=== PATIENT | female | born 1950 | race Caucasian/White ===

== ENCOUNTER 2020-09-20 10:20 | Outpatient (REF) | payer MEDICARE, SELFPAY ==
[2020-09-20 12:26] LABS: MANUAL DIFF FLAG NO
[2020-09-20 12:35] LABS: Basophils Percent Auto 0.2 % (0-2); Hematocrit 39.1 % (37-47); Hemoglobin 11.9 g/dl (12.0-16.0); Imm Gran Abs Auto 0.02 X10*3/uL (0.00-0.03); Imm Gran Pct Auto 0.3 % (0.0-0.4); Lymphocytes Absolute Auto 1.4 X10*3/uL (1.2-4.9); Lymphocytes Percent Auto 23.7 % (20-40); Mean Corpuscular HGB Conc 30.4 g/dl (31.0-35.0); Mean Corpuscular Hemoglobin 24.2 pg (27.0-33.0); Mean Corpuscular Volume 79.6 fL (80-98); Monocytes Absolute Auto 0.4 X10*3/uL (0.1-1.2); Monocytes Percent Auto 5.8 % (2-11); Neutrophils Absolute Auto 4.3 X10*3/uL (2.0-8.3); Platelet Count 413 X10*3/uL (160-400); Red Blood Count 4.91 X10*6/uL (4.20-5.50); Red Cell Distribution Width 14.2 % (11.0-16.0); White Blood Count 6.1 X10*3/uL (4.8-10.8)
[2020-09-20 12:39] LABS: Glucose Urine UA NEG (NEG); Leukocyte Esterase Urine TRACE (NEG); Nitrite Urine NEG (NEG); Urine Blood NEG (NEG); Urine Ketones NEG (NEG); Urine Protein NEG (NEG-TRACE)
[2020-09-20 12:43] LABS: Appearance Urine HAZY; Color Urine YELLOW
[2020-09-20 12:55] LABS: RBC Urine 0 /HPF (0); Renal Epithelial Cells Urine 1+ /LPF; Squamous Epithelial Cell Urine 1+ /LPF
[2020-09-20 13:13] LABS: Alanine Aminotransferase 22 U/L (0-31); Albumin Level 4.6 g/dL (3.5-5.0); Alkaline Phosphatase 51 U/L (39-117); Anion Gap 12 (12-20); Aspartate Amino Transferase 19 U/L (5-31); Bilirubin Total 0.5 mg/dL (0.0-1.0); Blood Urea Nitrogen 17 mg/dL (9-16); Calcium 10.2 mg/dL (8.4-10.2); Carbon Dioxide 29 mmol/L (22-29); Chloride 103 mmol/L (96-108); Cholesterol 170 mg/dL; Estimated Glomerular Filt Rate 59; Glucose Fasting 126 mg/dL (60-99); HDL Cholesterol 74 mg/dL; LDL Cholesterol Calculated 73 mg/dl; Potassium 4.9 mmol/l (3.3-5.1); Sodium 139 mmol/L (135-145); Total Protein 7.1 g/dL (6.5-8.0); Triglycerides 118 mg/dL
[2020-09-20 13:36] LABS: Free T4 (Free Thyroxine) 1.42 ng/dL (0.71-1.85); Thyroid Stimulating Hormone 0.07 uIU/mL (0.32-4.0); Vitamin D 25-OH Total 36.3 ng/mL (>30)
[2020-09-20 13:48] LABS: Folate > 20.0 ng/mL (> or = 4.0); Vitamin B12 759 pg/mL (200-900)
[2020-09-20 14:17] LABS: Creatinine Urine 85.53 mg/dL; Microalbum/Creatinine Ratio Ur 8.1 ug/mg cr
== END 2020-09-20 10:21 | disposition home or self-care (01) ==
LOC: HO.LAB 10:20
PROVIDERS: Visit Provider Internal Medicine
DX: E78.00 Pure hypercholesterolemia, unspecified (principal); E78.5 Hyperlipidemia, unspecified; E11.9 Type 2 diabetes mellitus without complications; I10 Essential (primary) hypertension; E03.9 Hypothyroidism, unspecified; E66.9 Obesity, unspecified; E53.8 Deficiency of other specified B group vitamins; R41.3 Other amnesia; K21.9 Gastro-esophageal reflux disease without esophagitis; L50.1 Idiopathic urticaria; M85.80 Other specified disorders of bone density and structure, unspecified site; E55.9 Vitamin D deficiency, unspecified
CPT/HCPCS: 36415; 80053; 80061; 81001; 82043; 82306; 82607; 82746; 84439; 84443; 85025; 87086

== ENCOUNTER 2020-09-22 13:47 | Outpatient (REF) | payer MEDICARE, SELFPAY ==
--- NOTE | 2020-09-22 13:52 | XR_ITS ---
EXAMINATION: XR HAND, LEFT CLINICAL INFORMATION: Pain COMPARISON: Previous x-ray May 2016 TECHNIQUE: PA, lateral, and oblique views of the left hand. FINDINGS: Bone alignment is normal. No fracture or dislocation is seen. There is mild arthritis at the IP joints and first SENIOR LIVING joint with small osteophytes. No erosions are seen. Bone mineralization is normal. Soft tissues are normal. XR/XR hand LT min 3V IMPRESSION: Mild arthritis at the IP joints and first SENIOR LIVING joint.
== END 2020-09-22 13:48 | disposition home or self-care (01) ==
LOC: HO.XRAY 13:47
PROVIDERS: PCP Internal Medicine; Visit Provider Internal Medicine
DX: M79.642 Pain in left hand (principal); Z91.81 History of falling
CPT/HCPCS: 73130

== ENCOUNTER → 2020-10-13 14:30 | Outpatient (BNVA) | payer MEDICARE, SELFPAY | PROVIDERS: PCP Internal Medicine; Visit Provider Orthopaedic Surgery | DX: M17.12 Unilateral primary osteoarthritis, left knee (principal); Z96.651 Presence of right artificial knee joint | CPT/HCPCS: 20610; 99212; J1040 ==

== ENCOUNTER → 2020-11-10 12:31 | Outpatient (BNVA) | payer MEDICARE, SELFPAY | PROVIDERS: PCP Internal Medicine; Visit Provider Orthopaedic Surgery | DX: M65.331 Trigger finger, right middle finger (principal); R20.0 Anesthesia of skin; R20.2 Paresthesia of skin | CPT/HCPCS: 20550; 99202; J1100 ==

== ENCOUNTER 2020-12-21 09:12 | Outpatient (REF) | payer MEDICARE, SELFPAY ==
[2020-12-21 09:58] LABS: MANUAL DIFF FLAG NO
[2020-12-21 10:01] LABS: Basophils Percent Auto 0.7 % (0-2); Hematocrit 37.4 % (37-47); Hemoglobin 11.3 g/dl (12.0-16.0); Imm Gran Abs Auto 0.02 X10*3/uL (0.00-0.03); Imm Gran Pct Auto 0.5 % (0.0-0.4); Lymphocytes Absolute Auto 1.3 X10*3/uL (1.2-4.9); Lymphocytes Percent Auto 30.5 % (20-40); Mean Corpuscular HGB Conc 30.2 g/dl (31.0-35.0); Mean Corpuscular Hemoglobin 24.5 pg (27.0-33.0); Mean Platelet Volume 10.7 fL (9.4-12.3); Monocytes Absolute Auto 0.5 X10*3/uL (0.1-1.2); Monocytes Percent Auto 11.8 % (2-11); Neutrophils Absolute Auto 2.5 X10*3/uL (2.0-8.3); Neutrophils Percent Auto 56.5 % (45-73); Platelet Count 374 X10*3/uL (160-400); Red Blood Count 4.62 X10*6/uL (4.20-5.50); Red Cell Distribution Width 15.3 % (11.0-16.0); White Blood Count 4.4 X10*3/uL (4.8-10.8)
[2020-12-21 10:01] LABS: Appearance Urine CLEAR; Color Urine YELLOW; Glucose Urine UA NEG (NEG); Leukocyte Esterase Urine TRACE (NEG); Nitrite Urine NEG (NEG); Specific Gravity - Urine 1.015 (1.005-1.025); UACC Culture Trigger YES; Urine Blood NEG (NEG); Urine Ketones NEG (NEG); Urine Protein NEG (NEG-TRACE)
[2020-12-21 10:09] LABS: Bacteria Urine TRACE /LPF; RBC Urine 0 /HPF (0); Renal Epithelial Cells Urine TRACE /LPF; Squamous Epithelial Cell Urine 2+ /LPF; WBC Urine 0-2 /HPF (0-4)
[2020-12-21 10:35] LABS: Alanine Aminotransferase 28 U/L (0-31); Albumin Level 4.4 g/dL (3.5-5.0); Alkaline Phosphatase 53 U/L (39-117); Anion Gap 10 (12-20); Aspartate Amino Transferase 28 U/L (5-31); Bilirubin Total 0.6 mg/dL (0.0-1.0); Blood Urea Nitrogen 12 mg/dL (9-16); Carbon Dioxide 28 mmol/L (22-29); Chloride 108 mmol/L (96-108); Cholesterol 154 mg/dL; Estimated Glomerular Filt Rate > 60; Glucose Fasting 100 mg/dL (60-99); HDL Cholesterol 67 mg/dL; LDL Cholesterol Calculated 61 mg/dl; Potassium 4.4 mmol/L (3.3-5.1); Sodium 142 mmol/L (135-145); Total Protein 6.9 g/dL (6.5-8.0); Triglycerides 133 mg/dL
[2020-12-21 10:43] LABS: Calcium 10.2 mg/dL (8.4-10.2)
[2020-12-21 10:47] LABS: Free T4 (Free Thyroxine) 1.34 ng/dL (0.71-1.85); Thyroid Stimulating Hormone 0.22 uIU/mL (0.32-4.0); Vitamin D 25-OH Total 37.9 ng/mL (>30)
[2020-12-21 11:10] LABS: Folate 18.4 ng/mL (> or = 4.0); Vitamin B12 790 pg/mL (200-900)
== END 2020-12-21 09:13 | disposition home or self-care (01) ==
LOC: HO.LAB 09:12
PROVIDERS: PCP Internal Medicine; Visit Provider Internal Medicine
DX: I10 Essential (primary) hypertension (principal); K21.9 Gastro-esophageal reflux disease without esophagitis; E78.2 Mixed hyperlipidemia; E11.9 Type 2 diabetes mellitus without complications; E03.9 Hypothyroidism, unspecified; E66.9 Obesity, unspecified; E53.8 Deficiency of other specified B group vitamins; E55.9 Vitamin D deficiency, unspecified
CPT/HCPCS: 36415; 80053; 80061; 81001; 81003; 82306; 82607; 82746; 84439; 84443; 85025; 87086

== ENCOUNTER → 2021-01-18 10:46 | Outpatient (BNVA) | payer MEDICARE, SELFPAY | PROVIDERS: PCP Internal Medicine; Visit Provider Orthopaedic Surgery | DX: M65.331 Trigger finger, right middle finger (principal); G56.03 Carpal tunnel syndrome, bilateral upper limbs | CPT/HCPCS: 99212; J1040 ==

== ENCOUNTER 2021-02-09 12:33 | Outpatient (REF) | payer MEDICARE, SELFPAY ==
--- NOTE | ~2021-02-09 | XR_ITS ---
EXAMINATION: LEFT HAND AND LUMBAR SPINE X-RAYS CLINICAL INFORMATION: Pain COMPARISON: Left hand x-ray May 2016 TECHNIQUE: 3 views of the left hand and 3 views of the lumbar spine FINDINGS: Left hand: Alignment is normal. No fracture or dislocation is seen. There is arthritis at the IP joints and first FPC joint with joint space narrowing and osteophyte formation Soft tissues are unremarkable. Lumbar spine: Bone alignment is normal. No fracture or dislocation is seen. There is degenerative disc disease in the lower spine and at T12-L1, L1-L2, L4-L5 and L5-S1. There is lower lumbar spine facet arthritis. XR/XR hand LT 2V IMPRESSION: Left hand: Arthritis at the IP and first FPC joints. Lumbar spine: Multilevel degenerative disc disease and facet arthritis.
--- NOTE | ~2021-02-09 | XR_ITS ---
EXAMINATION: LEFT HAND AND LUMBAR SPINE X-RAYS CLINICAL INFORMATION: Pain COMPARISON: Left hand x-ray May 2016 TECHNIQUE: 3 views of the left hand and 3 views of the lumbar spine FINDINGS: Left hand: Alignment is normal. No fracture or dislocation is seen. There is arthritis at the IP joints and first FDC joint with joint space narrowing and osteophyte formation Soft tissues are unremarkable. Lumbar spine: Bone alignment is normal. No fracture or dislocation is seen. There is degenerative disc disease in the lower spine and at T12-L1, L1-L2, L4-L5 and L5-S1. There is lower lumbar spine facet arthritis. XR/XR lumbar spine 2-3V IMPRESSION: Left hand: Arthritis at the IP and first FDC joints. Lumbar spine: Multilevel degenerative disc disease and facet arthritis.
== END 2021-02-09 12:34 | disposition home or self-care (01) ==
LOC: HO.XRAY 12:33
PROVIDERS: PCP Internal Medicine; Visit Provider Internal Medicine
DX: M54.5 Low back pain (principal)
CPT/HCPCS: 72100; 73120

== ENCOUNTER 2021-03-10 14:24 | Outpatient (REF) | payer MEDICARE, SELFPAY ==
[2021-03-11 12:28] LABS: BV Int Neg Control Negative (Negative); BV Int Pos Control Positive (Positive)
== END 2021-03-10 14:25 | disposition home or self-care (01) ==
LOC: HO.LAB 14:24
PROVIDERS: PCP Internal Medicine; Visit Provider Advanced Practice Midwife
DX: N90.89 Other specified noninflammatory disorders of vulva and perineum (principal); N89.8 Other specified noninflammatory disorders of vagina; Z87.891 Personal history of nicotine dependence
CPT/HCPCS: 87480; 87510; 87660; 99212

== ENCOUNTER 2021-03-21 09:54 | Outpatient (REF) | payer MEDICARE, SELFPAY ==
[2021-03-21 10:30] LABS: MANUAL DIFF FLAG NO
[2021-03-21 10:40] LABS: Basophils Percent Auto 0.7 % (0-2); Hemoglobin 11.2 g/dl (12.0-16.0); Imm Gran Abs Auto 0.01 X10*3/uL (0.00-0.03); Imm Gran Pct Auto 0.2 % (0.0-0.4); Lymphocytes Absolute Auto 1.3 X10*3/uL (1.2-4.9); Lymphocytes Percent Auto 31.4 % (20-40); Mean Corpuscular HGB Conc 29.5 g/dl (31.0-35.0); Mean Corpuscular Hemoglobin 23.5 pg (27.0-33.0); Mean Corpuscular Volume 79.7 fL (80-98); Mean Platelet Volume 10.6 fL (9.4-12.3); Monocytes Absolute Auto 0.5 X10*3/uL (0.1-1.2); Monocytes Percent Auto 10.5 % (2-11); Neutrophils Absolute Auto 2.4 X10*3/uL (2.0-8.3); Neutrophils Percent Auto 57.2 % (45-73); Platelet Count 415 X10*3/uL (160-400); Red Blood Count 4.77 X10*6/uL (4.20-5.50); Red Cell Distribution Width 14.8 % (11.0-16.0); White Blood Count 4.3 X10*3/uL (4.8-10.8)
[2021-03-21 10:55] LABS: Estimated Average Glucose 120 mg/dL; Hemoglobin A1c % 5.8 %
[2021-03-21 11:14] LABS: Alanine Aminotransferase 25 U/L (0-31); Albumin Level 4.4 g/dL (3.5-5.0); Alkaline Phosphatase 57 U/L (39-117); Anion Gap 12 (12-20); Aspartate Amino Transferase 27 U/L (5-31); Bilirubin Total 0.4 mg/dL (0.0-1.0); Blood Urea Nitrogen 13 mg/dL (9-16); Calcium 10.6 mg/dL (8.4-10.2); Carbon Dioxide 28 mmol/L (22-29); Chloride 106 mmol/L (96-108); Cholesterol 152 mg/dL; Estimated Glomerular Filt Rate > 60; Glucose Fasting 103 mg/dL (60-99); HDL Cholesterol 62 mg/dL; LDL Cholesterol Calculated 67 mg/dl; Potassium 4.8 mmol/L (3.3-5.1); Sodium 141 mmol/L (135-145); Total Protein 6.9 g/dL (6.5-8.0); Triglycerides 117 mg/dL
[2021-03-21 11:36] LABS: Free T4 (Free Thyroxine) 1.51 ng/dL (0.71-1.85); Thyroid Stimulating Hormone 0.09 uIU/mL (0.32-4.0); Vitamin D 25-OH Total 42.1 ng/mL (>30)
[2021-03-21 11:41] LABS: Glucose Urine UA NEG (NEG); Leukocyte Esterase Urine 1+ (NEG); Nitrite Urine NEG (NEG); PH 7.5 (5.0-8.0); Specific Gravity - Urine 1.015 (1.005-1.025); UACC Culture Trigger YES; Urine Blood NEG (NEG); Urine Ketones NEG (NEG); Urine Protein NEG (NEG-TRACE)
[2021-03-21 11:53] LABS: Appearance Urine CLEAR; Color Urine YELLOW
[2021-03-21 11:55] LABS: Folate 17.7 ng/mL (> or = 4.0); Vitamin B12 594 pg/mL (200-900)
[2021-03-21 12:29] LABS: RBC Urine 0 /HPF (0); Renal Epithelial Cells Urine 1+ /LPF; Squamous Epithelial Cell Urine 1+ /LPF
[2021-03-21 12:43] LABS: Creatinine Urine 63.85 mg/dL; Microalbumin Urine < 5.0 mg/L
== END 2021-03-21 09:55 | disposition home or self-care (01) ==
LOC: HO.LAB 09:54
PROVIDERS: PCP Internal Medicine; Visit Provider Internal Medicine
DX: E66.9 Obesity, unspecified (principal); E11.9 Type 2 diabetes mellitus without complications; I10 Essential (primary) hypertension; E55.9 Vitamin D deficiency, unspecified; E53.8 Deficiency of other specified B group vitamins; E03.9 Hypothyroidism, unspecified; E78.2 Mixed hyperlipidemia; L50.1 Idiopathic urticaria; K21.9 Gastro-esophageal reflux disease without esophagitis
CPT/HCPCS: 36415; 80053; 80061; 81001; 81003; 82043; 82306; 82607; 82746; 83036; 84439; 84443; 85025; 87086

== ENCOUNTER → 2021-04-25 12:25 | Outpatient (BNVA) | payer MEDICARE, SELFPAY | PROVIDERS: Visit Provider Orthopaedic Surgery | DX: M65.331 Trigger finger, right middle finger (principal); G56.02 Carpal tunnel syndrome, left upper limb; G56.01 Carpal tunnel syndrome, right upper limb | CPT/HCPCS: Q3014 ==

== ENCOUNTER 2021-06-02 10:17 | Day surgery (SDC) | payer MEDICARE, SELFPAY ==
[2021-06-02 10:53] VITALS: BP 138/59; PULSE 61; RESP 18; TEMP 36.4; O2SAT 99
--- NOTE | 2021-06-02 11:13 | MHC.SHP ---
Pre-Procedural Eval Section A Date of Service: 06/02/21 Section B Chief Complaint: Carpal Tunnel Syndrome Allergies: Allergies Allergy/AdvReac Type Severity Reaction Status Date / Time No Known Allergies Allergy Verified 04/25/21 13:29 [No Known Allergies*] Plan I have reviewed the history and physical and performed a pertinent physical examination on my patient. No changes have occurred unless specified.
--- NOTE | 2021-06-02 11:14 | W.PM.OPN ---
Operative Note Operative Note Date of Service: 06/02/21 Narrative: Preop diagnosis: 1. Left Carpal tunnel syndrome Postop diagnosis: same Procedure: 1. Left Carpal tunnel release Surgeon: Loren Diaz MD Anesthesia: local block using 1% lidocaine with epinephrine Findings: Thickened transverse carpal ligament. EBL: Less than 5 mL Specimens: None Complications: None Disposition: Brought to recovery room in stable condition Plan: Follow-up for 7-10 days for wound check and suture removal Indications: The patient is 71 years old, with left carpal tunnel syndrome that has been unresponsive to nonoperative management. The risks and benefits of operative treatment including but not limited to risk of damage to blood vessels, nerves, tendons, infection, persistent pain, persistent symptoms, or possible need for additional surgery were discussed with the patient and the patient wishes to proceed with surgery. Procedure: Once consent was obtained a local block was performed using a combination of 1% lidocaine with epinephrine. The patient was then brought back to the operating suite and placed on the operative table in supine position. A tourniquet was applied to the proximal aspect of the left upper extremity and the limb was prepped and draped in a standard surgical fashion. Once assured that we had a good block, a 1.5 cm longitudinal incision was made centered over the carpal tunnel. The incision was made through the skin to the subcutaneous tissues using a #15 blade. Dissection was made down to the level of the transverse carpal ligament with care being taken to protect the palmar cutaneous nerve. Once the transverse carpal ligament was clearly visualized, a longitudinal incision was made in the transverse carpal ligament 1st using a #15 blade, then using tenotomy scissors under direct visualization. Care was taken to look for and protect the motor branch of the median nerve when seen in this area. Once satisfied with our carpal tunnel release the wound was copiously irrigated with normal saline and hemostasis was obtained with a brief period of local pressure. The skin edges were reapproximated with some 5.0 nylon suture material and a sterile dressing was applied. The patient appears to have tolerated the procedure well and with no complications. All digits were well vascularized at the conclusion of the case.
[2021-06-02 12:24] VITALS: BP 113/52; PULSE 53; RESP 18; TEMP 37.2; O2SAT 98
== END 2021-06-02 13:01 | disposition home or self-care (01) ==
PROVIDERS: PCP Internal Medicine; Visit Provider Orthopaedic Surgery
PROC: (CPT 64721; principal; 2021-06-02 11:30)
DX: G56.02 Carpal tunnel syndrome, left upper limb (principal); I10 Essential (primary) hypertension; E11.9 Type 2 diabetes mellitus without complications; J45.909 Unspecified asthma, uncomplicated; Z79.51 Long term (current) use of inhaled steroids; Z79.84 Long term (current) use of oral hypoglycemic drugs; Z91.81 History of falling; Z87.891 Personal history of nicotine dependence; Z79.899 Other long term (current) drug therapy
CPT/HCPCS: 64721

== ENCOUNTER → 2021-06-13 10:44 | Outpatient (BNVA) | payer MEDICARE, SELFPAY | PROVIDERS: Visit Provider Orthopaedic Surgery | DX: Z48.89 Encounter for other specified surgical aftercare (principal); G56.01 Carpal tunnel syndrome, right upper limb; M65.331 Trigger finger, right middle finger; Z87.39 Personal history of other diseases of the musculoskeletal system and connective tissue | CPT/HCPCS: 99212 ==

== ENCOUNTER 2021-09-22 11:09 | Outpatient (REF) | payer MEDICARE, SELFPAY ==
[2021-09-22 11:40] LABS: MANUAL DIFF FLAG NO
[2021-09-22 11:55] LABS: Hematocrit 40.2 % (37.0-47.0); Hemoglobin 12.2 g/dl (12.0-16.0); Imm Gran Abs Auto 0.01 X10*3/uL (0.00-0.03); Imm Gran Pct Auto 0.2 % (0.0-0.4); Lymphocytes Absolute Auto 1.3 X10*3/uL (1.2-4.9); Lymphocytes Percent Auto 28.2 % (20-40); Mean Corpuscular HGB Conc 30.3 g/dl (31.0-35.0); Mean Corpuscular Hemoglobin 25.2 pg (27.0-33.0); Mean Corpuscular Volume 83.1 fL (80.0-98.0); Monocytes Absolute Auto 0.3 X10*3/uL (0.1-1.2); Monocytes Percent Auto 7.6 % (2-11); Neutrophils Absolute Auto 2.9 x10*3/uL (2.0-8.3); Platelet Count 307 X10*3/uL (160-400); Red Blood Count 4.84 X10*6/uL (4.20-5.50); Red Cell Distribution Width 14.6 % (11.0-16.0); White Blood Count 4.5 X10*3/uL (4.8-10.8)
[2021-09-22 12:12] LABS: Estimated Average Glucose 111 mg/dL; Hemoglobin A1c % 5.5 %
[2021-09-22 12:25] LABS: Alanine Aminotransferase 30 U/L (0-31); Albumin Level 4.5 g/dL (3.5-5.0); Alkaline Phosphatase 47 U/L (39-117); Anion Gap 12 (12-20); Aspartate Amino Transferase 30 U/L (5-31); Bilirubin Total 0.6 mg/dL (0.0-1.0); Blood Urea Nitrogen 12 mg/dL (9-16); Calcium 10.8 mg/dL (8.4-10.2); Carbon Dioxide 26 mmol/L (22-29); Chloride 108 mmol/L (96-108); Cholesterol 150 mg/dL; Estimated Glomerular Filt Rate > 60; Glucose Fasting 94 mg/dL (60-99); HDL Cholesterol 68 mg/dL; LDL Cholesterol Calculated 59 mg/dl; Potassium 4.8 mmol/L (3.3-5.1); Sodium 141 mmol/L (135-145); Total Protein 6.9 g/dL (6.5-8.0); Triglycerides 115 mg/dL
[2021-09-22 12:36] LABS: Appearance Urine CLEAR; Color Urine YELLOW; Glucose Urine UA NEG (NEG); Leukocyte Esterase Urine NEG (NEG); Nitrite Urine NEG (NEG); PH 7.5 (5.0-8.0); Specific Gravity - Urine <= 1.005 (1.005-1.025); Urine Blood NEG (NEG); Urine Ketones NEG (NEG); Urine Protein NEG (NEG-TRACE)
[2021-09-22 12:48] LABS: Free T4 (Free Thyroxine) 1.35 ng/dL (0.71-1.85); Thyroid Stimulating Hormone 0.18 uIU/mL (0.32-4.0)
[2021-09-22 13:14] LABS: Creatinine Urine 29.84 mg/dL; Microalbumin Urine < 5.0 mg/L
== END 2021-09-22 11:10 | disposition home or self-care (01) ==
LOC: HO.LAB 11:09
PROVIDERS: PCP Internal Medicine; Visit Provider Internal Medicine
DX: E11.9 Type 2 diabetes mellitus without complications (principal); I10 Essential (primary) hypertension; E78.2 Mixed hyperlipidemia; E03.9 Hypothyroidism, unspecified; E66.9 Obesity, unspecified; D64.9 Anemia, unspecified; K21.9 Gastro-esophageal reflux disease without esophagitis; L50.1 Idiopathic urticaria
CPT/HCPCS: 36415; 80053; 80061; 81003; 82043; 83036; 84439; 84443; 85025

== ENCOUNTER 2022-03-28 12:49 | Outpatient (REF) | payer OTHER, SELFPAY ==
--- NOTE | ~2022-03-28 | XR_ITS ---
EXAMINATION: XR SHOULDER, RIGHT XR SHOULDER, LEFT CLINICAL INFORMATION: Pain. COMPARISON: Right shoulder radiographs dated 01/01/2012. TECHNIQUE: AP, Grashey, scapular Y, and axillary views of the right and left shoulder. FINDINGS: Right Shoulder: No acute fracture or dislocation. Moderate acromioclavicular joint space narrowing with marginal osteophytes and subacromial spurring, increased when compared to the prior examination. Mild glenohumeral joint space narrowing with small marginal osteophytes, increased when compared to the prior examination. Corticated ossifications adjacent to the greater tuberosity as well as along the superior joint space, likely indicating infraspinatus calcific tendinitis and new when compared to the prior examination. No osseous erosion. Left Shoulder: No acute fracture or dislocation. Moderate acromioclavicular joint space narrowing with marginal osteophytes. Moderate glenohumeral joint space narrowing with marginal osteophytes. No osseous erosion. No abnormal soft tissue calcification. XR/XR shoulder RT min 2V IMPRESSION: Right Shoulder: Moderate acromioclavicular osteoarthritis with subacromial spurring, increased when compared to the prior examination. Mild glenohumeral osteoarthritis, new when compared to the prior examination. Infraspinatus calcific tendinitis, new when compared to the prior examination. Left Shoulder: Moderate acromioclavicular and glenohumeral osteoarthritis.
--- NOTE | ~2022-03-28 | XR_ITS ---
EXAMINATION: XR SHOULDER, RIGHT XR SHOULDER, LEFT CLINICAL INFORMATION: Pain. COMPARISON: Right shoulder radiographs dated 01/01/2012. TECHNIQUE: AP, Grashey, scapular Y, and axillary views of the right and left shoulder. FINDINGS: Right Shoulder: No acute fracture or dislocation. Moderate acromioclavicular joint space narrowing with marginal osteophytes and subacromial spurring, increased when compared to the prior examination. Mild glenohumeral joint space narrowing with small marginal osteophytes, increased when compared to the prior examination. Corticated ossifications adjacent to the greater tuberosity as well as along the superior joint space, likely indicating infraspinatus calcific tendinitis and new when compared to the prior examination. No osseous erosion. Left Shoulder: No acute fracture or dislocation. Moderate acromioclavicular joint space narrowing with marginal osteophytes. Moderate glenohumeral joint space narrowing with marginal osteophytes. No osseous erosion. No abnormal soft tissue calcification. XR/XR shoulder LT min 2V IMPRESSION: Right Shoulder: Moderate acromioclavicular osteoarthritis with subacromial spurring, increased when compared to the prior examination. Mild glenohumeral osteoarthritis, new when compared to the prior examination. Infraspinatus calcific tendinitis, new when compared to the prior examination. Left Shoulder: Moderate acromioclavicular and glenohumeral osteoarthritis.
--- NOTE | ~2022-03-28 | XR_ITS ---
EXAMINATION: XR THORACIC SPINE XR LUMBAR SPINE CLINICAL INFORMATION: Pain. COMPARISON: None TECHNIQUE: AP, lateral, and swimmer's views of the thoracic spine. AP, lateral, and coned-down views of the lumbar spine. FINDINGS: Thoracic Spine: Normal vertebral body alignment. The thoracic kyphosis is maintained. No acute fracture or subluxation. No loss of vertebral body height. Multilevel loss of intervertebral disc height with prominent bridging anterior endplate osteophytes within the midthoracic spine. No concerning lytic or blastic osseous lesion. The visualized lungs are clear. Lumbar Spine: The lumbar lordosis is maintained. Minimal grade 1 retrolisthesis of L2 on L3 and grade 1 anterolisthesis of L4 on L5. No acute fracture. No loss of vertebral body height. Mild multilevel loss of intervertebral disc height with small endplate osteophytes, most prominent at L5-S1. Multilevel bilateral facet arthropathy. No abnormal soft tissue calcification. XR/XR lumbar spine 2-3V IMPRESSION: Thoracic Spine: Moderate multilevel degenerative disc disease. Prominent anterior endplate osteophytes within the midthoracic spine. Lumbar Spine: Moderate multilevel degenerative disc disease and bilateral facet arthropathy, most prominent at L5-S1.
--- NOTE | ~2022-03-28 | XR_ITS ---
EXAMINATION: XR THORACIC SPINE XR LUMBAR SPINE CLINICAL INFORMATION: Pain. COMPARISON: None TECHNIQUE: AP, lateral, and swimmer's views of the thoracic spine. AP, lateral, and coned-down views of the lumbar spine. FINDINGS: Thoracic Spine: Normal vertebral body alignment. The thoracic kyphosis is maintained. No acute fracture or subluxation. No loss of vertebral body height. Multilevel loss of intervertebral disc height with prominent bridging anterior endplate osteophytes within the midthoracic spine. No concerning lytic or blastic osseous lesion. The visualized lungs are clear. Lumbar Spine: The lumbar lordosis is maintained. Minimal grade 1 retrolisthesis of L2 on L3 and grade 1 anterolisthesis of L4 on L5. No acute fracture. No loss of vertebral body height. Mild multilevel loss of intervertebral disc height with small endplate osteophytes, most prominent at L5-S1. Multilevel bilateral facet arthropathy. No abnormal soft tissue calcification. XR/XR thoracic spine 3V IMPRESSION: Thoracic Spine: Moderate multilevel degenerative disc disease. Prominent anterior endplate osteophytes within the midthoracic spine. Lumbar Spine: Moderate multilevel degenerative disc disease and bilateral facet arthropathy, most prominent at L5-S1.
== END 2022-03-28 12:50 | disposition home or self-care (01) ==
LOC: HO.XRAY 12:49
PROVIDERS: PCP Internal Medicine; Visit Provider Nurse Practitioner Family
DX: M25.511 Pain in right shoulder (principal); M25.512 Pain in left shoulder; M54.50 Low back pain, unspecified; M54.9 Dorsalgia, unspecified
CPT/HCPCS: 72072; 72100; 73030

== ENCOUNTER 2022-04-01 10:16 | Outpatient (REF) | payer OTHER, SELFPAY ==
[2022-04-01 10:37] LABS: MANUAL DIFF FLAG NO
[2022-04-01 11:17] LABS: Hematocrit 39.6 % (37.0-47.0); Hemoglobin 11.8 g/dl (12.0-16.0); Imm Gran Abs Auto 0.01 X10*3/uL (0.00-0.03); Imm Gran Pct Auto 0.3 % (0.0-0.4); Lymphocytes Absolute Auto 1.5 X10*3/uL (1.2-4.9); Lymphocytes Percent Auto 39.5 % (20-40); Mean Corpuscular HGB Conc 29.8 g/dl (31.0-35.0); Mean Corpuscular Hemoglobin 24.6 pg (27.0-33.0); Mean Corpuscular Volume 82.7 fL (80.0-98.0); Mean Platelet Volume 10.2 fL (9.4-12.3); Monocytes Absolute Auto 0.3 X10*3/uL (0.1-1.2); Monocytes Percent Auto 8.9 % (2-11); Neutrophils Percent Auto 51.3 % (45-73); Platelet Count 332 X10*3/uL (160-400); Red Blood Count 4.79 X10*6/uL (4.20-5.50); Red Cell Distribution Width 13.9 % (11.0-16.0); White Blood Count 3.8 X10*3/uL (4.8-10.8)
[2022-04-01 11:23] LABS: Estimated Average Glucose 117 mg/dL; Hemoglobin A1c % 5.7 %
[2022-04-01 11:45] LABS: Alanine Aminotransferase 20 U/L (0-31); Albumin Level 4.1 g/dL (3.5-5.0); Alkaline Phosphatase 46 U/L (39-117); Anion Gap 12 (12-20); Aspartate Amino Transferase 20 U/L (5-31); Bilirubin Total 0.5 mg/dL (0.0-1.0); Blood Urea Nitrogen 14 mg/dL (9-16); Calcium 10.8 mg/dL (8.4-10.2); Carbon Dioxide 24 mmol/L (22-29); Chloride 109 mmol/L (96-108); Cholesterol 146 mg/dL; Estimated Glomerular Filt Rate 53; Glucose Fasting 84 mg/dL (60-99); HDL Cholesterol 58 mg/dL; LDL Cholesterol Calculated 63 mg/dl; Sodium 140 mmol/L (135-145); Total Protein 6.6 g/dL (6.5-8.0); Triglycerides 125 mg/dL
[2022-04-01 12:07] LABS: TSH reflex Free T4 0.23 uIU/mL (0.32-4.0); Vitamin D 25-OH Total 32.3 ng/mL (>30)
[2022-04-01 12:52] LABS: Free T4 (Free Thyroxine) 1.32 ng/dL (0.71-1.85)
== END 2022-04-01 10:17 | disposition home or self-care (01) ==
LOC: HO.LAB 10:16
PROVIDERS: Absent Provider Nurse Practitioner Family; PCP Internal Medicine; Visit Provider Internal Medicine
DX: E11.9 Type 2 diabetes mellitus without complications (principal); I10 Essential (primary) hypertension; M54.50 Low back pain, unspecified; E78.00 Pure hypercholesterolemia, unspecified; E55.9 Vitamin D deficiency, unspecified
CPT/HCPCS: 36415; 80048; 80053; 80061; 82306; 83036; 84439; 84443; 85025

== ENCOUNTER 2022-04-04 12:38 | Outpatient (REF) | payer OTHER, SELFPAY ==
[2022-04-04 13:29] LABS: Appearance Urine CLOUDY; Color Urine YELLOW; Glucose Urine UA NEG (NEG); Leukocyte Esterase Urine 2+ (NEG); Nitrite Urine POS (NEG); UACC Culture Trigger YES; Urine Blood NEG (NEG); Urine Ketones NEG (NEG); Urine Protein NEG (NEG-TRACE)
[2022-04-04 13:38] LABS: Squamous Epithelial Cell Urine 1+ /LPF
[2022-04-04 13:39] LABS: Bacteria Urine 3+ /LPF; RBC Urine 0 /HPF (0)
[2022-04-04 13:40] LABS: Creatinine Urine 55.44 mg/dL; Microalbum/Creatinine Ratio Ur 54.1 ug/mg cr
== END 2022-04-04 12:39 | disposition home or self-care (01) ==
LOC: HO.LNP 12:38
PROVIDERS: Visit Provider Internal Medicine
DX: E11.9 Type 2 diabetes mellitus without complications (principal); I10 Essential (primary) hypertension; R82.90 Unspecified abnormal findings in urine
CPT/HCPCS: 81001; 81003; 82043; 87086; 87088; 87186

== ENCOUNTER → 2022-04-06 14:34 | Outpatient (BNVA) | payer OTHER, SELFPAY | PROVIDERS: PCP Internal Medicine; Visit Provider Orthopaedic Surgery | DX: M25.511 Pain in right shoulder (principal); M25.512 Pain in left shoulder | CPT/HCPCS: 99202 ==

== ENCOUNTER 2022-07-14 10:06 | Outpatient (REF) | payer OTHER, SELFPAY ==
[2022-07-14 11:15] LABS: Appearance Urine Clear; Color Urine Yellow; Glucose Urine UA Negative (Negative); Leukocyte Esterase Urine Large (3+) (Negative); Nitrite Urine Negative (Negative); Specific Gravity - Urine <= 1.005 (1.005-1.025); Urine Blood Negative (Negative); Urine Ketones Negative (Negative); Urine Protein Negative (Neg-Trace)
[2022-07-14 11:23] LABS: Bacteria Urine Trace (None Seen); Hyaline Casts Urine 0-2 /LPF (0-2); RBC Urine 0-2 /HPF (0-2); Squamous Epithelial Cell Urine 0-2 /HPF (0-2); UACC Culture Trigger YES; WBC Urine >50 /HPF (0-5)
== END 2022-07-14 10:07 | disposition home or self-care (01) ==
LOC: HO.LAB 10:06
PROVIDERS: PCP Internal Medicine; Visit Provider Internal Medicine
DX: I10 Essential (primary) hypertension (principal)
CPT/HCPCS: 81001; 87086; 87088; 87147; 87186

== ENCOUNTER 2022-10-20 10:11 | Outpatient (REF) | payer OTHER, SELFPAY ==
[2022-10-20 14:30] LABS: Alanine Aminotransferase 29 U/L (0-31); Albumin Level 4.3 g/dL (3.5-5.0); Alkaline Phosphatase 48 U/L (39-117); Anion Gap 11 (12-20); Aspartate Amino Transferase 37 U/L (5-31); Bilirubin Total 0.6 mg/dL (0.0-1.0); Blood Urea Nitrogen 15 mg/dL (9-16); Calcium 10.9 mg/dL (8.4-10.2); Carbon Dioxide 27 mmol/L (22-29); Chloride 107 mmol/L (96-108); Cholesterol 134 mg/dL; Estimated Glomerular Filt Rate 56; Glucose Random 84 mg/dL (60-115); HDL Cholesterol 55 mg/dL; LDL Cholesterol Calculated 55 mg/dl; Sodium 140 mmol/L (135-145); TSH reflex Free T4 0.21 uIU/mL (0.32-4.0); Total Protein 6.6 g/dL (6.5-8.0); Triglycerides 122 mg/dL
[2022-10-20 16:19] LABS: Free T4 (Free Thyroxine) 1.37 ng/dL (0.71-1.85)
== END 2022-10-20 10:12 | disposition home or self-care (01) ==
LOC: HO.LAB 10:11
PROVIDERS: PCP Internal Medicine; Visit Provider Nurse Practitioner Family
DX: E78.2 Mixed hyperlipidemia (principal); E03.9 Hypothyroidism, unspecified; E11.9 Type 2 diabetes mellitus without complications
CPT/HCPCS: 36415; 80053; 80061; 84439; 84443

== ENCOUNTER 2022-10-23 10:12 | Outpatient (REF) | payer OTHER, SELFPAY ==
[2022-10-23 10:56] LABS: Appearance Urine Cloudy; Color Urine Yellow; Glucose Urine UA Negative (Negative); Leukocyte Esterase Urine Large (3+) (Negative); Nitrite Urine Negative (Negative); PH 6.5 (5.0-9.0); UMIC TRIGGER UACC YES; Urine Blood Negative (Negative); Urine Ketones Negative (Negative); Urine Protein Negative (Neg-Trace)
[2022-10-23 11:01] LABS: Bacteria Urine 4+ (None Seen); Hyaline Casts Urine 0-2 /LPF (0-2); RBC Urine 0-2 /HPF (0-2); Squamous Epithelial Cell Urine 0-2 /HPF (0-2); UACC Culture Trigger YES; WBC Urine >50 /HPF (0-5)
== END 2022-10-23 10:13 | disposition home or self-care (01) ==
LOC: HO.LNP 10:12
PROVIDERS: Visit Provider Internal Medicine
DX: I10 Essential (primary) hypertension (principal)
CPT/HCPCS: 81001; 87086; 87088; 87186

== ENCOUNTER 2022-11-01 12:33 | Outpatient (REF) | payer OTHER, SELFPAY | END 2022-11-01 12:34 | disposition home or self-care (01) | LOC: HO.HOSX 12:33 | PROVIDERS: Visit Provider Orthopaedic Surgery | DX: Z13.89 Encounter for screening for other disorder (principal) ==

== ENCOUNTER 2022-11-02 16:58 | Outpatient (REF) | payer OTHER, SELFPAY ==
--- NOTE | ~2022-11-02 | XR_ITS ---
EXAMINATION: AP BILATERAL KNEE. LEFT KNEE 2 VIEWS. CLINICAL INFORMATION: Pain bilateral knee. COMPARISON: None TECHNIQUE: AP bilateral knee standing. Left knee 2 views. FINDINGS: AP BILATERAL KNEE: There is a total right knee arthroplasty with prosthetic components in satisfactory alignment. There is moderate reduction in medial and mild reduction lateral compartment joint space with lateral compartment periarticular spurring. No visible acute fracture or dislocation seen. The soft tissues are normal. LEFT KNEE: There is moderate loss of patellofemoral compartment joint space with periarticular spurring. No visible acute fracture or dislocation seen. No suprapatellar joint effusion suspected. XR/XR knee standing BI IMPRESSION: Total right knee arthroplasty in satisfactory alignment. Moderate degenerative arthritis of the medial and patellofemoral compartments and minimal lateral compartment periarticular spurring. No fracture or loose body seen.
--- NOTE | ~2022-11-02 | XR_ITS ---
EXAMINATION: AP BILATERAL KNEE. LEFT KNEE 2 VIEWS. CLINICAL INFORMATION: Pain bilateral knee. COMPARISON: None TECHNIQUE: AP bilateral knee standing. Left knee 2 views. FINDINGS: AP BILATERAL KNEE: There is a total right knee arthroplasty with prosthetic components in satisfactory alignment. There is moderate reduction in medial and mild reduction lateral compartment joint space with lateral compartment periarticular spurring. No visible acute fracture or dislocation seen. The soft tissues are normal. LEFT KNEE: There is moderate loss of patellofemoral compartment joint space with periarticular spurring. No visible acute fracture or dislocation seen. No suprapatellar joint effusion suspected. XR/XR knee LT 2V IMPRESSION: Total right knee arthroplasty in satisfactory alignment. Moderate degenerative arthritis of the medial and patellofemoral compartments and minimal lateral compartment periarticular spurring. No fracture or loose body seen.
== END 2022-11-02 16:59 | disposition home or self-care (01) ==
LOC: HO.HOSX 16:58
PROVIDERS: Visit Provider Orthopaedic Surgery
DX: M17.12 Unilateral primary osteoarthritis, left knee (principal); M54.16 Radiculopathy, lumbar region
CPT/HCPCS: 20610; 73560; 73565; 99212; J1100

== ENCOUNTER → 2023-01-01 14:12 | Outpatient (REF) | payer OTHER, SELFPAY ==
--- NOTE | 2023-01-01 14:18 | ECG_ITS ---
Test Reason : chest pain Blood Pressure : / mmHG Vent. Rate : 062 BPM Atrial Rate : 062 BPM P-R Int : 106 ms QRS Dur : 086 ms QT Int : 372 ms P-R-T Axes : 045 001 068 degrees QTc Int : 377 ms Sinus rhythm with short VT Otherwise normal ECG When compared with ECG of 12-JAN-2020 13:50, No significant change was found Referred By: Dawna Knapp Electronically Signed By:NIMCO URBINA MD
== END ==
LOC: HO.CARD 14:12
PROVIDERS: PCP Internal Medicine; Visit Provider Nurse Practitioner Family
DX: R07.9 Chest pain, unspecified (principal)
CPT/HCPCS: 93005

== ENCOUNTER 2023-01-25 10:09 | Outpatient (REF) | payer OTHER, SELFPAY ==
[2023-01-25 10:35] LABS: MANUAL DIFF FLAG NO
[2023-01-25 10:41] LABS: Basophils Percent Auto 0.3 % (0-2); Hematocrit 38.4 % (37.0-47.0); Hemoglobin 11.7 g/dl (12.0-16.0); Imm Gran Abs Auto 0.01 X10*3/uL (0.00-0.03); Imm Gran Pct Auto 0.3 % (0.0-0.4); Lymphocytes Absolute Auto 1.3 X10*3/uL (1.2-4.9); Lymphocytes Percent Auto 33.4 % (20-40); Mean Corpuscular HGB Conc 30.5 g/dl (31.0-35.0); Mean Corpuscular Hemoglobin 25.3 pg (27.0-33.0); Mean Corpuscular Volume 82.9 fL (80.0-98.0); Mean Platelet Volume 9.1 fL (9.4-12.3); Monocytes Absolute Auto 0.4 X10*3/uL (0.1-1.2); Monocytes Percent Auto 9.5 % (2-11); Neutrophils Absolute Auto 2.2 x10*3/uL (2.0-8.3); Neutrophils Percent Auto 56.5 % (45-73); Platelet Count 303 X10*3/uL (160-400); Red Blood Count 4.63 X10*6/uL (4.20-5.50); Red Cell Distribution Width 14.2 % (11.0-16.0); White Blood Count 3.9 X10*3/uL (4.8-10.8)
[2023-01-25 11:15] LABS: Alanine Aminotransferase 27 U/L (0-31); Albumin Level 4.1 g/dL (3.5-5.0); Alkaline Phosphatase 39 U/L (39-117); Anion Gap 11 (12-20); Aspartate Amino Transferase 26 U/L (5-31); Bilirubin Total 0.4 mg/dL (0.0-1.0); Blood Urea Nitrogen 12 mg/dL (9-16); Calcium 10.1 mg/dL (8.4-10.2); Carbon Dioxide 27 mmol/L (22-29); Chloride 110 mmol/L (96-108); Cholesterol 149 mg/dL; Estimated Glomerular Filt Rate > 60; Glucose Fasting 101 mg/dL (60-99); HDL Cholesterol 56 mg/dL; LDL Cholesterol Calculated 66 mg/dl; Potassium 4.6 mmol/L (3.3-5.1); Sodium 143 mmol/L (135-145); Total Protein 6.3 g/dL (6.5-8.0); Triglycerides 136 mg/dL
[2023-01-25 11:37] LABS: Free T4 (Free Thyroxine) 1.67 ng/dL (0.71-1.85); Thyroid Stimulating Hormone 0.13 uIU/mL (0.32-4.0); Vitamin D 25-OH Total 45.4 ng/mL (>30)
[2023-01-25 11:48] LABS: Estimated Average Glucose 123 mg/dL; Hemoglobin A1c % 5.9 %
[2023-01-25 12:27] LABS: Appearance Urine Clear; Color Urine Yellow; Glucose Urine UA Negative (Negative); Leukocyte Esterase Urine Moderate (2+) (Negative); Nitrite Urine Negative (Negative); Specific Gravity - Urine 1.015 (1.005-1.025); UMIC TRIGGER UACC YES; Urine Blood Negative (Negative); Urine Ketones Negative (Negative); Urine Protein Negative (Neg-Trace)
[2023-01-25 12:36] LABS: Bacteria Urine None Seen (None Seen); Hyaline Casts Urine 0-2 /LPF (0-2); RBC Urine 0-2 /HPF (0-2); WBC Urine 0-5 /HPF (0-5)
[2023-01-25 12:59] LABS: Microalbum/Creatinine Ratio Ur 9.6 ug/mg cr
== END 2023-01-25 10:10 | disposition home or self-care (01) ==
LOC: HO.LAB 10:09
PROVIDERS: PCP Internal Medicine; Visit Provider Internal Medicine
DX: E78.00 Pure hypercholesterolemia, unspecified (principal); E03.9 Hypothyroidism, unspecified; E55.9 Vitamin D deficiency, unspecified; E11.9 Type 2 diabetes mellitus without complications; I10 Essential (primary) hypertension
CPT/HCPCS: 36415; 80053; 80061; 81001; 82043; 82306; 83036; 84439; 84443; 85025

== ENCOUNTER → 2023-02-15 13:34 | Outpatient (BNVA) | payer OTHER, SELFPAY | PROVIDERS: PCP Internal Medicine; Visit Provider Orthopaedic Surgery | DX: M75.51 Bursitis of right shoulder (principal); M19.011 Primary osteoarthritis, right shoulder; M19.012 Primary osteoarthritis, left shoulder | CPT/HCPCS: 20610; 99212; J1100 ==

== ENCOUNTER 2023-03-06 11:26 | Emergency (ER) | payer OTHER, SELFPAY ==
--- NOTE | ~2023-03-06 | CT_ITS ---
EXAMINATION: CT HEAD WITHOUT CONTRAST CLINICAL INFORMATION: Syncope with fall. COMPARISON: None available. TECHNIQUE: Contiguous axial imaging was performed from the skull base to vertex without intravenous administration of contrast. This CT examination was performed using dose optimization techniques as appropriate, variously including the following: *Automated exposure control *Adjustment of mA and/or kV according to patient size (this includes techniques or standardized protocols for targeted exams where dose is matched to indication/reason for exam; i.e. extremities or head) *Use of iterative reconstruction technique DLP: 603 mGy-cm FINDINGS: There is mild widening of the cortical sulci and associated ventriculomegaly. The lateral ventricles are symmetrical. The third and fourth ventricles are in their normal midline position. The basilar and prepontine cisterns are unremarkable. Mild periventricular microvascular changes are seen. There is no acute intra or extracerebral abnormality. There is no mass effect or midline shift. Sections through the bony calvarium are unremarkable. The orbits are intact. The paranasal sinuses are clear. The mastoid air cells are clear. Incidental right globe prosthesis in place. CT/CT head/brain wo IV con IMPRESSION: No acute intracranial pathology.
--- NOTE | ~2023-03-06 | CT_ITS ---
EXAMINATION: CT CERVICAL SPINE WITHOUT CONTRAST CLINICAL INFORMATION: Syncope with fall. COMPARISON: None available. TECHNIQUE: Multiple axial images of the cervical spine were obtained without the administration of intravenous contrast. Coronal and sagittal reformatted images were obtained. This CT examination was performed using dose optimization techniques as appropriate, variously including the following: *Automated exposure control *Adjustment of mA and/or kV according to patient size (this includes techniques or standardized protocols for targeted exams where dose is matched to indication/reason for exam; i.e. extremities or head) *Use of iterative reconstruction technique DLP: 430.32 mGy-cm FINDINGS: There is mild straightening of the normal cervical lordosis. The vertebral bodies are intact is no acute fracture. Mild to moderate multilevel degenerative changes are seen with mild joint space narrowing and mild to moderate multilevel marginal osteophyte formation. There is mild grade 1 anterolisthesis of C3 over C4 with mild bilateral neural foraminal narrowing. Mild to moderate multilevel bilateral facet arthropathy is seen. The odontoid process is intact with moderate articulating degenerative changes. The spinous processes are intact. The cervical soft tissues are unremarkable. There is no lymphadenopathy. The thyroid gland is unremarkable. The visualized lung apices CT/CT cervical spine wo IV con IMPRESSION: 1. Mild straightening of the normal cervical lordosis may be secondary to positioning and/or muscle spasm. 2. Mild to moderate multilevel degenerative changes without acute abnormality.
[2023-03-06 11:39] VITALS: BP 102/59; PULSE 49; RESP 18; TEMP 37; O2SAT 100; BMI 32.9
--- NOTE | 2023-03-06 11:40 | ED.SYNCOPE ---
HPI - Syncope General Chief Complaint: Syncope Stated Complaint: Fall this AM/ HBS 263 Related Data Home Medications Medication Instructions Recorded Confirmed bisacodyl 5 mg tablet,delayed 10 mg PO BEDTIME 09/22/20 01/26/23 release (Dulcolax (bisacodyl)) omalizumab 150 mg/mL subcutaneous mg subcut 09/22/20 12/11/22 syringe turmeric 500 mg-black pepper 1 cap PO DAILY 09/22/20 12/11/22 extract 3 mg capsule Previous Rx's Medication Instructions Recorded cyanocobalamin (vitamin B-12) 1,000 mcg PO DAILY #90 tabs 11/15/20 1,000 mcg tablet lancets (SpikeSourceTouch UltraSoft #100 ea 03/11/21 Lancets) montelukast 10 mg tablet 10 mg PO BEDTIME #90 tabs 08/11/21 nabumetone 500 mg tablet 500 mg PO BID #20 tabs 03/27/22 hydrocortisone 2.5 % topical cream 1 appl topical BID PRN skin 06/22/22 irritation #20 grams cholecalciferol (vitamin D3) 25 25 mcg PO DAILY #90 caps 07/18/22 mcg (1,000 unit) capsule prednisone 10 mg tablet 10 mg PO DAILY PRN rash #10 tabs 07/21/22 fexofenadine 180 mg tablet 180 mg PO DAILY #30 tabs 08/14/22 calcium carbonate 500 mg-vitamin 1 tab PO BID #180 tabs 10/03/22 D3 10 mcg (400 unit) tablet (Calcium 500 With D) metformin 500 mg tablet 500 mg PO TID #270 tabs 10/03/22 simvastatin 40 mg tablet 40 mg PO DAILY #90 tabs 10/03/22 Ventolin HFA 90 mcg/actuation 2 puff inhalation Q6H PRN 10/09/22 aerosol inhaler (albuterol sulfate) shortness of breath or wheezing 30 days #18 grams levothyroxine 112 mcg tablet 112 mcg PO DAILY 90 days #90 tabs 12/29/22 blood sugar diagnostic (SpikeSourceTouch 50 strip miscellaneous BID #100 01/22/23 Verio test strips) strips ascorbic acid (vitamin C) 500 mg 500 mg PO DAILY #90 tabs 02/01/23 tablet (Vitamin C) betamethasone valerate 0.1 % 1 appl topical BID PRN skin 02/01/23 topical cream irritation 30 days #45 grams fenofibrate nanocrystallized 145 145 mg PO DAILY #90 tabs 02/01/23 mg tablet tizanidine 2 mg tablet 2 mg PO BEDTIME PRN muscle 02/26/23 spasticity #30 tabs Allergies Allergy/AdvReac Type Severity Reaction Status Date / Time No Known Allergies Allergy Verified 03/06/23 11:39 [No Known Allergies*] PMFSH Past Medical History Medical History Acquired hypothyroidism Anemia Asthma Benign essential hypertension Carpal tunnel syndrome, bilateral Chronic idiopathic urticaria Diabetes mellitus Diabetes mellitus without complication Dizziness Frequent falls Left hand pain Lumbar back pain with radiculopathy affecting right lower extremity Memory impairment Mixed hyperlipidemia Obesity (BMI 30-39.9) Osteoarthritis of both hands Osteopenia Primary osteoarthritis of both knees Status post fall Vitamin B12 deficiency Vitamin D deficiency Surgical History History of total right knee replacement (~2012) Hx of section Status post carpal tunnel release (~06/02/21) Tubal ligation status Family History Family History Father No problems noted. Mother Diabetes mellitus Cardiovascular disease Social History Social History Housing: Apartment Alcohol intake: never Patient Tobacco Use Status: Former Tobacco user e-Cigarette/Vaping Use: Never Used Second Hand Smoke Exposure: No service: No Current occupational status: disabled Cognitive needs: Yes (cane ) Hearing needs: No Vision needs: Yes (glasses ) Physical Exam Vital Signs: Vital Signs: Last Vital Signs Temp 98.6 F 03/06/23 11:39 Pulse 49 L 03/06/23 11:39 Resp 18 03/06/23 11:39 BP 102/59 L 03/06/23 11:39 Pulse Ox 100 03/06/23 11:39 O2 Del Method Room Air 03/06/23 11:39 BMI result Body Mass Index 32.9 Course Course Course Narrative: RME - 72 yo [place]cuad[place] speaking female with history of DM, asthma, anemia, hypothyroidismn, HTN, HLD, OA who presents to the ER for evaluation of an unwtinessed syncopal episode at home this morning. She told her daughter that she passed out and fell to the floor as she was getting ready to eat breakfast and check her sugar before she ate. BG 263. Thinks LOC was brief. Not on anticoagulation. Fell to her knees, denies hitting her head or sustaining any injuries. Still feels weak, has chills. HR 40-50s in triage. Plan: EKG now, lab workup, CT head/c-spine given age Reevaluation(s) Reevaluation #1: patient eloped from the emergency department prior to full evaluation/treatment. Medical Decision Making Lab Data 03/06/23 13:54 03/06/23 13:54 Labs: Lab Results 03/06/23 03/06/23 03/06/23 Range/Units 12:49 13:54 13:54 WBC 7.5 (4.8-10.8) X10*3/uL RBC 4.86 (4.20-5.50) X10*6/uL Hgb 12.1 (12.0-16.0) g/dl Hct 39.2 (37.0-47.0) % MCV 80.7 (80.0-98.0) fL MCH 24.9 L (27.0-33.0) pg MCHC 30.9 L (31.0-35.0) g/dl RDW 13.6 (11.0-16.0) % Plt Count 329 (160-400) X10*3/uL MPV 9.4 (9.4-12.3) fL Immature Gran % (Auto) 0.4 (0.0-0.4) % Neut % (Auto) 74.1 H (45-73) % Lymph % (Auto) 18.0 L (20-40) % Williamson % (Auto) 7.4 (2-11) % Eos % (Auto) 0.0 (0-4) % Baso % (Auto) 0.1 (0-2) % Lymph # (Auto) 1.3 (1.2-4.9) X10*3/uL Williamson # (Auto) 0.6 (0.1-1.2) X10*3/uL Eos # (Auto) 0.0 (0.0-0.4) X10*3/uL Baso # (Auto) 0.0 (0.0-0.2) X10*3/uL Abs Immat Gran (auto) 0.03 (0.00-0.03) X10*3/uL Absolute Neuts (auto) 5.5 (2.0-8.3) x10*3/uL Absolute Nucleated RBC 0.000 (0.0-0.012) X10*3/uL Nucleated RBC % (auto) 0.0 (0.0-0.2) /100WBC PT 10.3 (10.0-13.1) SEC INR 0.9 (0.9-1.1) APTT 29.9 (26.0-36.4) SEC Sodium (135-145) mmol/L Potassium (3.3-5.1) mmol/L Chloride (96-108) mmol/L Carbon Dioxide (22-29) mmol/L Anion Gap (12-20) BUN (9-16) mg/dL Creatinine (0.5-1.4) mg/dL Estim Creat Clear Calc Estimated GFR Random Glucose (60-115) mg/dL Calcium (8.4-10.2) mg/dL Magnesium (1.6-2.6) mg/dL Total Bilirubin (0.0-1.0) mg/dL Direct Bilirubin (0.0-0.5) mg/dL AST (5-31) U/L ALT (0-31) U/L Alkaline Phosphatase (39-117) U/L Troponin I High Sens (<3.5-17.0) ng/L Total Protein (6.5-8.0) g/dL Albumin (3.5-5.0) g/dL TSH (0.32-4.0) uIU/mL Free T4 (0.71-1.85) ng/dL Urine Color Dark Yellow Urine Appearance Cloudy Urine pH 5.0 (5.0-9.0) Ur Specific Ferguson >= 1.030 H (1.005-1.025) Urine Protein 30 (1+) H (Neg-Trace) mg/dL Urine Glucose (UA) Negative (Negative) mg/dL Urine Ketones Trace (Negative) mg/dL Urine Blood Negative (Negative) Urine Nitrite Negative (Negative) Ur Leukocyte Esterase Small (1+) H (Negative) Urine RBC 3-5 H (0-2) /HPF Urine WBC 0-5 (0-5) /HPF Ur Squamous Epith Cells 11-20 (0-2) /HPF Urine Bacteria None Seen (None Seen) Hyaline Casts 11-20 (0-2) /LPF 03/06/23 03/06/23 03/06/23 Range/Units 13:54 13:54 13:54 WBC (4.8-10.8) X10*3/uL RBC (4.20-5.50) X10*6/uL Hgb (12.0-16.0) g/dl Hct (37.0-47.0) % MCV (80.0-98.0) fL MCH (27.0-33.0) pg MCHC (31.0-35.0) g/dl RDW (11.0-16.0) % Plt Count (160-400) X10*3/uL MPV (9.4-12.3) fL Immature Gran % (Auto) (0.0-0.4) % Neut % (Auto) (45-73) % Lymph % (Auto) (20-40) % Williamson % (Auto) (2-11) % Eos % (Auto) (0-4) % Baso % (Auto) (0-2) % Lymph # (Auto) (1.2-4.9) X10*3/uL Williamson # (Auto) (0.1-1.2) X10*3/uL Eos # (Auto) (0.0-0.4) X10*3/uL Baso # (Auto) (0.0-0.2) X10*3/uL Abs Immat Gran (auto) (0.00-0.03) X10*3/uL Absolute Neuts (auto) (2.0-8.3) x10*3/uL Absolute Nucleated RBC (0.0-0.012) X10*3/uL Nucleated RBC % (auto) (0.0-0.2) /100WBC PT (10.0-13.1) SEC INR (0.9-1.1) APTT (26.0-36.4) SEC Sodium 139 (135-145) mmol/L Potassium 4.6 (3.3-5.1) mmol/L Chloride 110 H (96-108) mmol/L Carbon Dioxide 23 (22-29) mmol/L Anion Gap 11 L (12-20) BUN 14 (9-16) mg/dL Creatinine 0.79 (0.5-1.4) mg/dL Estim Creat Clear Calc 54.7 Estimated GFR > 60 Random Glucose 83 (60-115) mg/dL Calcium 10.5 H (8.4-10.2) mg/dL Magnesium 1.8 (1.6-2.6) mg/dL Total Bilirubin 0.5 (0.0-1.0) mg/dL Direct Bilirubin 0.2 (0.0-0.5) mg/dL AST 23 (5-31) U/L ALT 22 (0-31) U/L Alkaline Phosphatase 41 (39-117) U/L Troponin I High Sens 8.0 (<3.5-17.0) ng/L Total Protein 6.4 L (6.5-8.0) g/dL Albumin 4.1 (3.5-5.0) g/dL TSH 0.08 L (0.32-4.0) uIU/mL Free T4 1.34 (0.71-1.85) ng/dL Urine Color Urine Appearance Urine pH (5.0-9.0) Ur Specific Ferguson (1.005-1.025) Urine Protein (Neg-Trace) mg/dL Urine Glucose (UA) (Negative) mg/dL Urine Ketones (Negative) mg/dL Urine Blood (Negative) Urine Nitrite (Negative) Ur Leukocyte Esterase (Negative) Urine RBC (0-2) /HPF Urine WBC (0-5) /HPF Ur Squamous Epith Cells (0-2) /HPF Urine Bacteria (None Seen) Hyaline Casts (0-2) /LPF Discharge Plan Discharge Clinical Impression: Syncope Patient Disposition: Elopement Prescriptions: No Action cyanocobalamin (vitamin B-12) 1,000 mcg tablet 1,000 mcg PO DAILY Qty: 90 3RF (DME) lancets [OneTouch UltraSoft Lancets] Misc See Rx Instructions .ROUTE .MEDSUPPLY Qty: 100 0RF Rx Instructions: As directed- In Vitro twice a day montelukast 10 mg tablet 10 mg PO BEDTIME Qty: 90 2RF cholecalciferol (vitamin D3) 25 mcg (1,000 unit) capsule 25 mcg PO DAILY Qty: 90 3RF fexofenadine 180 mg tablet 180 mg PO DAILY Qty: 30 3RF calcium carbonate-vitamin D3 [Calcium 500 With D] 500 mg-10 mcg (400 unit) tablet 1 tab PO BID Qty: 180 3RF metformin 500 mg tablet 500 mg PO TID Qty: 270 3RF simvastatin 40 mg tablet 40 mg PO DAILY Qty: 90 3RF albuterol sulfate [Ventolin HFA] 90 mcg/actuation HFA aerosol inhaler 2 puff inhalation Q6H PRN (Reason: shortness of breath or wheezing) 30 Days Qty: 18 1RF levothyroxine 112 mcg tablet 112 mcg PO DAILY 90 Days Qty: 90 1RF OneTouch Verio test strips Strip 50 strip miscellaneous BID Qty: 100 12RF betamethasone valerate 0.1 % cream 1 appl topical BID PRN (Reason: skin irritation) 30 Days Qty: 45 1RF fenofibrate nanocrystallized 145 mg tablet 145 mg PO DAILY Qty: 90 2RF ascorbic acid (vitamin C) [Vitamin C] 500 mg tablet 500 mg PO DAILY Qty: 90 3RF tizanidine 2 mg tablet 2 mg PO BEDTIME PRN (Reason: muscle spasticity) Qty: 30 0RF Xolair 150 mg/mL syringe subcut turmeric-turmeric ext-pepper 500-3 mg capsule 1 cap PO DAILY bisacodyl [Dulcolax (bisacodyl)] 5 mg tablet,delayed release (DR/EC) 10 mg PO BEDTIME nabumetone 500 mg tablet 500 mg PO BID Qty: 20 0RF hydrocortisone 2.5 % cream 1 appl topical BID PRN (Reason: skin irritation) Qty: 20 0RF prednisone 10 mg tablet 10 mg PO DAILY PRN (Reason: rash) Qty: 10 0RF Discharge Date/Time: 03/06/23 17:37
--- NOTE | 2023-03-06 11:41 | ECG_ITS ---
Test Reason : dizziness Blood Pressure : / mmHG Vent. Rate : 049 BPM Atrial Rate : 049 BPM P-R Int : 132 ms QRS Dur : 090 ms QT Int : 420 ms P-R-T Axes : 042 000 075 degrees QTc Int : 379 ms Sinus bradycardia Nonspecific T wave abnormality Abnormal ECG When compared with ECG of 01-JAN-2023 14:22, T wave inversion more evident in Anterolateral leads Referred By: Dawna Ponce Electronically Signed By:NIMCO URBINA MD
[2023-03-06 12:59] LABS: Appearance Urine Cloudy; Color Urine Dark Yellow; Glucose Urine UA Negative (Negative); Leukocyte Esterase Urine Small (1+) (Negative); Nitrite Urine Negative (Negative); Specific Gravity - Urine >= 1.030 (1.005-1.025); UMIC TRIGGER UACC YES; Urine Blood Negative (Negative); Urine Ketones Trace mg/dL (Negative); Urine Protein 30 (1+) mg/dL (Neg-Trace)
[2023-03-06 13:13] LABS: Bacteria Urine None Seen (None Seen); UACC Culture Trigger YES; WBC Urine 0-5 /HPF (0-5)
[2023-03-06 13:58] LABS: MANUAL DIFF FLAG NO
[2023-03-06 14:00] LABS: Basophils Percent Auto 0.1 % (0-2); Hematocrit 39.2 % (37.0-47.0); Hemoglobin 12.1 g/dl (12.0-16.0); Imm Gran Abs Auto 0.03 X10*3/uL (0.00-0.03); Imm Gran Pct Auto 0.4 % (0.0-0.4); Lymphocytes Absolute Auto 1.3 X10*3/uL (1.2-4.9); Mean Corpuscular HGB Conc 30.9 g/dl (31.0-35.0); Mean Corpuscular Hemoglobin 24.9 pg (27.0-33.0); Mean Corpuscular Volume 80.7 fL (80.0-98.0); Mean Platelet Volume 9.4 fL (9.4-12.3); Monocytes Absolute Auto 0.6 X10*3/uL (0.1-1.2); Monocytes Percent Auto 7.4 % (2-11); Neutrophils Absolute Auto 5.5 x10*3/uL (2.0-8.3); Neutrophils Percent Auto 74.1 % (45-73); Platelet Count 329 X10*3/uL (160-400); Red Blood Count 4.86 X10*6/uL (4.20-5.50); Red Cell Distribution Width 13.6 % (11.0-16.0); White Blood Count 7.5 X10*3/uL (4.8-10.8)
[2023-03-06 14:05] LABS: INTERNATIONAL NORM RATIO 0.9 (0.9-1.1); Prothrombin Time 10.3 SEC (10.0-13.1)
[2023-03-06 14:07] LABS: Partial Thromboplastin Time 29.9 SEC (26.0-36.4)
[2023-03-06 14:17] LABS: Alanine Aminotransferase 22 U/L (0-31); Albumin Level 4.1 g/dL (3.5-5.0); Alkaline Phosphatase 41 U/L (39-117); Anion Gap 11 (12-20); Aspartate Amino Transferase 23 U/L (5-31); Bilirubin Direct 0.2 mg/dL (0.0-0.5); Bilirubin Total 0.5 mg/dL (0.0-1.0); Blood Urea Nitrogen 14 mg/dL (9-16); Calcium 10.5 mg/dL (8.4-10.2); Carbon Dioxide 23 mmol/L (22-29); Chloride 110 mmol/L (96-108); Creatinine Clr Calc Pharmacy 54.7; Estimated Glomerular Filt Rate > 60; Glucose Random 83 mg/dL (60-115); Magnesium 1.8 mg/dL (1.6-2.6); Potassium 4.6 mmol/L (3.3-5.1); Sodium 139 mmol/L (135-145); Total Protein 6.4 g/dL (6.5-8.0)
[2023-03-06 14:39] LABS: TSH reflex Free T4 0.08 uIU/mL (0.32-4.0)
[2023-03-06 15:25] LABS: Free T4 (Free Thyroxine) 1.34 ng/dL (0.71-1.85)
== END 2023-03-06 17:37 | disposition left against medical advice (07) ==
PROVIDERS: Physician Assistant; Emergency Provider Emergency Medicine; PCP Internal Medicine
DX: R55 Syncope and collapse (principal); M54.2 Cervicalgia; R51.9 Headache, unspecified; R00.1 Bradycardia, unspecified; Z87.891 Personal history of nicotine dependence; Z79.899 Other long term (current) drug therapy
CPT/HCPCS: 36415; 70450; 72125; 80048; 80076; 81001; 83735; 84439; 84443; 84484; 85025; 85610; 85730; 87086; 87147; 93005; 99282; 99284

== ENCOUNTER 2023-03-13 15:08 | Outpatient (REF) | payer OTHER, SELFPAY ==
--- NOTE | ~2023-03-13 | US_ITS ---
EXAMINATION: US THYROID CLINICAL INFORMATION: Thyroid pain. COMPARISON: None available. TECHNIQUE: Linear transducer grayscale and color Doppler examination with attention to the region of the thyroid. FINDINGS: SIZE: Measurements of the thyroid lobes and nodules are given in sagittal, anteroposterior and transverse dimensions respectively. Right Thyroid Lobe: 4.2 x 1.5 x 1.5 cm, volume 4.9 mL. Parenchyma: The gland echotexture is heterogeneous. Thyroid vascularity is normal. Left Thyroid Lobe: 4.1 x 1.1 x 1.4 cm, volume 3.3 mL. Parenchyma: The gland echotexture is heterogeneous. Thyroid vascularity is normal. Isthmus: 0.2 cm in maximum AP dimension. Estimated total number of nodules greater than or equal to 1 cm: 1. [facility] nodules are described as follows: 1. Location: Right medial/inferior. Size: 1.1 x 0.4 x 0.7 cm, volume 0.2 mL. Nodule characteristics: Composition: Solid (2). Echogenicity: Hypoechoic (2). Shape: Not taller than wide (0). Margins: Smooth (0). Echogenic Foci: None (0). ACR TI-RADS total points: 4 ACR TI-RADS category: 4 2. Location: Right inferior. Size: 0.5 x 0.4 x 0.5 cm, volume 0.1 mL. Nodule characteristics: Composition: Solid (2). Echogenicity: Isoechoic (1). Shape: Not taller than wide (0). Margins: Smooth (0). Echogenic Foci: Peripheral calcifications (2). ACR TI-RADS total points: 5 ACR TI-RADS category: 4 NODES: No lymphadenopathy is seen in the tissue surrounding the thyroid gland. US/US thyroid IMPRESSION: Small heterogeneous thyroid gland. Two right thyroid nodules. According to TI RADS criteria, ultrasound follow-up of the right inferior nodule annually for 5 years would be recommended. ACR TI-RADS RECOMMENDATION REFERENCE: Ultrasound-guided fine-needle aspiration, followup ultrasound, no further follow up. * TR1 (0 point) and TR2 (2 points): No FNA or follow up. * TR3 (3 points): FNA if more than or equal to 2.5 cm in maximum dimension, followup ultrasound in 1, 3 and 5 years if 1.5 to 2.4 cm in maximum dimension. * TR4 (4-6 points): FNA if more than or equal to 1.5 cm in maximum dimension, followup ultrasound in 1, 2, 3 and 5 years if 1 to 1.4 cm in maximum dimension. * TR5 (more than or equal to 7 points): FNA if more than or equal to 1 cm in maximum dimension, followup ultrasound every year for 5 years if 0.5 to 0.9 cm in maximum dimension. * TR3, TR4 or TR5 nodules that are below the size threshold for followup receive no follow up.
== END 2023-03-13 15:09 | disposition home or self-care (01) ==
LOC: HO.US 15:08
PROVIDERS: PCP Internal Medicine; Visit Provider Internal Medicine
DX: E07.89 Other specified disorders of thyroid (principal)
CPT/HCPCS: 76536

== ENCOUNTER 2023-04-30 14:30 | Outpatient (AMB) | payer OTHER, SELFPAY ==
[2023-04-30 14:35] VITALS: BP 122/84; PULSE 65; O2SAT 99; BMI 33.3
--- NOTE | 2023-04-30 14:35 | MHC.PC.OV ---
Vital Signs 04/30/23 14:35 Height 4 ft 11 in Weight 165 lb BMI 33.3 BP 122/84 Blood Pressure Location Lt brachial Position Sitting Pulse 65 Pulse Source Pulse Oximeter Pulse Oximetry (%) 99 Oxygen Delivery Method Room Air Intake Visit Reasons: hyperlipidemia, hypothyroidism, DM, HTN Vat House Supervisor Required: No Accompanied by: Self / Same As Patient Allergies No Known Allergies [No Known Allergies*] Allergy (Verified 09/10/23 13:43) Medication List - Last Reconciled 04/30/23 by Marco Martinez MD ascorbic acid (vitamin C) (Vitamin C) 500 mg PO DAILY betamethasone valerate 0.1% 1 appl topical BID PRN 30 days bisacodyl (Dulcolax (bisacodyl)) 10 mg PO BEDTIME blood sugar diagnostic ([employer] Verio test strips) 50 strips miscellaneous BID calcium carbonate-vitamin D3 500 mg-10 mcg (400 unit) (Calcium 500 With D) 1 tab PO BID cholecalciferol (vitamin D3) 25 mcg PO DAILY cyanocobalamin (vitamin B-12) 1,000 mcg PO DAILY fenofibrate nanocrystallized 145 mg PO DAILY fexofenadine 180 mg PO DAILY hydrocortisone 2.5% 1 appl topical BID PRN lancets ([employer] UltraSoft Lancets) As directed- In Vitro twice a day levothyroxine 112 mcg PO DAILY 90 days metformin 500 mg PO TID montelukast 10 mg PO BEDTIME nabumetone 500 mg PO BID omalizumab mg subcut prednisone 10 mg PO DAILY PRN 5 days simvastatin 40 mg PO DAILY tizanidine 2 mg PO BEDTIME PRN turmeric-turmeric ext-pepper 500-3 mg 1 cap PO DAILY Ventolin HFA 90 mcg/actuation (albuterol sulfate) 2 puffs inhalation Q6H PRN 30 days NS Tobacco use date assessed: 04/30/23 Fall risk assessment: 1 Fall in past year Last assessed Fall Risk: 04/30/23 Dental Screening Dental Screen Date: 04/30/23 Did you have a dental visit in the last 12 months?: No Did you have a dental problem in the last 6 months where you did not have access to dental care?: No Was dental information given to patient?: No HPI hyperlipidemia, hypothyroidism, DM, HTN HPI Details Patient comes in today for her follow up visit States that she currently feels okay Reportedly went to the ER at [facility] about 2 to 3 weeks ago for an abscess over her right buttocks area and she ended up having an I & D done in the ER Was sent home with some oral Abx, which she finished - states that the abscess has since healed up and she no longer has any problems with it Was also brought to the ER early last month on 03/06/23 for a syncopal episode that occurred when she was preparing something to eat that morning States that she suddenly felt dizzy and passed out briefly but did not hit her head and did not suffer any apparent injury at the time Was being evaluated at the ER but she felt that they were taking too long and patient ended up leaving the ER on her own - her case was subsequently closed by the ER staff due to ELOPEMENT States that she has not had any recurrence of her syncopal episode since She continues to break out in a generalized itchy rash every now and then requiring Prednisone Rx to help calm her symptoms down Has been getting Xolair injections every couple of weeks from Dr. Fernandes at [facility] for a while now but she feels that they are not really helping much States that she's had this recurrent rash for about 27 years now and nobody so far has been able to find a cure for it She denies any headaches or dizziness Denies any chest pains, no SOB No nausea/vomiting, no abdominal pain No change in bowel habits noted Needs a couple of her Rx refilled Was not able to get her follow up labs done prior to her visit today - daughter states that they just simply forgot about getting her labs done [facility] Medical History Lumbar back pain with radiculopathy affecting right lower extremity Anemia Frequent falls Dizziness Carpal tunnel syndrome, bilateral Status post fall Left hand pain Diabetes mellitus Mixed hyperlipidemia Obesity (BMI 30-39.9) Memory impairment Osteoarthritis of both hands Vitamin B12 deficiency Vitamin D deficiency Primary osteoarthritis of both knees Osteopenia Asthma Chronic idiopathic urticaria Acquired hypothyroidism Benign essential hypertension Diabetes mellitus without complication Surgical History Status post carpal tunnel release (~06/02/21) Tubal ligation status Hx of section History of total right knee replacement (~2012) Family History Father No problems noted. 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 1. Little interest or pleasure in doing things: not at all 2. Feeling down, depressed, or hopeless: not at all 3. Trouble falling or staying asleep, or sleeping too much: not at all 4. Feeling tired or having little energy: not at all 5. Poor appetite or overeating: not at all 6. Feeling bad about yourself - or that you are a failure or have let yourself or your family down: not at all 7. Trouble concentrating on things, such as reading the newspaper or watching television: not at all 8. Moving or speaking so slowly that other people could have noticed. Or the opposite - being so fidgety or restless that you have been moving around a lot more than usual: not at all 9. Thoughts that you would be better off or of hurting yourself in some way: not at all Total score: 0 Depression Screening Interpretation: Negative 35941 - PHQ-9 Billing: Yes Source: Developed by Drs. Lee Cardenas, Sunni Cross, Steve Mcadams and colleagues, with an educational sajan from [employer]. Thrive Questionnaire Date Thrive assessed: 04/30/23 I am a: Patient What is your living situation today?: I have a steady place to live Within the past 12 months, did the food you bought not last and you didn't have the money to get more?: Never true Within the past 12 months, did you worry whether your food would run out before you got money to buy more?: Never true Do you have trouble paying for medicines?: No Do you have trouble getting transportation to medical appointments?: No Do you have trouble paying your heating and electricity bill?: No Do you have trouble taking care of your child, family member or friend?: No Do you have trouble with day-to-day activities such as bathing, preparing meals, shopping, managing finances, etc.?: No Are you currently unemployed and looking for a job?: No Are you interested in more education?: No Currently or been in a relationship where the following occur: no concerns reported AUDIT C Alcohol Use Questionnaire (AUDIT-C) 1. How often do you have a drink containing alcohol?: Never 3. How often do you have six or more drinks on one occasion?: Never Total Score: 0 Score Reviewed/Action Taken: Yes ANSON-7 AMB Questionnaire ANSON-7 Date ANSON - 7 assessed: 04/30/23 Feeling nervous, anxious, or on edge: 0 = Not at all Not being able to stop or control worryin = Not at all Worrying too much about different things: 0 = Not at all Trouble relaxin = Not at all Being so restless that it is hard to sit still: 0 = Not at all Becoming easily annoyed or irritable: 0 = Not at all Feeling afraid as if something awful might happen: 0 = Not at all Total ANSON-7 score (0-4 normal; 5-9 mild; 10-14 moderate; 15-21 severe): 0 Source: Developed by Drs. Lee Cardenas, Sunni Cross, Steve Mcadams and colleagues, with an educational sajan from [employer]. Review of Systems Const Denies chills, Denies fatigue, Denies fever(s) and Denies headache(s) Eyes Details: (+) prosthetic right eye ENT Denies dysphagia, Denies dizziness, Denies otalgia, Denies headache(s), Reports neck pain, Denies odynophagia and Denies sore throat Card Denies chest pain, Reports syncope (x 1 a few weeks ago - see HPI), Denies palpitations and Denies dyspnea Resp Denies cough, Denies dyspnea and Denies wheezing GI Denies abdominal pain, Denies constipation, Denies dysphagia, Denies heartburn, Denies diarrhea, Denies nausea, Denies odynophagia and Denies vomiting Denies difficulty voiding, Denies nocturia and Denies dysuria Musc Reports back pain (increasing), Reports arthralgias (right hand - on and off) and Reports neck pain Skin/Breast Details: (+) recurrent itchy rash all over Neuro Denies dizziness, Reports syncope (x 1 a few weeks ago - see HPI) and Denies headache(s) Psych Denies anxiety and Denies depression Endo Denies fatigue and Denies palpitations Aller/Immun Denies wheezing Physical exam (Primary Care) Vital Signs: Last Vital Signs Pulse 65 04/30/23 14:35 BP 122/84 04/30/23 14:35 Pulse Ox 99 04/30/23 14:35 Oxygen Delivery Method Room Air 04/30/23 14:35 BMI result Body Mass Index 33.3 Tobacco/Smoking Status: Tobacco use Status Tobacco use date assessed 04/30/23 04/30/23 14:47 Patient Tobacco Use Status Former Tobacco user 04/30/23 14:47 e-Cigarette/Vaping Use Never Used 04/30/23 14:47 PHQ-9: PHQ-9 Score PHQ-9: Total score 0 04/30/23 15:25 Depression Screening Interpretation: Negative Thrive Assessment: Date of Thrive Assessment Date Thrive assessed 04/30/23 04/30/23 14:47 Currently or been in a relationship where the following occur: no concerns reported Const General: no acute distress and alert Orientation/consciousness: patient oriented x3 HENMT Ears: TM's normal bilaterally and EAC's normal Throat: Yes posterior oropharynx normal and Yes tonsils normal (no TP congestion noted) Eyes Other: (+) prosthetic right eye; left eye exam is grossly normal Neck Neck: Yes no lymphadenopathy and Yes supple Thyroid: Thyroid normal Resp Auscultation: clear to auscultation bilaterally, no rales and no wheezes Cardio Rate: regular rate Rhythm: regular rhythm Heart sounds: no murmurs GI Palpation (GI): Soft to palpation and nontender Auscultation: normal bowel sounds General: Yes no CVA tenderness Back/Spine/Pelvis Back: no CVA tenderness Thoracic/Lumbar Spine: thoracic spinal tenderness and lumbar spinal tenderness Skin Rashes: no rashes Neuro General: patient oriented x3, moves all extremities and no focal motor deficits Cognition (Neuro): normal cognition Extrem General: Yes no clubbing, cyanosis or edema Left upper extremity: wrist ((+) mild tenderness with healed scar over volar aspect of the left wrist) Results AMB Hemoglobin A1c AMB Hemoglobin A1c 5.7 % Last Edit by SHELLY Moreno on 04/30/23 15:26 Results Reviewed Results Reviewed: Laboratory Last Values Hgb A1c (Clinic) 5.7 % (4.0-6.0) 04/30/23 14:55 Assessment and Plan Assessment & Plan (1) Mixed hyperlipidemia: Code(s): E78.2 - Mixed hyperlipidemia Plan: Was not able to get her follow up labs done recently Reinforced low cholesterol diet Continue Simvastatin 40 mg QD and Fenofibrate 145 mg QD Will recheck her fasting lipids and labs in 3 months for follow-up - previous lab orders updated and will just have patient use these for her next lab draw (2) Diabetes mellitus without complication: Code(s): E11.9 - Type 2 diabetes mellitus without complications Plan: In-office HgbA1c done today is at 5.7% (HgbA1c was at 5.9% a few months ago) - goal is < 7.0% Reinforced diabetic diet Continue Metformin 500 mg TID (3) Benign essential hypertension: Code(s): I10 - Essential (primary) hypertension Plan: Reinforced low sodium diet - goal is systolic BP of at least 140 mm or less (4) Syncope: Code(s): R55 - Syncope and collapse Qualifiers: Syncope type: unspecified Qualified Code(s): R55 - Syncope and collapse Plan: Occurred once last month with no recurrence since - was likely vasovagal Patient absconded from the ER at [facility] last month when she was being evaluated so her work ups were not really completed Head CT done last month came out normal As she has not had any recurrence, will hold off on doing anything else at this time (5) Acquired hypothyroidism: Code(s): E03.9 - Hypothyroidism, unspecified Plan: Continue Levothyroxine 112 mcg QD Will recheck her TFTs in 3 months for follow up (6) GERD without esophagitis: Code(s): K21.9 - Gastro-esophageal reflux disease without esophagitis Plan: Dietary restrictions reinforced (7) Asthma: Code(s): J45.909 - Unspecified asthma, uncomplicated Qualifiers: Asthma complication type: uncomplicated Asthma persistence: persistent Asthma severity: mild Qualified Code(s): J45.30 - Mild persistent asthma, uncomplicated Plan: Stable Continue Flovent HFA 110 mcg 1 puff BID and ProAir HFA 2 puffs up to 4 times a day as needed (8) Osteopenia: Code(s): M85.80 - Other specified disorders of bone density and structure, unspecified site Qualifiers: Osteopenia location: unspecified Qualified Code(s): M85.80 - Other specified disorders of bone density and structure, unspecified site Plan: Repeat BMD done a few years ago on 06/03/2019 showed no significant change from previous - will continue to monitor Patient encouraged to continue with regular exercise and physical activity Continue Calcium 500 + D 400 mg 1 tablet BID (9) Vitamin D deficiency: Code(s): E55.9 - Vitamin D deficiency, unspecified Plan: Continue Vitamin D3 1000 units QD (10) Vitamin B12 deficiency: Code(s): E53.8 - Deficiency of other specified B group vitamins Plan: Corrected - continue Vitamin B12 tablets 1000 mcg QD (11) Chronic idiopathic urticaria: Code(s): L50.1 - Idiopathic urticaria Plan: Continue Xolair injection 150 mg, Fexofenadine 180 mg 3 tablets BID and Hydroxyzine 25 mg every 8 hours PRN Follow up with bilingual customer service specialist (Dr. Bernal at [facility]) as scheduled (12) Thyroid pain: Code(s): E07.89 - Other specified disorders of thyroid Plan: Patient reassured that she does not have any evidence of thyroid enlargement on exam and her thyroid is also non-tender on palpation at present She currently does not need to see endocrinology Thyroid US done last month revealed (+) small heterogeneous thyroid gland. Two right thyroid nodules. According to TI RADS criteria, ultrasound follow-up of the right inferior nodule annually for 5 years would be recommended (13) Primary osteoarthritis of both knees: Code(s): M17.0 - Bilateral primary osteoarthritis of knee Plan: Continue Meloxicam 15 mg QD PRN Follow-up with Orthopedics as scheduled (14) Osteoarthritis of both hands: Code(s): M19.041 - Primary osteoarthritis, right hand; M19.042 - Primary osteoarthritis, left hand Qualifiers: Osteoarthritis type: primary Qualified Code(s): M19.041 - Primary osteoarthritis, right hand; M19.042 - Primary osteoarthritis, left hand Plan: X-rays of both hands done several months ago revealed (+) osteoarthritis changes bilaterally; repeat x-rays of the left hand done a few months ago showed (+) arthritis of the IP joints Encouraged to continue with regular hand exercises to help minimize or stiffness and pain Follow up with orthopedics as scheduled - advised that she should discuss any of her ongoing hand symptoms with orthopedics instead when she is seen by them (15) Facet arthritis of lumbar region: Code(s): M47.816 - Spondylosis without myelopathy or radiculopathy, lumbar region Plan: Reinforced activity and weight-lifting restrictions Lumbar spine x-rays done back in February 2021 revealed (+) mild lumbar spine DDD and facet arthritis Repeat thoracic and lumbar spine x-rays done in March 2022 revealed moderate multilevel degenerative disc disease of the thoracic and lumbar spine, with prominent anterior endplate osteophytes within the midthoracic spine and prominent bilateral facet arthropathy at L5-S1 Recommend referral to physical therapy but patient would like to hold off on this for now and states that she will call for referral if she changes her mind about this (16) Carpal tunnel syndrome, bilateral: Comment: NCV done back in 2015 revealed (+) moderatedly severe bilateral carpal tunnel syndrome; EMG was normal Code(s): G56.03 - Carpal tunnel syndrome, bilateral upper limbs Plan: S/P left carpal tunnel [place] [facility] [place] Follow-up with orthopedics as scheduled (17) Memory impairment: Code(s): R41.3 - Other amnesia Plan: Follow up with neurology as scheduled (18) Obesity (BMI 30-39.9): Code(s): E66.9 - Obesity, unspecified Plan: Reinforced diet; exercise and weight loss are unrealistic given patient's multiple physical issues and comorbidities Plan Follow up in 3 months Orders: Orders Hemoglobin A1c 3 Months E11.9 - Type 2 diabetes mellitus without complications AMB Hemoglobin A1c 04/30/23 E11.9 - Type 2 diabetes mellitus without complications Complete Blood Count Auto Diff 3 Months I10 - Essential (primary) hypertension Comprehensive [place]. Panel Fast 3 Months E78.00 - Pure hypercholesterolemia, unspecified Lipid Panel 3 Months E78.00 - Pure hypercholesterolemia, unspecified Microalbumin, Random (w Creat) 3 Months E11.9 - Type 2 diabetes mellitus without complications Thyroid Stimulating Hormone 3 Months E03.9 - Hypothyroidism, unspecified Free T4 (Free Thyroxine) 3 Months E03.9 - Hypothyroidism, unspecified Vitamin D 25-OH Total 3 Months E55.9 - Vitamin D deficiency, unspecified UA CC w/rflx Micro + Cult 3 Months R30.0 - Dysuria Medications: Refilled metformin 500 mg PO TID 270 tabs 3RF tizanidine 2 mg PO BEDTIME PRN 30 tabs 3RF muscle spasticity Coding Level of Care Code Est Pt Level 4 (69689) Diagnoses Mixed hyperlipidemia E78.2 Diabetes mellitus without complication E11.9 Benign essential hypertension I10 Syncope, unspecified syncope type R55 Syncope type: unspecified Acquired hypothyroidism E03.9 GERD without esophagitis K21.9 Mild persistent asthma without complication J45.30 Asthma complication type: uncomplicated Asthma persistence: persistent Asthma severity: mild Osteopenia, unspecified location M85.80 Osteopenia location: unspecified Vitamin D deficiency E55.9 Vitamin B12 deficiency E53.8 Chronic idiopathic urticaria L50.1 Thyroid pain E07.89 Primary osteoarthritis of both knees M17.0 Primary osteoarthritis of both hands M19.041; M19.042 Osteoarthritis type: primary Facet arthritis of lumbar region M47.816 Carpal tunnel syndrome, bilateral G56.03 Memory impairment R41.3 Obesity (BMI 30-39.9) E66.9
== END 2023-04-30 15:37 | disposition home or self-care (01) ==
PROVIDERS: PCP Internal Medicine; Visit Provider Internal Medicine
DX: E11.9 Type 2 diabetes mellitus without complications (principal); E78.2 Mixed hyperlipidemia; Z68.33 Body mass index [BMI] 33.0-33.9, adult; E66.9 Obesity, unspecified; I10 Essential (primary) hypertension; R55 Syncope and collapse; E03.9 Hypothyroidism, unspecified; K21.9 Gastro-esophageal reflux disease without esophagitis; J45.30 Mild persistent asthma, uncomplicated; M85.80 Other specified disorders of bone density and structure, unspecified site; E55.9 Vitamin D deficiency, unspecified; E53.8 Deficiency of other specified B group vitamins
CPT/HCPCS: 99214

== ENCOUNTER 2023-06-04 13:04 | Outpatient (AMB) | payer OTHER, SELFPAY ==
--- NOTE | 2023-06-04 13:20 | MHC.OFFVIS ---
Intake Vital Signs 06/04/23 13:35 Height 4 ft 11 in Weight 165 lb BMI 33.3 Intake Visit Reasons: ov- primary osteoarthritis, left knee Intake Note: Yaneli is a 73 year old female who presents today for a follow up of her left knee OA S/P knee injection 11/02/22, patient states she received some relief from injection. Patient would like to receive another injection today. Patient is also complaining of right knee pain and would like to receive an injection as well. Allergies No Known Allergies [No Known Allergies*] Allergy (Verified 06/04/23 13:39) HPI ov- primary osteoarthritis, left knee HPI Details Yaneli is a 73 year old woman who returns with left knee OA pain. She was last seen, and injection, on 11/02/22 for her left knee. She complains of pain with daily activity, and would like a repeat injection today. She complains of worsening right knee pain, which has been present since her right TKA 10+ years ago, done by Dr. Agarwal. She is unable to bend her right knee beyond 90 degrees, and because of this she is hesitant to pursue a left TKA. I referred to Pain Management as I suspected this pain was coming from her spine, she has not been seen by Pain Management. [facility] Medical History Acquired hypothyroidism Anemia Asthma Benign essential hypertension Carpal tunnel syndrome, bilateral Chronic idiopathic urticaria Diabetes mellitus Diabetes mellitus without complication Dizziness Frequent falls Left hand pain Lumbar back pain with radiculopathy affecting right lower extremity Memory impairment Mixed hyperlipidemia Obesity (BMI 30-39.9) Osteoarthritis of both hands Osteopenia Primary osteoarthritis of both knees Status post fall Vitamin B12 deficiency Vitamin D deficiency Surgical History History of total right knee replacement (~2012) Hx of section Status post carpal tunnel release (~06/02/21) Tubal ligation status Family History Father No problems noted. 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 Cognitive needs: Yes (cane ) Hearing needs: No Vision needs: Yes (glasses ) Review of Systems Const All systems reviewed & are unremarkable except as noted in HPI and below Physical Exam Vital Signs: BMI result Body Mass Index 33.3 Const General: no acute distress and alert Orientation/consciousness: patient oriented x3 Neuro General: patient oriented x3 Extrem Other: Left Knee: Moderate effusion TTP Medial & lateral joint line Right Knee: Well-healed incision No TTP 0-90 degrees ROM Psych Appearance: grossly normal Affect: normal affect Attitude: cooperative Office Procedures Joint Injection/Drain Joint Injection/Drain Details: Injected 1 mL of Decadron and 3 mL 1% lidocaine and 3 mL of 0.25% Marcaine. Site was prepped using aseptic technique. Patient tolerated the procedure well. Primary Site: left knee Approach Used: anterolateral Coding 41958 - Large joint Procedure code (CPT) selection complete Results Reviewed Results Reviewed: 06/04/23 13:45 BUPivacaine MPF 0.25 % [Sensorcaine-MPF 0.25% 10 ML] 10 ml .ROUTE .STK-MED ONE Lidocaine HCl 2 % MPF [Xylocaine 2 % MPF] 5 ml .ROUTE .STK-MED ONE 06/04/23 13:46 dexAMETHasone sod phosphate [Decadron] 4 mg .ROUTE .STK-MED ONE I personally reviewed relevant radiographs. Right total knee arthroplasty in expected post operative position with no hardware complications or evidence of loosening Left knee severe OA Assessment & Plan Assessment & Plan (1) Primary osteoarthritis of left knee: Code(s): M17.12 - Unilateral primary osteoarthritis, left knee Plan: This is a 73 year old woman with severe left knee OA. She has pain with daily activity, and good relief from injections in the past. I injected her left knee today, which she tolerated well. She can follow up prn. (2) Lumbar back pain with radiculopathy affecting right lower extremity: Code(s): M54.16 - Radiculopathy, lumbar region Plan: Hx of right TKA. I suspect her right leg pain is coming from her back. She was referred to Pain Management in the past but has not been seen there. I sent another referral for her to see Dr. Soliz in Pain Management (3) History of total right knee replacement: Onset Date: ~2012 Code(s): Z96.651 - Presence of right artificial knee joint Plan Scribed for Brent Talley MD by Fortino Kim, emergency medical tech, on 06/04/23 at 2:00 PM, EST. Orders: Referrals Pain Management Referral Z96.651 - Presence of right artificial knee joint Coding Level of Care Code Est Pt Level 4 (45760) Diagnoses Primary osteoarthritis of left knee M17.12 Lumbar back pain with radiculopathy affecting right lower extremity M54.16 History of total right knee replacement Z96.651 CPT Codes Coding - 75726 Large joint: 25096 - Large joint ([id number])
[2023-06-04 13:35] VITALS: BMI 33.3
== END 2023-06-04 13:59 | disposition home or self-care (01) ==
PROVIDERS: PCP Internal Medicine; Visit Provider Orthopaedic Surgery
DX: M17.12 Unilateral primary osteoarthritis, left knee (principal); M54.16 Radiculopathy, lumbar region; Z96.651 Presence of right artificial knee joint
CPT/HCPCS: 20610; 99214

== ENCOUNTER → 2023-06-04 13:04 | Outpatient (BNVA) | payer OTHER, SELFPAY | PROVIDERS: PCP Internal Medicine; Visit Provider Orthopaedic Surgery | DX: M17.12 Unilateral primary osteoarthritis, left knee (principal); M54.16 Radiculopathy, lumbar region; Z96.651 Presence of right artificial knee joint | CPT/HCPCS: 20610; 99212; J1100 ==

== ENCOUNTER 2023-06-25 11:24 | Outpatient (AMB) | payer OTHER, SELFPAY ==
[2023-06-25 11:30] VITALS: BP 131/69; PULSE 71; RESP 14; BMI 33.7
--- NOTE | 2023-06-25 11:30 | A.OFFVIS_ITS ---
Intake Vital Signs 06/25/23 11:30 Height 4 ft 11 in Weight 167 lb BMI 33.7 BP 131/69 Blood Pressure Location Lt brachial Position Sitting Respiration 14 Pulse 71 Pulse Source Pulse Oximeter Intake Visit Reasons: Presence of Right Artificial Knee Joint Packaging Assembler Required: Yes Packaging Assembler Name: prefers daughter to translate Allergies No Known Allergies [No Known Allergies*] Allergy (Verified 06/25/23 11:31) Medication List - Last Reconciled 06/25/23 by Bonita Castro LPN ascorbic acid (vitamin C) (Vitamin C) 500 mg PO DAILY betamethasone valerate 0.1% 1 appl topical BID PRN 30 days bisacodyl (Dulcolax (bisacodyl)) 10 mg PO BEDTIME blood sugar diagnostic (Appconomyuch Verio test strips) 50 strips miscellaneous BID calcium carbonate-vitamin D3 500 mg-10 mcg (400 unit) (Calcium 500 With D) 1 tab PO BID cholecalciferol (vitamin D3) 25 mcg PO DAILY cyanocobalamin (vitamin B-12) 1,000 mcg PO DAILY fenofibrate nanocrystallized 145 mg PO DAILY fexofenadine 180 mg PO DAILY hydrocortisone 2.5% 1 appl topical BID PRN lancets (Valentin UzhunTouch UltraSoft Lancets) As directed- In Vitro twice a day levothyroxine 112 mcg PO DAILY 90 days metformin 500 mg PO TID montelukast 10 mg PO BEDTIME nabumetone 500 mg PO BID omalizumab mg subcut prednisone 10 mg PO DAILY PRN 5 days simvastatin 40 mg PO DAILY tizanidine 2 mg PO BEDTIME PRN turmeric-turmeric ext-pepper 500-3 mg 1 cap PO DAILY Ventolin HFA 90 mcg/actuation (albuterol sulfate) 2 puffs inhalation Q6H PRN 30 days NS HPI Presence of Right Artificial Knee Joint HPI Details 73-year-old female is presenting today for a new patient evaluation of her right artificial knee joint. She is accompanied by her daughter Ines, who interprets for her. She has a history of right TKA from about 10+ years ago, by Dr. Agarwal. She lives alone. She states that her pain started about three years ago. She reports clicking, weakness in the knee, and pain with ambulation. She is unable to bend her right knee beyond 90 degrees, and because of this, she is hesitant to pursue a left TKA. The patient received left knee injections by Mayank on 11/02/22 and 06/04/23. She had a left knee injection with Dr. Coello in 2019. The injections helped until a year ago. She wears her knee brace, but at times this increases her swelling. She tried and failed nabumetone, prednisone, turmeric supplementation, Tylenol and physical therapy. [facility] Medical History Acquired hypothyroidism Anemia Asthma Benign essential hypertension Carpal tunnel syndrome, bilateral Chronic idiopathic urticaria Diabetes mellitus Diabetes mellitus without complication Dizziness Frequent falls Left hand pain Lumbar back pain with radiculopathy affecting right lower extremity Memory impairment Mixed hyperlipidemia Obesity (BMI 30-39.9) Osteoarthritis of both hands Osteopenia Primary osteoarthritis of both knees Status post fall Vitamin B12 deficiency Vitamin D deficiency Surgical History History of total right knee replacement (~2012) Hx of section Status post carpal tunnel release (~06/02/21) Tubal ligation status Family History Father No problems noted. 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 Alert and oriented. Mood and affect appropriate. Follows and participates in conversation appropriately. Respiratory effort is unlabored. Able to transition from sit to stand unassisted. Ambulates with bilaterally normal heel strike and toe off. Tenderness on palpation in the medial infrapatellar region. Tenderness on palpation in the lateral infrapatellar region. No tenderness posteriorly or superiorly to patella. ROM is 90 degrees and she is unable to flex beyond 90 degrees. Results Reviewed Results Reviewed: 11/02/22: AP BILATERAL KNEE. LEFT KNEE 2 VIEWS. FINDINGS: AP BILATERAL KNEE: There is a total right knee arthroplasty with prosthetic components in satisfactory alignment. There is moderate reduction in medial and mild reduction lateral compartment joint space with lateral compartment periarticular spurring. No visible acute fracture or dislocation seen. The soft tissues are normal. LEFT KNEE: There is moderate loss of patellofemoral compartment joint space with periarticular spurring. No visible acute fracture or dislocation seen. No suprapatellar joint effusion suspected. IMPRESSION: Total right knee arthroplasty in satisfactory alignment. Moderate degenerative arthritis of the medial and patellofemoral compartments and minimal lateral compartment periarticular spurring. No fracture or loose body seen. 03/28/22: XR THORACIC SPINE. XR LUMBAR SPINE FINDINGS: Thoracic Spine: Normal vertebral body alignment. The thoracic kyphosis is maintained. No acute fracture or subluxation. No loss of vertebral body height. Multilevel loss of intervertebral disc height with prominent bridging anterior endplate osteophytes within the midthoracic spine. No concerning lytic or blastic osseous lesion. The visualized lungs are clear. Lumbar Spine: The lumbar lordosis is maintained. Minimal grade 1 retrolisthesis of L2 on L3 and grade 1 anterolisthesis of L4 on L5. No acute fracture. No loss of vertebral body height. Mild multilevel loss of intervertebral disc height with small endplate osteophytes, most prominent at L5-S1. Multilevel bilateral facet arthropathy. No abnormal soft tissue calcification. IMPRESSION: Thoracic Spine: Moderate multilevel degenerative disc disease. Prominent anterior endplate osteophytes within the midthoracic spine. Lumbar Spine: Moderate multilevel degenerative disc disease and bilateral facet arthropathy, most prominent at L5-S1. Assessment & Plan Assessment & Plan (1) Primary osteoarthritis of both knees: Code(s): M17.0 - Bilateral primary osteoarthritis of knee (2) Chronic knee pain after total replacement of both knee joints: Code(s): M25.561 - Pain in right knee; M25.562 - Pain in left knee; G89.28 - Other chronic postprocedural pain; Z96.653 - Presence of artificial knee joint, bilateral Plan Will schedule her for right saphenous nerve stimulator for persistent chronic knee pain post arthroplasty. Discussed the risks and benefits of the procedure with the patient in detail. All questions were answered. The patient is on board with the plan. A device brochure was provided to the patient. If the stimulator provides significant pain relief, we will schedule her for left saphenous nerve stimulator for chronic pain secondary to osteoarthritis no longer responsive to corticosteroid injections intra-articularly. Alternatively, we can also consider a hyaluronic acid supplement injection under fluoroscopy. Justification for interventional therapy: ? Patient with average pain > 6/10 ? Patient has exhausted conservative therapy including cortisone injection, surgical interventions, diagnostic injections, oral medications, and physical therapy. Scribed for Dr. Soliz by Gianluca Driver, medical billing coordinator, on 06/25/2023. I, Dr. Soliz, have personally reviewed and agree with the information entered by the scribe. Coding Level of Care Code New Pt Level 4 (09605) Diagnoses Primary osteoarthritis of both knees M17.0 Chronic knee pain after total replacement of both knee joints M25.561; M25.562; G89.28; Z96.653
== END 2023-06-25 11:49 | disposition home or self-care (01) ==
PROVIDERS: PCP Internal Medicine; Visit Provider Internal Medicine
DX: M17.0 Bilateral primary osteoarthritis of knee (principal); M25.561 Pain in right knee; M25.562 Pain in left knee; G89.28 Other chronic postprocedural pain; Z96.653 Presence of artificial knee joint, bilateral
CPT/HCPCS: 99204

== ENCOUNTER → 2023-06-25 11:24 | Outpatient (BNVA) | payer OTHER, SELFPAY | PROVIDERS: PCP Internal Medicine; Visit Provider Internal Medicine | DX: M17.0 Bilateral primary osteoarthritis of knee (principal); M25.561 Pain in right knee; M25.562 Pain in left knee; G89.28 Other chronic postprocedural pain; Z96.653 Presence of artificial knee joint, bilateral | CPT/HCPCS: 99202 ==

== ENCOUNTER 2023-07-20 13:38 | Outpatient (AMB) | payer OTHER, SELFPAY ==
--- NOTE | 2023-07-20 14:04 | MHC.OFFWIV ---
Intake Vital Signs 07/20/23 14:07 Height 4 ft 11 in Weight 161 lb BMI 32.5 BP 124/78 Blood Pressure Location Rt brachial Position Sitting Pulse 71 Pulse Source Pulse Oximeter Pulse Oximetry (%) 98 Oxygen Delivery Method Room Air Intake Visit Reasons: EP, chest pain, low back pain Intake Note: Patient here for chest and mid back pain, she states she is getting very short of breathe which has been going on for about 2 days. Patient Tobacco Use Status: Former Tobacco user Allergies No Known Allergies [No Known Allergies*] Allergy (Verified 07/20/23 14:10) Do you need a note to return to daycare/school/sports/work: No HPI HPI Comments History of Present Illness Details This is a 73-year-old female with past medical history significant for essential hypertension, hyperlipidemia, diabetes mellitus who presents to the office today for sick visit. Patient complaining of chest pain radiating into her back with associated shortness of breath. This has been going on for the past several days. Patient states the pain is constant. The pain is worsened with inspiration. She denies any abdominal pain or nausea/vomiting. She denies any diaphoresis. [facility] Medical History Acquired hypothyroidism Anemia Asthma Benign essential hypertension Carpal tunnel syndrome, bilateral Chronic idiopathic urticaria Diabetes mellitus Diabetes mellitus without complication Dizziness Frequent falls Left hand pain Lumbar back pain with radiculopathy affecting right lower extremity Memory impairment Mixed hyperlipidemia Obesity (BMI 30-39.9) Osteoarthritis of both hands Osteopenia Primary osteoarthritis of both knees Status post fall Vitamin B12 deficiency Vitamin D deficiency Surgical History History of total right knee replacement (~2012) Hx of section Status post carpal tunnel release (~06/02/21) Tubal ligation status Family History Father No problems noted. 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 Cognitive needs: Yes (cane ) Hearing needs: No Vision needs: Yes (glasses ) Review of Systems Const All systems reviewed & are unremarkable except as noted in HPI and below Reports no additional complaints Eyes Reports no additional complaints ENT Reports no additional complaints Card Reports no additional complaints Resp Reports no additional complaints GI Reports no additional complaints Reports no additional complaints Musc Reports no additional complaints Skin/Breast Reports system reviewed and no additional complaints, except as documented Neuro Reports no additional complaints Psych Reports no additional complaints Endo Reports no additional complaints Ranjit/Lymph Reports no additional complaints Aller/Immun Reports no additional complaints Physical Exam Const Other: Patient is uncomfortable appearing. She appears to be anxious. General: no acute distress and well developed; No comfortable Orientation/consciousness: patient oriented x3 HEENT Head: Yes normal to inspection Ears: hearing grossly normal bilaterally General nose exam: Normal external nose present Face and sinus: Yes normal facial exam Mouth: Normal oral and palatal mucosa present Eyes General: appearance normal, both eyes and all related structures Pupils: Equal, round and reactive pupils present EOM: EOMs intact bilaterally Resp Effort & Inspection: normal respiratory effort and no respiratory distress Auscultation: clear to auscultation bilaterally Cardio Other: No unilateral lower extremity edema. Rate: regular rate Rhythm: regular rhythm Heart sounds: no gallops, no murmurs and no rubs Peripheral pulses: Peripheral pulses 2+ throughout GI Inspection: No distended Palpation (GI): Soft to palpation and nontender Auscultation: normal bowel sounds Skin General skin exam: no rashes or lesions noted Neuro General: patient oriented x3 Cranial nerves: Yes CN's II-XII intact bilaterally and Yes Equal, round and reactive pupils present Gait exam (Neuro): Normal gait present Motor exam (neuro): 5/5 motor strength present throughout Extrem General: Yes normal to inspection, Yes full ROM and Yes no clubbing, cyanosis or edema Psych Appearance: grossly normal Mental Status: mental status grossly normal Office Procedures EKG Details: Normal sinus rhythm at 92 beats per minute. T-wave inversions in leads V1 and V2. Unchanged from prior EKG in 03/2023. [id number], Complete Assessment & Plan Assessment & Plan (1) Chest pain: Code(s): R07.9 - Chest pain, unspecified Plan: This is a 73-year-old female with history of hypertension, hyperlipidemia, and diabetes mellitus who presented to the walk-in clinic today complaining of chest pain radiating into her back as well as shortness of breath and pleuritic chest pain. On physical examination, patient appears uncomfortable but her cardiac exam is regular rate and rhythm without murmur/gallop/rubs and her lungs are clear to auscultation bilaterally. The patient cannot be PERC ruled out due to her age. Lower suspicion for aortic dissection given normal blood pressure. Given patient's presenting symptoms and risk factors, I have recommended that she proceed directly to the emergency room to rule out acute coronary syndrome versus pulmonary embolism. Patient was offered aspirin prior to leaving here but she declined. She was also offered ambulance, but she declined. Patient is alert and oriented x4 and in my opinion, she has the competence to make her own medical decisions. Patient is proceeding directly to the emergency room as discussed. She is aware of the risks if she were to not proceed directly to the emergency room. Orders: Orders AMB EKG-In Office Today R07.9 - Chest pain, unspecified Coding Level of Care Code Est Pt Level 3 (49218) Diagnoses Chest pain R07.9 CPT Codes EKG - CPT: 82874-[id number], Complete ([id number])
[2023-07-20 14:07] VITALS: BP 124/78; PULSE 71; O2SAT 98; BMI 32.5
== END 2023-07-20 14:35 | disposition home or self-care (01) ==
PROVIDERS: PCP Internal Medicine; Visit Provider Physician Assistant Medical
DX: R07.9 Chest pain, unspecified (principal)
CPT/HCPCS: 93000; 99213

== ENCOUNTER 2023-08-08 10:26 | Day surgery (SDC) | payer OTHER, SELFPAY ==
[2023-08-08 12:11] VITALS: BMI 31.2
--- NOTE | 2023-08-08 12:51 | P.BOP_ITS ---
Brief Operative Note Date of Service: 08/08/23 Pre-op diagnosis: Chronic knee pain after total knee arthroplasty, right Post-op diagnosis: same Procedure: Temporary right saphenous nerve stimulator placement Implants: Sprint temporary PNS system Surgeon: Eugene Soliz MD Anesthesia: local Was an Semiconductor Packages Leak Tester used for this Procedure?: No Estimated blood loss (mL): 2 Pathology: none sent Condition: stable Disposition: same day
--- NOTE | 2023-08-08 12:51 | MHC.SHP ---
Pre-Procedural Eval Section A Date of Service: 08/08/23 The patient is an INPATIENT: No Changes since office visit: Yes Patient answered all questions The History & Physical has been completed within 30 days and I have reviewed it.: No Section B Chief Complaint: Chronic knee pain after TKA Relevant Family History (Specify if Yes): No Relevant Social History: None Present Medications: see Short Stay Collaborative assessment Medical History: No relevant PMH History of Previous Operations: No relevant previous surgery Allergies: Allergies Allergy/AdvReac Type Severity Reaction Status Date / Time No Known Allergies Allergy Verified 07/20/23 14:10 [No Known Allergies*] Review of Systems Sugical H&P ROS: Negative: Constitution, Cardiovascular and Respiratory Exam Surgical H&P Exam: Normal: HEENT, Normal: Heart and Normal: Lungs Plan Diagnosis/Plan: Unchanged I have reviewed the history and physical and performed a pertinent physical examination on my patient. No changes have occurred unless specified. Time Spent With Patient Time: Total time managing care of this patient today ____ minutes.
--- NOTE | 2023-08-08 12:52 | P.OP_ITS ---
Operative Note Operative Note Date of Service: 08/08/23 Narrative: Peripheral Nerve Stimulation Temporary Lead Placement, Ultrasound-Guided, Saphenous Nerve, Right ? After the risks, benefits and alternatives were discussed with the patient and informed consentwas obtained, patient was placed in the supine position and padded to foster comfort. Appropriate skin and bony landmarks were identified, and pertinent vascular structures were located. The skin overlying the needle entry site was prepped and draped in sterile fashion. Ultrasound was used to identify the femoral artery, the femoral vein and the saphenous nerve. After identifying and marking the intended target along the course of the Saphenous nerve, the skin around the planned entry point and the subcutaneous tissues were injected with local anesthetic. An introducer needle and stimulating probe were assembled, inserted and advanced along the intended course of the saphenous; nerve, taking care to maintain the proper depth of insertion as the introducer was advanced under ultrasound guidance. The introducer needle was delivered to a location in proximity to the nerve taking care not to puncture the femoral artery or the vein. Multiple stimulation parameters were used to deliver stimulation to the saphenous nerve in concert with stimulating at multiple positions around the nerve. Nerve target acquisition was confirmed noting generation of sensory and mild motor effects (paresthesia, muscle tension, etc) in the medial knee, leg and ankle; corresponding to the distribution of the saphenous nerve. Various electrical parameter combinations were tested, and the lead location was adjusted (physic ally relocated under ultrasound guidance) until the patient indicated medial knee paresthesia and tension overlapping the distribution of the patient?s typical region of pain. The stimulating probe was removed from the introducer and a percutaneous lead was guided through the needle and delivered to a location in similar proximity to the nerve. Final location was verified with electrical stimulation and documented. The introducer needle was removed, and the exposed end of the percutaneous lead was attached to an external stimulator unit. Various electrical parameter combinations were again tested until the patient indicated paresthesia and muscle tension overlapping the distribution of the patient?s typical region of pain. After confirming that lead impedance was in the normal range, the external unit was detached, the needle was removed, and the lead was anchored at the skin. The lead was threaded into the connector block and electrical continuity and desired patient response was confirmed. The connector block was attached to the external stimulator unit. The site was covered with a sterile occlusive dressing. A final ultrasound image was taken to document final placement. The patient was observed for stability of vital signs and comfort.
[2023-08-08 12:55] VITALS: BP 147/74; PULSE 56; RESP 16; TEMP 36.2; O2SAT 97
== END 2023-08-08 13:39 | disposition home or self-care (01) ==
PROVIDERS: PCP Internal Medicine; Visit Provider Internal Medicine
PROC: (CPT 64555; principal; 2023-08-08 11:30)
DX: G89.28 Other chronic postprocedural pain (principal); M25.561 Pain in right knee; M25.461 Effusion, right knee; M17.0 Bilateral primary osteoarthritis of knee; Z96.653 Presence of artificial knee joint, bilateral; R26.2 Difficulty in walking, not elsewhere classified; Z91.81 History of falling; D64.9 Anemia, unspecified; I10 Essential (primary) hypertension; E11.9 Type 2 diabetes mellitus without complications; M85.80 Other specified disorders of bone density and structure, unspecified site; E55.9 Vitamin D deficiency, unspecified; E53.8 Deficiency of other specified B group vitamins; Z79.84 Long term (current) use of oral hypoglycemic drugs; Z79.899 Other long term (current) drug therapy; Z87.891 Personal history of nicotine dependence
CPT/HCPCS: 64555; C1778

== ENCOUNTER → 2023-08-08 10:26 | Outpatient (BNV) | payer OTHER, SELFPAY | PROVIDERS: PCP Internal Medicine; Visit Provider Internal Medicine | DX: M25.561 Pain in right knee (principal); Z96.651 Presence of right artificial knee joint | CPT/HCPCS: 64555 ==

== ENCOUNTER → 2023-08-16 14:09 | Outpatient (BNVA) | payer OTHER, SELFPAY | PROVIDERS: PCP Internal Medicine; Visit Provider Nurse Practitioner Family ==

== ENCOUNTER 2023-08-23 13:21 | Outpatient (AMB) | payer OTHER, SELFPAY ==
--- NOTE | 2023-09-07 11:15 | MHC.OFFVIS ---
Intake Intake Visit Reasons: OV- Right shoulder Pain Intake Note: Yaneli is a 73 year old right hand dominant female who presents today for a follow up of her bilateral shoulder pain. At her last visit there was no treatment warranted. She reports that her pain has increased and has limited ROM Allergies No Known Allergies [No Known Allergies*] Allergy (Verified 08/23/23 14:48) HPI OV- Right shoulder Pain HPI Details Yaneli is a 73 year old Diabetic woman who returns with complaints of right shoulder & left knee pain. She complains of pain with daily activity, worse with overhead activity and at night, and limited ROM. She received a right shoulder bursa injection on 02/15/23, with some relief. She also complains of worsening pain in her left knee as well, but she is hesitant to discuss surgery as she had a bad experience with a right TKA [place] [address] Agarwal. [facility] Medical History Lumbar back pain with radiculopathy affecting right lower extremity Anemia Frequent falls Dizziness Carpal tunnel syndrome, bilateral Status post fall Left hand pain Diabetes mellitus Mixed hyperlipidemia Obesity (BMI 30-39.9) Memory impairment Osteoarthritis of both hands Vitamin B12 deficiency Vitamin D deficiency Primary osteoarthritis of both knees Osteopenia Asthma Chronic idiopathic urticaria Acquired hypothyroidism Benign essential hypertension Diabetes mellitus without complication Surgical History Status post carpal tunnel release (~06/02/21) Tubal ligation status Hx of section History of total right knee replacement (~2012) Family History Father No problems noted. 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 Cognitive needs: Yes (cane ) Hearing needs: No Vision needs: Yes (glasses ) Review of Systems Const All systems reviewed & are unremarkable except as noted in HPI and below Physical Exam Const General: no acute distress, alert and awake Orientation/consciousness: patient oriented x3 HEENT Head: Yes normocephalic and Yes atraumatic Eyes EOM: EOMs intact bilaterally Resp Effort & Inspection: normal respiratory effort and able to speak in complete sentences Cardio Jugular venous distension: no JVD Skin General skin exam: turgor normal Rashes: no rashes Neuro General: patient oriented x3 Extrem Other: Right Shoulder: + H&N Left Knee: TTP MJL Psych Appearance: grossly normal Affect: normal affect Attitude: cooperative Office Procedures Joint Injection/Drain Joint Injection/Drain Details: Injected 1 mL of Decadron and 3 mL 1% lidocaine and 3 mL of 0.25% Marcaine. Site was prepped using aseptic technique. Patient tolerated the procedure well. Primary Site: left knee Secondary Site: right shoulder Coding - Large joint - Glenohumeral/Tronchanteric Bursa/Intraarticular Procedure code (CPT) selection complete Results Reviewed Results Reviewed: 09/07/23 11:22 BUPivacaine MPF 0.25 % [Sensorcaine-MPF 0.25% 10 ML] 10 ml .ROUTE .STK-MED ONE Lidocaine HCl 1 % [Xylocaine 1 %] 2 ml .ROUTE .STK-MED ONE Lidocaine HCl 2 % MPF [Xylocaine 2 % MPF] 5 ml .ROUTE .STK-MED ONE dexAMETHasone sod phosphate [Decadron] 4 mg .ROUTE .STK-MED ONE I personally reviewed relevant radiographs. Right Shoulder: Mild acromioclavicular osteoarthritis ? Left Shoulder: Moderate acromioclavicular and glenohumeral osteoarthritis Assessment & Plan Assessment & Plan (1) Bursitis of right shoulder: Code(s): M75.51 - Bursitis of right shoulder Plan: This is a 73 year old woman with right shoulder bursitis. She has pain with daily activity, worse with overhead activity and at night. She had some relief from a steroid injection in the past. I discussed her diagnosis and treatment options. I injected her right shoulder today, which she tolerated well. She can follow up prn. (2) Primary osteoarthritis of left knee: Code(s): M17.12 - Unilateral primary osteoarthritis, left knee Plan: Severe left knee OA. She has pain with daily activity, and good relief from injections in the past. She is not interested in surgery given her experience with post-op pain following her right TKA in 2012. I injected her left knee today, which she tolerated well. She can follow up prn. Plan Scribed for Brent Talley MD by Fortino Kim, medical superintendent, on 09/07/23 at 11:25 AM, EST. Coding Level of Care Code Est Pt Level 4 (43278) Diagnoses Bursitis of right shoulder M75.51 Primary osteoarthritis of left knee M17.12 CPT Codes Coding - 42885 Large joint: 81628 - Large joint ([id number]) Coding - Joint 7: 26993 - Glenohumeral/Tronchanteric Bursa/Intraarticular ([id number])
== END 2023-09-07 11:48 | disposition home or self-care (01) ==
PROVIDERS: PCP Internal Medicine; Visit Provider Orthopaedic Surgery
DX: M75.51 Bursitis of right shoulder (principal); M17.12 Unilateral primary osteoarthritis, left knee
CPT/HCPCS: 20610; 99214

== ENCOUNTER → 2023-08-23 13:21 | Outpatient (BNVA) | payer OTHER, SELFPAY | PROVIDERS: PCP Internal Medicine; Visit Provider Orthopaedic Surgery | DX: M75.51 Bursitis of right shoulder (principal); M17.12 Unilateral primary osteoarthritis, left knee; M17.0 Bilateral primary osteoarthritis of knee; M25.561 Pain in right knee; M25.562 Pain in left knee; G89.28 Other chronic postprocedural pain; Z96.653 Presence of artificial knee joint, bilateral | CPT/HCPCS: 20610; 99212; J1100 ==

== ENCOUNTER 2023-08-23 14:08 | Outpatient (AMB) | payer OTHER, SELFPAY ==
--- NOTE | 2023-08-23 14:36 | A.OFFVIS_ITS ---
Intake Vital Signs 08/23/23 14:46 Height 4 ft 11 in Weight 161 lb 3 oz BMI 32.6 BP 152/67 H Blood Pressure Location Lt brachial Position Sitting Pulse 66 Pulse Source Pulse Oximeter Pulse Oximetry (%) 98 Oxygen Delivery Method Room Air Intake Visit Reasons: s/p Right SN Sprint Intake Note: Pain today 12/15 Corn Cutter Required: Yes Corn Cutter Language: Bioanalyst Name: Daughter Accompanied by: Daughter Allergies No Known Allergies [No Known Allergies*] Allergy (Verified 08/23/23 14:48) HPI HPI Comments History of Present Illness Details Patient is a 73 years old [place] speaking female status post right saphenous nerve stimulator on 08/08/[address] Soliz for persistent chronic kne e pain post arthroplasty. Patient is accompanied by her daughter who assists with translation per patient's requests. Patient arrived very disappointed and not content with Sprint trial and reports Sprint device is not working for her. Upon assessing her therapy settings it was noted that stimulation settings were at 0 and off. Patient attempted to show me that she attempted increase her stimulation to 300 and it was not working. I allowed her to show me how to change settings and she increased stimulation to 11 without any paresthesia and patient reports it is not working in [place]. We slowly increased her stimulation and she reported initial slight stimulation at 68 and tolerable at 70, 74-75 was not tolerable so we kept setting at 70. I explained in greater detail to patient and family about PNS therapy, taking care of device, charging it and dressing changes. Patient and family prefers dressing changes to be done in clinic. The dressing was removed today. Leads insertion site look clean, dry, intact, no redness, no swelling, no pathological discharge. Area was cleansed with Chloraprep. Skin protective barrier cream was applied for surronding area, applied Bacitracin and covered it with gauze and Tegaderm film dressing. Past Procedure: 08/08/23: Right saphenous nerve Sprint-n o pain relief, stimulation settings at 0, increased to 70 (08/23/23). PRIOR Dr. Soliz 06/25/23: 73-year-old female is presenting today f or a new patient evaluation of her right artificial knee joint. She is accompanied by her daughter Ines, who interprets for her. She has a history of right TKA from about 10+ years ago, by Dr. Agarwal. She lives alone. She states that her pain started about three years ago. She reports clicking, weakness in the knee, and pain with ambulation. She is unable to bend her right knee beyond 90 degrees, and because of this, she is hesitant to pursue a left TKA. The patient received left knee injections by Mayank on 11/02/22 and 06/04/23. She had a left knee injection with Dr. Coello in 2019. The injections helped until a year ago. She wears her knee brace, but at times this increases her swelling. She tried and failed nabumetone, prednisone, turmeric supplementation, Tylenol and physical therapy. [facility] Medical History Lumbar back pain with radiculopathy affecting right lower extremity Anemia Frequent falls Dizziness Carpal tunnel syndrome, bilateral Status post fall Left hand pain Diabetes mellitus Mixed hyperlipidemia Obesity (BMI 30-39.9) Memory impairment Osteoarthritis of both hands Vitamin B12 deficiency Vitamin D deficiency Primary osteoarthritis of both knees Osteopenia Asthma Chronic idiopathic urticaria Acquired hypothyroidism Benign essential hypertension Diabetes mellitus without complication Surgical History Status post carpal tunnel release (~06/02/21) Tubal ligation status Hx of section History of total right knee replacement (~2012) Family History Father No problems noted. 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 Alert and oriented. Mood and affect appropriate. Follows and participates in conversation appropriately. Respiratory effort is unlabored. Able to transition from sit to stand unassisted. Ambulates with bilaterally normal heel strike and toe off. Lead Insertion Site: Lead insertion site looks clean, dry, intact. The area was cleansed again with ChloraPrep, dressed with Sprint gauze and tegaderm dressing. Positive paresthesia around right knee achieved at 70-72, kept at 70. Results Reviewed Results Reviewed: 11/02/22: AP BILATERAL KNEE. LEFT KNEE 2 VIEWS. FINDINGS: AP BILATERAL KNEE: There is a total right knee arthroplasty with prosthetic components in satisfactory alignment. There is moderate reduction in medial and mild reduction lateral compartment joint space with lateral compartment periarticular spurring. No visible acute fracture or dislocation seen. The soft tissues are normal. LEFT KNEE: There is moderate loss of patellofemoral compartment joint space with periarticular spurring. No visible acute fracture or dislocation seen. No suprapatellar joint effusion suspected. IMPRESSION: Total right knee arthroplasty in satisfactory alignment. Moderate degenerative arthritis of the medial and patellofemoral compartments and minimal lateral compartment periarticular spurring. No fracture or loose body seen. Assessment & Plan Assessment & Plan (1) Primary osteoarthritis of both knees: Code(s): M17.0 - Bilateral primary osteoarthritis of knee (2) Chronic knee pain after total replacement of both knee joints: Code(s): M25.561 - Pain in right knee; M25.562 - Pain in left knee; G89.28 - Other chronic postprocedural pain; Z96.653 - Presence of artificial knee joint, bilateral Plan Patient is status post right saphenous nerve stimulator on 08/08/23 for persistent chronic knee pain post arthroplasty. Unfortunately, her device was off and setting was set to 0. We achieved positive paresthesia at 70 with good tolerance, patient will monitor her pain level, functioning and mobility during next week and notify us if her pain symptoms improve. If the stimulator provides significant pain relief on the right, we will schedule her for left saphenous nerve stimulator for chronic pain secondary to osteoarthritis no longer responsive to corticosteroid injections intra- articularly. Alternatively, we can also consider a hyaluronic acid supplement injection under fluoroscopy. All questions were answered and the patient agreed with the plan. Follow up next week for Sprint dressing change and sooner if needed. Coding Level of Care Code Est Pt Level 3 (48447) Diagnoses Primary osteoarthritis of both knees M17.0 Chronic knee pain after total replacement of both knee joints M25.561; M25.562; G89.28; Z96.653
[2023-08-23 14:46] VITALS: BP 152/67; PULSE 66; O2SAT 98; BMI 32.6
== END 2023-08-23 15:11 | disposition home or self-care (01) ==
PROVIDERS: PCP Internal Medicine; Visit Provider Nurse Practitioner Family
DX: M17.0 Bilateral primary osteoarthritis of knee (principal); M25.561 Pain in right knee; M25.562 Pain in left knee; G89.28 Other chronic postprocedural pain; Z96.653 Presence of artificial knee joint, bilateral
CPT/HCPCS: 99213

== ENCOUNTER 2023-09-07 10:22 | Outpatient (REF) | payer OTHER, SELFPAY ==
[2023-09-07 10:46] LABS: MANUAL DIFF FLAG NO
[2023-09-07 10:54] LABS: Hematocrit 39.3 % (37.0-47.0); Hemoglobin 11.9 g/dl (12.0-16.0); Imm Gran Abs Auto 0.01 X10*3/uL (0.00-0.03); Imm Gran Pct Auto 0.3 % (0.0-0.4); Lymphocytes Absolute Auto 1.5 X10*3/uL (1.2-4.9); Lymphocytes Percent Auto 42.3 % (20-40); Mean Corpuscular HGB Conc 30.3 g/dl (31.0-35.0); Mean Corpuscular Hemoglobin 24.9 pg (27.0-33.0); Mean Corpuscular Volume 82.4 fL (80.0-98.0); Mean Platelet Volume 9.8 fL (9.4-12.3); Monocytes Absolute Auto 0.4 X10*3/uL (0.1-1.2); Monocytes Percent Auto 10.2 % (2-11); Neutrophils Absolute Auto 1.6 x10*3/uL (2.0-8.3); Neutrophils Percent Auto 47.2 % (45-73); Platelet Count 391 X10*3/uL (160-400); Red Blood Count 4.77 X10*6/uL (4.20-5.50); Red Cell Distribution Width 14.1 % (11.0-16.0); White Blood Count 3.4 X10*3/uL (4.8-10.8)
[2023-09-07 11:00] LABS: Estimated Average Glucose 105 mg/dL; Hemoglobin A1c % 5.3 % (<6.0)
[2023-09-07 11:36] LABS: Alanine Aminotransferase 17 U/L (0-31); Albumin Level 4.3 g/dL (3.5-5.0); Alkaline Phosphatase 41 U/L (39-117); Anion Gap 12 (12-20); Aspartate Amino Transferase 26 U/L (5-31); Bilirubin Total 0.3 mg/dL (0.0-1.0); Blood Urea Nitrogen 12 mg/dL (9-16); Calcium 10.8 mg/dL (8.4-10.2); Carbon Dioxide 26 mmol/L (22-29); Chloride 106 mmol/L (96-108); Cholesterol 166 mg/dL (<200); Estimated Glomerular Filt Rate > 60; Glucose Fasting 87 mg/dL (60-99); HDL Cholesterol 56 mg/dL (>40); LDL Cholesterol Calculated 77 mg/dL (<100); Potassium 4.3 mmol/L (3.3-5.1); Sodium 140 mmol/L (135-145); Triglycerides 166 mg/dL (<150)
[2023-09-07 12:01] LABS: Free T4 (Free Thyroxine) 1.21 ng/dL (0.71-1.85); Thyroid Stimulating Hormone 0.06 uIU/mL (0.32-4.0)
[2023-09-07 13:14] LABS: Appearance Urine Clear; Color Urine Yellow; Glucose Urine UA Negative (Negative); Leukocyte Esterase Urine Moderate (2+) (Negative); Nitrite Urine Negative (Negative); PH 5.5 (5.0-9.0); Specific Gravity - Urine 1.015 (1.005-1.025); UMIC TRIGGER UACC YES; Urine Blood Negative (Negative); Urine Ketones Negative (Negative); Urine Protein Negative (Neg-Trace)
[2023-09-07 13:17] LABS: Bacteria Urine None Seen (None Seen); Hyaline Casts Urine 0-2 /LPF (0-2); RBC Urine 0-2 /HPF (0-2); UACC Culture Trigger YES
[2023-09-07 14:22] LABS: Creatinine Urine 103.93 mg/dL; Microalbum/Creatinine Ratio Ur 12.5 ug/mg cr (<30)
[2023-09-07 16:32] LABS: Vitamin D 25-OH Total 51.2 ng/mL (>30)
== END 2023-09-07 10:23 | disposition home or self-care (01) ==
LOC: HO.LAB 10:22
PROVIDERS: PCP Internal Medicine; Visit Provider Internal Medicine
DX: E03.9 Hypothyroidism, unspecified (principal); E11.9 Type 2 diabetes mellitus without complications; I10 Essential (primary) hypertension; E78.00 Pure hypercholesterolemia, unspecified; R30.0 Dysuria; E55.9 Vitamin D deficiency, unspecified
CPT/HCPCS: 36415; 80053; 80061; 81001; 82043; 82306; 82570; 83036; 84439; 84443; 85025; 87086; 87088; 87186; J0665

== ENCOUNTER 2023-09-10 13:05 | Outpatient (AMB) | payer OTHER, SELFPAY ==
[2023-09-10 13:09] VITALS: BP 150/92; PULSE 65; O2SAT 97; BMI 31.7
--- NOTE | 2023-09-10 13:09 | A.OFFPC_ITS ---
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: Present Allergies No Known Allergies [No Known Allergies*] Allergy (Verified 09/10/23 13:43) Medication List - Last Reconciled 09/10/23 by Marco Martinez MD ascorbic acid (vitamin C) (Vitamin C) 500 mg PO DAILY betamethasone valerate 0.1% 1 appl topical BID PRN 30 days bisacodyl (Dulcolax (bisacodyl)) 10 mg PO BEDTIME [bladder control pads As directed] blood sugar diagnostic ([employer] Verio test strips) 50 strips miscellaneous BID calcium carbonate-vitamin D3 500 mg-10 mcg (400 unit) (Calcium 500 With D) 1 tab PO BID cholecalciferol (vitamin D3) 25 mcg PO DAILY cyanocobalamin (vitamin B-12) 1,000 mcg PO DAILY fenofibrate nanocrystallized 145 mg PO DAILY fexofenadine 180 mg PO DAILY [gloves (Medium) As directed] hydrocortisone 2.5% 1 appl topical BID PRN lancets ([employer] UltraSoft Lancets) As directed- In Vitro twice a day levothyroxine 112 mcg PO DAILY 90 days metformin 500 mg PO TID montelukast 10 mg PO BEDTIME nabumetone 500 mg PO BID omalizumab mg subcut [personal wipes As directed] prednisone 10 mg PO DAILY PRN 5 days [rollator walker As directed] [shower chair with back As directed] simvastatin 40 mg PO DAILY tizanidine 2 mg PO BEDTIME PRN turmeric-turmeric ext-pepper 500-3 mg 1 cap PO DAILY Ventolin HFA 90 mcg/actuation (albuterol sulfate) 2 puffs inhalation Q6H PRN 30 days NS Tobacco use date assessed: 04/30/23 Fall risk assessment: No Falls in past year Last assessed Fall Risk: 09/10/23 Dental Screening Dental Screen Date: 09/10/23 Did you have a dental visit in the last 12 months?: Yes Did you have a dental problem in the last 6 months where you did not have access to dental care?: No Was dental information given to patient?: Patient has dentist HPI infection on her body HPI Details Patient comes in today for her follow up visit States that she currently feels okay but relates that she apparently had some infection/abscess over her right lower abdominal skin fold about 2 months ago States that she went to the ER at [facility] but ended up leaving after waiting about 8 to 9 hours to be seen but was still not yet attended to States that she took it upon herself to apply some OTC Abx over the infection and she ended up draining out the abscess on her own, and that her abscess is now resolved She currently denies any headaches or dizziness; denies any fever She denies any chest pains, no increased SOB No nausea/vomiting, no abdominal pain No change in bowel habits noted Needs a couple of her Rx refilled Had her follow up labs done a few days ago - to discuss her results [facility] Medical History Lumbar back pain with radiculopathy affecting right lower extremity Anemia Frequent falls Dizziness Carpal tunnel syndrome, bilateral Status post fall Left hand pain Diabetes mellitus Mixed hyperlipidemia Obesity (BMI 30-39.9) Memory impairment Osteoarthritis of both hands Vitamin B12 deficiency Vitamin D deficiency Primary osteoarthritis of both knees Osteopenia Asthma Chronic idiopathic urticaria Acquired hypothyroidism Benign essential hypertension Diabetes mellitus without complication Surgical History Status post carpal tunnel release (~06/02/21) Tubal ligation status Hx of section History of total right knee replacement (~2012) Family History Father No problems noted. 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 Depression Screening Interpretation: Negative Depression Screening Done: Yes Source: Developed by Drs. Lee Cardenas, Sunni Cross, Steve Mcadams and colleagues, with an educational sajan from [employer]. Thrive Questionnaire Date Thrive assessed: 04/30/23 Currently or been in a relationship where the following occur: no concerns reported AUDIT C Alcohol Use Questionnaire (AUDIT-C) 1. How often do you have a drink containing alcohol?: Never 3. How often do you have six or more drinks on one occasion?: Never Total Score: 0 Score Reviewed/Action Taken: Yes ANSON-7 AMB Questionnaire ANSON-7 Date ANSON - 7 assessed: 04/30/23 Source: Developed by Drs. Lee Cardenas, Sunni Cross, Steve Mcadams and colleagues, with an educational sajan from [employer]. Review of Systems Const Denies chills, Denies fatigue, Denies fever(s) and Denies headache(s) Eyes Details: (+) prosthetic right eye ENT Denies dysphagia, Denies dizziness, Denies otalgia, Denies headache(s), Denies neck pain, Denies odynophagia and Denies sore throat Card Denies chest pain, Denies palpitations and Denies dyspnea Resp Denies cough, Denies dyspnea and Denies wheezing GI Denies abdominal pain, Denies constipation, Denies dysphagia, Denies heartburn, Denies diarrhea, Denies nausea, Denies odynophagia and Denies vomiting Denies difficulty voiding, Denies nocturia, Denies dysuria and Denies urinary urgency Musc Reports back pain (increasing), Reports arthralgias (right hand - on and off) and Denies neck pain Skin/Breast Details: (+) residual scar from previous cutaneous abscess (possibly hidradenitis lesion) over the right lower abdominal skin fold Denies rash Neuro Denies dizziness and Denies headache(s) Psych Denies anxiety and Denies depression Endo Denies fatigue and Denies palpitations Aller/Immun Denies wheezing Physical exam (Primary Care) Vital Signs: Last Vital Signs Pulse 65 09/10/23 13:09 BP 150/92 H 09/10/23 13:09 Pulse Ox 97 09/10/23 13:09 Oxygen Delivery Method Room Air 09/10/23 13:09 BMI result Body Mass Index 31.7 Tobacco/Smoking Status: Tobacco use Status Tobacco use date assessed 04/30/23 09/10/23 13:10 Patient Tobacco Use Status Former Tobacco user 09/10/23 13:10 e-Cigarette/Vaping Use Never Used 09/10/23 13:10 Depression Screening Interpretation: Negative Thrive Assessment: Date of Thrive Assessment Date Thrive assessed 04/30/23 09/10/23 13:10 Currently or been in a relationship where the following occur: no concerns reported Const General: no acute distress and alert HENMT Ears: TM's normal bilaterally and EAC's normal Throat: Yes posterior oropharynx normal and Yes tonsils normal (no TP congestion noted) Eyes Other: (+) prosthetic right eye; left eye exam is grossly normal Neck Neck: Yes no lymphadenopathy and Yes supple Thyroid: Thyroid normal Resp Auscultation: clear to auscultation bilaterally, no rales and no wheezes Cardio Rate: regular rate Rhythm: regular rhythm Heart sounds: no murmurs GI Other: (+) residual scar from previous cutaneous abscess (possibly hidradenitis lesion) over the right lower abdominal skin fold Palpation (GI): Soft to palpation and nontender Auscultation: normal bowel sounds General: Yes no CVA tenderness Back/Spine/Pelvis Back: no CVA tenderness Thoracic/Lumbar Spine: thoracic spinal tenderness and lumbar spinal tenderness Extrem General: Yes no clubbing, cyanosis or edema Left upper extremity: wrist ((+) mild tenderness with healed scar over volar aspect of the left wrist) Results Reviewed Results Reviewed: Laboratory Tests 09/07/23 09/07/23 09/07/23 10:08 10:08 10:45 WBC 3.4 L Hgb 11.9 L Hct 39.3 Plt Count 391 Sodium 140 Potassium 4.3 Creatinine 0.85 Estimated GFR > 60 Fasting Glucose 87 Hemoglobin A1c % 5.3 Calcium AST 26 ALT 17 Triglycerides 166 H Cholesterol 166 LDL Cholesterol, Calc 77 HDL Cholesterol 56 25-OH Vitamin D Total 51.2 TSH Free T4 Ur Specific Terry 1.015 Urine Protein Negative Urine Glucose (UA) Negative Urine Blood Negative Microalb/Creat Ratio 12.5 09/07/23 09/07/23 10:45 10:45 WBC Hgb Hct Plt Count Sodium Potassium Creatinine Estimated GFR Fasting Glucose Hemoglobin A1c % Calcium 10.8 H AST ALT Triglycerides Cholesterol LDL Cholesterol, Calc HDL Cholesterol 25-OH Vitamin D Total TSH 0.06 L Free T4 1.21 Ur Specific Terry Urine Protein Urine Glucose (UA) Urine Blood Microalb/Creat Ratio Assessment and Plan Assessment & Plan (1) Mixed hyperlipidemia: Code(s): E78.2 - Mixed hyperlipidemia Plan: Results of her labs done a few days ago reviewed and discussed with patient Reinforced low cholesterol diet Continue Simvastatin 40 mg QD and Fenofibrate 145 mg QD Will recheck her labs and fasting lipids in 3 months for follow-up (2) Diabetes mellitus without complication: Code(s): E11.9 - Type 2 diabetes mellitus without complications Plan: HgbA1c is at 5.3% on her labs done a few days ago (was at 5.9% a few months ago) - goal is < 7.0% Reinforced diabetic diet Continue Metformin 500 mg TID (3) Benign essential hypertension: Code(s): I10 - Essential (primary) hypertension Plan: Reinforced low sodium diet - goal is systolic BP of at least 140 mm or less (4) Acquired hypothyroidism: Code(s): E03.9 - Hypothyroidism, unspecified Plan: TFTs remain normal on her recent labs Continue Levothyroxine 112 mcg QD Will recheck her TFTs in 3 months for follow up (5) GERD without esophagitis: Code(s): K21.9 - Gastro-esophageal reflux disease without esophagitis Plan: Dietary restrictions reinforced (6) Asthma: Code(s): J45.909 - Unspecified asthma, uncomplicated Qualifiers: Asthma complication type: uncomplicated Asthma persistence: persistent Asthma severity: mild Qualified Code(s): J45.30 - Mild persistent asthma, uncomplicated Plan: Stable Continue Flovent HFA 110 mcg 1 puff BID and ProAir HFA 2 puffs up to 4 times a day as needed (7) Cutaneous abscess of abdominal wall: Code(s): L02.211 - Cutaneous abscess of abdominal wall Plan: Appears to be resolving - was likely an abdominal wall abscess or hidradenitis lesion but patient has since squeezed out the purulent material inside Continue daily wound care - advised that the lesion should continue to clear up on its own but she is instructed to call if this gets worse over the next few days (8) Osteopenia: Code(s): M85.80 - Other specified disorders of bone density and structure, unspecified site Qualifiers: Osteopenia location: unspecified Qualified Code(s): M85.80 - Other specified disorders of bone density and structure, unspecified site Plan: Repeat BMD done a few years ago on 06/03/2019 showed no significant change from previous - will continue to monitor Patient encouraged to continue with regular exercise and physical activity Continue Calcium 500 + D 400 mg 1 tablet BID (9) Vitamin D deficiency: Code(s): E55.9 - Vitamin D deficiency, unspecified Plan: Continue Vitamin D3 1000 units QD (10) Vitamin B12 deficiency: Code(s): E53.8 - Deficiency of other specified B group vitamins Plan: Corrected - continue Vitamin B12 tablets 1000 mcg QD (11) Chronic idiopathic urticaria: Code(s): L50.1 - Idiopathic urticaria Plan: Continue Xolair injection 150 mg, Fexofenadine 180 mg 3 tablets BID and Hydroxyzine 25 mg every 8 hours PRN Follow up with family engagement specialist (Dr. Bernal at [facility]) as scheduled (12) Primary osteoarthritis of both knees: Code(s): M17.0 - Bilateral primary osteoarthritis of knee Plan: Continue Meloxicam 15 mg QD PRN Follow-up with Orthopedics as scheduled (13) Osteoarthritis of both hands: Code(s): M19.041 - Primary osteoarthritis, right hand; M19.042 - Primary osteoarthritis, left hand Qualifiers: Osteoarthritis type: primary Qualified Code(s): M19.041 - Primary osteoarthritis, right hand; M19.042 - Primary osteoarthritis, left hand Plan: X-rays of both hands done several months ago revealed (+) osteoarthritis changes bilaterally; repeat x-rays of the left hand done a few months ago showed (+) arthritis of the IP joints Encouraged to continue with regular hand exercises to help minimize or stiffness and pain Follow up with orthopedics as scheduled (14) Facet arthritis of lumbar region: Code(s): M47.816 - Spondylosis without myelopathy or radiculopathy, lumbar region Plan: Reinforced activity and weight-lifting restrictions Lumbar spine x-rays done back in February 2021 revealed (+) mild lumbar spine DDD and facet arthritis Repeat thoracic and lumbar spine x-rays done in March 2022 revealed moderate multilevel degenerative disc disease of the thoracic and lumbar spine, with prominent anterior endplate osteophytes within the midthoracic spine and prominent bilateral facet arthropathy at L5-S1 Recommend referral to physical therapy but patient would like to hold off on this for now and states that she will call for referral if she changes her mind about this (15) Carpal tunnel syndrome, bilateral: Comment: NCV done back in 2016 revealed (+) moderatedly severe bilateral carpal tunnel syndrome; EMG was normal Code(s): G56.03 - Carpal tunnel syndrome, bilateral upper limbs Plan: S/P left car[place] [facility] [place] Follow-up with orthopedics as scheduled (16) Memory impairment: Code(s): R41.3 - Other amnesia Plan: Follow up with neurology as scheduled (17) Obesity (BMI 30-39.9): Code(s): E66.9 - Obesity, unspecified Plan: Reinforced diet; exercise and weight loss are unrealistic given patient's multiple physical issues and comorbidities Plan Follow up in 3 months Orders: Orders Complete Blood Count Auto Diff 3 Months I10 - Essential (primary) hypertension Hemoglobin A1c 3 Months E11.9 - Type 2 diabetes mellitus without complications Thyroid Stimulating Hormone 3 Months E03.9 - Hypothyroidism, unspecified Free T4 (Free Thyroxine) 3 Months E03.9 - Hypothyroidism, unspecified Vitamin B12 and Folate 3 Months E53.8 - Deficiency of other specified B group vitamins Lipid Panel 3 Months E78.00 - Pure hypercholesterolemia, unspecified Comprehensive [place]. Panel Fast 3 Months E78.00 - Pure hypercholesterolemia, unspecified Microalbumin, Random (w Creat) 3 Months E11.9 - Type 2 diabetes mellitus without complications UA CC w/rflx Micro + Cult 3 Months R30.0 - Dysuria Vitamin D 25-OH Total 3 Months E55.9 - Vitamin D deficiency, unspecified Medications: Refilled metformin 500 mg PO TID 270 tabs 3RF cholecalciferol (vitamin D3) 25 mcg PO DAILY 90 caps 3RF Coding Level of Care Code Est Pt Level 4 (21291) Diagnoses Mixed hyperlipidemia E78.2 Diabetes mellitus without complication E11.9 Benign essential hypertension I10 Acquired hypothyroidism E03.9 GERD without esophagitis K21.9 Mild persistent asthma without complication J45.30 Asthma complication type: uncomplicated Asthma persistence: persistent Asthma severity: mild Cutaneous abscess of abdominal wall L02.211 Osteopenia, unspecified location M85.80 Osteopenia location: unspecified Vitamin D deficiency E55.9 Vitamin B12 deficiency E53.8 Chronic idiopathic urticaria L50.1 Primary osteoarthritis of both knees M17.0 Primary osteoarthritis of both hands M19.041; M19.042 Osteoarthritis type: primary Facet arthritis of lumbar region M47.816 Carpal tunnel syndrome, bilateral G56.03 Memory impairment R41.3 Obesity (BMI 30-39.9) E66.9
== END 2023-09-10 14:03 | disposition home or self-care (01) ==
PROVIDERS: PCP Internal Medicine; Visit Provider Internal Medicine
DX: E78.2 Mixed hyperlipidemia (principal); E11.9 Type 2 diabetes mellitus without complications; I10 Essential (primary) hypertension; E03.9 Hypothyroidism, unspecified; K21.9 Gastro-esophageal reflux disease without esophagitis; J45.30 Mild persistent asthma, uncomplicated; L02.211 Cutaneous abscess of abdominal wall; M85.80 Other specified disorders of bone density and structure, unspecified site; E55.9 Vitamin D deficiency, unspecified; E53.8 Deficiency of other specified B group vitamins; L50.1 Idiopathic urticaria; M17.0 Bilateral primary osteoarthritis of knee
CPT/HCPCS: 99214

== ENCOUNTER 2023-10-04 13:29 | Outpatient (AMB) | payer OTHER, SELFPAY ==
--- NOTE | 2023-10-04 14:08 | A.OFFVIS_ITS ---
Intake Intake Visit Reasons: OV- Right shoulder Pain Intake Note: This is a 73 year old female who presents for right shoulder bursitis and left knee pain. Her left knee injection helped however her right shoulder injection did not.. She reports pain and some limits to her range of motion. Allergies No Known Allergies [No Known Allergies*] Allergy (Verified 10/05/23 08:42) Medication List - Last Reconciled 10/04/23 by Katharina Knowles RN ascorbic acid (vitamin C) (Vitamin C) 500 mg PO DAILY betamethasone valerate 0.1% 1 appl topical BID PRN 30 days bisacodyl (Dulcolax (bisacodyl)) 10 mg PO BEDTIME [bladder control pads As directed] blood sugar diagnostic ([employer] Verio test strips) 50 strips miscellaneous BID calcium carbonate-vitamin D3 500 mg-10 mcg (400 unit) (Calcium 500 With D) 1 tab PO BID cholecalciferol (vitamin D3) 25 mcg PO DAILY cyanocobalamin (vitamin B-12) 1,000 mcg PO DAILY doxycycline monohydrate 100 mg PO BID 7 days fenofibrate nanocrystallized 145 mg PO DAILY fexofenadine 180 mg PO DAILY [gloves (Medium) As directed] hydrocortisone 2.5% 1 appl topical BID PRN lancets ([employer] UltraSoft Lancets) As directed- In Vitro twice a day levothyroxine 112 mcg PO DAILY 90 days metformin 500 mg PO TID montelukast 10 mg PO BEDTIME nabumetone 500 mg PO BID omalizumab mg subcut [personal wipes As directed] prednisone 10 mg PO DAILY PRN 5 days [rollator walker As directed] [shower chair with back As directed] simvastatin 40 mg PO DAILY tizanidine 2 mg PO BEDTIME PRN turmeric-turmeric ext-pepper 500-3 mg 1 cap PO DAILY Ventolin HFA 90 mcg/actuation (albuterol sulfate) 2 puffs inhalation Q6H PRN 30 days NS HPI OV- Right shoulder Pain HPI Details Yaneli is a 73 year old Diabetic woman who returns with complaints of right shoulder pain. She complains of pain with daily activity, worse with overhead activity and at night, and limited ROM. She received a right shoulder bursa injection on 08/17/23, with some relief, but she continues to have pain. She says her left knee injection was helpful and she has less pain still. [facility] Medical History Lumbar back pain with radiculopathy affecting right lower extremity Anemia Frequent falls Dizziness Carpal tunnel syndrome, bilateral Status post fall Left hand pain Diabetes mellitus Mixed hyperlipidemia Obesity (BMI 30-39.9) Memory impairment Osteoarthritis of both hands Vitamin B12 deficiency Vitamin D deficiency Primary osteoarthritis of both knees Osteopenia Asthma Chronic idiopathic urticaria Acquired hypothyroidism Benign essential hypertension Diabetes mellitus without complication Surgical History Status post carpal tunnel release (~06/02/21) Tubal ligation status Hx of section History of total right knee replacement (~2012) Family History Father No problems noted. 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 Cognitive needs: Yes (cane ) Hearing needs: No Vision needs: Yes (glasses ) Review of Systems Const All systems reviewed & are unremarkable except as noted in HPI and below Physical Exam Const General: no acute distress, alert and awake Orientation/consciousness: patient oriented x3 HEENT Head: Yes normocephalic and Yes atraumatic Eyes EOM: EOMs intact bilaterally Resp Effort & Inspection: normal respiratory effort and able to speak in complete sentences Cardio Jugular venous distension: no JVD Skin General skin exam: turgor normal Rashes: no rashes Neuro General: patient oriented x3 Extrem Other: Right Shoulder: + H&N Psych Appearance: grossly normal Affect: normal affect Attitude: cooperative Assessment & Plan Assessment & Plan (1) Bursitis of right shoulder: Code(s): M75.51 - Bursitis of right shoulder Plan: This is a 73 year old woman with right shoulder bursitis. She has pain with daily activity, worse with overhead activity and at night. She had some relief from her previous steroid injection on 08/17/23, but her pain returned and she feels limited in her ADLs. I discussed her diagnosis and treatment options. I recommend PT. (2) Primary osteoarthritis of left knee: Code(s): M17.12 - Unilateral primary osteoarthritis, left knee Plan: Severe left knee OA. She has pain with daily activity, and good relief from her most recent injection on 08/17/23. She is not interested in surgery given her experience with post-op pain following her right TKA in 2012. Orders: Orders PT Evaluation and Treatment Today M75.51 - Bursitis of right shoulder Coding Level of Care Code Est Pt Level 3 (72894) Diagnoses Bursitis of right shoulder M75.51 Primary osteoarthritis of left knee M17.12
== END 2023-10-04 14:47 | disposition home or self-care (01) ==
PROVIDERS: PCP Internal Medicine; Visit Provider Orthopaedic Surgery
DX: M75.51 Bursitis of right shoulder (principal); M17.12 Unilateral primary osteoarthritis, left knee
CPT/HCPCS: 99213

== ENCOUNTER → 2023-10-04 13:29 | Outpatient (BNVA) | payer OTHER, SELFPAY | PROVIDERS: PCP Internal Medicine; Visit Provider Orthopaedic Surgery | DX: M75.51 Bursitis of right shoulder (principal); M17.12 Unilateral primary osteoarthritis, left knee; Z96.651 Presence of right artificial knee joint | CPT/HCPCS: 99212 ==

== ENCOUNTER 2023-10-05 08:28 | Outpatient (AMB) | payer OTHER, SELFPAY ==
--- NOTE | 2023-10-05 08:32 | MHC.OFFVIS ---
Intake Vital Signs 10/05/23 08:42 Height 4 ft 11 in Weight 157 lb BMI 31.7 BP 137/66 Blood Pressure Location Lt brachial Position Sitting Pulse 61 Pulse Source Pulse Oximeter Pulse Oximetry (%) 99 Oxygen Delivery Method Room Air Intake Visit Reasons: Sprint removal/confirmed Intake Note: Pain today 0/10 Insurance Assistant Required: Yes Insurance Assistant Language: Locker Attendant Name: Daughter Accompanied by: Daughter Allergies No Known Allergies [No Known Allergies*] Allergy (Verified 10/05/23 08:42) HPI HPI Comments History of Present Illness Details Patient presents today for Right saphenous nerve Sprint removal. Patient reports ongoing 100% pain relief in her right knee with improved functioning, mobility and sleep. She reports occasional mild pain with climbing stairs but overall is content with Sprint trial procedure. Patient will continue to monitor her symptoms and notify us when her pain return to its baseline. Family reports patient turned off her Sprint device one week ago as she had no pain in her right knee. The dressing was removed. Lead insertion site look clean, dry, intact, no redness, no swelling, no pathological discharge. Area was cleansed with Chloraprep. Lead pulled with tip intact and the area was cleansed again with Chloraprep, applied Bacitracin and covered it with gauze and Tegaderm film dressing. Patient also reports chronic right shoulder pain and recently received cortisone injection by Orthopedic provider. She reports advanced arthritis in her shoulder but wants to avoid any type of surgery. We briefly discussed interventional treatments for right shoulder pain. Denies any recent cough, cold, infection, fever or other significant changes in medical history since last office visit. PRIOR: Patient is a 73 years old [place] speaking female status post right saphenous nerve stimulator on 08/08/[address] Soliz for persistent chronic knee pain post arthroplasty. Patient is accompanied by her daughter who assists with translation per patient's requests. Patient arrived very disappointed and not content with Sprint trial and reports Sprint device is not working for her. Upon assessing her therapy settings it was noted that stimulation settings were at 0 and off. Patient attempted to show me that she attempted increase her stimulation to 300 and it was not working. I allowed her to show me how to change settings and she increased stimulation to 11 without any paresthesia and patient reports it is not working in [place]. We slowly increased her stimulation and she reported initial slight stimulation at 68 and tolerable at 70, 74-75 was not tolerable so we kept setting at 70. I explained in greater detail to patient and family about PNS therapy, taking care of device, charging it and dressing changes. Patient and family prefers dressing changes to be done in clinic. The dressing was removed today. Leads insertion site look clean, dry, intact, no redness, no swelling, no pathological discharge. Area was cleansed with Chloraprep. Skin protective barrier cream was applied for surrounding area, applied Bacitracin and covered it with gauze and Tegaderm film dressing. Past Procedure: 08/08/23: Right saphenous nerve Sprint-no pain relief, stimulation settings at 0, increased to 70 (08/23/23). PRIOR Dr. Soliz 06/25/23: 73-year-old female is presenting today for a new patient evaluation of her right artificial knee joint. She is accompanied by her daughter Ines, who interprets for her. She has a history of right TKA from about 10+ years ago, by Dr. Agarwal. She lives alone. She states that her pain started about three years ago. She reports clicking, weakness in the knee, and pain with ambulation. She is unable to bend her right knee beyond 90 degrees, and because of this, she is hesitant to pursue a left TKA. The patient received left knee injections by Mayank on 11/02/22 and 06/04/23. She had a left knee injection with Dr. Coello in 2019. The injections helped until a year ago. She wears her knee brace, but at times this increases her swelling. She tried and failed nabumetone, prednisone, turmeric supplementation, Tylenol and physical therapy. [facility] Medical History Lumbar back pain with radiculopathy affecting right lower extremity Anemia Frequent falls Dizziness Carpal tunnel syndrome, bilateral Status post fall Left hand pain Diabetes mellitus Mixed hyperlipidemia Obesity (BMI 30-39.9) Memory impairment Osteoarthritis of both hands Vitamin B12 deficiency Vitamin D deficiency Primary osteoarthritis of both knees Osteopenia Asthma Chronic idiopathic urticaria Acquired hypothyroidism Benign essential hypertension Diabetes mellitus without complication Surgical History Status post carpal tunnel release (~06/02/21) Tubal ligation status Hx of section History of total right knee replacement (~2012) Family History Father No problems noted. 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 Alert and oriented. Mood and affect appropriate. Follows and participates in conversation appropriately. Respiratory effort is unlabored. Able to transition from sit to stand unassisted. Ambulates with bilaterally normal heel strike and toe off. Lead Insertion Site: Lead insertion site looks clean, dry, intact. Lead pulled with tip intact. Results Reviewed Results Reviewed: 11/02/22: AP BILATERAL KNEE. LEFT KNEE 2 VIEWS. FINDINGS: AP BILATERAL KNEE: There is a total right knee arthroplasty with prosthetic components in satisfactory alignment. There is moderate reduction in medial and mild reduction lateral compartment joint space with lateral compartment periarticular spurring. No visible acute fracture or dislocation seen. The soft tissues are normal. LEFT KNEE: There is moderate loss of patellofemoral compartment joint space with periarticular spurring. No visible acute fracture or dislocation seen. No suprapatellar joint effusion suspected. IMPRESSION: Total right knee arthroplasty in satisfactory alignment. Moderate degenerative arthritis of the medial and patellofemoral compartments and minimal lateral compartment periarticular spurring. No fracture or loose body seen. XR/XR shoulder LT min 2V 03/28/22 IMPRESSION: Right Shoulder: Moderate acromioclavicular osteoarthritis with subacromial spurring, increased when compared to the prior examination. Mild glenohumeral osteoarthritis, new when compared to the prior examination. Infraspinatus calcific tendinitis, new when compared to the prior examination. Left Shoulder: Moderate acromioclavicular and glenohumeral osteoarthritis. Assessment & Plan Assessment & Plan (1) Chronic knee pain after total replacement of both knee joints: Code(s): M25.561 - Pain in right knee; M25.562 - Pain in left knee; G89.28 - Other chronic postprocedural pain; Z96.653 - Presence of artificial knee joint, bilateral (2) Osteoarthritis of right shoulder: Code(s): M19.011 - Primary osteoarthritis, right shoulder (3) Right shoulder pain: Code(s): M25.511 - Pain in right shoulder Plan Patient presented today for Right Saphenous Nerve PNS lead removal. She reports ongoing 100 % pain relief. Lead insertion site looks clean, dry, intact, no pathological discharge. Area was cleansed with Chloraprep. Lead pulled with tip intact. Patient will continue to monitor her right knee pain and notify our office when her pain returns to baseline. Patient also reports chronic right shoulder pain and recently received cortisone injection by Orthopedic provider. She reports advanced arthritis in her shoulder but wants to avoid any type of surgery. We briefly discussed interventional treatments for right shoulder pain. She reports mild to moderate pain relief with recent cortisone injection. Discussed diagnostic injections for potential stimulative or ablative procedures. She declined Sprint PNS for shoulder pain as she lives alone and states it will be difficult to manage device and do dressing changes. Patient reports she had no problem changing her knee dressings and caring for Sprint device as this was more practical. She will consider RFA in the future as shoulder pain limits her daily activities and she cannot sleep on right side due to pain. She has started physical therapy and finds mild improvement so far. All questions were answered and the patient agreed with the plan. Follow up as needed. Coding Level of Care Code Est Pt Level 4 (96327) Diagnoses Chronic knee pain after total replacement of both knee joints M25.561; M25.562; G89.28; Z96.653 Osteoarthritis of right shoulder M19.011 Right shoulder pain M25.511
[2023-10-05 08:42] VITALS: BP 137/66; PULSE 61; O2SAT 99; BMI 31.7
== END 2023-10-05 09:05 | disposition home or self-care (01) ==
PROVIDERS: PCP Internal Medicine; Visit Provider Nurse Practitioner Family
DX: M25.561 Pain in right knee (principal); M25.562 Pain in left knee; G89.28 Other chronic postprocedural pain; Z96.653 Presence of artificial knee joint, bilateral; M19.011 Primary osteoarthritis, right shoulder; M25.511 Pain in right shoulder
CPT/HCPCS: 99214

== ENCOUNTER → 2023-10-05 08:28 | Outpatient (BNVA) | payer OTHER, SELFPAY | PROVIDERS: PCP Internal Medicine; Visit Provider Nurse Practitioner Family | DX: M25.561 Pain in right knee (principal); M25.562 Pain in left knee; M19.011 Primary osteoarthritis, right shoulder; M25.511 Pain in right shoulder; G89.28 Other chronic postprocedural pain; Z96.653 Presence of artificial knee joint, bilateral | CPT/HCPCS: 99212 ==

== ENCOUNTER 2024-02-11 16:17 | Outpatient (AMB) | payer OTHER, SELFPAY ==
--- NOTE | 2024-02-11 16:21 | A.OFFPC_ITS ---
Vital Signs 02/11/24 16:25 Height 4 ft 11 in Weight 157 lb 8 oz BMI 31.8 BP 122/62 Blood Pressure Location Lt brachial Position Sitting Pulse 60 Pulse Source Pulse Oximeter Pulse Oximetry (%) 98 Oxygen Delivery Method Room Air Intake Visit Reasons: 3mth f/u Intake Note: Pt is here for 3 month F/U. Pt is requesting a rollator walker sent to [facility]. Community Outreach Specialist Required: No Accompanied by: Daughter Allergies No Known Allergies [No Known Allergies*] Allergy (Verified 02/11/24 17:24) Medication List - Last Reconciled 02/11/24 by Marco Martinez MD ascorbic acid (vitamin C) (Vitamin C) 500 mg PO DAILY betamethasone valerate 0.1% 1 appl topical BID PRN 30 days bisacodyl (Dulcolax (bisacodyl)) 10 mg PO BEDTIME [bladder control pads As directed] blood sugar diagnostic (Arecont VisionTouch Verio test strips) 50 strips miscellaneous BID calcium carbonate-vitamin D3 500 mg-10 mcg (400 unit) (Calcium 500 With D) 1 tab PO BID cholecalciferol (vitamin D3) 25 mcg PO DAILY cyanocobalamin (vitamin B-12) 1,000 mcg PO DAILY doxycycline monohydrate 100 mg PO BID 7 days fenofibrate nanocrystallized 145 mg PO DAILY fexofenadine 180 mg PO DAILY [gloves (Medium) As directed] hydrocortisone 2.5% 1 appl topical BID PRN lancets (Arecont VisionTouch UltraSoft Lancets) As directed- In Vitro twice a day levocetirizine 5 mg PO DAILY levothyroxine 112 mcg PO DAILY 90 days metformin 500 mg PO TID montelukast 10 mg PO BEDTIME nabumetone 500 mg PO BID omalizumab 300 mg subcut Q2W [personal wipes As directed] prednisone 10 mg PO DAILY PRN 5 days [rollator walker As directed] [shower chair with back As directed] simvastatin 40 mg PO DAILY tizanidine 2 mg PO BEDTIME PRN turmeric-turmeric ext-pepper 500-3 mg 1 cap PO DAILY Ventolin HFA 90 mcg/actuation (albuterol sulfate) 2 puffs inhalation Q6H PRN 30 days NS Tobacco use date assessed: 02/11/24 Fall risk assessment: No Falls in past year Last assessed Fall Risk: 02/11/24 Dental Screening Dental Screen Date: 02/11/24 Did you have a dental visit in the last 12 months?: No Did you have a dental problem in the last 6 months where you did not have access to dental care?: No Was dental information given to patient?: Patient has dentist HPI 3mth f/u HPI Details Patient comes in today for her follow up visit States that she continues to experience increased joint pains, especially over her knees She has been going to pain management but feels that whatever they have done for her so far have not really resulted in any significant pain relief and believes that she was discharged from pain management after her last visit as they supposedly have nothing else to offer her States that she otherwise is doing well with her other medical issues She denies any headaches or dizziness Denies any chest pains,no SOB No nausea/vomiting, no abdominal pain No change in bowel habits noted She would like to get an Rx for a Rollator and have that sent over to [facility] so they can pick it up as soon as possible She was not able to get her follow up labs done prior to her visit today [facility] Medical History Lumbar back pain with radiculopathy affecting right lower extremity Anemia Frequent falls Dizziness Carpal tunnel syndrome, bilateral Status post fall Left hand pain Diabetes mellitus Mixed hyperlipidemia Obesity (BMI 30-39.9) Memory impairment Osteoarthritis of both hands Vitamin B12 deficiency Vitamin D deficiency Primary osteoarthritis of both knees Osteopenia Asthma Chronic idiopathic urticaria Acquired hypothyroidism Benign essential hypertension Diabetes mellitus without complication Surgical History Status post carpal tunnel release (~06/02/21) Tubal ligation status Hx of section History of total right knee replacement (~2012) Family History Father No problems noted. 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 1. Little interest or pleasure in doing things: not at all 2. Feeling down, depressed, or hopeless: not at all 3. Trouble falling or staying asleep, or sleeping too much: not at all 4. Feeling tired or having little energy: not at all 5. Poor appetite or overeating: not at all 6. Feeling bad about yourself - or that you are a failure or have let yourself or your family down: not at all 7. Trouble concentrating on things, such as reading the newspaper or watching television: not at all 8. Moving or speaking so slowly that other people could have noticed. Or the opposite - being so fidgety or restless that you have been moving around a lot more than usual: not at all 9. Thoughts that you would be better off or of hurting yourself in some way: not at all Total score: 0 Depression Screening Interpretation: Negative Depression Screening Done: Yes 06244 - PHQ-9 Billing: Yes Source: Developed by Drs. Lee Cardenas, Sunni Cross, Steve Mcadams and colleagues, with an educational sajan from [employer] Thrive Questionnaire Date Thrive assessed: 02/11/24 I am a: Patient What is your living situation today?: I have a steady place to live Within the past 12 months, did the food you bought not last and you didn't have the money to get more?: Never true Within the past 12 months, did you worry whether your food would run out before you got money to buy more?: Never true Do you have trouble paying for medicines?: No Do you have trouble getting transportation to medical appointments?: No Do you have trouble paying your heating and electricity bill?: No Do you have trouble taking care of your child, family member or friend?: No Do you have trouble with day-to-day activities such as bathing, preparing meals, shopping, managing finances, etc.?: No Are you currently unemployed and looking for a job?: No Are you interested in more education?: No Please select the resources that you would like help with: None Currently or been in a relationship where the following occur: no concerns reported THRIVE Score: 0 AUDIT C Alcohol Use Questionnaire (AUDIT-C) 1. How often do you have a drink containing alcohol?: Never 3. How often do you have six or more drinks on one occasion?: Never Total Score: 0 Score Reviewed/Action Taken: Yes ANSON-7 AMB Questionnaire ANSON-7 Date ANSON - 7 assessed: 02/11/24 Feeling nervous, anxious, or on edge: 0 = Not at all Not being able to stop or control worryin = Not at all Worrying too much about different things: 0 = Not at all Trouble relaxin = Not at all Being so restless that it is hard to sit still: 0 = Not at all Becoming easily annoyed or irritable: 0 = Not at all Feeling afraid as if something awful might happen: 0 = Not at all Total ANSON-7 score (0-4 normal; 5-9 mild; 10-14 moderate; 15-21 severe): 0 Source: Developed by Drs. Lee Cardenas, Sunni Cross, Steve Mcadams and colleagues, with an educational sajan from [employer] ANSON-7 Assessment Billing ANSON-7 Assessment Tool: ANSON-7 Assessment 81302 Review of Systems Const Denies chills, Denies fatigue, Denies fever(s) and Denies headache(s) Eyes Details: (+) prosthetic right eye ENT Denies dysphagia, Denies dizziness, Denies otalgia, Denies headache(s), Denies neck pain, Denies odynophagia and Denies sore throat Card Denies chest pain, Denies palpitations and Denies dyspnea Resp Denies cough, Denies dyspnea and Denies wheezing GI Denies abdominal pain, Denies constipation, Denies dysphagia, Denies heartburn, Denies diarrhea, Denies nausea, Denies odynophagia and Denies vomiting Denies difficulty voiding, Denies nocturia, Denies dysuria and Denies urinary urgency Musc Reports back pain (chronic), Reports arthralgias (over both knees - increasing) and Denies neck pain Skin/Breast Details: (+) residual scar from previous cutaneous abscess (possibly hidradenitis) over the right lower abdominal skin fold Denies rash Neuro Denies dizziness and Denies headache(s) Psych Denies anxiety and Denies depression Endo Denies fatigue and Denies palpitations Aller/Immun Denies wheezing Physical exam (Primary Care) Vital Signs: Last Vital Signs Pulse 60 02/11/24 16:25 BP 122/62 02/11/24 16:25 Pulse Ox 98 02/11/24 16:25 Oxygen Delivery Method Room Air 02/11/24 16:25 BMI result Body Mass Index 31.8 Tobacco/Smoking Status: Tobacco use Status Tobacco use date assessed 02/11/24 02/11/24 16:37 Patient Tobacco Use Status Former Tobacco user 02/11/24 16:21 e-Cigarette/Vaping Use Never Used 02/11/24 16:21 PHQ-9: PHQ-9 Score PHQ-9: Total score 0 02/11/24 16:37 Depression Screening Interpretation: Negative Thrive Assessment: Date of Thrive Assessment Date Thrive assessed 02/11/24 02/11/24 16:33 Currently or been in a relationship where the following occur: no concerns reported Const General: no acute distress and alert HENMT Ears: TM's normal bilaterally and EAC's normal Throat: Yes posterior oropharynx normal and Yes tonsils normal (no TP congestion noted) Eyes Other: (+) prosthetic right eye; left eye exam is grossly normal Neck Neck: Yes no lymphadenopathy and Yes supple Thyroid: Thyroid normal Resp Auscultation: clear to auscultation bilaterally, no rales and no wheezes Cardio Rate: regular rate Rhythm: regular rhythm Heart sounds: no murmurs GI Other: (+) residual scar from previous cutaneous abscess (possibly hidradenitis lesion) over the right lower abdominal skin fold Palpation (GI): Soft to palpation and nontender Auscultation: normal bowel sounds General: Yes no CVA tenderness Back/Spine/Pelvis Back: no CVA tenderness Thoracic/Lumbar Spine: thoracic spinal tenderness and lumbar spinal tenderness Skin Rashes: no rashes Extrem General: Yes no clubbing, cyanosis or edema Left upper extremity: wrist ((+) mild tenderness with healed scar over volar aspect of the left wrist) Right lower extremity: knee Details: tenderness; no swelling Left lower extremity: knee Details: tenderness; no swelling Assessment and Plan Assessment & Plan (1) Mixed hyperlipidemia: Code(s): E78.2 - Mixed hyperlipidemia Plan: Patient was not able to get her follow up labs done prior to her visit today Reinforced low cholesterol diet Continue Simvastatin 40 mg QD and Fenofibrate 145 mg QD Will recheck her labs and fasting lipids in 3 months for follow-up - will just have patient use her current orders (updated) for her next lab draw (2) Diabetes mellitus without complication: Code(s): E11.9 - Type 2 diabetes mellitus without complications Plan: HgbA1c was at 5.3% on her labs done a few months ago (was previously at 5.9%) - goal is < 7.0% Reinforced diabetic diet Continue Metformin 500 mg TID (3) Benign essential hypertension: Code(s): I10 - Essential (primary) hypertension Plan: Reinforced low sodium diet - goal is systolic BP of at least 140 mm or less (4) Acquired hypothyroidism: Code(s): E03.9 - Hypothyroidism, unspecified Plan: Continue Levothyroxine 112 mcg QD Will recheck her TFTs in 3 months for follow up (5) Asthma: Code(s): J45.909 - Unspecified asthma, uncomplicated Qualifiers: Asthma severity: mild Asthma persistence: persistent Asthma complication type: uncomplicated Qualified Code(s): J45.30 - Mild persistent asthma, uncomplicated Plan: Stable Continue Flovent HFA 110 mcg 1 puff BID and ProAir HFA 2 puffs up to 4 times a day as needed (6) GERD without esophagitis: Code(s): K21.9 - Gastro-esophageal reflux disease without esophagitis Plan: Dietary restrictions reinforced (7) Osteopenia: Code(s): M85.80 - Other specified disorders of bone density and structure, unspecified site Qualifiers: Osteopenia location: unspecified Qualified Code(s): M85.80 - Other specified disorders of bone density and structure, unspecified site Plan: Repeat BMD done a few years ago on 06/03/2019 showed no significant change from previous - will continue to monitor Patient encouraged to continue with regular exercise and physical activity Continue Calcium 500 + D 400 mg 1 tablet BID (8) Vitamin D deficiency: Code(s): E55.9 - Vitamin D deficiency, unspecified Plan: Continue Vitamin D3 1000 units QD (9) Vitamin B12 deficiency: Code(s): E53.8 - Deficiency of other specified B group vitamins Plan: Continue Vitamin B12 tablets 1000 mcg QD (10) Chronic idiopathic urticaria: Code(s): L50.1 - Idiopathic urticaria Plan: Continue Xolair injection 300 mg SQ Q 2 weeks, Fexofenadine 180 mg 3 tablets BID and Hydroxyzine 25 mg every 8 hours PRN Follow up with receiving specialist (Dr. Bernal at [facility]) as scheduled (11) Primary osteoarthritis of both knees: Comment: S/P total right knee arthroplasty in 2012 Code(s): M17.0 - Bilateral primary osteoarthritis of knee Plan: Continue Meloxicam 15 mg QD PRN Follow-up with Orthopedics and with pain management as scheduled She appears to have had inteventional Tx so far with right saphenous nerve PNS, which supposedly provided her with significant pain relief She has more recently offered a Sprint device and RFA but then recalls now being advised that she should try physical therapy first, which she declined Have advised patient that she was NOT discharged from pain management and that she really should try physical therapy first before pain management can proceed to the next step in her interventional Tx as they cannot just go throughout short cuts in her management She is advised to contact pain management and schedule her next follow up appt with them and to also contact PT to schedule her evaluation with them (12) Facet arthritis of lumbar region: Code(s): M47.816 - Spondylosis without myelopathy or radiculopathy, lumbar region Plan: Reinforced activity and weight-lifting restrictions Lumbar spine x-rays done back in February 2021 revealed (+) mild lumbar spine DDD and facet arthritis Repeat thoracic and lumbar spine x-rays done in March 2022 revealed moderate multilevel degenerative disc disease of the thoracic and lumbar spine, with prominent anterior endplate osteophytes within the midthoracic spine and prominent bilateral facet arthropathy at L5-S1 Recommend referral to physical therapy but patient would like to hold off on this for now and states that she will call for referral if she changes her mind about this Follow up with pain management as scheduled (13) Osteoarthritis of both hands: Code(s): M19.041 - Primary osteoarthritis, right hand; M19.042 - Primary osteoarthritis, left hand Qualifiers: Osteoarthritis type: primary Qualified Code(s): M19.041 - Primary osteoarthritis, right hand; M19.042 - Primary osteoarthritis, left hand Plan: X-rays of both hands done last year revealed (+) osteoarthritis changes bilaterally; repeat x-rays of the left hand showed (+) arthritis of the IP joints Patient is encouraged to continue with regular hand exercises to help minimize her stiffness and pain Follow up with orthopedics as scheduled (14) Carpal tunnel syndrome, bilateral: Comment: NCV done back in 2016 revealed (+) moderatedly severe bilateral carpal tunnel syndrome; EMG was normal Code(s): G56.03 - Carpal tunnel syndrome, bilateral upper limbs Plan: S/P left carpal tunnel release surgery with Dr. Diaz at [facility] [place] [facility] a few months ago, with significant improvement / relief of her symptoms Follow-up with orthopedics as scheduled (15) Memory impairment: Code(s): R41.3 - Other amnesia Plan: Follow up with neurology as scheduled (16) Obesity (BMI 30-39.9): Code(s): E66.9 - Obesity, unspecified Plan: Reinforced diet; exercise and weight loss are unrealistic given patient's multiple physical issues and comorbidities Plan Follow up in 3 months Medications: Refilled [rollator walker] As directed 1 ea 0RF M25.78 - Osteophyte, vertebrae, M51.34 - Other intervertebral disc degeneration, thoracic region, R29.6 - Repeated falls Coding Level of Care Code Est Pt Level 4 (98433) Diagnoses Mixed hyperlipidemia E78.2 Diabetes mellitus without complication E11.9 Benign essential hypertension I10 Acquired hypothyroidism E03.9 Mild persistent asthma without complication J45.30 Asthma severity: mild Asthma persistence: persistent Asthma complication type: uncomplicated GERD without esophagitis K21.9 Osteopenia, unspecified location M85.80 Osteopenia location: unspecified Vitamin D deficiency E55.9 Vitamin B12 deficiency E53.8 Chronic idiopathic urticaria L50.1 Primary osteoarthritis of both knees M17.0 Facet arthritis of lumbar region M47.816 Primary osteoarthritis of both hands M19.041; M19.042 Osteoarthritis type: primary Carpal tunnel syndrome, bilateral G56.03 Memory impairment R41.3 Obesity (BMI 30-39.9) E66.9 Additional Codes ANSON-7 Assessment Billing - ANSON-7 Assessment Tool: ANSON-7 Assessment [id number] ([id number])
[2024-02-11 16:25] VITALS: BP 122/62; PULSE 60; O2SAT 98; BMI 31.8
== END 2024-02-11 17:25 | disposition home or self-care (01) ==
PROVIDERS: PCP Internal Medicine; Visit Provider Internal Medicine
DX: E78.2 Mixed hyperlipidemia (principal); E11.9 Type 2 diabetes mellitus without complications; E66.9 Obesity, unspecified; Z68.31 Body mass index [BMI] 31.0-31.9, adult; I10 Essential (primary) hypertension; E03.9 Hypothyroidism, unspecified; J45.30 Mild persistent asthma, uncomplicated; K21.9 Gastro-esophageal reflux disease without esophagitis; M85.80 Other specified disorders of bone density and structure, unspecified site; E55.9 Vitamin D deficiency, unspecified; E53.8 Deficiency of other specified B group vitamins; L50.1 Idiopathic urticaria
CPT/HCPCS: 99214

== ENCOUNTER 2024-05-16 09:19 | Outpatient (REF) | payer OTHER, SELFPAY ==
[2024-05-16 09:39] LABS: MANUAL DIFF FLAG NO
[2024-05-16 09:54] LABS: Hematocrit 36.2 % (37.0-47.0); Hemoglobin 11.3 g/dl (12.0-16.0); Imm Gran Abs Auto 0.01 X10*3/uL (0.00-0.03); Imm Gran Pct Auto 0.3 % (0.0-0.4); Lymphocytes Absolute Auto 1.5 X10*3/uL (1.2-4.9); Lymphocytes Percent Auto 39.1 % (20-40); Mean Corpuscular HGB Conc 31.2 g/dl (31.0-35.0); Mean Corpuscular Hemoglobin 24.7 pg (27.0-33.0); Mean Platelet Volume 9.7 fL (9.4-12.3); Monocytes Absolute Auto 0.4 X10*3/uL (0.1-1.2); Monocytes Percent Auto 10.5 % (2-11); Neutrophils Absolute Auto 1.9 x10*3/uL (2.0-8.3); Neutrophils Percent Auto 50.1 % (45-73); Platelet Count 332 X10*3/uL (160-400); Red Blood Count 4.58 X10*6/uL (4.20-5.50); Red Cell Distribution Width 14.7 % (11.0-16.0); White Blood Count 3.8 X10*3/uL (4.8-10.8)
[2024-05-16 09:59] LABS: Estimated Average Glucose 105 mg/dL; Hemoglobin A1c % 5.3 % (<6.0)
[2024-05-16 10:40] LABS: Alanine Aminotransferase 13 U/L (0-31); Albumin Level 4.3 g/dL (3.5-5.0); Alkaline Phosphatase 45 U/L (39-117); Anion Gap 10 (12-20); Aspartate Amino Transferase 22 U/L (5-31); Bilirubin Total 0.3 mg/dL (0.0-1.0); Blood Urea Nitrogen 13 mg/dL (9-16); Calcium 10.6 mg/dL (8.4-10.2); Carbon Dioxide 26 mmol/L (22-29); Chloride 108 mmol/L (96-108); Cholesterol 176 mg/dL (<200); Estimated Glomerular Filt Rate > 60; Glucose Fasting 88 mg/dL (60-99); HDL Cholesterol 54 mg/dL (>40); LDL Cholesterol Calculated 83 mg/dL (<100); Potassium 4.1 mmol/L (3.3-5.1); Sodium 140 mmol/L (135-145); Triglycerides 199 mg/dL (<150)
[2024-05-16 10:59] LABS: Free T4 (Free Thyroxine) 1.24 ng/dL (0.71-1.85); Thyroid Stimulating Hormone 0.09 uIU/mL (0.32-4.0)
[2024-05-16 11:00] LABS: Folate 13.9 ng/mL (> or = 4.0); Vitamin B12 224 pg/mL (200-900)
[2024-05-16 11:30] LABS: Appearance Urine Clear; Color Urine Yellow; Glucose Urine UA Negative (Negative); Leukocyte Esterase Urine Moderate (2+) (Negative); Nitrite Urine Negative (Negative); Specific Gravity - Urine <= 1.005 (1.005-1.025); UMIC TRIGGER UACC YES; Urine Blood Negative (Negative); Urine Ketones Negative (Negative); Urine Protein Negative (Neg-Trace)
[2024-05-16 11:57] LABS: Bacteria Urine None Seen (None Seen); Hyaline Casts Urine 0-2 /LPF (0-2); RBC Urine 0-2 /HPF (0-2); Squamous Epithelial Cell Urine 0-2 /HPF (0-2); WBC Urine 0-5 /HPF (0-5)
[2024-05-16 12:21] LABS: Creatinine Urine 40.91 mg/dL; Microalbumin Urine < 5.0 mg/L
== END 2024-05-16 09:20 | disposition home or self-care (01) ==
LOC: HO.LAB 09:19
PROVIDERS: PCP Internal Medicine; Visit Provider Internal Medicine
DX: E11.9 Type 2 diabetes mellitus without complications (principal); E55.9 Vitamin D deficiency, unspecified; E53.8 Deficiency of other specified B group vitamins; R30.0 Dysuria; E03.9 Hypothyroidism, unspecified; E78.00 Pure hypercholesterolemia, unspecified; I10 Essential (primary) hypertension
CPT/HCPCS: 36415; 80053; 80061; 81001; 81003; 82043; 82306; 82570; 82607; 82746; 83036; 84439; 84443; 85025

== ENCOUNTER 2024-05-20 14:24 | Outpatient (AMB) | payer OTHER, SELFPAY ==
--- NOTE | 2024-05-20 14:26 | MHC.PC.OV ---
Vital Signs 05/20/24 14:28 Height 4 ft 11 in Weight 155 lb 2 oz BMI 31.3 BP 128/70 Blood Pressure Location Lt brachial Position Sitting Pulse 60 Pulse Source Pulse Oximeter Pulse Oximetry (%) 98 Oxygen Delivery Method Room Air Intake Visit Reasons: 3 month follow up - see comment Intake Note: Patient is here to follow up on Asthma, OA, DM, HTN. Hatch Tender Required: Yes Hatch Tender Language: Concrete Journeyman Name: Ines (Daughter) Information Interpreted: non-clinical & clinical Residential Housekeeper: Present Accompanied by: Daughter Allergies No Known Allergies [No Known Allergies*] Allergy (Verified 05/20/24 15:11) Medication List - Last Reconciled 05/20/24 by Marco Martinez MD ascorbic acid (vitamin C) (Vitamin C) 500 mg PO DAILY betamethasone valerate 0.1% 1 appl topical BID PRN 30 days bisacodyl (Dulcolax (bisacodyl)) 10 mg PO BEDTIME [bladder control pads As directed] blood sugar diagnostic ([employer] Verio test strips) 50 strips miscellaneous BID calcium carbonate-vitamin D3 500 mg-10 mcg (400 unit) (Calcium 500 With D) 1 tab PO BID cholecalciferol (vitamin D3) 25 mcg PO DAILY cyanocobalamin (vitamin B-12) 1,000 mcg PO DAILY doxycycline monohydrate 100 mg PO BID 7 days fenofibrate nanocrystallized 145 mg PO DAILY fexofenadine 180 mg PO DAILY [gloves (Medium) As directed] hydrocortisone 2.5% 1 appl topical BID PRN lancets ([employer] UltraSoft Lancets) As directed- In Vitro twice a day levocetirizine 5 mg PO DAILY levothyroxine 112 mcg PO DAILY 90 days metformin 500 mg PO TID montelukast 10 mg PO BEDTIME nabumetone 500 mg PO BID omalizumab 300 mg subcut Q2W [personal wipes As directed] [rollator walker As directed] [shower chair with back As directed] simvastatin 40 mg PO DAILY tizanidine 2 mg PO BEDTIME PRN turmeric-turmeric ext-pepper 500-3 mg 1 cap PO DAILY Ventolin HFA 90 mcg/actuation (albuterol sulfate) 2 puffs inhalation Q6H PRN 30 days NS Tobacco use date assessed: 05/20/24 Fall risk assessment: No Falls in past year Last assessed Fall Risk: 05/20/24 Dental Screening Dental Screen Date: 02/11/24 HPI 3 month follow up - see comment HPI Details Patient comes in today for her follow up visit States that she continues to experience frequent joint pains, especially over her knees She has been going to pain management before but feels that whatever they have done for her so far have not really helped much States that she now just takes OTC Tylenol as needed with some pain relief States that she feels okay otherwise She denies any headaches or dizziness Denies any chest pains,no SOB No nausea/vomiting, no abdominal pain No change in bowel habits noted She had her follow up labs done a few days ago - to discuss her results [facility] Medical History Lumbar back pain with radiculopathy affecting right lower extremity Anemia Frequent falls Dizziness Carpal tunnel syndrome, bilateral Status post fall Left hand pain Diabetes mellitus Mixed hyperlipidemia Obesity (BMI 30-39.9) Memory impairment Osteoarthritis of both hands Vitamin B12 deficiency Vitamin D deficiency Primary osteoarthritis of both knees Osteopenia Asthma Chronic idiopathic urticaria Acquired hypothyroidism Benign essential hypertension Diabetes mellitus without complication Surgical History Status post carpal tunnel release (~06/02/21) Tubal ligation status Hx of section History of total right knee replacement (~2012) Family History Father No problems noted. 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 Lee Cardenas, Sunni Cross, Steve Mcadams and colleagues, with an educational sajan from [employer]. Review of Systems Const Denies chills, Denies fatigue, Denies fever(s) and Denies headache(s) Eyes Details: (+) prosthetic right eye ENT Denies dysphagia, Denies dizziness, Denies otalgia, Denies headache(s), Denies neck pain, Denies odynophagia and Denies sore throat Card Denies chest pain, Denies palpitations and Denies dyspnea Resp Denies cough, Denies dyspnea and Denies wheezing GI Denies abdominal pain, Denies constipation, Denies dysphagia, Denies heartburn, Denies diarrhea, Denies nausea, Denies odynophagia and Denies vomiting Denies difficulty voiding, Denies nocturia, Denies dysuria and Denies urinary urgency Musc Reports back pain (chronic), Reports arthralgias (over both knees - increasing) and Denies neck pain Skin/Breast Denies rash Neuro Denies dizziness and Denies headache(s) Psych Denies anxiety and Denies depression Endo Denies fatigue and Denies palpitations Aller/Immun Denies wheezing Physical exam (Primary Care) Vital Signs: Last Vital Signs Pulse 60 05/20/24 14:28 BP 128/70 05/20/24 14:28 Pulse Ox 98 05/20/24 14:28 Oxygen Delivery Method Room Air 05/20/24 14:28 BMI result Body Mass Index 31.3 Tobacco/Smoking Status: Tobacco use Status Tobacco use date assessed 05/20/24 05/20/24 14:35 Patient Tobacco Use Status Former Tobacco user 05/20/24 14:35 e-Cigarette/Vaping Use Never Used 05/20/24 14:35 Thrive Assessment: Date of Thrive Assessment Date Thrive assessed 02/11/24 05/20/24 14:35 Const General: no acute distress and alert HENMT Ears: TM's normal bilaterally and EAC's normal Throat: Yes posterior oropharynx normal and Yes tonsils normal (no TP congestion noted) Eyes Other: (+) prosthetic right eye; left eye exam is grossly normal Neck Neck: Yes no lymphadenopathy and Yes supple Thyroid: Thyroid normal Resp Auscultation: clear to auscultation bilaterally, no rales and no wheezes Cardio Rate: regular rate Rhythm: regular rhythm Heart sounds: no murmurs GI Palpation (GI): Soft to palpation and nontender Auscultation: normal bowel sounds General: Yes no CVA tenderness Back/Spine/Pelvis Back: no CVA tenderness Thoracic/Lumbar Spine: thoracic spinal tenderness and lumbar spinal tenderness Skin Rashes: no rashes Extrem General: Yes no clubbing, cyanosis or edema Left upper extremity: wrist ((+) mild tenderness with healed scar over volar aspect of the left wrist) Right lower extremity: knee Details: tenderness; no swelling Left lower extremity: knee Details: tenderness; no swelling Results Reviewed Results Reviewed: Laboratory Tests 05/16/24 05/16/24 09:36 09:38 WBC 3.8 L Hgb 11.3 L Hct 36.2 L Plt Count 332 Sodium 140 Potassium 4.1 Creatinine 0.79 Estimated GFR > 60 Fasting Glucose 88 Hemoglobin A1c % 5.3 Calcium 10.6 H AST 22 ALT 13 Triglycerides 199 H Cholesterol 176 LDL Cholesterol, Calc 83 HDL Cholesterol 54 Vitamin B12 224 25-OH Vitamin D Total 51.0 TSH 0.09 L Free T4 1.24 Ur Specific [place] <= 1.005 Urine Protein Negative Urine Glucose (UA) Negative Urine Blood Negative Urine Nitrite Negative Ur Leukocyte Esterase Moderate (2+) H Microalb/Creat Ratio TNP Assessment and Plan Assessment & Plan (1) Mixed hyperlipidemia: Code(s): E78.2 - Mixed hyperlipidemia Plan: Results of her labs done a few days ago reviewed and discussed with patient - have advised her that her cholesterol levels have increased slightly from previous Reinforced low cholesterol diet Continue Simvastatin 40 mg QD and Fenofibrate 145 mg QD - patient admits that she stopped taking her cholesterol Rx for a while but is now back on them everyday Will recheck her labs and fasting lipids in 3 months for follow-up (2) Diabetes mellitus without complication: Code(s): E11.9 - Type 2 diabetes mellitus without complications Plan: Her HgbA1c remains unchanged at 5.3% on her labs done a few days ago (was previously also at 5.3%) - goal is < 7.0% Reinforced diabetic diet Continue Metformin 500 mg TID (3) Benign essential hypertension: Code(s): I10 - Essential (primary) hypertension Plan: Reinforced low sodium diet - goal is systolic BP of at least 140 mm or less She is reminded to continue monitoring her blood pressure regularly (4) Acquired hypothyroidism: Code(s): E03.9 - Hypothyroidism, unspecified Plan: Continue Levothyroxine 112 mcg QD Will recheck her TFTs in 3 months for follow up (5) Asthma: Code(s): J45.909 - Unspecified asthma, uncomplicated Qualifiers: Asthma severity: mild Asthma persistence: persistent Asthma complication type: uncomplicated Qualified Code(s): J45.30 - Mild persistent asthma, uncomplicated Plan: Stable Continue Flovent HFA 110 mcg 1 puff BID and ProAir HFA 2 puffs up to 4 times a day as needed (6) Chronic idiopathic urticaria: Code(s): L50.1 - Idiopathic urticaria Plan: Continue Xolair injection 300 mg SQ Q 2 weeks, Fexofenadine 180 mg 3 tablets BID and Hydroxyzine 25 mg every 8 hours PRN Follow up with airborne and air delivery specialist (Dr. Bernal at [facility]) as scheduled (7) GERD without esophagitis: Code(s): K21.9 - Gastro-esophageal reflux disease without esophagitis Plan: Dietary restrictions reinforced (8) Osteopenia: Code(s): M85.80 - Other specified disorders of bone density and structure, unspecified site Qualifiers: Osteopenia location: unspecified Qualified Code(s): M85.80 - Other specified disorders of bone density and structure, unspecified site Plan: Repeat BMD done a few years ago on 06/03/2019 showed no significant change from previous - will continue to monitor She is now due for repeat BMD - ordered Patient encouraged to continue with regular exercise and physical activity Continue Calcium 500 + D 400 mg 1 tablet BID (9) Vitamin D deficiency: Code(s): E55.9 - Vitamin D deficiency, unspecified Plan: Continue Vitamin D3 1000 units QD (10) Vitamin B12 deficiency: Code(s): E53.8 - Deficiency of other specified B group vitamins Plan: Continue Vitamin B12 tablets 1000 mcg QD (11) Primary osteoarthritis of both knees: Comment: S/P total right knee arthroplasty in 2012 Code(s): M17.0 - Bilateral primary osteoarthritis of knee Plan: She used to take Meloxicam 15 mg QD PRN but now just takes OTC Tylenol PRN with some relief She appears to have had inteventional Tx so far with right saphenous nerve PNS, which supposedly provided her with significant pain relief She has more recently offered a Sprint device and RFA but then recalls now being advised that she should try physical therapy first, which she declined Have advised patient that she was NOT discharged from pain management and that she really should try physical therapy first before pain management can proceed to the next step in her interventional Tx as they cannot just go throughout short cuts in her management Follow-up with Orthopedics and with pain management as scheduled (12) Facet arthritis of lumbar region: Code(s): M47.816 - Spondylosis without myelopathy or radiculopathy, lumbar region Plan: Reinforced activity and weight-lifting restrictions Lumbar spine x-rays done back in February 2021 revealed (+) mild lumbar spine DDD and facet arthritis Repeat thoracic and lumbar spine x-rays done in March 2022 revealed moderate multilevel degenerative disc disease of the thoracic and lumbar spine, with prominent anterior endplate osteophytes within the midthoracic spine and prominent bilateral facet arthropathy at L5-S1 Recommend referral to physical therapy but patient would like to hold off on this for now and states that she will call for referral if she changes her mind about this Follow up with pain management as scheduled (13) Osteoarthritis of both hands: Code(s): M19.041 - Primary osteoarthritis, right hand; M19.042 - Primary osteoarthritis, left hand Qualifiers: Osteoarthritis type: primary Qualified Code(s): M19.041 - Primary osteoarthritis, right hand; M19.042 - Primary osteoarthritis, left hand Plan: X-rays of both hands done last year revealed (+) osteoarthritis changes bilaterally; repeat x-rays of the left hand showed (+) arthritis of the IP joints Patient is encouraged to continue with regular hand exercises to help minimize her stiffness and pain Follow up with orthopedics as scheduled (14) Carpal tunnel syndrome, bilateral: Comment: NCV done back in 2015 revealed (+) moderatedly severe bilateral carpal tunnel syndrome; EMG was normal Code(s): G56.03 - Carpal tunnel syndrome, bilateral upper limbs Plan: S/P left carpal [place] [facility] [place] [facility], with significant improvement / relief of her symptoms Follow-up with orthopedics as scheduled (15) Memory impairment: Code(s): R41.3 - Other amnesia Plan: Follow up with neurology as scheduled (16) Obesity (BMI 30-39.9): Code(s): E66.9 - Obesity, unspecified Plan: Reinforced diet; exercise and weight loss are unrealistic given patient's multiple physical issues and comorbidities Plan Follow up in 3 months Orders: Orders Complete Blood Count Auto Diff 3 Months D64.9 - Anemia, unspecified Lipid Panel 3 Months E78.00 - Pure hypercholesterolemia, unspecified Comprehensive [place]. Panel Fast 3 Months E78.00 - Pure hypercholesterolemia, unspecified Hemoglobin A1c 3 Months E11.9 - Type 2 diabetes mellitus without complications Vitamin B12 and Folate 3 Months E53.8 - Deficiency of other specified B group vitamins Microalbumin, Random (w Creat) 3 Months E11.9 - Type 2 diabetes mellitus without complications Free T4 (Free Thyroxine) 3 Months E03.9 - Hypothyroidism, unspecified UA CC w/rflx Micro + Cult 3 Months R30.0 - Dysuria Vitamin D 25-OH Total 3 Months E55.9 - Vitamin D deficiency, unspecified Thyroid Stimulating Hormone 3 Months E03.9 - Hypothyroidism, unspecified Coding Level of Care Code Est Pt Level 4 (22304) Complex EM visit Add On G2211 Diagnoses Mixed hyperlipidemia E78.2 Diabetes mellitus without complication E11.9 Benign essential hypertension I10 Acquired hypothyroidism E03.9 Mild persistent asthma without complication J45.30 Asthma severity: mild Asthma persistence: persistent Asthma complication type: uncomplicated Chronic idiopathic urticaria L50.1 GERD without esophagitis K21.9 Osteopenia, unspecified location M85.80 Osteopenia location: unspecified Vitamin D deficiency E55.9 Vitamin B12 deficiency E53.8 Primary osteoarthritis of both knees M17.0 Facet arthritis of lumbar region M47.816 Primary osteoarthritis of both hands M19.041; M19.042 Osteoarthritis type: primary Carpal tunnel syndrome, bilateral G56.03 Memory impairment R41.3 Obesity (BMI 30-39.9) E66.9
[2024-05-20 14:28] VITALS: BP 128/70; PULSE 60; O2SAT 98; BMI 31.3
== END 2024-05-20 15:20 | disposition home or self-care (01) ==
PROVIDERS: PCP Internal Medicine; Visit Provider Internal Medicine
DX: M17.0 Bilateral primary osteoarthritis of knee (principal); E78.2 Mixed hyperlipidemia; E11.9 Type 2 diabetes mellitus without complications; I10 Essential (primary) hypertension; E03.9 Hypothyroidism, unspecified; J45.30 Mild persistent asthma, uncomplicated; L50.1 Idiopathic urticaria; K21.9 Gastro-esophageal reflux disease without esophagitis; M85.80 Other specified disorders of bone density and structure, unspecified site; E55.9 Vitamin D deficiency, unspecified; E53.8 Deficiency of other specified B group vitamins; M47.816 Spondylosis without myelopathy or radiculopathy, lumbar region; M19.041 Primary osteoarthritis, right hand; M19.042 Primary osteoarthritis, left hand; G56.03 Carpal tunnel syndrome, bilateral upper limbs; R41.3 Other amnesia
CPT/HCPCS: 99214; G2211

== ENCOUNTER 2024-05-22 07:45 | Outpatient (REF) | payer OTHER, SELFPAY ==
[2024-05-28 13:44] LABS: HPV mRNA E6/E7 Not Detected (Not Detected)
== END 2024-05-22 07:46 | disposition home or self-care (01) ==
LOC: HO.LNP 07:45
PROVIDERS: PCP Internal Medicine; Visit Provider Obstetrics & Gynecology
DX: Z01.419 Encounter for gynecological examination (general) (routine) without abnormal findings (principal); Z11.51 Encounter for screening for human papillomavirus (HPV)
CPT/HCPCS: 87624; 88175

== ENCOUNTER 2024-05-22 07:45 | Outpatient (AMB) | payer OTHER, SELFPAY ==
[2024-05-22 07:46] VITALS: BP 124/72; BMI 33.8
--- NOTE | 2024-05-22 07:46 | MHC.OFFVIS ---
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 Last co testing was in 2018 was negative according to the patient, reports not available No previous screening mammogram No previous screening DEXA scan Last colonoscopy was 20 years [facility] Medical History Prosthetic eye globe Lumbar back pain with radiculopathy affecting right lower extremity Anemia Frequent falls Dizziness Carpal tunnel syndrome, bilateral Status post fall Left hand pain Diabetes mellitus Mixed hyperlipidemia Obesity (BMI 30-39.9) Memory impairment Osteoarthritis of both hands Vitamin B12 deficiency Vitamin D deficiency Primary osteoarthritis of both knees Osteopenia Asthma Chronic idiopathic urticaria Acquired hypothyroidism Benign essential hypertension Diabetes mellitus without complication Surgical History Status post carpal tunnel release (~06/02/21) Tubal ligation status Hx of section History of total right knee replacement (~2012) Family History Father No problems noted. 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 Cognitive needs: Yes (cane ) Hearing needs: No Vision needs: Yes (glasses ) Female Reproductive History Menstrual control method: permanent sterilization Menopause type: natural Total pregnancies: 7 Full term: 7 Number of Living Children: 7 Review of Systems Const All systems reviewed & are unremarkable except as noted in HPI and below Card Reports as per HPI Resp Reports as per HPI GI Reports as per HPI and Reports no additional complaints Reports as per HPI Physical Exam Vital Signs: Last Vital Signs BP 124/72 05/22/24 07:46 BMI result Body Mass Index 33.8 Const General: cooperative, healthy appearing and comfortable Chest Chest palpation & inspection: normal inspection of the chest and normal palpation of entire chest wall Breast/axilla inspection: normal inspection of the breasts and normal inspection of the axillae Breast/axilla palpation: normal palpation of the breasts, normal palpation of the axillae and no axillary lymphadenopathy Resp Effort & Inspection: normal respiratory effort Auscultation: clear to auscultation bilaterally Percussion: percussion normal Cardio Palpation: normal PMI Rate: regular rate Rhythm: regular rhythm Heart sounds: no murmurs and no rubs Peripheral pulses: Peripheral pulses 2+ throughout GI Inspection: Yes normal to inspection Palpation (GI): Soft to palpation, nontender, no guarding, not rigid and No hepatosplenomegaly present Percussion: Yes normal to percussion Auscultation: normal bowel sounds Rectal Exam - Female: deferred General: Yes bladder normal to palpation External Female Exam: No lesion Speculum Exam - Vagina: normal appearance of the vagina, normal palpation, normal vaginal discharge and not erythematous Speculum Exam - Cervix: normal appearance of the cervix and normal palpation Bimanual exam- vagina & uterus: normal bimanual exam, normal palpation, uterine size normal, bladder normal to palpation, consistency normal and normal palpation Bimanual Exam- Adnexa, other: normal adnexae, no masses and no tenderness Assessment & Plan Assessment & Plan (1) Well woman exam: Code(s): Z01.419 - Encounter for gynecological examination (general) (routine) without abnormal findings Category: Medical Plan: Co testing done. Counseled the patient about the recommended dietary allowance of 1200 mg of Calcium & 800 IU of vitamin D. Mammogram ordered. Referred her for screening colonoscopy done. Will order DEXA scan . The patient was instructed to perform monthly self-breast exams and to schedule a 2 week DEXA scan follow-up appointment and an annual exam in a year; All questions answered and the patient verbalized understanding. (2) Post-menopausal bleeding: Code(s): N95.0 - Postmenopausal bleeding Category: Medical Plan: Discussed with the patient the differential diagnosis of post menopausal bleeding with normal pelvic exam including but not limited to, endometrial hyperplasia, cancer, polyps and other causes; co testing done, recommended ultrasound to measure the endometrial stripe; discussed with the patient that if the endometrial thickness is 4 mm or less the negative predictive value of endometrial pathology is 99%, otherwise If endometrial thickness is more than 4 mm will proceed with endometrial sampling versus hysteroscopy D&C polypectomy depending on the ultrasound findings. Instructed the patient to schedule an ultrasound with a follow-up appointment in 2 weeks. All questions answered, the patient verbalized understanding and agreed with the plan. This note was generated with a voice recognition program. Some errors may have been overlooked during the review of this note. Sometimes these errors may affect the content or meaning of a given sentence. Orders: Orders PAP + HPV E6/E7 rfx 18/45 Today Z01.419 - Encounter for gynecological examination (general) (routine) without abnormal findings US pelvic and transvaginal Today N95.0 - Postmenopausal bleeding XR DEXA axial skeleton Today Z78.0 - Asymptomatic menopausal state MM tomosynthesis screening BI Today Z12.31 - Encounter for screening mammogram for malignant neoplasm of breast Referrals Gastroenterology Referral Z12.11 - Encounter for screening for malignant neoplasm of colon Coding Level of Care Code New Pt Prev Care >65yr (15931) Diagnoses Well woman exam Z01.419 Post-menopausal bleeding N95.0
== END 2024-05-22 08:31 | disposition home or self-care (01) ==
PROVIDERS: PCP Internal Medicine; Visit Provider Obstetrics & Gynecology
DX: Z01.419 Encounter for gynecological examination (general) (routine) without abnormal findings (principal); N95.0 Postmenopausal bleeding
CPT/HCPCS: 99387

== ENCOUNTER 2024-05-30 08:58 | Outpatient (REF) | payer OTHER, SELFPAY ==
--- NOTE | ~2024-05-30 | US_ITS ---
EXAMINATION: US PELVIS CLINICAL INFORMATION: Postmenopausal bleeding. COMPARISON 12/06/2017 pelvic and transvaginal ultrasound. TECHNIQUE: Ultrasound of the pelvis is performed using both transabdominal and transvaginal transducers along with Doppler. Transvaginal imaging is performed due to inadequate visualization transabdominally. FINDINGS: Uterus is retroverted and measures 4.8 x 3.2 x 3.8 cm. Endometrial thickness is 4 mm. Limited visualization due to bowel gas and body habitus. No significant free fluid. Echogenic foci along the periphery of the uterus are characteristic of possible vascular calcifications. Bilateral ovaries were not visualized. US/US pelvic and transvaginal IMPRESSION: 1. Endometrial thickness is 4 mm. 2. Bilateral ovaries were not visualized. 3. Limited visualization due to bowel gas and body habitus. MRI could be considered for better visualization.
== END 2024-05-30 08:59 | disposition home or self-care (01) ==
LOC: HO.US 08:58
PROVIDERS: PCP Internal Medicine; Visit Provider Obstetrics & Gynecology
DX: N95.0 Postmenopausal bleeding (principal)
CPT/HCPCS: 76830; 76856

== ENCOUNTER 2024-06-25 13:57 | Outpatient (REF) | payer OTHER, SELFPAY ==
--- NOTE | ~2024-06-25 | MM_ITS ---
EXAMINATION: BONE DENSITOMETRY CLINICAL INDICATION: Asymptomatic menopausal state. COMPARISON: Previous BD dated 06/03/2019 and baseline BD dated 08/29/2007. TECHNIQUE: Using a Overinteractive Media DXA System (software version: 13.1) manufactured by [employer], dual-energy x-ray absorptiometry was performed of the lumbar spine and left hip. The images are of good technical quality. Summary results are attached. FINDINGS: LEFT FEMUR, NECK: Current: BMD 0.842 g/cm2, Z-score 0.2, T-score -1.4, osteopenia. Prior: BMD 0.849 g/cm2. Baseline: BMD 0.914 g/cm2. LEFT FEMUR, TOTAL: Current: BMD 0.940 g/cm2, Z-score 0.9, T-score -0.5, normal, 1.8% decrease from previous, 13.8% decrease from baseline (<5% change is not significant). Prior: BMD 0.957 g/cm2. Baseline: BMD 1.091 g/cm2. AP SPINE L1-L4 (excluding L3): The data of L1-L4 has been changed to exclude the L3 vertebral body, because degenerative sclerosis at this level may cause overestimation of lumbar spine density. Current: BMD 1.087 g/cm2, Z-score 0.5, T-score -0.7, normal, 5.9% decrease from previous, 4.1% increase from baseline (<5% change is not significant). Prior: BMD 1.155 g/cm2. Baseline: BMD 1.044 g/cm2. IDENTIFIED RISK FACTORS: Menopause, glucocorticoids, recurrent falls. HISTORY OF FRACTURE: None listed. MEDICATIONS: Calcium supplements or multivitamin, vitamin D. MM/XR DEXA axial skeleton IMPRESSION: 1. DIAGNOSIS: Osteopenia based on the lowest T-score value of -1.4 in the femoral neck applying World Health Organization criteria. 2. 10-YEAR FRACTURE RISK PREDICTION, FRAX: Major osteoporotic fracture (clinical spine, forearm, hip or shoulder) 9.8%. Hip fracture 2.1%. 3. Treatment Recommendations: NOF guidelines recommend consideration for treatment in postmenopausal women and men age 50 and older presenting with the following: -A hip or vertebral (clinical or morphometric) fracture. -T-score less than or equal to -2.5 at the femoral neck or spine after appropriate evaluation to exclude secondary causes. -Low bone mass at the hip or spine and a 10-year fracture probability by FRAX of greater than or equal to 3% for hip fracture or greater than or equal to 20% for major osteoporotic fracture based on the [place] adapted WHO algorithm. 4. Other Recommendations: All treatment decisions require clinical judgment and consideration of individual patient factors, including patient preferences, comorbidities, previous drug use, risk factors not captured in the FRAX model (e.g. frailty, falls, vitamin D deficiency, increased bone turnover, interval significant decline in bone density) and possible under or overestimation of fracture risk by FRAX. Additional medical evaluation for secondary cause of low bone mineral density may be appropriate. FUTURE SCAN RECOMMENDATION: People with diagnosed cases of osteoporosis or at high risk for fracture should have regular bone mineral density tests. For patients eligible for Medicare, routine testing is allowed once every 2 years. The testing frequency can be increased to one year for patients who have rapidly progressing disease, those who are receiving or discontinuing medical therapy to restore bone mass, or have additional risk factors. Electronically signed by: David Aviles MD 07/02/2024 09:01 AM EDT
--- NOTE | ~2024-06-25 | MM_ITS ---
EXAMINATION: MM SCREENING DIGITAL BREAST TOMOSYNTHESIS, BILATERAL CLINICAL INFORMATION: Screening. Asymptomatic. COMPARISON: Mammography: Comparison is made with available priors. TECHNIQUE: Digital breast tomosynthesis is performed in both the craniocaudal and mediolateral oblique views along with computer-aided detection (CAD). Synthesized 2D images are generated from the tomosynthesis. FINDINGS: There are scattered areas of fibroglandular density (ACR BI-RADS breast composition Category b). There are no significant masses, abnormal calcifications, or other abnormalities. MM/MM tomosynthesis screening BI IMPRESSION: No mammographic evidence of malignancy. ASSESSMENT: BI-RADS BI-RADS 1 - Negative RECOMMENDATION: Routine annual mammography screening. 1 year F/U This examination should not preclude the clinical evaluation of a suspicious palpable abnormality. This patient's information was entered into a reminder system with a target due date for their next mammogram. Electronically signed by: Anne-Marie Ardon DO 07/23/2024 09:33 PM EDT
== END 2024-06-25 13:58 | disposition home or self-care (01) ==
LOC: HO.MAMMO 13:57
PROVIDERS: PCP Internal Medicine; Visit Provider Obstetrics & Gynecology
DX: Z12.31 Encounter for screening mammogram for malignant neoplasm of breast (principal); Z13.820 Encounter for screening for osteoporosis; Z78.0 Asymptomatic menopausal state
CPT/HCPCS: 77063; 77067; 77080

== ENCOUNTER → 2024-06-25 14:15 | Outpatient (BNV) | payer OTHER, SELFPAY | PROVIDERS: PCP Internal Medicine; Visit Provider Internal Medicine | DX: Z12.31 Encounter for screening mammogram for malignant neoplasm of breast (principal) | CPT/HCPCS: 77063; 77067 ==

== ENCOUNTER 2024-07-03 07:57 | Outpatient (AMB) | payer OTHER, SELFPAY ==
--- NOTE | 2024-07-03 07:57 | A.OFFVIS_ITS ---
Vital Signs 07/03/24 08:02 Height 4 ft 11 in Weight 167 lb 8.821 oz BMI 33.8 BP 122/72 Intake Visit Reasons: EMB/Ultra sound/ dexa follow up Forest Fire Prevention Manager Required: Yes Forest Fire Prevention Manager Language: Seed [employer] Picker Services: Forest Fire Prevention Manager Present (in person) Forest Fire Prevention Manager Name: Tita BRAVO Information Interpreted: non-clinical & clinical Water Resources Engineer: Water Resources Engineer Present (Tita BRAVO) Accompanied by: Self / Same As Patient Allergies No Known Allergies [No Known Allergies*] Allergy (Verified 07/03/24 08:04) Post menopausal: Yes HPI Comments Details: Presenting for follow-up pelvic ultrasound regarding an episode of postmenopausal bleeding which showed the following Uterus is retroverted and measures 4.8 x 3.2 x 3.8 cm. Endometrial thickness is 4 mm. Limited visualization due to bowel gas and body habitus. No significant free fluid. Echogenic foci along the periphery of the uterus are characteristic of possible vascular calcifications. Bilateral ovaries were not visualized. Co testing done in 05/28 was negative Screening mammogram done but reports still pending In addition the patient had DEXA scan . T-score at the spine and femur level was-0.7/-0.5 respectively. Ten years FRAX risk was 9.8/2.1% for severe osteoporosis and fracture. [facility] Medical History Prosthetic eye globe Lumbar back pain with radiculopathy affecting right lower extremity Anemia Frequent falls Dizziness Carpal tunnel syndrome, bilateral Status post fall Left hand pain Diabetes mellitus Mixed hyperlipidemia Obesity (BMI 30-39.9) Memory impairment Osteoarthritis of both hands Vitamin B12 deficiency Vitamin D deficiency Primary osteoarthritis of both knees Osteopenia Asthma Chronic idiopathic urticaria Acquired hypothyroidism Benign essential hypertension Diabetes mellitus without complication Surgical History Status post carpal tunnel release (~06/02/21) Tubal ligation status Hx of section History of total right knee replacement (~2012) Family History Father No problems noted. 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 Cognitive needs: Yes (cane ) Hearing needs: No Vision needs: Yes (glasses ) Review of Systems Const All systems reviewed & are unremarkable except as noted in HPI and below Reports as per HPI and Reports no additional complaints GI Reports no additional complaints Reports no additional complaints Physical Exam Vital Signs: Last Vital Signs BP 122/72 07/03/24 08:02 BMI result Body Mass Index 33.8 Assessment & Plan Assessment & Plan (1) Post-menopausal bleeding: Code(s): N95.0 - Postmenopausal bleeding Category: Medical Plan: Discussed with the patient the results of the pelvic ultrasound showing an endometrial stripe thickness of 4 mm. Explained to the patient with an endometrial stripe of 4 mm &/or less, there is a high negative predictive value in detecting endometrial pathology including endometrial hyperplasia, polyps or malignancy. Therefore, there is no indication for endometrial sampling. Discussed with the patient the sensitivity, specificity, and positive and the negative predictive value of using ultrasound in detecting endometrial pathology. The patient was instructed to call if bleeding recurs, will proceed with endometrial sampling out endometrial pathology. All questions were answered and the patient verbalized understanding and agreed with the plan. (2) Osteopenia: Code(s): M85.80 - Other specified disorders of bone density and structure, unspecified site Category: Medical Qualifiers: Osteopenia location: unspecified Qualified Code(s): M85.80 - Other specified disorders of bone density and structure, unspecified site Plan: Discussed with the patient the DEXA results and FRAX risk. FRAX risk and T score showed no evidence of osteoporosis. Discussed with the patient all the options for osteoporosis prevention including lifestyle modifications including Ca+D supplements 1200 mg po qd/800 MIU, Weight bearing exercises and proteine supplements. The patient verbalized understanding and agreed plan will repeat DEXA in 2 years. Coding Level of Care Code Est Pt Level 3 (75191) Diagnoses Post-menopausal bleeding N95.0 Osteopenia, unspecified location M85.80 Osteopenia location: unspecified
[2024-07-03 08:02] VITALS: BP 122/72; BMI 33.8
== END 2024-07-03 08:28 | disposition home or self-care (01) ==
LOC: HO.HWS 07:57
PROVIDERS: PCP Internal Medicine; Visit Provider Obstetrics & Gynecology
DX: N95.0 Postmenopausal bleeding (principal); M85.80 Other specified disorders of bone density and structure, unspecified site
CPT/HCPCS: 99213

== ENCOUNTER → 2024-07-03 07:57 | Outpatient (BNVA) | payer OTHER, SELFPAY | PROVIDERS: PCP Internal Medicine; Visit Provider Obstetrics & Gynecology | DX: N95.0 Postmenopausal bleeding (principal); M85.80 Other specified disorders of bone density and structure, unspecified site | CPT/HCPCS: 99212 ==

== ENCOUNTER 2024-08-26 14:16 | Outpatient (AMB) | payer OTHER, SELFPAY ==
[2024-08-26 14:34] VITALS: BP 128/70; PULSE 60; O2SAT 98; BMI 31.9
--- NOTE | 2024-08-26 14:34 | A.OFFVIS_ITS ---
Vital Signs 08/26/24 14:34 Height 4 ft 11 in Weight 157 lb 13.616 oz BMI 31.9 BP 128/70 Blood Pressure Location Rt brachial Position Sitting Pulse 60 Pulse Source Pulse Oximeter Pulse Oximetry (%) 98 Oxygen Delivery Method Room Air Intake Visit Reasons: colonoscopy Screening Intake Note: Relevant Flags or Indicators ? Requires Hay Stacker Operator? Y Yaneli presents in office today for a scheduled colo consult. CC; Since last visit; labs ordered ? via other specialty. Rx ordered ? no. Diagnostics/images ordered ? none per GI. Pt reports that her last colo procedure was performed here approximately 10 years ago. Relevant GI Sx as reported per pt? None ? Hx of any recent surgeries; None * Any pertinent family hx? Brother and close cousin -- due to colon cancer. Hay Stacker Operator Required: Yes Hay Stacker Operator Services: Hay Stacker Operator Present Hay Stacker Operator Name: Family Accompanied by: Family/Other Allergies No Known Allergies [No Known Allergies*] Allergy (Verified 08/26/24 14:36) HPI HPI colonoscopy Screening: Details: 74 year old? female here today for pre colonoscopy screening.? Patient was sent to us by her PCP.? Patient had normal colonoscopy in 2014. Patient denies any gastrointestinal symptoms in the past or at present.? Denies any personal or family history of gastrointestinal disease, colon polyps, or CRC.? Denies history of difficulty with sedation or anesthesia in the past.? Negative for history of sleep apnea.? Denies any history of cardiac, renal, pulmonary, or hepatic disease.?? No history of infectious? diseases like hepatitis A, B, C, HIV or tuberculosis.? Patient is not on any anticoagulation PENDING SALE TO [facility] Medical History Prosthetic eye globe Lumbar back pain with radiculopathy affecting right lower extremity Anemia Frequent falls Dizziness Carpal tunnel syndrome, bilateral Status post fall Left hand pain Diabetes mellitus Mixed hyperlipidemia Obesity (BMI 30-39.9) Memory impairment Osteoarthritis of both hands Vitamin B12 deficiency Vitamin D deficiency Primary osteoarthritis of both knees Osteopenia Asthma Chronic idiopathic urticaria Acquired hypothyroidism Benign essential hypertension Diabetes mellitus without complication Surgical History Status post carpal tunnel release (~06/02/21) Tubal ligation status Hx of section History of total right knee replacement (~2012) Family History Father No problems noted. 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 Cognitive needs: Yes (cane ) Hearing needs: No Vision needs: Yes (glasses ) Review of Systems Const Denies weight gain and Denies weight loss ENT Reports no additional complaints, Denies dysphagia and Denies odynophagia Card Reports no additional complaints Resp Reports no additional complaints GI Denies abdominal pain, Denies belching, Denies melena, Denies bloating, Denies change in bowel habits, Denies dysphagia, Denies excessive flatus, Denies dyspepsia, Denies heartburn, Denies diarrhea, Denies loose stools, Denies nausea, Denies odynophagia and Denies vomiting Musc Reports no additional complaints Neuro Reports no additional complaints Psych Reports no additional complaints Endo Reports no additional complaints Physical Exam Vital Signs: Last Vital Signs Pulse 60 08/26/24 14:34 BP 128/70 08/26/24 14:34 Pulse Ox 98 08/26/24 14:34 Oxygen Delivery Method Room Air 08/26/24 14:34 BMI result Body Mass Index 31.9 Const General: healthy appearing and no acute distress Nutritional Appearance: obese Orientation/consciousness: patient oriented x3 Resp Effort & Inspection: normal respiratory effort, able to speak in complete sentences, no tracheal deviation and symmetric chest movement Auscultation: clear to auscultation bilaterally Cardio Rate: regular rate GI Inspection: Yes normal to inspection, No distended and Yes obesity Palpation (GI): Soft to palpation, not firm, nontender and No hepatosplenomegaly present Auscultation: normal bowel sounds General: Yes no CVA tenderness Back/Spine/Pelvis Back: no CVA tenderness Skin General skin exam: elasticity normal, turgor normal and dry skin Neuro General: patient oriented x3 Psych Appearance: grossly normal Mental Status: mental status grossly normal Assessment & Plan Assessment & Plan (1) Screen for colon cancer: Code(s): Z12.11 - Encounter for screening for malignant neoplasm of colon Plan Patient denies any GI, cardiac or respiratory symptoms.? Denies any issues with anesthesia in the past.? Denies any history of sleep apnea.? No history infectious diseases in the past or present.? Not on any anticoagulation therapy.? No family or personal history of colon cancer or polyps.? Patient denies melena, hematochezia, unintentional weight loss or ribbon like stools.? Discussed at length the pre-procedure,? prep, diet & medications as well as what to expect prior, during and after the procedure.?? Stressed the importance of good bowel prep.? Recommended the use of Vaseline or Calmoseptine OTC & baby wipes with bowel movements to promote comfort.? ?Patient verbalizes understanding and agrees to plan of care.? She was given the opportunity to ask questions and all questions answered.? We will see her after the procedure.? Medications: New polyethylene glycol 3350 (Miralax) As directed by gastroenterology department at [facility] 238 grams PO ONCE 238 grams 0RF Z12.11 - Encounter for screening for malignant neoplasm of colon bisacodyl (Dulcolax (bisacodyl)) take 4 tabs at noon the day before your colonoscopy 20 mg (4 x 5 mg) PO ONCE 1 day 4 tabs 0RF Z12.11 - Encounter for screening for malignant neoplasm of colon Coding Level of Care Code New Pt Level 3 (22434) Diagnoses Screen for colon cancer Z12.11 Time Spent (min) 40 Comment 30 minutes spent with patient and additional 10 minutes spent reviewing her records
== END 2024-08-26 15:11 | disposition home or self-care (01) ==
PROVIDERS: PCP Internal Medicine; Visit Provider Nurse Practitioner Family
DX: Z01.818 Encounter for other preprocedural examination (principal); Z12.11 Encounter for screening for malignant neoplasm of colon
CPT/HCPCS: 99024

== ENCOUNTER → 2024-08-26 14:16 | Outpatient (BNVA) | payer OTHER, SELFPAY | PROVIDERS: PCP Internal Medicine; Visit Provider Nurse Practitioner Family | DX: Z12.11 Encounter for screening for malignant neoplasm of colon (principal) | CPT/HCPCS: 99212 ==

== ENCOUNTER 2024-09-04 09:41 | Outpatient (REF) | payer OTHER, SELFPAY ==
[2024-09-04 10:14] LABS: MANUAL DIFF FLAG NO
[2024-09-04 10:29] LABS: Hematocrit 35.1 % (37.0-47.0); Hemoglobin 10.7 g/dl (12.0-16.0); Imm Gran Abs Auto 0.01 X10*3/uL (0.00-0.03); Imm Gran Pct Auto 0.2 % (0.0-0.4); Lymphocytes Absolute Auto 1.2 X10*3/uL (1.2-4.9); Lymphocytes Percent Auto 21.4 % (20-40); Mean Corpuscular HGB Conc 30.5 g/dl (31.0-35.0); Mean Corpuscular Hemoglobin 24.5 pg (27.0-33.0); Mean Corpuscular Volume 80.3 fL (80.0-98.0); Mean Platelet Volume 11.2 fL (9.4-12.3); Monocytes Absolute Auto 0.4 X10*3/uL (0.1-1.2); Monocytes Percent Auto 7.8 % (2-11); Neutrophils Absolute Auto 3.9 x10*3/uL (2.0-8.3); Neutrophils Percent Auto 70.6 % (45-73); Platelet Count 242 X10*3/uL (160-400); Red Blood Count 4.37 X10*6/uL (4.20-5.50); Red Cell Distribution Width 14.5 % (11.0-16.0); White Blood Count 5.5 X10*3/uL (4.8-10.8)
[2024-09-04 10:35] LABS: Estimated Average Glucose 117 mg/dL; Hemoglobin A1C 114.4436 umol/L; Hemoglobin A1c % 5.7 % (<6.0)
[2024-09-04 10:56] LABS: Appearance Urine Clear; Color Urine Yellow; Glucose Urine UA Negative (Negative); Leukocyte Esterase Urine Moderate (2+) (Negative); Nitrite Urine Negative (Negative); Specific Gravity - Urine 1.015 (1.005-1.025); UMIC TRIGGER UACC YES; Urine Blood Negative (Negative); Urine Ketones Negative (Negative); Urine Protein Negative (Neg-Trace)
[2024-09-04 11:03] LABS: Bacteria Urine None Seen (None Seen); Hyaline Casts Urine 0-2 /LPF (0-2); RBC Urine 0-2 /HPF (0-2); Squamous Epithelial Cell Urine 0-2 /HPF (0-2); WBC Urine 0-5 /HPF (0-5)
[2024-09-04 11:18] LABS: Alanine Aminotransferase 16 U/L (0-31); Alkaline Phosphatase 64 U/L (39-117); Anion Gap 10 (12-20); Aspartate Amino Transferase 24 U/L (5-31); Bilirubin Total 0.4 mg/dL (0.0-1.0); Blood Urea Nitrogen 16 mg/dL (9-16); Calcium 10.4 mg/dL (8.4-10.2); Carbon Dioxide 27 mmol/L (22-29); Chloride 106 mmol/L (96-108); Cholesterol 150 mg/dL (<200); Estimated Glomerular Filt Rate > 60; Glucose Fasting 98 mg/dL (60-99); HDL Cholesterol 57 mg/dL (>40); LDL Cholesterol Calculated 69 mg/dL (<100); Potassium 4.3 mmol/L (3.3-5.1); Sodium 139 mmol/L (135-145); Total Protein 6.8 g/dL (6.5-8.0); Triglycerides 120 mg/dL (<150)
[2024-09-04 11:25] LABS: Free T4 (Free Thyroxine) 1.09 ng/dL (0.71-1.85); Thyroid Stimulating Hormone 0.14 uIU/mL (0.32-4.0); Vitamin D 25-OH Total 55.2 ng/mL (>30)
[2024-09-04 11:41] LABS: Vitamin B12 < 148 pg/mL (200-900)
[2024-09-04 12:01] LABS: Creatinine Urine 79.28 mg/dL; Microalbumin Urine < 5.0 mg/L
== END 2024-09-04 09:42 | disposition home or self-care (01) ==
LOC: HO.LAB 09:41
PROVIDERS: PCP Internal Medicine; Visit Provider Internal Medicine
DX: D64.9 Anemia, unspecified (principal); E78.00 Pure hypercholesterolemia, unspecified; E11.9 Type 2 diabetes mellitus without complications; E53.8 Deficiency of other specified B group vitamins; E03.9 Hypothyroidism, unspecified; E55.9 Vitamin D deficiency, unspecified
CPT/HCPCS: 36415; 80053; 80061; 81001; 82043; 82306; 82570; 82607; 82746; 83036; 84439; 84443; 85025

== ENCOUNTER 2024-09-05 15:28 | Outpatient (AMB) | payer OTHER, SELFPAY ==
[2024-09-05 15:47] VITALS: BP 132/76; PULSE 66; O2SAT 98; BMI 31.9
--- NOTE | 2024-09-05 15:47 | MHC.PC.OV ---
Vital Signs 09/05/24 15:47 Height 4 ft 11 in Weight 158 lb BMI 31.9 BP 132/76 Blood Pressure Location Lt brachial Position Sitting Pulse 66 Pulse Source Pulse Oximeter Pulse Oximetry (%) 98 Oxygen Delivery Method Room Air Intake Visit Reasons: 3 Month F/U Intake Note: Pt requesting refills of both topical creams. She would also like to have lidocaine patches prescribed for her knees, back, etc. 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 Required: Yes Accompanied by: Daughter Allergies No Known Allergies [No Known Allergies*] Allergy (Verified 09/05/24 16:20) Medication List - Last Reconciled 09/05/24 by Marco Martinez MD ascorbic acid (vitamin C) (Vitamin C) 500 mg PO DAILY betamethasone valerate 0.1% 1 appl topical BID PRN 30 days bisacodyl (Dulcolax (bisacodyl)) 20 mg (4 x 5 mg) PO ONCE 1 day [bladder control pads As directed] blood sugar diagnostic ([employer] Verio test strips) 50 strips miscellaneous BID calcium carbonate-vitamin D3 500 mg-10 mcg (400 unit) (Calcium 500 With D) 1 tab PO BID cholecalciferol (vitamin D3) 25 mcg PO DAILY cromolyn mg PO TID cyanocobalamin (vitamin B-12) 1,000 mcg PO DAILY fenofibrate nanocrystallized 145 mg PO DAILY fexofenadine 180 mg PO DAILY [gloves (Medium) As directed] hydrocortisone 2.5% 1 appl topical BID PRN hydroxyzine HCl 50 mg PO BID PRN lancets ([employer] UltraSoft Lancets) As directed- In Vitro twice a day levocetirizine 5 mg PO DAILY levothyroxine 112 mcg PO DAILY 90 days metformin 500 mg PO TID montelukast 10 mg PO BEDTIME nabumetone 500 mg PO BID omalizumab 300 mg subcut Q2W [personal wipes As directed] polyethylene glycol 3350 (Miralax) 238 grams PO ONCE prednisone 10 mg PO DAILY PRN 5 days [rollator walker As directed] [shower chair with back As directed] simvastatin 40 mg PO DAILY tizanidine 2 mg PO BEDTIME PRN turmeric-turmeric ext-pepper 500-3 mg 1 cap PO DAILY Ventolin HFA 90 mcg/actuation (albuterol sulfate) 2 puffs inhalation Q6H PRN 30 days NS Tobacco use date assessed: 05/20/24 Fall risk assessment: No Falls in past year Last assessed Fall Risk: 09/05/24 Dental Screening Dental Screen Date: 02/11/24 HPI 3 Month F/U HPI Details Patient comes in today for her follow up visit States that she has not been able to get her Xolair injections for about a month now as her pharmacy reportedly was not able to place an order for her Xolair (?) States that the order was placed for her Rx recently and she is now just waiting for her medication to arrive and she will be able to start back on her injections as soon as it comes in States that she has been breaking out in hives repeatedly in the meantime since she has been off her Xolair injections and is requesting for Rx for some prednisone tablets in the meantime to help control her symptoms temporarily States that she feels okay otherwise She denies any headaches or dizziness; denies any fever Denies any chest pains, no increased shortness of breath No nausea/vomiting, no abdominal pain No change in bowel habits noted She had her follow-up labs done yesterday - to discuss results She would also like to get her flu shot today [facility], [facility] Medical History (Updated 09/06/24 @ 05:17 by Marco Martinez MD) Prosthetic eye globe Lumbar back pain with radiculopathy affecting right lower extremity Anemia Frequent falls Dizziness Carpal tunnel syndrome, bilateral Diabetes mellitus Mixed hyperlipidemia Obesity (BMI 30-39.9) Memory impairment Osteoarthritis of both hands Vitamin B12 deficiency Vitamin D deficiency Primary osteoarthritis of both knees Osteopenia Asthma Chronic idiopathic urticaria Acquired hypothyroidism Benign essential hypertension Diabetes mellitus without complication Surgical History Status post carpal tunnel release (~06/02/21) Tubal ligation status Hx of section History of total right knee replacement (~2012) Family History Father No problems noted. 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 Lee Cardenas, Sunni Cross, Steve Mcadams and colleagues, with an educational sajan from [employer]. Review of Systems Const Denies chills, Denies fatigue, Denies fever(s) and Denies headache(s) Eyes Details: (+) prosthetic right eye ENT Denies dysphagia, Denies dizziness, Denies otalgia, Denies headache(s), Denies neck pain, Denies odynophagia and Denies sore throat Card Denies chest pain, Denies palpitations and Denies dyspnea Resp Denies chest congestion, Denies cough and Denies dyspnea GI Denies abdominal pain, Denies constipation, Denies dysphagia, Denies heartburn, Denies diarrhea, Denies nausea, Denies odynophagia and Denies vomiting Denies difficulty voiding, Denies nocturia, Denies dysuria and Denies urinary urgency Musc Reports back pain (chronic), Reports arthralgias (over both knees - increasing) and Denies neck pain Skin/Breast Details: (+) scattered multiple urticarial rash Neuro Denies dizziness and Denies headache(s) Psych Denies anxiety and Denies depression Endo Denies fatigue and Denies palpitations Physical exam (Primary Care) Vital Signs: Last Vital Signs Pulse 66 09/05/24 15:47 BP 132/76 09/05/24 15:47 Pulse Ox 98 09/05/24 15:47 Oxygen Delivery Method Room Air 09/05/24 15:47 BMI result Body Mass Index 31.9 Tobacco/Smoking Status: Tobacco use Status Tobacco use date assessed 05/20/24 09/05/24 15:47 Patient Tobacco Use Status Former Tobacco user 09/05/24 15:47 Tobacco use type Cigarette 09/05/24 15:53 e-Cigarette/Vaping Use Never Used 09/05/24 15:47 Thrive Assessment: Date of Thrive Assessment Date Thrive assessed 04/08/24 11/01/24 15:47 Const General: no acute distress and alert HENMT Ears: TM's normal bilaterally and EAC's normal Throat: Yes posterior oropharynx normal and Yes tonsils normal (no TP congestion noted) Eyes Other: (+) prosthetic right eye; left eye exam is grossly normal Neck Neck: Yes no lymphadenopathy and Yes supple Thyroid: Thyroid normal Resp Auscultation: clear to auscultation bilaterally, no rales and no wheezes Cardio Rate: regular rate Rhythm: regular rhythm Heart sounds: no murmurs GI Palpation (GI): Soft to palpation and nontender Auscultation: normal bowel sounds General: Yes no CVA tenderness Back/Spine/Pelvis Back: no CVA tenderness Thoracic/Lumbar Spine: thoracic spinal tenderness and lumbar spinal tenderness Skin Other: (+) scattered multiple erythematous urticarial rash/lesions Extrem General: Yes no clubbing, cyanosis or edema Right lower extremity: knee Details: tenderness; no swelling Left lower extremity: knee Details: tenderness; no swelling Office Procedures Flu Questionnaire Does the patient have a severe egg allergy?: No Does the patient have severe life threatening allergies?: No Does the patient have a fever or illness today?: No Has the patient ever had Guillain-Asbury Syndrome?: No Has the patient ever had any past reaction to a flu shot?: No Immunizations Fluarix Triv [id number] (PF) 45 mcg (15 mcg x 3)/0.5 mL IM syringe Performing Provider: Marco Martinez MD [facility] [place] [facility] Administered by: Dawna Henry LPN on 09/05/24 16:01 Dose Route Admin Location Dispensed Lot Number Expiration Date [facility] [place] Production Maintenance Mechanic 0.5 mL IM Left Deltoid 0.5 mL [id number] 05/04/25 [id number] [place] VIS Given Date VIS Provided VIS Publication Date 09/05/24 Single Vaccine 21 Eligibility Eligibility Date Funding Source Not [facility] Eligible 09/05/24 Private Results Reviewed Results Reviewed: Laboratory Tests 09/04/24 09/04/24 10:08 10:12 WBC 5.5 Hgb 10.7 L Hct 35.1 L Plt Count 242 D Sodium 139 Potassium 4.3 Creatinine 0.85 Estimated GFR > 60 Fasting Glucose 98 Hemoglobin A1c % 5.7 Calcium 10.4 H AST 24 ALT 16 Albumin 4.0 Triglycerides 120 Cholesterol 150 LDL Cholesterol, Calc 69 HDL Cholesterol 57 Vitamin B12 < 148 L 25-OH Vitamin D Total 55.2 TSH 0.14 L Free T4 1.09 Ur Specific [place] 1.015 Urine Protein Negative Urine Glucose (UA) Negative Urine Blood Negative Urine Nitrite Negative Ur Leukocyte Esterase Moderate (2+) H Coding Level of Care Code Est Pt Level 4 (55419) Complex EM visit Add On G2211 Diagnoses Mixed hyperlipidemia E78.2 Diabetes mellitus without complication E11.9 Benign essential hypertension I10 Acquired hypothyroidism E03.9 Chronic idiopathic urticaria L50.1 Mild persistent asthma without complication J45.30 Asthma severity: mild Asthma persistence: persistent Asthma complication type: uncomplicated Osteopenia, unspecified location M85.80 Osteopenia location: unspecified Vitamin B12 deficiency E53.8 Vitamin D deficiency E55.9 Primary osteoarthritis of both knees M17.0 Primary osteoarthritis of both hands M19.041; M19.042 Osteoarthritis type: primary Facet arthritis of lumbar region M47.816 Carpal tunnel syndrome, bilateral G56.03 Memory impairment R41.3 Obesity (BMI 30-39.9) E66.9 Assessment & Plan Assessment & Plan (1) Mixed hyperlipidemia: Code(s): E78.2 - Mixed hyperlipidemia Category: Medical Plan: Results of her labs done yesterday reviewed and discussed with patient - she is advised that her cholesterol levels have improved slightly from previous Reinforced low cholesterol diet Continue Simvastatin 40 mg QD and Fenofibrate 145 mg QD Will recheck her labs and fasting lipids in 3 months for follow-up (2) Diabetes mellitus without complication: Code(s): E11.9 - Type 2 diabetes mellitus without complications Category: Medical Plan: Her HgbA1c was at 5.7% on her labs done yesterday (was previously at 5.4% a few months ago) - goal is at least <7.0% but ideally <6.5% Reinforced diabetic diet Continue Metformin 500 mg TID (3) Benign essential hypertension: Code(s): I10 - Essential (primary) hypertension Category: Medical Plan: Reinforced low sodium diet - goal is systolic BP of at least 140 mm or less She has so far not yet required to be started on any Rx for her blood pressure She is reminded to continue monitoring her blood pressure regularly (4) Acquired hypothyroidism: Code(s): E03.9 - Hypothyroidism, unspecified Category: Medical Plan: Continue Levothyroxine 112 mcg QD Will continue to monitor her TFTs regularly (5) Chronic idiopathic urticaria: Code(s): L50.1 - Idiopathic urticaria Category: Medical Plan: Continue Fexofenadine 180 mg 3 tablets BID and Hydroxyzine 25 mg every 8 hours PRN She was receiving Xolair injections 300 mg SQ Q 2 weeks but has not received her injections for about a month now as her pharmacy reportedly did not order her Rx when they were due States that it has now been ordered and she is just waiting for her Rx to arrive and she will start back on her injections as soon as her Rx comes in She has been breaking out in a recurrent scattered itchy rash all over lately as she has been out of her Xolair Will start her on oral Prednisone 10 mg QD x 5 days in the meantime Follow up with phone specialist (Dr. Bernal at [facility]) as scheduled (6) Asthma: Code(s): J45.909 - Unspecified asthma, uncomplicated Category: Medical Qualifiers: Asthma severity: mild Asthma persistence: persistent Asthma complication type: uncomplicated Qualified Code(s): J45.30 - Mild persistent asthma, uncomplicated Plan: Stable Continue Flovent HFA 110 mcg 1 puff BID and ProAir HFA 2 puffs up to 4 times a day as needed (7) Osteopenia: Code(s): M85.80 - Other specified disorders of bone density and structure, unspecified site Category: Medical Qualifiers: Osteopenia location: unspecified Qualified Code(s): M85.80 - Other specified disorders of bone density and structure, unspecified site Plan: Her most recent BMD done on 06/25/2024 revealed (+) osteopenia based on the lowest T-score value of -1.4 in the femoral neck and is mostly unchanged from her previous BMD on 06/03/2019 Her 10-YEAR FRAX score is at 9.8% for major osteoporotic fracture (clinical spine, forearm, hip or shoulder) and 2.1% for hip fracture Patient is again encouraged to continue with regular exercise and physical activity as well as her daily vitamin D and Calcium supplements Will continue to monitor her BMD regularly (8) Vitamin B12 deficiency: Code(s): E53.8 - Deficiency of other specified B group vitamins Category: Medical Plan: Patient is advised that her Vitamin B12 level is again low; will start her back on oral Vitamin B12 1000 mcg QD (Rx sent) (9) Vitamin D deficiency: Code(s): E55.9 - Vitamin D deficiency, unspecified Category: Medical Plan: Continue Vitamin D3 1000 units QD (10) Primary osteoarthritis of both knees: Comment: S/P total right knee arthroplasty in 2012 Code(s): M17.0 - Bilateral primary osteoarthritis of knee Category: Medical Plan: She used to take Meloxicam 15 mg QD PRN but now just takes OTC Tylenol PRN with some relief She appears to have had inteventional Tx so far with right saphenous nerve PNS, which supposedly provided her with significant pain relief She was more recently offered a Sprint device and RFA but was advised that she should try physical therapy first, which she declined Have advised patient that she should try physical therapy first before pain management can proceed with her interventional Tx due to insurance regulations - advised that unless she goes through the necessary steps, insurance will not cover any of her proposed interventional procedures Follow-up with Orthopedics and with pain management as scheduled (11) Osteoarthritis of both hands: Code(s): M19.041 - Primary osteoarthritis, right hand; M19.042 - Primary osteoarthritis, left hand Category: Medical Qualifiers: Osteoarthritis type: primary Qualified Code(s): M19.041 - Primary osteoarthritis, right hand; M19.042 - Primary osteoarthritis, left hand Plan: X-rays of both hands done last year revealed (+) osteoarthritis changes bilaterally; repeat x-rays of the left hand showed (+) arthritis of the IP joints Patient is encouraged again to continue with regular hand exercises to help minimize her stiffness and pain Follow up with orthopedics as scheduled (12) Facet arthritis of lumbar region: Code(s): M47.816 - Spondylosis without myelopathy or radiculopathy, lumbar region Category: Medical Plan: Reinforced activity and weight-lifting restrictions Lumbar spine x-rays done back in February 2021 revealed (+) mild lumbar spine DDD and facet arthritis Repeat thoracic and lumbar spine x-rays done in March 2022 revealed moderate multilevel degenerative disc disease of the thoracic and lumbar spine, with prominent anterior endplate osteophytes within the mid-thoracic spine and prominent bilateral facet arthropathy at L5-S1 Have recommended a referral to physical therapy but patient would like to hold off on this for now and states that she will call for referral if she changes her mind Follow up with pain management as scheduled Per request, will also start her on Lidocaine 5% patch QD PRN for pain (13) Carpal tunnel syndrome, bilateral: Comment: NCV done back in 2015 revealed (+) moderatedly severe bilateral carpal tunnel syndrome; EMG was normal Code(s): G56.03 - Carpal tunnel syndrome, bilateral upper limbs Category: Medical Plan: S/P left carpal tunnel release surgery with Dr. Diaz at [facility] [place] in [place], with significant improvement / relief of her symptoms Follow-up with orthopedics as scheduled (14) Memory impairment: Code(s): R41.3 - Other amnesia Category: Medical Plan: Follow up with neurology as scheduled (15) Obesity (BMI 30-39.9): Code(s): E66.9 - Obesity, unspecified Category: Medical Plan: Reinforced diet; exercise and weight loss are unrealistic given patient's multiple physical issues and comorbidities Plan As requested, flu vaccine given to patient today Follow up in 3 months Orders: Orders Influenza [id number] Immunization 09/05/24 Z23 - Encounter for immunization Lipid Panel 3 Months E78.00 - Pure hypercholesterolemia, unspecified Hemoglobin A1c 3 Months E11.9 - Type 2 diabetes mellitus without complications Thyroid Stimulating Hormone 3 Months E03.9 - Hypothyroidism, unspecified Vitamin B12 and Folate 3 Months E53.8 - Deficiency of other specified B group vitamins Vitamin D 25-OH Total 3 Months E55.9 - Vitamin D deficiency, unspecified Comprehensive [place]. Panel Fast 3 Months E78.00 - Pure hypercholesterolemia, unspecified Complete Blood Count Auto Diff 3 Months D64.9 - Anemia, unspecified Free T4 (Free Thyroxine) 3 Months E03.9 - Hypothyroidism, unspecified UA CC w/rflx Micro + Cult 3 Months R30.0 - Dysuria Medications: New lidocaine 5% leave on most painful area for up to 12 hrs 1 patch topical DAILY 30 days 30 ea 2RF Refilled cyanocobalamin (vitamin B-12) 1,000 mcg PO DAILY 90 tabs 3RF prednisone 10 mg PO DAILY 5 days PRN 5 tabs 0RF rash L50.1 - Idiopathic urticaria
== END 2024-09-05 16:31 | disposition home or self-care (01) ==
LOC: HO.HMCH 15:29
PROVIDERS: PCP Internal Medicine; Visit Provider Internal Medicine
DX: E78.2 Mixed hyperlipidemia (principal); E11.9 Type 2 diabetes mellitus without complications; I10 Essential (primary) hypertension; E03.9 Hypothyroidism, unspecified; L50.1 Idiopathic urticaria; J45.30 Mild persistent asthma, uncomplicated; M85.80 Other specified disorders of bone density and structure, unspecified site; E53.8 Deficiency of other specified B group vitamins; E55.9 Vitamin D deficiency, unspecified; M17.0 Bilateral primary osteoarthritis of knee; M19.041 Primary osteoarthritis, right hand; M19.042 Primary osteoarthritis, left hand; M47.816 Spondylosis without myelopathy or radiculopathy, lumbar region; G56.03 Carpal tunnel syndrome, bilateral upper limbs; R41.3 Other amnesia; E66.9 Obesity, unspecified

== ENCOUNTER → 2024-09-05 15:28 | Outpatient (BNVA) | payer OTHER, SELFPAY | PROVIDERS: PCP Internal Medicine; Visit Provider Internal Medicine | DX: Z23 Encounter for immunization (principal); E78.2 Mixed hyperlipidemia; E11.9 Type 2 diabetes mellitus without complications; E03.9 Hypothyroidism, unspecified; I10 Essential (primary) hypertension; J45.30 Mild persistent asthma, uncomplicated; M85.80 Other specified disorders of bone density and structure, unspecified site; E53.8 Deficiency of other specified B group vitamins; E55.9 Vitamin D deficiency, unspecified; M17.0 Bilateral primary osteoarthritis of knee; M19.041 Primary osteoarthritis, right hand; M19.042 Primary osteoarthritis, left hand; M47.816 Spondylosis without myelopathy or radiculopathy, lumbar region; G56.03 Carpal tunnel syndrome, bilateral upper limbs; R41.3 Other amnesia; E66.9 Obesity, unspecified | CPT/HCPCS: 90471; 90656; 99212 ==

== ENCOUNTER 2024-09-10 10:33 | Outpatient (AMB) | payer OTHER, SELFPAY ==
--- NOTE | 2024-09-10 10:45 | AM.OFFWIN_ITS ---
Intake Vital Signs 09/10/24 10:52 Weight 158 lb BP 122/80 Blood Pressure Location Lt brachial Position Sitting Pulse 73 Pulse Source Pulse Oximeter Pulse Oximetry (%) 97 Oxygen Delivery Method Room Air Intake Visit Reasons: EP- Hives all over/ Chest pain Patient Tobacco Use Status: Former Tobacco user Allergies No Known Allergies [No Known Allergies*] Allergy (Verified 09/10/24 10:50) Do you need a note to return to daycare/school/sports/work: No HPI EP- Hives all over/ Chest pain HPI Details This note is constructed using voice recognition software. While every effort has been made to ensure accuracy, naturopathic doctor errors may have been included. The patient is a 74 year old female who presents to the clinic today with hives all over her body, chest pain, and dyspnea. She notes that she has been dealing with intermittent highs for several years, however yesterday developed all over body heights, that have been getting worse. Today she developed some tightness in her throat, making it feel like she could not take a deep breath, and causing chest pain. She has not had any new foods, but did eat at [employer] yesterday. She has had no new topical agents. [facility] Medical History (Updated 09/06/24 @ 05:31 by Marco Martinez MD) Prosthetic eye globe Lumbar back pain with radiculopathy affecting right lower extremity Anemia Frequent falls Dizziness Carpal tunnel syndrome, bilateral Diabetes mellitus Mixed hyperlipidemia Obesity (BMI 30-39.9) Memory impairment Osteoarthritis of both hands Vitamin B12 deficiency Vitamin D deficiency Primary osteoarthritis of both knees Osteopenia Asthma Chronic idiopathic urticaria Acquired hypothyroidism Benign essential hypertension Diabetes mellitus without complication Surgical History Status post carpal tunnel release (~06/02/21) Tubal ligation status Hx of section History of total right knee replacement (~2012) Family History Father No problems noted. 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 Cognitive needs: Yes (cane ) Hearing needs: No Vision needs: Yes (glasses ) Review of Systems Const All systems reviewed & are unremarkable except as noted in HPI and below Physical Exam Vital Signs: Last Vital Signs Pulse 73 09/10/24 10:52 BP 122/80 09/10/24 10:52 Pulse Ox 97 09/10/24 10:52 Oxygen Delivery Method Room Air 09/10/24 10:52 Const General: cooperative, healthy appearing, comfortable, no acute distress and well developed Orientation/consciousness: patient oriented x3 Limitations: no limitations HEENT Head: Yes normal to inspection Ears: hearing grossly normal bilaterally General nose exam: Normal external nose present Face and sinus: Yes normal facial exam Eyes General: appearance normal, both eyes and all related structures Neck Neck: Yes normal visual inspection and Yes full ROM Resp Effort & Inspection: normal respiratory effort and able to speak in complete sentences Auscultation: clear to auscultation bilaterally Cardio Rate: regular rate Rhythm: regular rhythm Heart sounds: normal S1 and S2 Skin Other: Large hives present to bilateral arms, bilateral legs, right side of face, and neck. Neuro General: patient oriented x3 Extrem General: Yes normal to inspection Office Meds EpiPen 0.3 mg/0.3 mL injection, auto-injector Performing Provider: Mary Bar NP Performing Location: [facility] [place] [facility] Administered by: Mary Bar NP on 09/10/24 10:53 Dose Route Admin Location Dispensed Lot Number Expiration Date [facility] [employer] 0.3 mg IM 0.3 mL [id number] 05/05/25 95976-853-79 [facility] Assessment & Plan Assessment & Plan (1) Allergic reaction: Code(s): T78.40XA - Allergy, unspecified, initial encounter Qualifiers: Encounter type: initial encounter Qualified Code(s): T78.40XA - Allergy, unspecified, initial encounter Plan: EpiPen administered in office with improvement in symptoms within 2 minutes. Given unknown source of allergic reaction, advised transfer to hospital via EMS. Patient and family agreed. Plan See above for full details and plan. Orders: Orders AMB EKG-In Office Today R07.9 - Chest pain, unspecified AMB EpiPen Administration Today L50.9 - Urticaria, unspecified, R06.00 - Dyspnea, unspecified Medications: New EpiPen (epinephrine) 0.3 mg (0.3 mL) IM ONCE 1 ea 0RF NS L50.9 - Urticaria, unspecified, R06.00 - Dyspnea, unspecified Coding Level of Care Code Est Pt Level 4 (55287) Diagnoses Allergic reaction, initial encounter T78.40XA Encounter type: initial encounter
[2024-09-10 10:52] VITALS: BP 122/80; PULSE 73; O2SAT 97
== END 2024-09-10 11:15 | disposition home or self-care (01) ==
PROVIDERS: PCP Internal Medicine; Visit Provider Registered Nurse
DX: R06.00 Dyspnea, unspecified (principal); L50.9 Urticaria, unspecified; T78.40XA Allergy, unspecified, initial encounter

== ENCOUNTER → 2024-09-10 10:33 | Outpatient (BNVA) | payer OTHER, SELFPAY | PROVIDERS: PCP Internal Medicine | DX: T78.40XA Allergy, unspecified, initial encounter (principal) | CPT/HCPCS: 96372; 99212; J0171 ==

== ENCOUNTER 2024-09-10 11:25 | Emergency (ER) | payer OTHER, SELFPAY ==
[2024-09-10 11:27] VITALS: BP 130/53; BP 144/88; PULSE 65; PULSE 91; RESP 20; TEMP 36.5; O2SAT 98; O2SAT 99; BMI 28.6
--- NOTE | 2024-09-10 12:11 | ECG_ITS ---
Test Reason : ALLERGIC REACTION Blood Pressure : / mmHG Vent. Rate : 064 BPM Atrial Rate : 064 BPM P-R Int : 122 ms QRS Dur : 088 ms QT Int : 416 ms P-R-T Axes : 045 -11 029 degrees QTc Int : 429 ms Normal sinus rhythm Possible Anterior infarct , age undetermined Abnormal ECG When compared with ECG of 06-MAR-2023 11:58, Borderline criteria for Anterior infarct are now Present Nonspecific T wave abnormality no longer evident in Lateral leads Referred By: Nicole Warren Electronically Signed By:NIMCO URBINA MD
[2024-09-10 12:22] LABS: MANUAL DIFF FLAG NO
[2024-09-10 12:23] LABS: Basophils Percent Auto 0.1 % (0-2); Hematocrit 38.2 % (37.0-47.0); Hemoglobin 11.9 g/dl (12.0-16.0); Imm Gran Abs Auto 0.03 X10*3/uL (0.00-0.03); Imm Gran Pct Auto 0.4 % (0.0-0.4); Lymphocytes Absolute Auto 2.1 X10*3/uL (1.2-4.9); Lymphocytes Percent Auto 24.7 % (20-40); Mean Corpuscular HGB Conc 31.2 g/dl (31.0-35.0); Mean Corpuscular Hemoglobin 24.2 pg (27.0-33.0); Mean Corpuscular Volume 77.8 fL (80.0-98.0); Mean Platelet Volume 10.4 fL (9.4-12.3); Monocytes Absolute Auto 0.6 X10*3/uL (0.1-1.2); Monocytes Percent Auto 6.8 % (2-11); Neutrophils Absolute Auto 5.8 x10*3/uL (2.0-8.3); Platelet Count 249 X10*3/uL (160-400); Red Blood Count 4.91 X10*6/uL (4.20-5.50); Red Cell Distribution Width 14.7 % (11.0-16.0); White Blood Count 8.5 X10*3/uL (4.8-10.8)
[2024-09-10 12:37] LABS: Alanine Aminotransferase 17 U/L (0-31); Alkaline Phosphatase 69 U/L (39-117); Anion Gap 14 (12-20); Aspartate Amino Transferase 21 U/L (5-31); Bilirubin Total 0.4 mg/dL (0.0-1.0); Blood Urea Nitrogen 14 mg/dL (9-16); Calcium 10.2 mg/dL (8.4-10.2); Carbon Dioxide 21 mmol/L (22-29); Chloride 106 mmol/L (96-108); Creatinine Clr Calc Pharmacy 55.2; Estimated Glomerular Filt Rate > 60; Glucose Random 129 mg/dL (60-115); Magnesium 1.8 mg/dL (1.6-2.6); Potassium 3.8 mmol/L (3.3-5.1); Sodium 137 mmol/L (135-145); Total Protein 6.9 g/dL (6.5-8.0)
--- NOTE | 2024-09-10 13:17 | ED.GENADULT ---
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 (all interactions with this patient were facilitated with an [facility] special events fundraiser) Mode of arrival: EMS Limitations: language barrier (all interactions with this patient were facilitated with an [facility] special events fundraiser) History of Present Illness ED Provider: Bonita Horta PA-C HPI narrative: Patient is a 74 year old assigned female at with a history of a prosthetic right eye, anemia, OA, hypothyroidism, HTN, asthma, chronic idiopathic urticaria, and frequent allergic reactions presenting to the emergency department today with hives and throat itching for which she was given IM Epinephrine at [facility]. Patient states that since receiving the epinephrine she has felt much better. Patient denies any dizziness, lightheadedness, abdominal pain, nausea, vomiting, fever, chills, blurry vision, double vision, loss of vision, chest pain, difficulty breathing, shortness of breath, back pain, night sweats, pain with urination, increased urinary frequency, increased urinary urgency, blood in her urine or stool, syncope or a near syncopal episode, recent trauma or falls, bowel incontinence, bladder incontinence, or any other complaints at this time. Relieving factors: none Exacerbating factors: none Associated symptoms: denies other symptoms Treatments prior to arrival: other (IM Epi) Related Data Home Medications ?Medication ?Instructions ?Recorded ?Confirmed turmeric 500 mg-black pepper 1 cap PO DAILY 09/22/20 09/05/24 extract 3 mg capsule levocetirizine 5 mg tablet 5 mg PO DAILY 10/05/23 09/05/24 omalizumab 150 mg/mL subcutaneous 300 mg subcut Q2W 02/11/24 09/05/24 syringe cromolyn 100 mg/5 mL oral mg PO TID 08/26/24 09/05/24 concentrate hydroxyzine HCl 50 mg tablet 50 mg PO BID PRN itch 08/26/24 09/05/24 Previous Rx's ?Medication ?Instructions ?Recorded lancets (OneTouch UltraSoft #100 ea 03/11/21 Lancets) montelukast 10 mg tablet 10 mg PO BEDTIME #90 tabs 08/11/21 nabumetone 500 mg tablet 500 mg PO BID #20 tabs 05/23/22 hydrocortisone 2.5 % topical cream 1 appl topical BID PRN skin 06/22/22 irritation #20 grams fexofenadine 180 mg tablet 180 mg PO DAILY #30 tabs 08/14/22 Ventolin HFA 90 mcg/actuation 2 puff inhalation Q6H PRN 10/09/22 aerosol inhaler (albuterol sulfate) shortness of breath or wheezing 30 days #18 grams blood sugar diagnostic (OneTouch 50 strip miscellaneous BID #100 01/22/23 Verio test strips) strips bladder control pads #3 ea 08/17/23 gloves (Medium) #3 ea 08/17/23 personal wipes #3 ea 08/17/23 shower chair with back #1 ea 08/17/23 cholecalciferol (vitamin D3) 25 25 mcg PO DAILY #90 caps 09/10/23 mcg (1,000 unit) capsule fenofibrate nanocrystallized 145 145 mg PO DAILY #90 tabs 12/23/23 mg tablet calcium carbonate 500 mg-vitamin 1 tab PO BID #180 tabs 01/03/24 D3 10 mcg (400 unit) tablet (Calcium 500 With D) ascorbic acid (vitamin C) 500 mg 500 mg PO DAILY #90 tabs 01/17/24 tablet (Vitamin C) betamethasone valerate 0.1 % 1 appl topical BID PRN skin 02/13/24 topical cream irritation 30 days #45 grams rollator walker #1 ea 03/03/24 levothyroxine 112 mcg tablet 112 mcg PO DAILY 90 days #90 tabs 06/24/24 tizanidine 2 mg tablet 2 mg PO BEDTIME PRN muscle 08/20/24 spasticity #30 tabs simvastatin 40 mg tablet 40 mg PO DAILY #90 tabs 08/22/24 bisacodyl 5 mg tablet,delayed 20 mg (4 x 5 mg) PO ONCE 1 day #4 08/26/24 release (Dulcolax (bisacodyl)) tabs polyethylene glycol 3350 17 238 g PO ONCE #238 grams 08/26/24 gram/dose oral powder (Miralax) cyanocobalamin (vitamin B-12) 1,000 mcg PO DAILY #90 tabs 09/05/24 1,000 mcg tablet lidocaine 5 % topical patch 1 patch topical DAILY 30 days #30 09/05/24 ea metformin 500 mg tablet 500 mg PO TID #270 tabs 09/08/24 epinephrine 0.3 mg/0.3 mL 0.3 mg (0.3 mL) IM Q10M PRN 09/10/24 injection, auto-injector (EpiPen anaphylaxis #2 ea 2-Mark) prednisone 20 mg tablet 20 mg PO DAILY 7 days #7 tabs 09/10/24 Allergies Allergy/AdvReac Type Severity Reaction Status Date / Time No Known Allergies Allergy Verified 09/10/24 11:32 [No Known Allergies*] Review of Systems Constitutional: Constitutional: Reports no additional constitutional complaints, Denies chills, Denies fever(s) and Denies night sweats Eyes: Eyes: Reports no additional eye complaints, Denies blurry vision, Denies change in vision, Denies diplopia, Denies eye discharge, Denies loss of vision and Denies eye pain ENT: Denies dizziness Cardiovascular: Cardiovascular: Reports no additional cardiovascular complaints, Denies chest pain, Denies lightheadedness, Denies Loss of Consciousness and Denies dyspnea Respiratory: Respiratory: Reports no additional respiratory complaints and Denies dyspnea Gastrointestinal: Gastrointestinal: Reports no additional gastrointestinal complaints, Denies abdominal pain, Denies melena, Denies hematochezia, Denies change in bowel habits and Denies change in stool character Genitourinary: Genitourinary: Denies hematuria, Denies urinary frequency, Denies dysuria, Denies urinary incontinence, Denies urinary hesitancy and Denies urinary urgency Musculoskeletal: Musculoskeletal: Reports no additional musculoskeletal complaints, Denies numbness and Denies tingling Neurologic: Denies dizziness, Denies loss of vision, Denies numbness and Denies tingling Psychiatric: Psychiatric: Reports no additional psychiatric complaints Endocrine: Endocrine: Reports no additional endocrine complaints Hematologic/Lymphatic: Hematologic/Lymphatic: Reports no additional hematologic/lymphatic complaints Allergic/Immunologic: Allergic/Immunologic: Reports no additional allergic/immunologic complaints PMFSH Past Medical History Attestation statement: The following information was validated with the patient. Source: old records reviewed and nursing notes reviewed Medical History Prosthetic eye globe Lumbar back pain with radiculopathy affecting right lower extremity Anemia Frequent falls Dizziness Carpal tunnel syndrome, bilateral Diabetes mellitus Mixed hyperlipidemia Obesity (BMI 30-39.9) Memory impairment Osteoarthritis of both hands Vitamin B12 deficiency Vitamin D deficiency Primary osteoarthritis of both knees Osteopenia Asthma Chronic idiopathic urticaria Acquired hypothyroidism Benign essential hypertension Diabetes mellitus without complication Surgical History Status post carpal tunnel release (~06/02/21) Tubal ligation status Hx of section History of total right knee replacement (~2012) Family History Family History Father No problems noted. 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 Cognitive needs: Yes (cane ) Hearing needs: No Vision needs: Yes (glasses ) Physical Exam ED Vital Signs: Vital Signs - 24 hr 09/10/24 11:27 09/10/24 13:36 09/10/24 13:46 Temperature 97.7 F 97.9 F 97.9 F Pulse Rate 65 59 60 Respiratory Rate 20 16 18 Blood Pressure 130/53 L 121/61 120/64 Pulse Oximetry 99 99 99 Oxygen Delivery Method Room Air Room Air Room Air BMI result Body Mass Index 28.6 Const General: cooperative, no acute distress, alert and awake Nutritional Appearance: well nourished Orientation/consciousness: patient oriented x3 Limitations: no limitations HENMT Head: Yes normal to inspection and Yes atraumatic Ears: hearing grossly normal bilaterally and external ears normal General nose exam: Normal external nose present, no nasal discharge noted and no epistaxis Face and sinus: Yes normal facial exam, No abrasion and No laceration Mouth: Normal oral and palatal mucosa present, no drooling and no muffled voice Eyes Other: prosthetic right eye - chronic for the patient Periorbital: periorbital findings normal Neck Neck: Yes normal visual inspection, Yes full ROM and Yes no lymphadenopathy Chest Chest palpation & inspection: normal inspection of the chest Resp Effort & Inspection: normal respiratory effort and able to speak in complete sentences GI Inspection: Yes normal to inspection Neuro General: patient oriented x3 and moves all extremities Cognition (Neuro): normal cognition Extrem General: Yes normal to inspection, Yes full ROM and Yes capillary refill normal Psych Appearance: grossly normal Mental Status: mental status grossly normal Affect: normal affect Attitude: cooperative Thought process: Normal thought process present Thought content: Normal thought content present Insight: Good insight present (Psych) Medical Decision Making Medical Decision Making [facility] Narrative: Patient is a 74 year old assigned female at with a history of a prosthetic right eye, anemia, OA, hypothyroidism, HTN, asthma, chronic idiopathic urticaria, and frequent allergic reactions presenting to the emergency department today after receiving IM Epi from the [facility] in [place] for a rash and itchy throat sensation. Patient's physical exam was as noted in the physical exam portion of this note. Patient's blood work was unremarkable. I explained my physical exam findings as well as all test results to the patient. I answered all questions asked by the patient. I stressed the importance of the patient taking her medication as directed (either prescribed or as the over the counter packaging recommends). 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 I stressed the importance of the patient returning to the emergency department immediately if her symptoms were to worsen or if she were to develop any dizziness, shortness of breath, difficulty breathing, chest pain, blurry vision, loss of vision, nausea, vomiting, abdominal pain, fever, chills, back pain, or any other complaints. Patient verbalized agreement and understanding with this treatment plan and discharge. Differential Diagnosis Differential Diagnoses: The differential diagnosis associated with the presentation includes Allergic reaction Urticaria Admission/Observation Consideration of admission/observation: Escalation of care including admission/observation considered Patient would have been admitted to the hospital had her work up had any findings where hospital admission was appropriate and her clinical presentation warranted hospital admission. Lab Data [facility] Lab Attestation statement: I reviewed the patient's lab results. My interpretation of these results are in the MDM Rationale portion of this note. 09/10/24 12:18 09/10/24 12:18 Labs: Lab Results 09/10/24 Range/Units 12:18 WBC 8.5 (4.8-10.8) X10*3/uL RBC 4.91 (4.20-5.50) X10*6/uL Hgb 11.9 L (12.0-16.0) g/dl Hct 38.2 (37.0-47.0) % MCV 77.8 L (80.0-98.0) fL MCH 24.2 L (27.0-33.0) pg MCHC 31.2 (31.0-35.0) g/dl RDW 14.7 (11.0-16.0) % Plt Count 249 (160-400) X10*3/uL MPV 10.4 (9.4-12.3) fL Immature Gran % (Auto) 0.4 (0.0-0.4) % Neut % (Auto) 68.0 (45-73) % Lymph % (Auto) 24.7 (20-40) % Beltrami % (Auto) 6.8 (2-11) % Eos % (Auto) 0.0 (0-4) % Baso % (Auto) 0.1 (0-2) % Lymph # (Auto) 2.1 (1.2-4.9) X10*3/uL Bel[place]ami # (Auto) 0.6 (0.1-1.2) X10*3/uL Eos # (Auto) 0.0 (0.0-0.4) X10*3/uL Baso # (Auto) 0.0 (0.0-0.2) X10*3/uL Abs Immat Gran (auto) 0.03 (0.00-0.03) X10*3/uL Absolute Neuts (auto) 5.8 (2.0-8.3) x10*3/uL Absolute Nucleated RBC 0.000 (0.0-0.012) X10*3/uL Nucleated RBC % (auto) 0.0 (0.0-0.2) /100WBC Sodium 137 (135-145) mmol/L Potassium 3.8 (3.3-5.1) mmol/L Chloride 106 (96-108) mmol/L Carbon Dioxide 21 L (22-29) mmol/L Anion Gap 14 (12-20) BUN 14 (9-16) mg/dL Creatinine 0.80 (0.5-1.4) mg/dL Estim Creat Clear Calc 55.2 Estimated GFR > 60 Random Glucose 129 H (60-115) mg/dL Calcium 10.2 (8.4-10.2) mg/dL Magnesium 1.8 (1.6-2.6) mg/dL Total Bilirubin 0.4 (0.0-1.0) mg/dL AST 21 (5-31) U/L ALT 17 (0-31) U/L Alkaline Phosphatase 69 (39-117) U/L Total Protein 6.9 (6.5-8.0) g/dL Albumin 4.0 (3.5-5.0) g/dL Independent Historian Clinical information obtained from an independent historian. History obtained from or confirmed by: EMS (EMS provided additional history and confirmed the history provided by the patient) Discharge Plan Discharge Clinical Impression: Allergic reaction Patient Disposition: Home, Self-Care Instructions: General Allergic Reaction (ED) Additional Instructions: Follow up with your primary care provider. Return to the emergency department immediately if your symptoms worsen or if you develop any dizziness, shortness of breath, difficulty breathing, chest pain, blurry vision, loss of vision, nausea, vomiting, abdominal pain, fever, chills, back pain, or any other complaints. Jose Rafael?seguimiento?con antunez m?dico de atenci?n primaria. Acuda inmediatamente al servicio de urgencias si clari s?ntomas empeoran o si presenta falta de aliento, dificultad para respirar, dolor tor?cico, mareos, aturdimiento, dolor de espalda, dolor abdominal, fiebre, escalofr?os o cualquier otro s?ntoma. Prescriptions: New epinephrine [EpiPen 2-Mark] 0.3 mg/0.3 mL auto-injector 0.3 mg IM Q10M PRN (Reason: anaphylaxis) Qty: 2 0RF Rx Instructions: for 2 doses prednisone 20 mg tablet 20 mg PO DAILY 7 Days Qty: 7 0RF No Action (DME) lancets [OneTouch UltraSoft Lancets] Misc See Rx Instructions .ROUTE .MEDSUPPLY Qty: 100 0RF Rx Instructions: As directed- In Vitro twice a day montelukast 10 mg tablet 10 mg PO BEDTIME Qty: 90 2RF fexofenadine 180 mg tablet 180 mg PO DAILY Qty: 30 3RF albuterol sulfate [Ventolin HFA] 90 mcg/actuation HFA aerosol inhaler 2 puff inhalation Q6H PRN (Reason: shortness of breath or wheezing) 30 Days Qty: 18 1RF OneTouch Verio test strips Strip 50 strip miscellaneous BID Qty: 100 12RF (DME) shower chair with back See Rx Instructions .Route .MEDSUPPLY Qty: 1 0RF Rx Instructions: As directed (DME) gloves (Medium) See Rx Instructions .Route .MEDSUPPLY Qty: 3 11RF Rx Instructions: As directed (DME) personal wipes See Rx Instructions .Route .MEDSUPPLY Qty: 3 8RF Rx Instructions: As directed (DME) bladder control pads See Rx Instructions .Route .MEDSUPPLY Qty: 3 8RF Rx Instructions: As directed fenofibrate nanocrystallized 145 mg tablet 145 mg PO DAILY Qty: 90 2RF calcium carbonate-vitamin D3 [Calcium 500 With D] 500 mg-10 mcg (400 unit) tablet 1 tab PO BID Qty: 180 3RF ascorbic acid (vitamin C) [Vitamin C] 500 mg tablet 500 mg PO DAILY Qty: 90 3RF betamethasone valerate 0.1 % cream 1 appl topical BID PRN (Reason: skin irritation) 30 Days Qty: 45 0RF (DME) rollator walker See Rx Instructions .Route .MEDSUPPLY Qty: 1 0RF Rx Instructions: As directed levothyroxine 112 mcg tablet 112 mcg PO DAILY 90 Days Qty: 90 1RF tizanidine 2 mg tablet 2 mg PO BEDTIME PRN (Reason: muscle spasticity) Qty: 30 1RF simvastatin 40 mg tablet 40 mg PO DAILY Qty: 90 0RF metformin 500 mg tablet 500 mg PO TID Qty: 270 3RF turmeric-turmeric ext-pepper 500-3 mg capsule 1 cap PO DAILY omalizumab 150 mg/mL syringe 300 mg subcut Q2W cholecalciferol (vitamin D3) 25 mcg (1,000 unit) capsule 25 mcg PO DAILY Qty: 90 3RF nabumetone 500 mg tablet 500 mg PO BID Qty: 20 0RF hydrocortisone 2.5 % cream 1 appl topical BID PRN (Reason: skin irritation) Qty: 20 0RF cromolyn 100 mg/5 mL concentrate PO TID hydroxyzine HCl 50 mg tablet 50 mg PO BID PRN (Reason: itch) bisacodyl [Dulcolax (bisacodyl)] 5 mg tablet,delayed release (DR/EC) 20 mg PO ONCE 1 Days Qty: 4 0RF Rx Instructions: take 4 tabs at noon the day before your colonoscopy polyethylene glycol 3350 [Miralax] 17 gram/dose powder 238 g PO ONCE Qty: 238 0RF Rx Instructions: As directed by gastroenterology department at [facility] levocetirizine 5 mg tablet 5 mg PO DAILY cyanocobalamin (vitamin B-12) 1,000 mcg tablet 1,000 mcg PO DAILY Qty: 90 3RF lidocaine 5 % adhesive patch,medicated 1 patch topical DAILY 30 Days Qty: 30 2RF Rx Instructions: leave on most painful area for up to 12 hrs Referrals: [facility] Family Medicine [Provider Group] (Call to establish and follow up with a primary care provider. If you already have a primary care provider, please follow up with them.) [facility] Primary Care[facility] [Provider Group] (Call to establish and follow up with a primary care provider. If you already have a primary care provider, please follow up with them.) [facility] Primary Care,Letty [Provider Group] (Call to establish and follow up with a primary care provider. If you already have a primary care provider, please follow up with them.) Interventions: ED Discharge Assessment Last Done: 09/10/24 13:46 Discharge Date/Time: 09/10/24 13:49 Print Language: Slovak
[2024-09-10 13:36] VITALS: BP 121/61; PULSE 59; RESP 16; TEMP 36.6; O2SAT 99
[2024-09-10 13:46] VITALS: BP 120/64; PULSE 60; RESP 18; TEMP 36.6; O2SAT 99
== END 2024-09-10 13:49 | disposition home or self-care (01) ==
PROVIDERS: Physician Assistant Medical; Emergency Provider Emergency Medicine
DX: L50.9 Urticaria, unspecified (principal); T78.40XA Allergy, unspecified, initial encounter; X58.XXXA Exposure to other specified factors, initial encounter
CPT/HCPCS: 36415; 80053; 83735; 85025; 93005; 96372; 99212; 99284; 99285; J0171

== ENCOUNTER → 2024-09-10 12:11 | Outpatient (BNV) | payer OTHER, SELFPAY | PROVIDERS: Emergency Provider Emergency Medicine; Visit Provider Internal Medicine Cardiovascular Disease | DX: R94.31 Abnormal electrocardiogram [ECG] [EKG] (principal) | CPT/HCPCS: 93010 ==

== ENCOUNTER 2024-09-23 10:36 | Outpatient (AMB) | payer OTHER, SELFPAY ==
[2024-09-23 10:47] VITALS: BP 118/66; PULSE 72; O2SAT 94; BMI 28.9
--- NOTE | 2024-09-23 10:47 | A.OFFPC_ITS ---
Vital Signs 09/23/24 10:47 Height 5 ft 2 in Weight 158 lb BMI 28.9 BP 118/66 Blood Pressure Location Lt brachial Position Sitting Pulse 72 Pulse Source Pulse Oximeter Pulse Oximetry (%) 94 Oxygen Delivery Method Room Air Intake Visit Reasons: [facility] 09/10 Hives, Tight throat, 98% RA Box Sealing Machine Feeder Required: No Accompanied by: Daughter Allergies No Known Allergies [No Known Allergies*] Allergy (Verified 09/23/24 10:48) Tobacco use date assessed: 05/20/24 Dental Screening Dental Screen Date: 02/11/24 HPI HPI Comments History of Present Illness Details 74 y/o female patient who presents to [facility] for EDF. She was admitted at [facility] on 09/10/24 and discharged home the same day. She was seen at ED due to Allergic reaction. She received EPI injection with good relief. She was able to follow with Financial Accounting Analyst @ [facility] who started her on new medications and f/u back in 3 months. Denies SOB, facial or tongue swelling, CP or wheezing. [facility] Medical History Prosthetic eye globe Lumbar back pain with radiculopathy affecting right lower extremity Anemia Frequent falls Dizziness Carpal tunnel syndrome, bilateral Diabetes mellitus Mixed hyperlipidemia Obesity (BMI 30-39.9) Memory impairment Osteoarthritis of both hands Vitamin B12 deficiency Vitamin D deficiency Primary osteoarthritis of both knees Osteopenia Asthma Chronic idiopathic urticaria Acquired hypothyroidism Benign essential hypertension Diabetes mellitus without complication Surgical History Status post carpal tunnel release (~06/02/21) Tubal ligation status Hx of section History of total right knee replacement (~2012) Family History Father No problems noted. 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 Lee Cardenas, Sunni Cross, Steve Mcadams and colleagues, with an educational sajan from [employer]. Review of Systems Const All systems reviewed & are unremarkable except as noted in HPI and below Physical exam (Primary Care) Vital Signs: Last Vital Signs Pulse 72 09/23/24 10:47 BP 118/66 09/23/24 10:47 Pulse Ox 94 09/23/24 10:47 Oxygen Delivery Method Room Air 09/23/24 10:47 BMI result Body Mass Index 28.9 Tobacco/Smoking Status: Tobacco use Status Tobacco use date assessed 05/20/24 09/23/24 10:49 Patient Tobacco Use Status Former Tobacco user 09/23/24 10:49 Tobacco use type Cigarette 09/23/24 10:49 e-Cigarette/Vaping Use Never Used 09/23/24 10:49 Thrive Assessment: Date of Thrive Assessment Date Thrive assessed 02/11/24 09/23/24 10:49 Const General: cooperative, comfortable and no acute distress Orientation/consciousness: patient oriented x3 HENMT Head: Yes normocephalic Ears: external ears normal General nose exam: Normal external nose present Face and sinus: Yes normal facial exam Mouth: moist mucous membranes Resp Effort & Inspection: normal respiratory effort Auscultation: clear to auscultation bilaterally Cardio Heart sounds: S1 normal heart sound present and S2 normal heart sound present Neuro General: patient oriented x3 Coding Level of Care Code Est Pt Level 4 (19081) Diagnoses Allergic reaction, initial encounter T78.40XA Encounter type: initial encounter Time Spent (min) 20 Assessment & Plan Assessment & Plan (1) Allergic reaction: Code(s): T78.40XA - Allergy, unspecified, initial encounter Qualifiers: Encounter type: initial encounter Qualified Code(s): T78.40XA - Allergy, unspecified, initial encounter Plan: Managed by [facility] Has Epi Pens at home and carries one with her all the times.
== END 2024-09-23 12:03 | disposition home or self-care (01) ==
PROVIDERS: Visit Provider Nurse Practitioner Family
DX: T78.40XA Allergy, unspecified, initial encounter (principal)

== ENCOUNTER → 2024-09-23 10:36 | Outpatient (BNVA) | payer OTHER, SELFPAY | PROVIDERS: Visit Provider Nurse Practitioner Family | DX: T78.40XA Allergy, unspecified, initial encounter (principal) | CPT/HCPCS: 99212 ==

== ENCOUNTER 2024-10-20 10:33 | Outpatient (AMB) | payer OTHER, SELFPAY ==
[2024-10-20 10:35] VITALS: BP 126/74; PULSE 83; TEMP 36.1; O2SAT 100; BMI 29.4
--- NOTE | 2024-10-20 10:35 | AM.OFFWIN_ITS ---
Intake Vital Signs 10/20/24 10:35 Height 5 ft 2 in Weight 161 lb BMI 29.4 BP 126/74 Blood Pressure Location Lt brachial Position Sitting Pulse 83 Pulse Source Pulse Oximeter Temp 97.0 F Temp Source Temporal Artery Scan Pulse Oximetry (%) 100 Oxygen Delivery Method Room Air Intake Visit Reasons: EP-lt side butt cyst/pain Intake Note: Pt presents to the office today for c/o left sided cyst on her butt x4 days. Pt states it just started bleeding today. Patient Tobacco Use Status: Former Tobacco user Allergies No Known Allergies [No Known Allergies*] Allergy (Verified 10/20/24 10:40) HPI HPI Comments History of Present Illness Details History of Present Illness The patient is a 74-year-old female presenting with an abscess on the left buttock. The condition has been present since last Sunday when a photograph of the area was initially taken. Over the past three days, the abscess has remained painful and unchanged in size. Recently, the abscess started bleeding, particularly during bathroom use. The area is described as indurated and painful upon examination. The patient reports a history of frequent abscesses, occurring approximately every six months, but there is no noted history of Methicillin- Resistant Staphylococcus Aureus (MRSA). Patients daughter was with her and interpreted this visit for her mother. Physical Exam General: Cooperative, healthy appearing, comfortable, no acute distress and well developed Orientation: Patient oriented x3 Limitations:Slovenian speaking Head: Normal to inspection Ears: Hearing grossly normal bilaterally Nose: Normal external nose present Face and sinus: Normal facial exam Eyes: Appearance normal, both eyes and all related structures Neck: Normal visual inspection and Yes full ROM Respiratory: Normal respiratory effort and able to speak in complete sentences. Skin: 2cm x 3cm Indurated area on left buttock with central 1cm round area with purulence, open and draining, able to express a scant amount of purulent and serosanguinous fluid, warmth noted Neuro: Patient oriented x3 Extremities: Normal to inspection [facility] Medical History Prosthetic eye globe Lumbar back pain with radiculopathy affecting right lower extremity Anemia Frequent falls Dizziness Carpal tunnel syndrome, bilateral Diabetes mellitus Mixed hyperlipidemia Obesity (BMI 30-39.9) Memory impairment Osteoarthritis of both hands Vitamin B12 deficiency Vitamin D deficiency Primary osteoarthritis of both knees Osteopenia Asthma Chronic idiopathic urticaria Acquired hypothyroidism Benign essential hypertension Diabetes mellitus without complication Surgical History Status post carpal tunnel release (~06/02/21) Tubal ligation status Hx of section History of total right knee replacement (~2012) Family History Father No problems noted. 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 Cognitive needs: Yes (cane ) Hearing needs: No Vision needs: Yes (glasses ) Review of Systems Const All systems reviewed & are unremarkable except as noted in HPI and below Physical Exam Vital Signs: Last Vital Signs Temp 97.0 F 10/20/24 10:35 Pulse 83 10/20/24 10:35 BP 126/74 10/20/24 10:35 Pulse Ox 100 10/20/24 10:35 Oxygen Delivery Method Room Air 10/20/24 10:35 BMI result Body Mass Index 29.4 Assessment & Plan Assessment & Plan (1) Cellulitis and abscess of buttock: Code(s): L02.31 - Cutaneous abscess of buttock; L03.317 - Cellulitis of buttock Plan: Plan - Sent antibiotics to cover MRSA - Avoid drainage intervention at this time due to risk of contamination from proximity to anal region and the abscess is indurated. Patient was informed and verbally consented to the use of an ambient scribe for clinic note documentation during this visit. Medications: New doxycycline hyclate 100 mg PO BID 14 tabs 0RF cephalexin 500 mg PO Q6H 14 caps 0RF Coding Level of Care Code Est Pt Level 3 (00553) Diagnoses Cellulitis and abscess of buttock L02.31; L03.317
== END 2024-10-20 11:35 | disposition home or self-care (01) ==
PROVIDERS: Visit Provider Physician Assistant
DX: L02.31 Cutaneous abscess of buttock (principal); L03.317 Cellulitis of buttock

== ENCOUNTER → 2024-10-20 10:33 | Outpatient (BNVA) | payer OTHER, SELFPAY | PROVIDERS: Visit Provider Physician Assistant | DX: L02.31 Cutaneous abscess of buttock (principal); L03.317 Cellulitis of buttock | CPT/HCPCS: 99212 ==

== ENCOUNTER 2024-11-10 12:25 | Outpatient (REF) | payer OTHER, SELFPAY ==
[2024-11-10 17:45] LABS: Influenza A PCR NEGATIVE (Negative); Influenza B PCR NEGATIVE (Negative); Resp Syncy Virus RNA Qual PCR NEGATIVE (Negative); SARS COV2 PCR INHOUSE NEGATIVE (Negative)
== END 2024-11-10 12:26 | disposition home or self-care (01) ==
LOC: HO.LAB 12:25
PROVIDERS: Physician Assistant
DX: R05.9 Cough, unspecified (principal)
CPT/HCPCS: 0241U; 99212

== ENCOUNTER 2024-11-10 12:25 | Outpatient (AMB) | payer OTHER, SELFPAY ==
--- NOTE | 2024-11-10 13:56 | MHC.OFFWIV ---
Intake Vital Signs 11/10/24 13:59 Weight 170 lb BP 122/80 Blood Pressure Location Rt brachial Position Sitting Pulse 81 Pulse Source Pulse Oximeter Temp 98.7 F Temp Source Oral Pulse Oximetry (%) 96 Oxygen Delivery Method Room Air Intake Visit Reasons: EP-cough, body weakness, sob/chest pain Intake Note: Patient here cough, chest tightness, SOB and body aches that have been present for about 4-5 days. Patient Tobacco Use Status: Former Tobacco user Allergies No Known Allergies [No Known Allergies*] Allergy (Verified 11/10/24 14:00) Do you need a note to return to daycare/school/sports/work: No HPI HPI Comments History of Present Illness Details History - The patient is a 74-year-old female presenting with cough and difficulty breathing. Symptoms have been ongoing for 3 to 4 days, characterized by associated headaches and ear discomfort. There is an absence of fever; however, the patient frequently feels warm. She does not have a significant pulmonary disease history except for past asthma, which is not active currently. The patient states using an inhaler with partial alleviation of symptoms, though a recently tried cough syrup worsened her condition by causing dizziness. The patient regularly uses hydroxyzine for pruritus but has reduced intake recently due to symptom exacerbation. Physical Exam General: Cooperative, healthy appearing, comfortable and no acute distress Orientation/consciousness: Patient oriented x3 Limitations: No limitations Head: Normal to inspection Ears: Hearing grossly normal bilaterally, external ears normal and TM's bilat small purulent effusions with erythema Nose: Normal external nose present, Normal nares present and No nasal discharge present Face and sinus: Normal facial exam and Yes sinuses nontender Mouth: Normal oral and palatal mucosa present and moist mucous membranes Throat: Yes tonsils normal, Yes uvula midline. Posterior oropharynx erythema Eyes: Appearance normal, both eyes and all related structures Neck: Normal visual inspection Respiratory: Clear but dim auscultation bilaterally. Normal respiratory effort, able to speak in complete sentences, Actively coughing, no respiratory distress, not tachypneic, no tripod positioning and no use of accessory muscles Cardiovascular: Regular rate and rhythm. Normal S1 and S2 Skin: No rashes or lesions noted Neuro: Patient oriented x3 Extremities: Normal to inspection and Yes no clubbing, cyanosis or edema [facility] Medical History Prosthetic eye globe Lumbar back pain with radiculopathy affecting right lower extremity Anemia Frequent falls Dizziness Carpal tunnel syndrome, bilateral Diabetes mellitus Mixed hyperlipidemia Obesity (BMI 30-39.9) Memory impairment Osteoarthritis of both hands Vitamin B12 deficiency Vitamin D deficiency Primary osteoarthritis of both knees Osteopenia Asthma Chronic idiopathic urticaria Acquired hypothyroidism Benign essential hypertension Diabetes mellitus without complication Surgical History Status post carpal tunnel release (~06/02/21) Tubal ligation status Hx of section History of total right knee replacement (~2012) Family History Father No problems noted. 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 Cognitive needs: Yes (cane ) Hearing needs: No Vision needs: Yes (glasses ) Review of Systems Const All systems reviewed & are unremarkable except as noted in HPI and below Physical Exam Vital Signs: Last Vital Signs Temp 98.7 F 11/10/24 13:59 Pulse 81 11/10/24 13:59 BP 122/80 11/10/24 13:59 Pulse Ox 96 11/10/24 13:59 Oxygen Delivery Method Room Air 11/10/24 13:59 Assessment & Plan Assessment & Plan (1) URI (upper respiratory infection): Code(s): J06.9 - Acute upper respiratory infection, unspecified Qualifiers: URI type: unspecified URI Qualified Code(s): J06.9 - Acute upper respiratory infection, unspecified Plan: as below (2) Otitis media: Code(s): H66.90 - Otitis media, unspecified, unspecified ear Qualifiers: Otitis media type: suppurative Chronicity: acute Laterality: bilateral Recurrence: non-recurrent Spontaneous tympanic membrane rupture: without spontaneous rupture Qualified Code(s): H66.003 - Acute suppurative otitis media without spontaneous rupture of ear drum, bilateral Plan: The plan includes performing diagnostic tests for Influenza, COVID-19, and RSV, along with a chest x-ray to evaluate for possible pneumonia. The patient will begin treatment with Amoxicillin-Clavulanate Augmentin for bilateral OM and will use an albuterol inhaler as needed for shortness of breath. To mitigate nighttime coughing, Tessalon Perles will be administered. After the chest x-ray, the patient will collect prescriptions from the pharmacy. Diagnostic results will be communicated once available. Patient was informed and verbally consented to the use of an ambient scribe for clinic note documentation during this visit Orders: Orders XR chest 2V Today R05.9 - Cough, unspecified SARS-CoV2/FLU/RSV Today J06.9 - Acute upper respiratory infection, unspecified Medications: New amoxicillin-pot clavulanate 875-125 mg 1 tab PO Q12H 14 tabs 0RF Coding Level of Care Code New Pt Level 4 (89538) Diagnoses Upper respiratory tract infection, unspecified type J06.9 URI type: unspecified URI Non-recurrent acute suppurative otitis media of both ears without spontaneous rupture of tympanic membranes H66.003 Otitis media type: suppurative Chronicity: acute Laterality: bilateral Recurrence: non-recurrent Spontaneous tympanic membrane rupture: without spontaneous rupture
[2024-11-10 13:59] VITALS: BP 122/80; PULSE 81; TEMP 37.1; O2SAT 96
== END 2024-11-10 14:45 | disposition home or self-care (01) ==
PROVIDERS: Visit Provider Physician Assistant
DX: J06.9 Acute upper respiratory infection, unspecified (principal); H66.003 Acute suppurative otitis media without spontaneous rupture of ear drum, bilateral

== ENCOUNTER 2024-11-10 14:25 | Outpatient (REF) | payer OTHER, SELFPAY ==
--- NOTE | ~2024-11-10 | XR_ITS ---
EXAMINATION: XR CHEST CLINICAL INFORMATION: R05.9 - Cough, unspecified COMPARISON: None available. TECHNIQUE: 2 views of the chest were obtained. FINDINGS: The lungs are well-expanded and clear of acute process. Heart size and pulmonary vascularity is normal. There is mild spondylosis dorsal spine. No aggressive lytic or sclerotic process seen. XR/XR chest 2V IMPRESSION: Unremarkable chest examination. Electronically signed by: Bereket Duckworth MD 11/10/2024 02:57 PM EST
== END 2024-11-10 14:26 | disposition home or self-care (01) ==
LOC: HO.HMGCX 14:25
PROVIDERS: PCP Internal Medicine; Visit Provider Physician Assistant
DX: J06.9 Acute upper respiratory infection, unspecified (principal); R05.9 Cough, unspecified; H66.003 Acute suppurative otitis media without spontaneous rupture of ear drum, bilateral
CPT/HCPCS: 0241U; 71046; 99212

== ENCOUNTER → 2024-11-10 14:29 | Outpatient (BNV) | payer OTHER, SELFPAY | PROVIDERS: PCP Internal Medicine; Visit Provider Radiology Diagnostic Radiology | DX: R05.9 Cough, unspecified (principal) | CPT/HCPCS: 71046 ==

== ENCOUNTER 2024-11-14 16:40 | Outpatient (AMB) | payer OTHER, SELFPAY ==
--- NOTE | 2024-11-14 16:41 | A.OFFPC_ITS ---
Intake Visit Reasons: prednisone request for hives [employer] Required: Yes Information Interpreted: non-clinical & clinical Accompanied by: Self / Same As Patient Allergies No Known Allergies [No Known Allergies*] Allergy (Verified 11/14/24 17:20) Medication List - Last Reconciled 11/14/24 by SAGRARIO Boyd amoxicillin-pot clavulanate 875-125 mg 1 tab PO Q12H ascorbic acid (vitamin C) (Vitamin C) 500 mg PO DAILY betamethasone valerate 0.1% 1 appl topical BID PRN 30 days bisacodyl (Dulcolax (bisacodyl)) 20 mg (4 x 5 mg) PO ONCE 1 day [bladder control pads As directed] blood sugar diagnostic (Satmex Verio test strips) 50 strips miscellaneous BID calcium carbonate-vitamin D3 500 mg-10 mcg (400 unit) (Calcium 500 With D) 1 tab PO BID cholecalciferol (vitamin D3) 25 mcg PO DAILY cromolyn mg PO TID cyanocobalamin (vitamin B-12) 1,000 mcg PO DAILY epinephrine (EpiPen 2-Mark) 0.3 mg (0.3 mL) IM Q10M PRN fenofibrate nanocrystallized 145 mg PO DAILY fexofenadine 180 mg PO DAILY [gloves (Medium) As directed] hydrocortisone 2.5% 1 appl topical BID PRN hydroxyzine HCl 50 mg PO BID PRN lancets (Rabbit TVuch UltraSoft Lancets) As directed- In Vitro twice a day levocetirizine 5 mg PO DAILY levothyroxine 112 mcg PO DAILY 90 days lidocaine 5% 1 patch topical DAILY 30 days metformin 500 mg PO TID montelukast 10 mg PO BEDTIME nabumetone 500 mg PO BID omalizumab 300 mg subcut Q2W [personal wipes As directed] polyethylene glycol 3350 (Miralax) 238 grams PO ONCE prednisone 10 mg PO DIRECTED [rollator walker As directed] [shower chair with back As directed] simvastatin 40 mg PO DAILY tizanidine 2 mg PO BEDTIME PRN turmeric-turmeric ext-pepper 500-3 mg 1 cap PO DAILY Ventolin HFA 90 mcg/actuation (albuterol sulfate) 2 puffs inhalation Q6H PRN 30 days NS Tobacco use date assessed: 11/14/24 Fall risk assessment: No Falls in past year Last assessed Fall Risk: 11/14/24 Dental Screening Dental Screen Date: 11/14/24 Did you have a dental visit in the last 12 months?: No Did you have a dental problem in the last 6 months where you did not have access to dental care?: No Was dental information given to patient?: No HPI prednisone request for hives HPI Details Patient's follow-up visit / consultation today is done over the phone - this is a Telehealth visit Patient's current medications have been reviewed and verified with patient and / or caregiver / proxy and have been updated accordingly in the medication list The patient is a 74-year-old female with significant past medical history Chronic idiopathic urticaria, asthma, acquired hypothyroidism and diabetes. The patient is presenting through telehealth requesting prednisone. hives: Patient reports that she has rashes all over that is itchy. She reports multiple allergy tests without finding out the cause of her recurrent skin condition. The patient thinks that it could be her synthroid that is causing these skin issues. Patient reports that when she was in [place] a family friend told her that they knew someone who had similar issues and it was due to the thyroid medication. Patient reports stop taking her thyroid medication for few days to see what happens but she is still having the itchy bumps all over. She reports that she has a EpiPen but did not use it yet because she is only having the itchy bumps all over. She reports that when her bumps get this bad only prednisone seems to help. She denies any swelling of the lip or mouth, shortness of breaths, chest pain, or palpitation or dizziness. She reports that is extremely uncomfortable and that is most of her problem. FORMERLY [facility], [facility]–1983 Medical History Prosthetic eye globe Lumbar back pain with radiculopathy affecting right lower extremity Anemia Frequent falls Dizziness Carpal tunnel syndrome, bilateral Diabetes mellitus Mixed hyperlipidemia Obesity (BMI 30-39.9) Memory impairment Osteoarthritis of both hands Vitamin B12 deficiency Vitamin D deficiency Primary osteoarthritis of both knees Osteopenia Asthma Chronic idiopathic urticaria Acquired hypothyroidism Benign essential hypertension Diabetes mellitus without complication Surgical History Status post carpal tunnel release (~06/02/21) Tubal ligation status Hx of section History of total right knee replacement (~2012) Family History Father No problems noted. 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 1. Little interest or pleasure in doing things: not at all 2. Feeling down, depressed, or hopeless: not at all 3. Trouble falling or staying asleep, or sleeping too much: not at all 4. Feeling tired or having little energy: not at all 5. Poor appetite or overeating: not at all 6. Feeling bad about yourself - or that you are a failure or have let yourself or your family down: not at all 7. Trouble concentrating on things, such as reading the newspaper or watching television: not at all 8. Moving or speaking so slowly that other people could have noticed. Or the opposite - being so fidgety or restless that you have been moving around a lot more than usual: not at all 9. Thoughts that you would be better off or of hurting yourself in some way: not at all Total score: 0 Depression Screening Interpretation: Negative Depression Screening Done: Yes 39534 - PHQ-9 Billing: Yes Source: Developed by Drs. Lee Cardenas, Sunni Cross, Steve Mcadams and colleagues, with an educational sajan from [employer]. Thrive Questionnaire Date Thrive assessed: 11/14/24 I am a: Patient What is your living situation today?: I have a steady place to live Within the past 12 months, did the food you bought not last and you didn't have the money to get more?: Never true Within the past 12 months, did you worry whether your food would run out before you got money to buy more?: Never true Do you have trouble paying for medicines?: No Do you have trouble getting transportation to medical appointments?: No Do you have trouble paying your heating and electricity bill?: No Do you have trouble taking care of your child, family member or friend?: No Do you have trouble with day-to-day activities such as bathing, preparing meals, shopping, managing finances, etc.?: No Are you currently unemployed and looking for a job?: No Are you interested in more education?: No Please select the resources that you would like help with: None Currently or been in a relationship where the following occur: No concerns reported THRIVE Score: 0 AUDIT C Alcohol Use Questionnaire (AUDIT-C) 1. How often do you have a drink containing alcohol?: Never 3. How often do you have six or more drinks on one occasion?: Never Total Score: 0 Score Reviewed/Action Taken: Yes ANSON-7 AMB Questionnaire ANSON-7 Date ANSON - 7 assessed: 11/14/24 Feeling nervous, anxious, or on edge: 0 = Not at all Not being able to stop or control worryin = Not at all Worrying too much about different things: 0 = Not at all Trouble relaxin = Not at all Being so restless that it is hard to sit still: 0 = Not at all Becoming easily annoyed or irritable: 0 = Not at all Feeling afraid as if something awful might happen: 0 = Not at all Total ANSON-7 score (0-4 normal; 5-9 mild; 10-14 moderate; 15-21 severe): 0 Source: Developed by Drs. Lee Cardenas, Sunni Cross, Steve Mcadams and colleagues, with an educational sajan from [employer]. ANSON-7 Assessment Billing ANSON-7 Assessment Tool: ANSON-7 Assessment 93636 Review of Systems Const Details: Denies chills, Denies fatigue, Denies fever(s), Denies headache(s) and Denies weakness HEENT Denies change in vision, Denies dizziness, Denies headache(s), Denies hearing loss, Denies nasal congestion, Denies sinus pain, Denies sinus pressure and Denies sore throat Card Denies chest pain, Denies lightheadedness, Denies dyspnea and Denies other (palpitations) Resp Denies cough, Denies dyspnea and Denies wheezing GI Denies abdominal pain, Denies melena, Denies hematochezia, Denies change in bowel habits, Denies dyspepsia and Denies nausea Denies hematuria and Denies dysuria Musc Denies abnormal gait, Denies myalgias, Denies arthralgias, Denies numbness and Denies tingling Skin/Breast Reports rashes/bumps all over her whole body and Denies wounds Neuro Denies abnormal gait, Denies dizziness, Denies headache(s), Denies memory loss, Denies numbness, Denies Sensory deficit (Neuro), Denies tingling and Denies weakness Psych Denies anxiety, Denies depression and Denies memory loss Endo Denies cold intolerance, Denies fatigue, Denies heat intolerance, Denies polydipsia and Denies polyuria Ranjit/Lymph Denies easy bleeding and Denies easy bruising Aller/Immun Reports skin itchiness, Denies wheezing Physical exam (Primary Care) Vital Signs: Physical examination is not performed as visit / consultation today is done over the phone - Telehealth visit All physical findings indicated here, if present, are as per patient's and / or caregivers / proxy's report Tobacco/Smoking Status: Tobacco use Status Tobacco use date assessed 11/14/24 11/14/24 16:43 Patient Tobacco Use Status Former Tobacco user 11/14/24 16:43 Tobacco use type Cigarette 11/14/24 16:43 e-Cigarette/Vaping Use Never Used 11/14/24 16:43 PHQ-9: PHQ-9 Score PHQ-9: Total score 0 11/18/24 15:59 Depression Screening Interpretation: Negative Thrive Assessment: Date of Thrive Assessment Date Thrive assessed 11/14/24 11/14/24 16:43 Currently or been in a relationship where the following occur: No concerns reported Telehealth Telehealth Telehealth Platform: Telephone Location of provider rendering services: practice address Location of patient: address on file Patient Identification confirmed using: Name, : Yes Telehealth method: voice only Patient verbally consented to treatment: Yes Patient verbally consented to billing insurance company: Yes Patient informed of any privacy concerns related to visit: Yes Minutes spent on Phone/Video with Pt.: 25 Coding Level of Care Code Tele Est Pt Level 3 (62956) Diagnoses Chronic idiopathic urticaria L50.1 Additional Codes ANSON-7 Assessment Billing - ANSON-7 Assessment Tool: ANSON-7 Assessment 61632 ([id number]) PHQ-9 - 09929 - PHQ-9 Billing: Yes ([id number]) Assessment & Plan Assessment & Plan (1) Chronic idiopathic urticaria: Code(s): L50.1 - Idiopathic urticaria Category: Medical Plan: Recurrent urticarial rashes: continue hydroxyzine 50 mg p.o. b.i.d. and hydrocortisone 2.5% topical b.i.d. p.r.n. Prednisone taper the ordered: Follow instructions Instructed the patient to go to emergency room if she starts having respiratory symptoms Plan I personally spent 25 minutes reviewing the chart, caring for the patient and documenting after the visit. Follow up as scheduled next month Medications: New prednisone see taper instructions: 4 tabs x 2 days, 3 tabs x 2 days , 2 tabs x 2 days, 1 x2 days = 20 tabs over 8 days 10 mg PO DIRECTED 20 tabs 0RF
== END 2024-11-14 18:00 | disposition home or self-care (01) ==
LOC: HO.HMCH 16:40
PROVIDERS: PCP Internal Medicine
DX: L50.1 Idiopathic urticaria (principal)

== ENCOUNTER → 2024-11-14 16:40 | Outpatient (BNVA) | payer OTHER, SELFPAY | PROVIDERS: PCP Internal Medicine | DX: L50.1 Idiopathic urticaria (principal) | CPT/HCPCS: 96127 ==

== ENCOUNTER 2024-12-08 09:43 | Outpatient (REF) | payer OTHER, SELFPAY ==
[2024-12-08 10:01] LABS: MANUAL DIFF FLAG NO
[2024-12-08 10:36] LABS: Basophils Percent Auto 0.2 % (0-2); Hemoglobin 10.9 g/dl (12.0-16.0); Imm Gran Abs Auto 0.04 X10*3/uL (0.00-0.03); Imm Gran Pct Auto 0.7 % (0.0-0.4); Lymphocytes Absolute Auto 1.7 X10*3/uL (1.2-4.9); Lymphocytes Percent Auto 31.4 % (20-40); Mean Corpuscular HGB Conc 30.3 g/dl (31.0-35.0); Mean Corpuscular Hemoglobin 23.5 pg (27.0-33.0); Mean Corpuscular Volume 77.6 fL (80.0-98.0); Monocytes Absolute Auto 0.4 X10*3/uL (0.1-1.2); Monocytes Percent Auto 6.9 % (2-11); Neutrophils Absolute Auto 3.4 x10*3/uL (2.0-8.3); Neutrophils Percent Auto 60.8 % (45-73); Platelet Count 292 X10*3/uL (160-400); Red Blood Count 4.64 X10*6/uL (4.20-5.50); Red Cell Distribution Width 15.4 % (11.0-16.0); White Blood Count 5.5 X10*3/uL (4.8-10.8)
[2024-12-08 10:55] LABS: Appearance Urine Clear; Color Urine Yellow; Glucose Urine UA Negative (Negative); Leukocyte Esterase Urine Moderate (2+) (Negative); Nitrite Urine Negative (Negative); PH 5.5 (5.0-9.0); Specific Gravity - Urine 1.015 (1.005-1.025); UMIC TRIGGER UACC YES; Urine Blood Negative (Negative); Urine Ketones Negative (Negative); Urine Protein Negative (Neg-Trace)
[2024-12-08 12:01] LABS: Estimated Average Glucose 134 mg/dL; Hemoglobin A1C 132.4731 umol/L; Hemoglobin A1c % 6.3 % (<6.0)
[2024-12-08 12:21] LABS: Bacteria Urine None Seen (None Seen); Hyaline Casts Urine 0-2 /LPF (0-2); RBC Urine 0-2 /HPF (0-2); UACC Culture Trigger YES; WBC Urine 0-5 /HPF (0-5)
[2024-12-08 12:50] LABS: Alanine Aminotransferase 23 U/L (0-31); Albumin Level 3.9 g/dL (3.5-5.0); Alkaline Phosphatase 58 U/L (39-117); Anion Gap 9 (12-20); Aspartate Amino Transferase 26 U/L (5-31); Bilirubin Total 0.3 mg/dL (0.0-1.0); Blood Urea Nitrogen 12 mg/dL (9-16); Calcium 9.9 mg/dL (8.4-10.2); Carbon Dioxide 27 mmol/L (22-29); Chloride 107 mmol/L (96-108); Cholesterol 364 mg/dL (<200); Estimated Glomerular Filt Rate > 60; Glucose Fasting 88 mg/dL (60-99); HDL Cholesterol 60 mg/dL (>40); LDL Cholesterol Calculated 250 mg/dL (<100); Potassium 4.1 mmol/L (3.3-5.1); Sodium 139 mmol/L (135-145); Total Protein 6.9 g/dL (6.5-8.0); Triglycerides 273 mg/dL (<150)
[2024-12-08 12:52] LABS: Free T4 (Free Thyroxine) < 0.42 ng/dL (0.71-1.85); Thyroid Stimulating Hormone 21.31 uIU/mL (0.32-4.0); Vitamin D 25-OH Total 41.4 ng/mL (>30)
[2024-12-08 13:10] LABS: Vitamin B12 623 pg/mL (200-900)
== END 2024-12-08 09:44 | disposition home or self-care (01) ==
LOC: HO.LAB 09:43
PROVIDERS: PCP Internal Medicine; Visit Provider Internal Medicine
DX: E78.00 Pure hypercholesterolemia, unspecified (principal); E11.9 Type 2 diabetes mellitus without complications; E55.9 Vitamin D deficiency, unspecified; D64.9 Anemia, unspecified; E03.9 Hypothyroidism, unspecified; E53.8 Deficiency of other specified B group vitamins; R30.0 Dysuria
CPT/HCPCS: 36415; 80053; 80061; 81001; 82306; 82607; 82746; 83036; 84439; 84443; 85025; 87086

== ENCOUNTER 2024-12-09 13:27 | Outpatient (AMB) | payer OTHER, SELFPAY ==
[2024-12-09 13:52] VITALS: BP 130/78; PULSE 63; O2SAT 96
--- NOTE | 2024-12-09 13:52 | MHC.PC.OV ---
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 Department Required: No Information Interpreted: non-clinical & clinical Accompanied by: Daughter Allergies levothyroxine sodium Allergy (Severe, Verified 12/09/24 14:34) urticaria/hives Medication List - Last Reconciled 12/09/24 by Marco Martinez MD ascorbic acid (vitamin C) (Vitamin C) 500 mg PO DAILY betamethasone valerate 0.1% 1 appl topical BID PRN 30 days bisacodyl (Dulcolax (bisacodyl)) 20 mg (4 x 5 mg) PO ONCE 1 day [bladder control pads As directed] blood sugar diagnostic (Lo[employer] Verio test strips) 50 strips miscellaneous BID calcium carbonate-vitamin D3 500 mg-10 mcg (400 unit) (Calcium 500 With D) 1 tab PO BID cholecalciferol (vitamin D3) 25 mcg PO DAILY cromolyn mg PO TID cyanocobalamin (vitamin B-12) 1,000 mcg PO DAILY epinephrine (EpiPen 2-Mark) 0.3 mg (0.3 mL) IM Q10M PRN fenofibrate nanocrystallized 145 mg PO DAILY fexofenadine 180 mg PO DAILY [gloves (Medium) As directed] hydrocortisone 2.5% 1 appl topical BID PRN hydroxyzine HCl 50 mg PO BID PRN lancets ([employer]Sight Mediauch UltraSoft Lancets) As directed- In Vitro twice a day levocetirizine 5 mg PO DAILY levothyroxine 112 mcg PO DAILY 90 days lidocaine 5% 1 patch topical DAILY 30 days metformin 500 mg PO TID montelukast 10 mg PO BEDTIME nabumetone 500 mg PO BID omalizumab 300 mg subcut Q2W [personal wipes As directed] polyethylene glycol 3350 (Miralax) 238 grams PO ONCE prednisone 10 mg PO DIRECTED [rollator walker As directed] [shower chair with back As directed] simvastatin 40 mg PO DAILY tizanidine 2 mg PO BEDTIME PRN turmeric-turmeric ext-pepper 500-3 mg 1 cap PO DAILY Ventolin HFA 90 mcg/actuation (albuterol sulfate) 2 puffs inhalation Q6H PRN 30 days NS Tobacco use date assessed: 12/09/24 Fall risk assessment: No Falls in past year Last assessed Fall Risk: 12/09/24 Dental Screening Dental Screen Date: 12/09/24 Did you have a dental visit in the last 12 months?: Yes Did you have a dental problem in the last 6 months where you did not have access to dental care?: No Was dental information given to patient?: Patient has dentist HPI annual exam HPI Details Patient comes in today for her annual physical examination States that she feels okay States that she stopped taking her levothyroxine Rx a couple months ago as she thought it was the one causing her to break out recurrently in hives over the years States that her recurrent hives/urticaria gradually cleared up when she stopped taking Levothyroxine She denies any headaches or dizziness Denies any chest pains, no shortness of breath No nausea/vomiting, no abdominal pain No change in bowel habits noted She denies any acute urinary symptoms She had her follow-up labs done yesterday - to discuss her results [facility] Medical History Prosthetic eye globe Lumbar back pain with radiculopathy affecting right lower extremity Anemia Frequent falls Dizziness Carpal tunnel syndrome, bilateral Diabetes mellitus Mixed hyperlipidemia Obesity (BMI 30-39.9) Memory impairment Osteoarthritis of both hands Vitamin B12 deficiency Vitamin D deficiency Primary osteoarthritis of both knees Osteopenia Asthma Chronic idiopathic urticaria Acquired hypothyroidism Benign essential hypertension Diabetes mellitus without complication Surgical History Status post carpal tunnel release (~06/02/21) Tubal ligation status Hx of section History of total right knee replacement (~2012) Family History Father No problems noted. 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 1. Little interest or pleasure in doing things: not at all 2. Feeling down, depressed, or hopeless: not at all 3. Trouble falling or staying asleep, or sleeping too much: not at all 4. Feeling tired or having little energy: not at all 5. Poor appetite or overeating: not at all 6. Feeling bad about yourself - or that you are a failure or have let yourself or your family down: not at all 7. Trouble concentrating on things, such as reading the newspaper or watching television: not at all 8. Moving or speaking so slowly that other people could have noticed. Or the opposite - being so fidgety or restless that you have been moving around a lot more than usual: not at all 9. Thoughts that you would be better off or of hurting yourself in some way: not at all Total score: 0 Depression Screening Interpretation: Negative Depression Screening Done: Yes 26519 - PHQ-9 Billing: Yes Source: Developed by Drs. Lee Cardenas, Sunni Cross, Steve Mcadams and colleagues, with an educational sajan from [employer]. Thrive Questionnaire Date Thrive assessed: 12/09/24 I am a: Parent/Caregiver What is your living situation today?: I have a steady place to live Within the past 12 months, did the food you bought not last and you didn't have the money to get more?: I choose not to answer this question Within the past 12 months, did you worry whether your food would run out before you got money to buy more?: I choose not to answer this question Do you have trouble paying for medicines?: I choose not to answer this question Do you have trouble getting transportation to medical appointments?: I choose not to answer this question Do you have trouble paying your heating and electricity bill?: I choose not to answer this question Do you have trouble taking care of your child, family member or friend?: I choose not to answer this question Do you have trouble with day-to-day activities such as bathing, preparing meals, shopping, managing finances, etc.?: I choose not to answer this question Are you currently unemployed and looking for a job?: I choose not to answer this question Are you interested in more education?: I choose not to answer this question Please select the resources that you would like help with: None Currently or been in a relationship where the following occur: I choose not to answer THRIVE Score: 0 AUDIT C Alcohol Use Questionnaire (AUDIT-C) 1. How often do you have a drink containing alcohol?: Never 3. How often do you have six or more drinks on one occasion?: Never Total Score: 0 Score Reviewed/Action Taken: Yes ANSON-7 AMB Questionnaire ANSON-7 Date ANSON - 7 assessed: 12/09/24 Feeling nervous, anxious, or on edge: 0 = Not at all Not being able to stop or control worryin = Not at all Worrying too much about different things: 0 = Not at all Trouble relaxin = Not at all Being so restless that it is hard to sit still: 0 = Not at all Becoming easily annoyed or irritable: 0 = Not at all Feeling afraid as if something awful might happen: 0 = Not at all Total ANSON-7 score (0-4 normal; 5-9 mild; 10-14 moderate; 15-21 severe): 0 Source: Developed by Drs. Lee Cardenas, Sunni Cross, Steve Mcadams and colleagues, with an educational sajan from [employer]. Review of Systems Const Denies chills, Reports fatigue, Denies fever(s) and Denies headache(s) Eyes Details: (+) prosthetic right eye Denies blurry vision, Denies irritation and Denies itchy eyes ENT Denies dysphagia, Denies dizziness, Denies otalgia, Denies headache(s), Denies neck pain, Denies odynophagia and Denies sore throat Card Denies chest pain, Denies palpitations and Denies dyspnea Resp Denies chest congestion, Denies cough, Denies dyspnea and Denies wheezing GI Denies abdominal pain, Denies constipation, Denies dysphagia, Denies heartburn, Denies diarrhea, Denies nausea, Denies odynophagia and Denies vomiting Denies difficulty voiding, Denies nocturia, Denies dysuria and Denies urinary urgency Musc Reports back pain (chronic), Reports arthralgias (over both knees - increasing) and Denies neck pain Skin/Breast Denies breast pain, Denies breast mass, Denies change in pigmentation, Denies pruritus, Denies lesions, Denies rash and Denies unusual bruising Neuro Denies dizziness and Denies headache(s) Psych Denies anxiety and Denies depression Endo Reports fatigue and Denies palpitations Ranjit/Lymph Denies easy bruising Aller/Immun Denies itchy eyes and Denies wheezing Physical exam (Primary Care) Vital Signs: Last Vital Signs Pulse 63 12/09/24 13:52 BP 130/78 12/09/24 13:52 Pulse Ox 96 12/09/24 13:52 Oxygen Delivery Method Room Air 12/09/24 13:52 BMI result Body Mass Index 30.0 Tobacco/Smoking Status: Tobacco use Status Tobacco use date assessed 12/09/24 12/09/24 13:54 Patient Tobacco Use Status Former Tobacco user 12/09/24 13:54 Tobacco use type Cigarette 12/09/24 13:54 e-Cigarette/Vaping Use Never Used 12/09/24 13:54 PHQ-9: PHQ-9 Score PHQ-9: Total score 0 12/09/24 21:41 Depression Screening Interpretation: Negative Thrive Assessment: Date of Thrive Assessment Date Thrive assessed 12/09/24 12/09/24 13:54 Currently or been in a relationship where the following occur: I choose not to answer Const General: no acute distress and alert Orientation/consciousness: patient oriented x3 HENMT Head: Yes normocephalic and Yes atraumatic Ears: TM's normal bilaterally and EAC's normal General nose exam: No nasal discharge present Face and sinus: Yes normal facial exam and Yes sinuses nontender Teeth and gingiva: dentition normal Throat: Yes posterior oropharynx normal and Yes tonsils normal (no TP congestion noted) Eyes Other: (+) prosthetic right eye; left eye exam is grossly normal Eyelids: Yes eyelids normal Conjunctivae: conjunctivae normal (in the left eye) Neck Neck: Yes no lymphadenopathy and Yes supple Thyroid: Thyroid normal Resp Auscultation: clear to auscultation bilaterally, no rales and no wheezes Cardio Rate: regular rate Rhythm: regular rhythm Heart sounds: no murmurs GI Palpation (GI): Soft to palpation and nontender Auscultation: normal bowel sounds General: Yes no CVA tenderness Back/Spine/Pelvis Back: no CVA tenderness Thoracic/Lumbar Spine: thoracic spinal tenderness and lumbar spinal tenderness Skin Lesions: no lesions Rashes: no rashes Neuro General: patient oriented x3, moves all extremities, no focal motor deficits and CN's II-XI intact bilaterally Cognition (Neuro): normal cognition Gait exam (Neuro): Normal gait present Extrem General: Yes no clubbing, cyanosis or edema Right lower extremity: knee Details: tenderness; no swelling Left lower extremity: knee Details: tenderness; no swelling Results Reviewed Results Reviewed: Laboratory Tests 12/08/24 12/08/24 09:54 09:59 WBC 5.5 Hgb 10.9 L Hct 36.0 L Plt Count 292 Sodium 139 Potassium 4.1 Creatinine 0.72 Estimated GFR > 60 Fasting Glucose 88 Hemoglobin A1c % 6.3 H Calcium 9.9 AST 26 ALT 23 Triglycerides 273 H Cholesterol 364 H LDL Cholesterol, Calc 250 H HDL Cholesterol 60 Vitamin B12 623 25-OH Vitamin D Total 41.4 TSH 21.31 H Free T4 < 0.42 L Ur Specific [place] 1.015 Urine Protein Negative Urine Glucose (UA) Negative Urine Blood Negative Urine Nitrite Negative Ur Leukocyte Esterase Moderate (2+) H Coding Level of Care Code Est Pt Level 4 (65043) Diagnoses Mixed hyperlipidemia E78.2 Diabetes mellitus without complication E11.9 Benign essential hypertension I10 Acquired hypothyroidism E03.9 Chronic idiopathic urticaria L50.1 Mild persistent asthma without complication J45.30 Asthma complication type: uncomplicated Asthma persistence: persistent Asthma severity: mild Osteopenia, unspecified location M85.80 Osteopenia location: unspecified Vitamin B12 deficiency E53.8 Vitamin D deficiency E55.9 Primary osteoarthritis of both knees M17.0 Primary osteoarthritis of both hands M19.041; M19.042 Osteoarthritis type: primary Facet arthritis of lumbar region M47.816 Carpal tunnel syndrome, bilateral G56.03 Memory impairment R41.3 Obesity (BMI 30-39.9) E66.9 Additional Codes PHQ-9 - 46378 - PHQ-9 Billing: Yes ([id number]) Assessment & Plan Assessment & Plan (1) Mixed hyperlipidemia: Code(s): E78.2 - Mixed hyperlipidemia Category: Medical Plan: Results of her labs done yesterday reviewed and discussed with patient - she is cautioned that her cholesterol levels have increased significantly from previous, likely because she stopped taking her Levothyroxine Reinforced low cholesterol diet Continue Fenofibrate 145 mg QD for now; will switch her Simvastatin 40 mg QD to Atorvastatin 40 mg QD for better efficacy Will recheck her labs and fasting lipids in 3 months for follow-up (2) Diabetes mellitus without complication: Code(s): E11.9 - Type 2 diabetes mellitus without complications Category: Medical Plan: Her HgbA1c was at 6.3% on her labs done yesterday (was previously at 5.7% a few months ago) - goal is at least <7.0% but ideally <6.5% Reinforced diabetic diet Continue Metformin 500 mg TID (3) Benign essential hypertension: Code(s): I10 - Essential (primary) hypertension Category: Medical Plan: Reinforced low sodium diet - goal is systolic BP of at least 140 mm or less She has so far not yet required to be started on any Rx for her blood pressure She is reminded to continue monitoring her blood pressure regularly (4) Acquired hypothyroidism: Code(s): E03.9 - Hypothyroidism, unspecified Category: Medical Plan: Patient stopped taking Levothyroxine a couple of months ago due to allergies while on the medication Will refer her to endocrinology for urgent consultation (5) Chronic idiopathic urticaria: Code(s): L50.1 - Idiopathic urticaria Category: Medical Plan: This apparently was all due to her allergy to Levothyroxine as her symptoms practically disappeared as soon as she stopped taking Levothyroxine Follow up with software testing specialist (Dr. Bernal at [facility]) as scheduled (6) Asthma: Code(s): J45.909 - Unspecified asthma, uncomplicated Category: Medical Qualifiers: Asthma complication type: uncomplicated Asthma persistence: persistent Asthma severity: mild Qualified Code(s): J45.30 - Mild persistent asthma, uncomplicated Plan: Stable Continue Flovent HFA 110 mcg 1 puff BID and ProAir HFA 2 puffs up to 4 times a day as needed (7) Osteopenia: Code(s): M85.80 - Other specified disorders of bone density and structure, unspecified site Category: Medical Qualifiers: Osteopenia location: unspecified Qualified Code(s): M85.80 - Other specified disorders of bone density and structure, unspecified site Plan: Her most recent BMD done on 06/25/2024 revealed (+) osteopenia based on the lowest T-score value of -1.4 in the femoral neck and is mostly unchanged from her previous BMD on 06/03/2019 Her 10-YEAR FRAX score is at 9.8% for major osteoporotic fracture (clinical spine, forearm, hip or shoulder) and 2.1% for hip fracture Patient is again encouraged to continue with regular exercise and physical activity as well as her daily vitamin D and Calcium supplements Will continue to monitor her BMD regularly (8) Vitamin B12 deficiency: Code(s): E53.8 - Deficiency of other specified B group vitamins Category: Medical Plan: Continue Vitamin B12 1000 mcg QD (9) Vitamin D deficiency: Code(s): E55.9 - Vitamin D deficiency, unspecified Category: Medical Plan: Continue Vitamin D3 1000 units QD (10) Primary osteoarthritis of both knees: Comment: S/P total right knee arthroplasty in 2012 Code(s): M17.0 - Bilateral primary osteoarthritis of knee Category: Medical Plan: She used to take Meloxicam 15 mg QD PRN but now just takes OTC Tylenol PRN with some relief She appears to have had inteventional Tx so far with right saphenous nerve PNS, which supposedly provided her with significant pain relief She was more recently offered a [employer] device and RFA but was advised that she should try physical therapy first, which she declined Have advised patient that she should try physical therapy first before pain management can proceed with her interventional Tx due to insurance regulations - advised that unless she goes through the necessary steps, insurance will not cover any of her proposed interventional procedures Follow-up with Orthopedics and with pain management as scheduled (11) Osteoarthritis of both hands: Code(s): M19.041 - Primary osteoarthritis, right hand; M19.042 - Primary osteoarthritis, left hand Category: Medical Qualifiers: Osteoarthritis type: primary Qualified Code(s): M19.041 - Primary osteoarthritis, right hand; M19.042 - Primary osteoarthritis, left hand Plan: X-rays of both hands done last year revealed (+) osteoarthritis changes bilaterally; repeat x-rays of the left hand showed (+) arthritis of the IP joints Patient is encouraged again to continue with regular hand exercises to help minimize her stiffness and pain Follow up with orthopedics as scheduled (12) Facet arthritis of lumbar region: Code(s): M47.816 - Spondylosis without myelopathy or radiculopathy, lumbar region Category: Medical Plan: Reinforced activity and weight-lifting restrictions Lumbar spine x-rays done back in February 2021 revealed (+) mild lumbar spine DDD and facet arthritis Repeat thoracic and lumbar spine x-rays done in March 2022 revealed moderate multilevel degenerative disc disease of the thoracic and lumbar spine, with prominent anterior endplate osteophytes within the mid-thoracic spine and prominent bilateral facet arthropathy at L5-S1 Have recommended a referral to physical therapy but patient would like to hold off on this for now and states that she will call for referral if she changes her mind Follow up with pain management as scheduled Per request, will also start her on Lidocaine 5% patch QD PRN for pain (13) Carpal tunnel syndrome, bilateral: Comment: NCV done back in 2015 revealed (+) moderatedly severe bilateral carpal tunnel syndrome; EMG was normal Code(s): G56.03 - Carpal tunnel syndrome, bilateral upper limbs Category: Medical Plan: S/P left carpal tunnel release surgery with Dr. Diaz at [facility] back in 2020, with significant improvement / relief of her symptoms Follow-up with orthopedics as scheduled (14) Memory impairment: Code(s): R41.3 - Other amnesia Category: Medical Plan: Follow up with neurology as scheduled (15) Obesity (BMI 30-39.9): Code(s): E66.9 - Obesity, unspecified Category: Medical Plan: Reinforced diet; exercise and weight loss are unrealistic given patient's multiple physical issues and comorbidities Plan Follow up in 3 months Orders: Orders Complete Blood Count Auto Diff 3 Months D64.9 - Anemia, unspecified Comprehensive [place]. Panel Fast 3 Months E78.00 - Pure hypercholesterolemia, unspecified Lipid Panel 3 Months E78.00 - Pure hypercholesterolemia, unspecified Thyroid Stimulating Hormone 3 Months E03.9 - Hypothyroidism, unspecified Free T4 (Free Thyroxine) 3 Months E03.9 - Hypothyroidism, unspecified UA CC w/rflx Micro + Cult 3 Months R30.0 - Dysuria Vitamin B12 and Folate 3 Months E53.8 - Deficiency of other specified B group vitamins Vitamin D 25-OH Total 3 Months E55.9 - Vitamin D deficiency, unspecified Referrals Endocrinology Referral E03.9 - Hypothyroidism, unspecified Medications: New atorvastatin 40 mg PO BEDTIME 90 days 90 tabs 1RF ferrous fumarate 324 mg PO DAILY 90 days 90 tabs 1RF Discontinued levothyroxine Discontinued Reason: Patient no longer taking 112 mcg PO DAILY 90 days 90 tabs 1RF E03.9 - Hypothyroidism, unspecified simvastatin Discontinued Reason: Doctor's Order 40 mg PO DAILY 90 tabs 0RF
== END 2024-12-09 14:48 | disposition home or self-care (01) ==
PROVIDERS: PCP Internal Medicine; Visit Provider Internal Medicine
DX: I10 Essential (primary) hypertension (principal); E11.9 Type 2 diabetes mellitus without complications; E78.2 Mixed hyperlipidemia; E03.9 Hypothyroidism, unspecified; L50.1 Idiopathic urticaria; J45.30 Mild persistent asthma, uncomplicated; M85.80 Other specified disorders of bone density and structure, unspecified site; E53.8 Deficiency of other specified B group vitamins; E55.9 Vitamin D deficiency, unspecified; M17.0 Bilateral primary osteoarthritis of knee; M19.041 Primary osteoarthritis, right hand; M19.042 Primary osteoarthritis, left hand

== ENCOUNTER → 2024-12-09 13:27 | Outpatient (BNVA) | payer OTHER, SELFPAY | PROVIDERS: PCP Internal Medicine; Visit Provider Internal Medicine | DX: E78.2 Mixed hyperlipidemia (principal); E11.9 Type 2 diabetes mellitus without complications; E03.9 Hypothyroidism, unspecified; I10 Essential (primary) hypertension; L50.1 Idiopathic urticaria; J45.30 Mild persistent asthma, uncomplicated; M85.80 Other specified disorders of bone density and structure, unspecified site; E53.8 Deficiency of other specified B group vitamins; E55.9 Vitamin D deficiency, unspecified; M17.0 Bilateral primary osteoarthritis of knee; M19.041 Primary osteoarthritis, right hand; M19.042 Primary osteoarthritis, left hand; M47.816 Spondylosis without myelopathy or radiculopathy, lumbar region; G56.03 Carpal tunnel syndrome, bilateral upper limbs; R41.3 Other amnesia; E66.9 Obesity, unspecified | CPT/HCPCS: 96127; 99212 ==

== ENCOUNTER 2025-01-20 13:46 | Outpatient (AMB) | payer OTHER, SELFPAY ==
[2025-01-20 13:54] VITALS: BP 128/72; PULSE 64; O2SAT 99; BMI 29.8
--- NOTE | 2025-01-20 13:54 | A.OFFVIS_ITS ---
Vital Signs 01/20/25 13:54 Height 5 ft 2 in Weight 163 lb 2.273 oz BMI 29.8 BP 128/72 Blood Pressure Location Rt brachial Position Sitting Pulse 64 Pulse Source Pulse Oximeter Pulse Oximetry (%) 99 Oxygen Delivery Method Room Air Intake Visit Reasons: Hypothyroidism, unspecified Intake Note: New patient present today for Hypothyroidism, unspecified office visit. 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 Services: Weigher And Mixer Present Weigher And Mixer Name: Fred#[id number] Accompanied by: Friend Allergies No Known Allergies Allergy (Verified 01/20/25 14:09) Medication List - Last Reconciled 01/20/25 by Octavia Freed MD ascorbic acid (vitamin C) (Vitamin C) 500 mg PO DAILY atorvastatin 40 mg PO BEDTIME 90 days betamethasone valerate 0.1% 1 appl topical BID PRN 30 days bisacodyl (Dulcolax (bisacodyl)) 20 mg (4 x 5 mg) PO ONCE 1 day [bladder control pads As directed] blood sugar diagnostic (OneTouch Verio test strips) 50 strips miscellaneous BID calcium carbonate-vitamin D3 500 mg-10 mcg (400 unit) (Calcium 500 With D) 1 tab PO BID cholecalciferol (vitamin D3) 25 mcg PO DAILY cromolyn mg PO TID cyanocobalamin (vitamin B-12) 1,000 mcg PO DAILY epinephrine (EpiPen 2-Mark) 0.3 mg (0.3 mL) IM Q10M PRN fenofibrate nanocrystallized 145 mg PO DAILY ferrous fumarate 324 mg PO DAILY 90 days fexofenadine 180 mg PO DAILY [gloves (Medium) As directed] hydrocortisone 2.5% 1 appl topical BID PRN hydroxyzine HCl 50 mg PO BID PRN lancets (vivitTouch UltraSoft Lancets) As directed- In Vitro twice a day levocetirizine 5 mg PO DAILY levothyroxine 112 mcg PO DAILY lidocaine 5% 1 patch topical DAILY 30 days metformin 500 mg PO TID montelukast 10 mg PO BEDTIME nabumetone 500 mg PO BID omalizumab 300 mg subcut Q2W [personal wipes As directed] polyethylene glycol 3350 (Miralax) 238 grams PO ONCE prednisone 10 mg PO DIRECTED [rollator walker As directed] [shower chair with back As directed] tizanidine 2 mg PO BEDTIME PRN turmeric-turmeric ext-pepper 500-3 mg 1 cap PO DAILY Ventolin HFA 90 mcg/actuation (albuterol sulfate) 2 puffs inhalation Q6H PRN 30 days NS HPI Comments Details: 74-year-old female here today for initial evaluation of hypothyroidism and multinodular goiter. Here today with daughter . Has a history of hypothyroidism since age 13, diagnosed in [place], wasnt on medications then , started on levothyroxine some 35 years ago , currently on levothyroxine 112 mcg daily , had paused it for a month in Dec due to thinking her hives and urticaria were from the levothyroxine , and then restarted mid Dec 2024. This did not result in allergic reaction. she takes the levothyroxine first thing in the morning on an empty stomach at 6 AM or 7 AM and goes back to sleep, doesnt eat till 3-4 hrs later Over the last couple of years her TSH was noticed to be low with normal free T4, and her dose of levothyroxine was decreased from 125 to 112mcg last year in 2023. Most recent labs December 2024 showed TSH elevated at 21.31, free T4 low at less than 0.42. Ultrasound of the thyroid done in March 2023, I reviewed the images myself showed a right medial inferior nodule 1 cm, solid, hypoechoic, which was TR 4 category, this needs follow up., another right lower pole subcentimeter TR 4 category nodule. Patient currently denies heat or cold intolerance, diarrhea or constipation, hair loss, palpitation, anxiety, weight changes, mood changes, low energy, changes in appearance of eyes or vision changes, tremors, increased diaphoresis or dry skin. ? Patient denies any difficulty swallowing, pain on swallowing or voice changes or difficulty breathing. Patient denies any history of childhood neck radiation. Denies having ever used lithium, amiodarone or biotin supplements. Patient denies any family history of thyroid cancer or thyroid disease. Physical exam General: sitting comfortably in no acute distress HEENT: normocephalic/atraumatic, EOM intact, moist oral mucosa Neck: supple, symmetrical, Cardiac: normal heart sounds Pulm: normal breath sounds B/L, no added breath sounds Abd: not distended, no tenderness Extremities: no edema, no signs of myxedema Laboratory Tests 03/06/23 09/07/23 05/16/24 13:54 10:45 09:38 TSH 0.08 L 0.06 L 0.09 L Free T4 1.34 1.21 1.24 09/04/24 12/08/24 10:12 09:59 TSH 0.14 L 21.31 H Free T4 1.09 < 0.42 L US THYROID 03/13/23 CLINICAL INFORMATION: Thyroid pain. COMPARISON: None available. TECHNIQUE: Linear transducer grayscale and color Doppler examination with attention to the region of the thyroid. FINDINGS: SIZE: Measurements of the thyroid lobes and nodules are given in sagittal, anteroposterior and transverse dimensions respectively. Right Thyroid Lobe: 4.2 x 1.5 x 1.5 cm, volume 4.9 mL. Parenchyma: The gland echotexture is heterogeneous. Thyroid vascularity is normal. Left Thyroid Lobe: 4.1 x 1.1 x 1.4 cm, volume 3.3 mL. Parenchyma: The gland echotexture is heterogeneous. Thyroid vascularity is normal. Isthmus: 0.2 cm in maximum AP dimension. Estimated total number of nodules greater than or equal to 1 cm: 1. Certified Adapted Physical Educator nodules are described as follows: 1. Location: Right medial/inferior. Size: 1.1 x 0.4 x 0.7 cm, volume 0.2 mL. Nodule characteristics: Composition: Solid (2). Echogenicity: Hypoechoic (2). Shape: Not taller than wide (0). Margins: Smooth (0). Echogenic Foci: None (0). ACR TI-RADS total points: 4 ACR TI-RADS category: 4 2. Location: Right inferior. Size: 0.5 x 0.4 x 0.5 cm, volume 0.1 mL. Nodule characteristics: Composition: Solid (2). Echogenicity: Isoechoic (1). Shape: Not taller than wide (0). Margins: Smooth (0). Echogenic Foci: Peripheral calcifications (2). ACR TI-RADS total points: 5 ACR TI-RADS category: 4 NODES: No lymphadenopathy is seen in the tissue surrounding the thyroid gland. US/US thyroid IMPRESSION: Small heterogeneous thyroid gland. Two right thyroid nodules. According to TI RADS criteria, ultrasound follow-up of the right inferior nodule annually for 5 years would be recommended. [facility] Medical History Prosthetic eye globe Lumbar back pain with radiculopathy affecting right lower extremity Anemia Frequent falls Dizziness Carpal tunnel syndrome, bilateral Diabetes mellitus Mixed hyperlipidemia Obesity (BMI 30-39.9) Memory impairment Osteoarthritis of both hands Vitamin B12 deficiency Vitamin D deficiency Primary osteoarthritis of both knees Osteopenia Asthma Chronic idiopathic urticaria Acquired hypothyroidism Benign essential hypertension Diabetes mellitus without complication Surgical History Status post carpal tunnel release (~06/02/21) Tubal ligation status Hx of section History of total right knee replacement (~2012) Family History Father No problems noted. 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 Cognitive needs: Yes (cane ) Hearing needs: No Vision needs: Yes (glasses ) Physical Exam Vital Signs: Last Vital Signs Pulse 64 01/20/25 13:54 BP 128/72 01/20/25 13:54 Pulse Ox 99 01/20/25 13:54 Oxygen Delivery Method Room Air 01/20/25 13:54 BMI result Body Mass Index 29.8 Assessment & Plan Assessment & Plan (1) Hypothyroidism: Code(s): E03.9 - Hypothyroidism, unspecified Category: Medical Qualifiers: 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 Currently on levothyroxine 112 mcg daily. No allergic reaction. She is taking it appropriately with good adherence. Her last set of labs were from December when she was not in the medication which showed TSH high at 21, with a undetectable free T4. Currently she is clinically euthyroid. We will repeat labs in 2 weeks as that would have been 6 weeks from the time she restarted it. 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 Ultrasound in March 2023, I reviewed the images myself showed a right medial inferior nodule 1 cm, solid, hypoechoic, which was TR 4 category, this needs follow up., another right lower pole subcentimeter TR 4 category nodule. Plan: -ordered ultrasound of the thyroid -follow up in 8 weeks to discuss results Plan I spent 45 minutes in reviewing the record, seeing the patient and documenting in the medical record. Orders: Orders Thyroid Stimulating Hormone 2 Weeks E03.9 - Hypothyroidism, unspecified, E04.2 - Nontoxic multinodular goiter Free T4 (Free Thyroxine) 2 Weeks E03.9 - Hypothyroidism, unspecified, E04.2 - Nontoxic multinodular goiter US thyroid Today E03.9 - Hypothyroidism, unspecified, E04.2 - Nontoxic multinodular goiter Patient Instructions: Do ultrasound of the thyroid, somebody is going to call you to schedule this Continue levothyroxine 112 mcg daily Do blood work in 2 weeks follow up in 8 weeks Hazte steven ecograf?a de tiroides. Te llamar?n para programarla. Contin?a con levotiroxina 112 mcg al d?a. Hazte an?lisis de hossein en 2 semanas. Visita de seguimiento en 8 semanas. 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
--- OUTSIDE RECORDS SUMMARY | 2025-01-20 16:16 | XMS_ITS | Patient Health Record ---
Author Organization [facility] Network Address [address] [place] [address] [address] [place] [address] Care Team Providers Care [employer] Cook Name Role Phone Marco Comer Primary Care Provider UnavailCHANDA Powell Unavailable [phone] Reason For Referral No Information Plan Of Treatment No Information
--- OUTSIDE RECORDS SUMMARY | 2025-01-20 16:16 | XMS_ITS ---
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 Name Role Phone Carolin Baron Unavailable [phone] Marco Martinez Unavailable [phone] Reason for Referral Not Available Allergies, adverse reactions, alerts No known allergies History of medication use Medication Class Instructions Start Date End Date Simvastatin 40 mg Tab TAKE 1 TABLET BY M OUTH EVERY DAY 2021-09-26 No Data Available Betamethasone Valerate 0.1 % Crm APPLY TOPICALLY 2 TIMES A DAY NEEDED FOR SKIN IRRITATION FOR 30 DAYS 2022-04-24 No Data Available metFORMIN 500 mg Tab TAKE 1 TABLET BY MO UTH 3 TIMES A DAY 2021-09-26 No Data Available Ascorbic Acid 500 mg Tab TAKE 1 TABLET B Y MOUTH EVERY DAY 2022-03-28 No Data Available CALCIUM 500-VIT D3 400 TABLET TAKE 1 TAB LET BY MOUTH TWICE A DAY WITH FOOD 2021-09-26 No Data Available Fenofibrate 145 mg Tab TAKE 1 TABLET BY MOUTH EVERY DAY 2021-10-05 No Data Available Levothyroxine Sodium 112 MCG Tab TAKE 1 TABLET BY MOUTH EVERY DAY 2022-01-04 No Data Available OneTouch Verio Strip USE DIRECTED TWI CE A DAY 2022-01-04 No Data Available Hydrocortisone 2.5 % Crm 1 APPL TOPICALL Y 2 TIMES A DAY NEEDED FOR SKIN IRRITATION 2022-06-22 No Data Available VITAMIN D3 1,000 UNIT SOFTGEL TAKE 1 CAP LINDA BY MOUTH EVERY DAY 2021-09-26 No Data Available tiZANidine 2 mg Tab TAKE 1 TABLET BY LULA TH AT BEDTIME NEEDED FOR MUSCLE SPASM 2022-07-18 No Data Available predniSONE 10 mg Tab TAKE 1 TABLET BY MO UTH EVERY DAY NEEDED FOR RASH 2022-07-20 2022-10-19 Fexofenadine 180 mg Tab TAKE 1 TABLET BY MOUTH EVERY DAY 2022-07-21 2024-05-12 hydrOXYzine 25 mg Tab TAKE 1 TABLET BY M OUTH EVERY 8 HOURS NEEDED FOR ITCHING 2022-07-21 2024-05-12 CALCIUM 600 MG-VIT D3 10MCG TB TAKE 1 TA BLET BY MOUTH TWICE A DAY 2022-10-03 2024-05-12 Famotidine 40 mg Tab 1 tablet orally every day 2023-042024-05-12 predniSONE 10 mg Tab TAKE 4 TABLETS BY M OUTH ONCE A DAY FOR 5 DAYS 2023-11-15 2024-05-12 Levocetirizine Dihydrochlori de 5 mg Tab TAKE 2 TABLETS BY MOUTH TWICE A DAY 2023-11-15 No Data Available Tylenol 8hr Arthritis Pain 6 50 mg Tab ER 1 tablet PO 3 times a day as needed 2024-05-12 No Data Available hydrOXYzine 50 mg Tab 1 tab BID as neede d for severe itch 2024-05-12 No Data Available Lidocaine-Prilocaine 2.5-2.5 % Crm 1gm to affected area TID PRN pain 2024-05-12 No Data Available Problem List Problem Status Onset Date Resolved Date Blind right eye Active 2023-05-04 N/A Other problems related to [facility] and other health care Active 2024-01-15 N/A Allergies, itching, hives. 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 Active 2023-05-04 N/A Hypothyroid Active 2022-10-19 N/A Hypercholesteremia Active 2022-10-19 N/A Type 2 diabetes mellitus wit h diabetic polyneuropathy, diabetic cataract Active 2022-10-19 N/A Obesity with serious comorbidity Active N/A Artificial joint pain Active 2022-10-19 N/A Encounters Encounters Type Facility Date of Service Diagnosis/Co mplaint No Data Available [facility] ([place] 10/19/2022 Type 2 diabetes mellitus wit h diabetic polyneuropathyType 2 diabetes mellitus with diabetic cataractObesity, unspecifiedBody mass index (bmi) 31.0-31.9, adultPure hypercholesterolemia, unspecifiedHypothyroidism, unspecifiedAllergy, unspecified, initial encounter No Data Available [facility] ([place] 10/19/2022 No Data Available [facility] [place]20[place] No Data Available [facility] No Data Available [facility] Data Available [facility] Estab. patient 30-39min; chronic exacerbation, 2 stable chronic or 1 acute illness add add modifier 95 for video, (do not use for phone, instead use [id number]) [facility] [place] 05[place]04/2023 Type 2 diabetes mellitus wit h diabetic polyneuropathyType 2 diabetes mellitus with diabetic cataractObesity, unspecifiedPain due to internal orthopedic prosth dev/grft, initPure hypercholesterolemia, unspecifiedHypothyroidism, unspecifiedAllergy, unspecified, initial encounterBlindness, one eye, unspecified eyeSpond in diseases classd elswhr, multiple sites in spine Estab. patient 30-39min; chronic exacerbation, 2 stable chronic or 1 acute illness add add modifier 95 for video, (do not use for phone, instead use 84556-52) [facility] [place] 05[place]/2023 Estab. patient 30-39min; chronic exacerbation, 2 stable chronic or 1 acute illness add add modifier 95 for video, (do not use for phone, instead use 42919-18) [facility] [place] 05[place]04/2023 Estab. patient 30-39min; chronic exacerbation, 2 stable chronic or 1 acute illness add add modifier 95 for video, (do not use for phone, instead use 66207-55) [facility] [place] 05[place]04/2023 Estab. patient 30-39min; chronic exacerbation, 2 stable chronic or 1 acute illness add add modifier 95 for video, (do not use for phone, instead use 92669-53) [facility] [place] 05[place]2023 Estab. patient 30-39min; chronic exacerbation, 2 stable chronic or 1 acute illness add add modifier 95 for video, (do not use for phone, instead use 57826-09) [facility] [place] 05[place]2023 Estab. patient 30-39min; chronic exacerbation, 2 stable chronic or 1 acute illness add add modifier 95 for video, (do not use for phone, instead use 66545-67) [facility] [place] 05[place]2023 Estab. patient 30-39min; chronic exacerbation, 2 stable chronic or 1 acute illness add add modifier 95 for video, (do not use for phone, instead use 80326-26) [facility] [place] 05[place]/2023 Estab. patient 30-39min; chronic exacerbation, 2 stable chronic or 1 acute illness add add modifier 95 for video, (do not use for phone, instead use 65024-04) [facility] ([place] 05[place]2023 Estab. patient 30-39min; chronic exacerbation, 2 stable chronic or 1 acute illness add add modifier 95 for video, (do not use for phone, instead use 93727-79) [facility] [place] 05/04/2023 Estab. patient 30-39min; chronic exacerbation, 2 stable chronic or 1 acute illness add add modifier 95 for video, (do not use for phone, instead use 76883-00) [facility] [place] 05/12/2024 Type 2 diabetes mellitus wit h diabetic polyneuropathyType 2 diabetes mellitus with diabetic cataractOther problems related to medical facilities and other health carePain due to internal orthopedic prosth dev/grft, initPure hypercholesterolemia, unspecifiedHypothyroidism, unspecifiedAllergy, unspecified, initial encounterPruritus, unspecifiedUrticaria, unspecifiedSpond in diseases classd elswhr, multiple sites in spine Estab. patient 30-39min; chronic exacerbation, 2 stable chronic or 1 acute illness add add modifier 95 for video, (do not use for phone, instead use 62455-12) [facility] [place] Estab. patient 30-39min; chronic exacerbation, 2 stable chronic or 1 acute illness add add modifier 95 for video, (do not use for phone, instead use 71024-60) [facility] [place] 05/12/2024 Estab. patient 30-39min; chronic exacerbation, 2 stable chronic or 1 acute illness add add modifier 95 for video, (do not use for phone, instead use 63242-06) [facility] [place] 05/12/20[place] Estab. patient 30-39min; chronic exacerbation, 2 stable chronic or 1 acute illness add add modifier 95 for video, (do not use for phone, instead use 58430-19) [facility] ([place] 05/12/2024 Estab. patient 30-39min; chronic exacerbation, 2 stable chronic or 1 acute illness add add modifier 95 for video, (do not use for phone, instead use 96202-56) [facility] [place] 05/12/2024 Vital Signs Date of Collection Vitals 2022-10-19 11:10:20 Height - 152.4 cmWei ght - 73.48 kgBody Mass Index (BMI) - 31.64 kg/m2 2023-05-04 08:43:18 Height - 150.01 cmWe ight - 73.48 kgBody Mass Index (BMI) - 32.65 kg/m2BP Diastolic - 69.0 mm[Hg]BP Systolic - 138.0 mm[Hg]Pain Scale - 0.0 {score} 2024-05-12 09:51:14 Weight - 71.21 kgBod y Mass Index (BMI) - 31.65 kg/m2BP Diastolic - 70.0 mm[Hg]BP Systolic - 125.0 mm[Hg] Social History Social History Social History Observation Description Effec tive Time Current Smoking Status Never smoker 2025-01-03 6 Sex Female History of Procedures Procedures Service Procedure code Service date Servicing provider Phone# No Data Available [id number] 2022-10-19 No Data Available No Data Available Medication List Documented (1159F) 1159F 2022-10-19 No Data Available No Data Coral ilable Medication Review by prescribing provider or pharmacist documented (1160F) 1160F 2022-10-19 No Data Available No Data Coral ilable Pain Assessment - Pain Documented on a Pain Scale (1125F) 1125F 2022-10-19 No Data Available No Data Coral ilable Advance Care Directive Advance care planning discussion documented in the medical record (1158F) 1158F 2022-10-19 No Data Available No Data Availa ble BMI obtained (3008F) 3008F 2022-10-19 No Data Availab le No Data Available Estab. patient 30-39min; chronic exacerbation, 2 stable chronic or 1 acute illness add add modifier 95 for video, (do not use for phone, instead use 11817-75) 38610 2023-05-04 No Data Available No Data Availa ble Medication List Documented (1159F) 1159F 2023-05-04 No Data Available No Data Coral ilable Medication Review by prescribing provider or pharmacist documented (1160F) 1160F 2023-05-04 No Data Available No Data Coral ilable Pain Assessment - NO pain present (1126F) 1126F 2023-05-04 No Data Available No Data A vailable BMI obtained (3008F) 3008F 2023-05-04 No Data Availab le No Data Available Advance Care Directive Advance care planning discussion documented in the medical record (1158F) 1158F 2023-05-04 No Data Available No Data Availa ble Advance care planning discussed and documented ? advance care plan or surrogate decision-maker was documented in the medical record. (1123F) 1123F 2023-05-04 No Data Available No Data Availa ble SBP 130-139 (3075F) 3075F 2023-05-04 No Data Availabl e No Data Available DBP <80 (3078F) 3078F 2023-05-04 No Data Available No Data Available Functional Status Assessed (1170F) 1170F 2023-05-04 No Data Available No Data Avail able Estab. patient 30-39min; chronic exacerbation, 2 stable chronic or 1 acute illness add add modifier 95 for video, (do not use for phone, instead use 86028-05) 00467 2024-05-12 No Data Available No Data Availa ble Medication List Documented (1159F) 1159F 2024-05-12 No Data Available No Data Coral ilable Medication Review by prescribing provider or pharmacist documented (1160F) 1160F 2024-05-12 No Data Available No Data Coral ilable BMI obtained (3008F) 3008F 2024-05-12 No Data Availab le No Data Available SBP < 130 (3074F) 3074F 2024-05-12 No Data Available No Data Available DBP <80 (3078F) 3078F 2024-05-12 No Data Available No Data Available Functional Status Functional Category Effective 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 None 2024-05-12 Near falls within the last 6 months? Non e 2024-05-12 Do you feel unsteady on your feet? No 20 28-05-08 Do you worry about falling? No 8 DME used with ambulation: 2024-05-12 Social Supports - # of Inter actions with Friends/Family in a typical week: daily 2024-05-12 Mental Status Status Date alert & oriented: name, , date, place 2022-10-19 Assessments Date of Service Assessments 2022-10-19 11:10:20 Type 2 diabetes adama itus with diabetic polyneuropathy, diabetic cataractObesityHypercholesteremiaHypothyroidAllergies 2023-05-04 08:43:18 Type 2 diabetes adama itus with diabetic polyneuropathy, diabetic cataractObesityArtificial joint painHypercholesteremiaHypothyroidAllergiesBlind right eyeSpondylopathy in diseases classified elsewhere, multiple sites in spine 2024-05-12 09:51:14 Type 2 diabetes admaa itus with diabetic polyneuropathy, diabetic cataractstableGlucose: 99-108A1c: was normal metformin 500TIDEye: denies eye problems s/p cataract surgeryNeuropathy: has foot/hand pain cari at nightFollows with PCP, attending on 10/20/22Recommend low carb diet, exercise, monitor glucose, routine foot checks; notify CB of high/low glucose05/12/24: Pt to continue metformin as ordered. Unsure of most recent [id number] problems related to medical facilities and other health careWhen member to call: 1. If bp is elevated sbp>150; dbp>90 or symptomatic-h/a, dizziness, cp, sob. 2. if there is a fall 3. if BS >300 or BS<90 or symptomatic; i.e., dizzy, off balance , shaky, general weakness. 4. if UTI symptoms arise-urinary frequency, dysuria, low abd pain. 5. if pain in knees increases/ or joint pain increased Please remember to call CBContinue to see PCP. [facility]up with [facility] as needed for any acute or disease education needs that may arise 28/05.what should be done when the member calls: see each individual diagnosis for contingency planArtificial joint pain05/12/24: Pt to continue following up with ortho as ordered. Sending lidocaine/prilocaine creamHypercholesteremia05/12/24: Pt to continue fenofibrate, simvastatin follows with PCPRecommend low fat diet, exerciseHypothyroid05/12/24: Pt to continue levothyroxine as orderedfollows with PCPAllergies, itching, hives.05/04/23: ADD famotidine to see if this helps control itch as it is a histamine blocker05/12/24: Pt to continue seeing micropaleontologist as ordered. Twice monthly Xolair. Pt to call Inventory Representative to see if they will do a PA to have levocetirizine at prescribed dose of 10 mg BID. Insurance is only covering 5 mg daily. Pt reported 25 mg hydroxyzine ineffective. Refilling 50 mg. Pt reports the 3-4 days prior Xolair the itching/hives are severe.Spondylopathy in diseases classified elsewhere, multiple sites in spineImmunodeficiency due to: autoimmune disorderweakened immune system, encourage hand washing, avoid large crowds, stay up to date on vaccines (annual flu), monitor for and report early any s/s of infectionuse prednisone PRN 05/12/24: Pt to continue follow-up with rheumatology as ordered. Working with rheumatology to see if the itching/hives are autoimmune. Plan of Care Date of Service Plans 2022-10-19 11:10:20 Medication Review by prescribing provider or pharmacist documented (1160F)Medication List Documented (1159F)Functional Status Assessed (1170F)Advance Care Directive Advance care planning discussion documented in the medical record (1158F)BMI obtained (3008F)Pain Assessment - Pain Documented (1125F)Televideo new patient,40-59min; chronic exacerbation, 2 stable chronic or 1 acute illness add modifier 95Continue to see PCP. Follow-up with [facility] as needed for any acute or disease education needs that may arise.stableGlucose: 99-108A1c: was normal metformin 500TIDEye: denies eye problems s/p cataract surgeryNeuropathy: has foot/hand pain cari at nightFollows with PCP, attending on 10/20/22Recommend low carb diet, exercise, monitor glucose, routine foot checks; notify CB of high/low glucosestableBMI = 31.64Follows with PCPRecommend low fat , exercise, control glucosestablefenofibrate, simvastatin follows with PCPRecomdannied low fat diet, exercisestablelevothyroxine follows with PCPstableleif recent episodesgetting allergy shotsno longer taking prednisoneuses fexofenadine, hydroxyzine (PRN pruritus)Follows with PCP 2023-05-04 08:43:18 Medication Review by prescribing provider or pharmacist documented (1160F)Medication List Documented (1159F)Functional Status Assessed (1170F)Advance Care Directive Advance care planning discussion documented in the medical record (1158F)BMI obtained (3008F)SBP < 130 (3074F)DBP <80 (3078F)Televideo 30-39min; chronic exacerbation, 2 stable chronic or 1 acute illness add modifier 95Advance care planning discussed and documented ? advance care plan or surrogate decision-maker was documented in the medical record. (1123F)Pain Assessment - NO pain documented (1126F)Continue to see PCP. Follow-up with [facility] as needed for any acute or disease education needs that may arise.stableGlucose: 99-108A1c: was normal metformin 500TIDEye: denies eye problems s/p cataract surgeryNeuropathy: has foot/hand pain cari at nightFollows with PCP, attending on 10/20/22Recommend low carb diet, exercise, monitor glucose, routine foot checks; notify CB of high/low glucosestableBMI = 31.64Follows with PCPRecommend low fat , exercise, control glucosedeniesstablefenofibrate, simvastatin follows with PCPRecomwali low fat diet, exercisestablelevothyroxine follows with PCPstkatyno recent episodesgetting allergy shotsno longer taking prednisoneuses fexofenadine, hydroxyzine (PRN pruritus)Follows with PCP05/04/23: ADD famotidine to see if this helps control itch as it is a histamine blockerhas prosthetic eyeImmunodeficiency due to: autoimmune disorderweakened immune system, encourage hand washing, avoid large crowds, stay up to date on vaccines (annual flu), monitor for and report early any s/s of infectionuse prednisone PRN 2024-05-12 09:51:14 New Lidocaine-Priloc caro 2.5-2.5 % Crm 1gm to affected area TID PRN pain #1 unspecified RFx3 Instr: one tubeRefill hydrOXYzine 50 mg Tab 1 tab BID as needed for severe itch #60 tablet [id number] Review by prescribing provider or pharmacist documented (1160F)Medication List Documented (1159F)Functional Status Assessed (1170F)Advance Care Directive Advance care planning discussion documented in the medical record (1158F)BMI obtained (3008F)SBP < 130 (3074F)DBP <80 (3078F)Televideo 30-39min; chronic exacerbation, 2 stable chronic or 1 acute illness add modifier 95Advance care planning discussed and documented ? advance care plan or surrogate decision-maker was documented in the medical record. (1123F)Pain Assessment - NO pain documented (1126F)Continue to see PCP. Follow-up with [facility] as needed for any acute or disease education needs that may arise.Member to continue taking medications as directed, and keep all follow up appointments with established PCP and specialists. Goals Date Goal 2022-10-19 Remember to monitor glucose, blood pressure 2022-10-19 Call me if any acute issues 2022-10-19 Keep it up medicatio n compliance 2024-05-12 Discussed [facility] 's 28/05 program with member. Encouraged member to reach out to CB if they have any questions or concerns. Health Concerns Date Concern 2024-05-12 Visit completed beka rbuin audio/video. Patient/Guardian agreed to visit via telehealth. Today, patient has chief complaint of: follow up care and comprehensive review.Reviewed Allergies, Medications, Active Medical conditions, past medical/surgical history, Social history. 2024-05-12 Daughter Megan Sandyleigh ra is daughter. No ACP. Full code. 2024-05-12 Most recent hospital stay(s) or ER visit(s) and precipitating factors: 08/2023 cellulitis 2024-05-12 Open HEDIS Measure r chiquitaw: complete 2024-05-12 Pt is a 73 yr old fe male. Visit today completed with her Megan aguilar, melissa. Pt suffers from chronic itching/hives. Currently being managed by micropaleontologist.
--- OUTSIDE RECORDS SUMMARY | 2025-01-20 16:17 | XMS_ITS ---
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 Name Role Phone Marco Comer Primary Care Provider CHANDA Rodriguez [phone] REASON FOR VISIT NEED INSURANCE INFORMATION Encounters Encounter Location Date Provider Diagnosis [facility] [address] [facility] [address] [place] [address] 11/04/2024 CHANDA SAMUEL Plan Of Treatment No Information Progress Notes * Yaneli MORRISDOB:[birth year] (74 yo F)Acc No.[id number]:11/04/2024 Progress Notes Patient:?Aditi MORRIS n Provider:?Chanda Samuel MD :[id number]???Age:74 Y???Sex:Female D ate:11/04/2024 Address:[address] [place] [address] Pcp:Marco Comer Subjective: * Chief Complaints: * ???1. NEED INSURANCE INFORMA TION. * Medical History:? Objective: * Vitals:? Assessment: Plan: * Treatment: * Images: * Electronic signature of CHANDA SAMUEL M.D. on 01/20/2025 at 04:16 PM EDT Sign off status: Pending * Provider:?Chanda Samuel MD Date:? Generated for Suzannei lisa/Faadalidg/eTransmitting on:?01/20/2025 04:16 PM EDT
== END 2025-01-20 14:27 | disposition home or self-care (01) ==
LOC: HO.ENCR 13:46
PROVIDERS: PCP Internal Medicine; Visit Provider Student in an Organized Health Care Education/Training Program
DX: E06.3 Autoimmune thyroiditis (principal); E04.2 Nontoxic multinodular goiter
CPT/HCPCS: 99204

== ENCOUNTER → 2025-01-20 13:46 | Outpatient (BNVA) | payer OTHER, SELFPAY | PROVIDERS: PCP Internal Medicine; Visit Provider Student in an Organized Health Care Education/Training Program | DX: E06.3 Autoimmune thyroiditis (principal); E04.2 Nontoxic multinodular goiter | CPT/HCPCS: 99202 ==

== ENCOUNTER 2025-02-12 09:11 | Day surgery (SDC) | payer OTHER, SELFPAY ==
[2025-02-10 09:39] VITALS: BMI 31.9
--- NOTE | 2025-02-11 09:53 | HO.ANESPROP2 ---
Documented by User: Altagracia Momin NP 02/11/25 09:54 HPI - Anesthesia Eval Consult details Narrative: 74yo F for Colonoscopy PMFSH Active Problems Active Problems: All Active Problems Otitis media (Acute) URI (upper respiratory infection) (Acute) Cellulitis and abscess of buttock (Acute) Abscess (Acute) Post-menopausal bleeding (Acute) Well woman exam (Acute) Right shoulder pain (Acute) Cutaneous abscess of abdominal wall (Acute) Chronic knee pain after total replacement of both knee joints (Acute) Bursitis of right shoulder (Acute) Primary osteoarthritis, left shoulder (Acute) Osteoarthritis of right shoulder (Acute) Thyroid pain (Acute) Skin lesion of back (Acute) Nevus of lower back (Acute) Osteoarthritis of glenohumeral joints, bilateral (Acute) Facet arthropathy (Acute) Degeneration of intervertebral disc of thoracic region with osteophyte (Acute) Multilevel degenerative disc disease (Acute) Bilateral shoulder pain (Acute) Mid back pain (Acute) Low back pain (Acute) Sore throat (Acute) Annual physical exam (Acute) Pre-op exam (Acute) Facet arthritis of lumbar region (Acute) Carpal tunnel syndrome of right wrist (Acute) Carpal tunnel syndrome of left wrist (Acute) Numbness and tingling in both hands (Acute) Trigger finger, right middle finger (Acute) Primary osteoarthritis of left knee (Acute) Status post fall (Acute) Left hand pain (Acute) Diabetes mellitus (Acute) Hypothyroidism (Acute) Multinodular goiter (Acute) Lumbar back pain with radiculopathy affecting right lower extremity (Acute) Anemia (Acute) Frequent falls (Acute) Dizziness (Acute) Carpal tunnel syndrome, bilateral (Acute) History of total right knee replacement (Acute ~2012) Mixed hyperlipidemia (Acute) Obesity (BMI 30-39.9) (Acute) Memory impairment (Acute) Osteoarthritis of both hands (Acute) Vitamin B12 deficiency (Acute) Vitamin D deficiency (Acute) Primary osteoarthritis of both knees (Acute) Osteopenia (Acute) Asthma (Acute) Chronic idiopathic urticaria (Acute) Acquired hypothyroidism (Acute) Benign essential hypertension (Acute) Diabetes mellitus without complication (Acute) Past Medical History Medical History (Updated 02/10/25 @ 09:39 by Earline Aguilar RN) Hypothyroidism Multinodular goiter Prosthetic eye globe Lumbar back pain with radiculopathy affecting right lower extremity Anemia Frequent falls Dizziness Carpal tunnel syndrome, bilateral Mixed hyperlipidemia Obesity (BMI 30-39.9) Memory impairment Osteoarthritis of both hands Vitamin B12 deficiency Vitamin D deficiency Primary osteoarthritis of both knees Osteopenia Asthma Chronic idiopathic urticaria Acquired hypothyroidism Benign essential hypertension Diabetes mellitus without complication Family History Family History Father No problems noted. Mother Diabetes mellitus Cardiovascular disease Surgical History Surgical History (Updated 02/10/25 @ 09:38 by Earline Aguilar RN) H/O colonoscopy Status post carpal tunnel release (~06/02/21) Tubal ligation status Hx of section History of total right knee replacement (~2012) Social History Social History Housing: Apartment Are you a primary managed care manager to a significant other at home: No Do you presently have visiting nurse or other home services: No Alcohol intake: never Patient Tobacco Use Status: Former Tobacco user Tobacco use type: Cigarette e-Cigarette/Vaping Use: Never Used Second Hand Smoke Exposure: No Use of substances other than those prescribed or required for medical reasons: No Have you been hit, kicked, punched, or otherwise hurt by someone within the past year? 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 Cognitive needs: Yes (cane ) Hearing needs: No Vision needs: Yes (glasses ) Meds Allergies Allergy/AdvReac Type Severity Reaction Status Date / Time No Known Allergies Allergy Verified 01/20/25 14:09 Home Medications ?Medication ?Instructions ?Recorded ?Confirmed ?Last Taken ?Type turmeric 500 mg-black pepper 1 cap PO DAILY 09/22/20 02/10/25 Unknown History extract 3 mg capsule levocetirizine 5 mg tablet 5 mg PO DAILY 10/05/23 02/10/25 Unknown History omalizumab 150 mg/mL subcutaneous 300 mg subcut Q2W 02/11/24 02/10/25 Unknown History syringe cromolyn 100 mg/5 mL oral 100 mg PO TID 08/26/24 02/10/25 Unknown History concentrate hydroxyzine HCl 50 mg tablet 50 mg PO BID PRN itch 08/26/24 02/10/25 Unknown History levothyroxine 112 mcg capsule 112 mcg PO DAILY 01/20/25 02/10/25 Unknown History Exam Height,Weight and Vital Signs: Height 4 ft 11 in Weight 71.668 kg Assessment and Plan Assessment Anesthesia Assessment: Chart Reviewed Documented by User: Teodora Moe MD 02/12/25 10:20 PMFSH Past Medical History Medical History (Updated 02/10/25 @ 09:39 by Earline Aguilar RN) Hypothyroidism Multinodular goiter Prosthetic eye globe Lumbar back pain with radiculopathy affecting right lower extremity Anemia Frequent falls Dizziness Carpal tunnel syndrome, bilateral Mixed hyperlipidemia Obesity (BMI 30-39.9) Memory impairment Osteoarthritis of both hands Vitamin B12 deficiency Vitamin D deficiency Primary osteoarthritis of both knees Osteopenia Asthma Chronic idiopathic urticaria Acquired hypothyroidism Benign essential hypertension Diabetes mellitus without complication Family History Family History Father No problems noted. Mother Diabetes mellitus Cardiovascular disease Family history of problems with anesthesia: No Surgical History Surgical History (Updated 02/10/25 @ 09:38 by Earline Aguilar RN) H/O colonoscopy Status post carpal tunnel release (~06/02/21) Tubal ligation status Hx of section History of total right knee replacement (~2012) History of Problems with Anesthesia: No Social History Social History Housing: Apartment Are you a primary managed care manager to a significant other at home: No Do you presently have visiting nurse or other home services: No Alcohol intake: never Patient Tobacco Use Status: Former Tobacco user Tobacco use type: Cigarette e-Cigarette/Vaping Use: Never Used Second Hand Smoke Exposure: No Use of substances other than those prescribed or required for medical reasons: No Have you been hit, kicked, punched, or otherwise hurt by someone within the past year? 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 Cognitive needs: Yes (cane ) Hearing needs: No Vision needs: Yes (glasses ) Meds Allergies Allergy/AdvReac Type Severity Reaction Status Date / Time No Known Allergies Allergy Verified 01/20/25 14:09 Home Medications ?Medication ?Instructions ?Recorded ?Confirmed ?Last Taken ?Type turmeric 500 mg-black pepper 1 cap PO DAILY 09/22/20 02/10/25 Unknown History extract 3 mg capsule levocetirizine 5 mg tablet 5 mg PO DAILY 10/05/23 02/10/25 Unknown History omalizumab 150 mg/mL subcutaneous 300 mg subcut Q2W 02/11/24 02/10/25 Unknown History syringe cromolyn 100 mg/5 mL oral 100 mg PO TID 08/26/24 02/10/25 Unknown History concentrate hydroxyzine HCl 50 mg tablet 50 mg PO BID PRN itch 08/26/24 02/10/25 Unknown History levothyroxine 112 mcg capsule 112 mcg PO DAILY 01/20/25 02/10/25 Unknown History Exam Airway Mallampati Class: III TM Dist: >3cm Neck ROM: Full Denture: Upper Assessment and Plan Assessment Anesthesia Assessment: Anesthesia Plan Discussed Final Anesthetic Review Family History of Problems with Anesthesia: No History of Problems with Anesthesia: No NPO: Yes ASA Class: III Final Preanesthetic Review: No Changes in Pt Med Stat, Meds/Allgs Chart Reviewed, Consent Obtained/Reviewed and Anes Risks/Benef Reviewed Patient Risk: Intermediate Procedure Risk: Low Anesthetic Plan Anesthetic Plan: TIVA Disposition: Standard PACU
[2025-02-12 10:10] VITALS: BP 146/84; PULSE 59; RESP 14; TEMP 36.7; O2SAT 99; BMI 32.5
--- NOTE | 2025-02-12 10:11 | P.HPSUR_ITS ---
Pre-Procedural Eval Section A - 24 Hr Update-Section A only Date of Service: 02/12/25 Section B - Complete if H&P > 30 days Chief Complaint: screening Details of Present Illness: Prosthetic eye globe Lumbar back pain with radiculopathy affecting right lower extremity Anemia Frequent falls Dizziness Carpal tunnel syndrome, bilateral Status post fall Left hand pain Diabetes mellitus Mixed hyperlipidemia Obesity (BMI 30-39.9) Memory impairment Osteoarthritis of both hands Vitamin B12 deficiency Vitamin D deficiency Primary osteoarthritis of both knees Osteopenia Asthma Chronic idiopathic urticaria Acquired hypothyroidism Benign essential hypertension Diabetes mellitus without complication Surgical History Status post carpal tunnel release (~06/02/21) Tubal ligation status Hx of section History of total right knee replacement (~2012) Allergies: Allergies Allergy/AdvReac Type Severity Reaction Status Date / Time No Known Allergies Allergy Verified 01/20/25 14:09 Review of Systems Review of Systems Comment: Ten point ROS negative Exam Exam Comment: Gen appear: No acute distress HEENT: no icterus Chest: No overt resp distress Abd: soft, nontender, nondistended Psych: Stable affect, answering questions appropriately Neuro: A/Ox3 noted to move all extremities spontaneously Ext: no peripheral edema Plan Diagnosis/Plan: Unchanged I have reviewed the history and physical and performed a pertinent physical examination on my patient. No changes have occurred unless specified. Time Spent With Patient Time: Total time managing care of this patient today ____ minutes.
[2025-02-12 10:32] LABS: Glucose, Whole Blood 94 mg/dL (60-115)
--- NOTE | 2025-02-12 12:11 | P.OPN-COLO_ITS ---
Colonoscopy Operative Note Operative Note Date of Service: 02/12/25 Narrative: Procedure: Colonoscopy Indication: Screening Endoscopist: Fouzia Pereira MD Anesthesia Provider: Prieto Carroll CRNA Anesthesia type: MAC Instrument: Olympus [id number]-[id number] Consent: Indication, risks vs benefits, and alternatives were discussed with the patient who gave written informed consent to proceed. An marketing ambassador was utilized to assist with the consent. EKG, pulse, pulse oximetry and blood pressure were monitored throughout the procedure. Please see anesthesia flowsheet. Procedure: The patient was brought to the procedure room and placed in the left lateral decubitus position. IV medications were administered by the anesthesia provider in attendance. A digital rectal exam was performed which was normal. A distal attachment cap was affixed to the tip of the colonoscope which was then inserted through the anus and advanced through the colon to the cecum at 75 cm,and terminal ileum. Appendiceal orifice and ileocecal valve were identified. Mucosa was carefully examined under high definition white light as the instrument was slowly withdrawn in a retrograde panoramic fashion. Retroflexion was performed in rectum. The procedure was not difficult. There were no immediate obvious complications. The quality of the prep was BBPS: 2+3+2 = adequate Withdrawal time 16 minutes. Limitations: No limitations. Findings: Mucosa: Normal to cecum and terminal ileum. Protruding lesions: * 1 sessile polyp of size 8 mm in cecum. Cold snare polypectomy was performed. The polyp was completely removed and retrieved. * 2 sessile polyps of size 2-4 mm in transverse colon. Cold snare polypectomy was performed. The polyps were completely removed and retrieved. * 2 sessile polyp of size 2-4 mm in descending colon. Cold snare polypectomy was performed. The polyps were completely removed and retrieved. * 1 sessile polyp of size 4 mm in sigmoid colon. Cold snare polypectomy was performed. The polyp was completely removed and retrieved. * Medium internal hemorrhoids without stigmata of recent bleeding. Excavated lesions: * Moderate diverticulosis of left sided colon. Impression: 1. Normal colon and terminal ileum mucosa 2. Total of 6 polyps removed 3. Diverticulosis 4. External and internal hemorrhoids Recommendations: - Follow path results. - Repeat colonoscopy in 3 years if 3 or more polyps are adenomas or sessile serrated.
[2025-02-12 12:15] VITALS: BP 137/78; PULSE 61; RESP 16; TEMP 36.6; O2SAT 97
[2025-02-12 12:30] VITALS: BP 138/80; PULSE 54; RESP 16; TEMP 36.5; O2SAT 98
== END 2025-02-12 12:56 | disposition home or self-care (01) ==
PROVIDERS: PCP Internal Medicine; Visit Provider Internal Medicine
PROC: 0DJD8ZZ Inspection of Lower Intestinal Tract, Via Natural or Artificial Opening Endoscopic (ICD-10-PCS; CPT 45378; principal; 2025-02-12 11:40)
DX: Z12.11 Encounter for screening for malignant neoplasm of colon (principal); D12.0 Benign neoplasm of cecum; D12.3 Benign neoplasm of transverse colon; K63.5 Polyp of colon; K57.30 Diverticulosis of large intestine without perforation or abscess without bleeding; K63.89 Other specified diseases of intestine; K64.8 Other hemorrhoids; K64.4 Residual hemorrhoidal skin tags; D64.9 Anemia, unspecified; I10 Essential (primary) hypertension; E78.2 Mixed hyperlipidemia; J45.909 Unspecified asthma, uncomplicated; E03.9 Hypothyroidism, unspecified; E11.9 Type 2 diabetes mellitus without complications; Z97.0 Presence of artificial eye; E55.9 Vitamin D deficiency, unspecified; L50.8 Other urticaria; E66.9 Obesity, unspecified; Z68.31 Body mass index [BMI] 31.0-31.9, adult; R41.9 Unspecified symptoms and signs involving cognitive functions and awareness; Z91.81 History of falling; Z98.890 Other specified postprocedural states; Z87.891 Personal history of nicotine dependence
CPT/HCPCS: 45385; 82947; 88305; J2704

== ENCOUNTER → 2025-02-12 09:11 | Outpatient (BNV) | payer OTHER, SELFPAY | PROVIDERS: PCP Internal Medicine; Visit Provider Internal Medicine | DX: Z12.11 Encounter for screening for malignant neoplasm of colon (principal); D12.0 Benign neoplasm of cecum; D12.3 Benign neoplasm of transverse colon; K57.30 Diverticulosis of large intestine without perforation or abscess without bleeding | CPT/HCPCS: 45385 ==

== ENCOUNTER 2025-02-18 12:14 | Outpatient (REF) | payer OTHER, SELFPAY ==
--- NOTE | ~2025-02-18 | US_ITS ---
EXAMINATION: US THYROID HISTORY: E04.2 - Nontoxic multinodular goiter TECHNIQUE: Real-time grayscale ultrasound imaging was performed and images were reviewed. COMPARISON: Comparison is made with the prior examination dated 03/13/2023. FINDINGS: SIZE: The right thyroid lobe measures 3.6 x 0.6 x 0.8 cm. The left thyroid lobe measures 2.9 x 0.8 x 1.2 cm. The isthmus measures 2 mm. FLOW: Flow to the gland is normal. ECHOGENICITY: The echotexture of the gland is heterogeneous. NODULES: Again seen are right thyroid nodules as described below: Nodule #: 1 Location: Lower pole of the right thyroid lobe measuring 9 x 2 x 7 mm (previously 11 x 4 x 7 mm). Shape: Wider than tall (0 points) Margins: Smooth (0 points) Echotexture: Hypoechoic (2 points) Composition: Solid (2 points) Calcifications: None (0 points) Total points: 4 TIRADS: TR4: Moderately suspicious. Nodule #: 2 Location: Lower pole of the right thyroid lobe measuring 5 x 4 x 5 mm (previously 5 x 4 x 5 mm). Shape: Wider than tall (0 points) Margins: Smooth (0 points) Echotexture: Indeterminate (1 point) Composition: Solid (2 points) Calcifications: Rim calcification (2 points) Total points: 5 TIRADS: TR4: Moderately suspicious. US/US thyroid IMPRESSION: Stable subcentimeter right thyroid nodules. ACR TI-RADS Guidelines TR1 (0 points): Benign, No follow-up or biopsy required TR2 (2 points): Not Suspicious, No biopsy or follow up indicated TR3 (3 points): Mildly Suspicious, FNA if >= 2.5 cm, Follow if >= 1.5 cm TR4 (4-6 points): Moderately Suspicious, FNA if >= 1.5 cm, Follow if >= 1.0 cm TR5 (>=7 points): Highly Suspicious, FNA if >= 1.0 cm, Follow if >= 0.5 cm Electronically signed by: Lee Abreu MD 02/19/2025 07:34 AM EDT RP
--- OUTSIDE RECORDS SUMMARY | 2025-02-18 14:33 | XMS_ITS | Patient Health Record ---
Author Organization [facility] Address [address] [place] [address] [address] [place] [address] Care Team Providers Care Stock Unloader Name Role Phone Marco Comer Primary Care Provider CHANDA Rodriguez Unavailable [phone] Reason For Referral No Information Plan Of Treatment No Information
--- OUTSIDE RECORDS SUMMARY | 2025-02-18 14:33 | XMS_ITS ---
Author Name Meri SENIOR MAINTENANCE MACHINIST,TITLE I ASSISTANT,FN P,SPEECH THERAPY ASSISTANT, Kirsten Address [address] [place] [id number] Phone [phone] [facility] Care Team Providers Care Supervisor Aircraft Cleaning Name Role Phone JerezKirsten rich Unavailable [phone] Marco Martinez Unavailable [phone] Reason for Referral Not Available Allergies, adverse [...] Active 2023-05-04 N/A Other problems related to [facility] facilities and other health care Active 2024-01-15 [...] of Service Diagnosis/Co mplaint No Data Available [facility] ([place] 10/19/2022 Type 2 diabetes mellitus wit h diabetic polyneuropathyType 2 diabetes mellitus with diabetic cataractObesity, unspecifiedBody mass index (bmi) 31.0-31.9, adultPure hypercholesterolemia, unspecifiedHypothyroidism, unspecifiedAllergy, unspecified, initial encounter No Data Available [facility] [place]19[place]2022 No Data Available [facility] [place]19[place]20[place] No Data Available [facility] [place]19[place]20[place] No Data Available [facility]19[place]20[place] No Data Available [facility] [place] 10/19/2022 Estab. patient 30-39min; chronic exacerbation, 2 stable chronic or 1 acute illness add add modifier 95 for video, (do not use for phone, instead use 09672-90) [facility] [place] 05/04/2023 Type 2 diabetes mellitus wit h [...] (do not use for phone, instead use 49389-33) [facility] [place] 05/04/2023 Estab. patient 30-39min; chronic exacerbation, 2 stable chronic or 1 acute illness add add modifier 95 for video, (do not use for phone, instead use 56034-71) [facility] [place] 05/04/2023 Estab. patient 30-39min; chronic exacerbation, 2 stable chronic or 1 acute illness add add modifier 95 for video, (do not use for phone, instead use 63021-85) [facility] [place] 05/04/2023 Estab. patient 30-39min; chronic exacerbation, 2 stable chronic or 1 acute illness add add modifier 95 for video, (do not use for phone, instead use 40900-33) [facility] [place] 05/04/2023 Estab. patient 30-39min; chronic exacerbation, 2 stable chronic or 1 acute illness add add modifier 95 for video, (do not use for phone, instead use 75176-06) [facility] [place] 05/04/2023 Estab. patient 30-39min; chronic exacerbation, 2 stable chronic or 1 acute illness add add modifier 95 for video, (do not use for phone, instead use 57198-40) [facility] [place] 05/04/2023 Estab. patient 30-39min; chronic exacerbation, 2 stable chronic or 1 acute illness add add modifier 95 for video, (do not use for phone, instead use 18598-13) [facility] [place] 05/04/2023 Estab. patient 30-39min; chronic exacerbation, 2 stable chronic or 1 acute illness add add modifier 95 for video, (do not use for phone, instead use 02754-77) [facility] [place] 05/04/2023 Estab. patient 30-39min; chronic exacerbation, 2 stable chronic or 1 acute illness add add modifier 95 for video, (do not use for phone, instead use 70864-48) [facility] [place] 05/04/2023 Estab. patient 30-39min; chronic exacerbation, 2 stable chronic or 1 acute illness add add modifier 95 for video, (do not use for phone, instead use 67105-40) [facility] [place] 05/12/2024 Type 2 diabetes mellitus wit h [...] (do not use for phone, instead use 68797-71) [facility] ([place] 05/12/2024 Estab. patient 30-39min; chronic exacerbation, 2 stable chronic or 1 acute illness add add modifier 95 for video, (do not use for phone, instead use 81882-23) [facility] [place] 05/12/2024 Estab. patient 30-39min; chronic exacerbation, 2 stable chronic or 1 acute illness add add modifier 95 for video, (do not use for phone, instead use 99688-38) [facility] ([place] 05/12/2024 Estab. patient 30-39min; chronic exacerbation, 2 stable chronic or 1 acute illness add add modifier 95 for video, (do not use for phone, instead use 27776-79) [facility] ([place] 05/12/2024 Estab. patient 30-39min; chronic exacerbation, 2 stable chronic or 1 acute illness add add modifier 95 for video, (do not use for phone, instead use 74116-75) [facility] ([place] 05/12/2024 Vital Signs Date of Collection Vitals [...] tive Time Current Smoking Status Never smoker 2025-02-03 4 Sex Female History of Procedures Procedures Service Procedure code Service date Servicing provider Phone# No Data Available [id number] 2022-10-19 No Data Available No Data Available [...] (do not use for phone, instead use 49761-03) [id number] 2023-05-04 No Data Available No Data Availa [...] (do not use for phone, instead use 78125-24) [id number] 2024-05-12 No Data Available No Data Availa [...] Functional Status Functional Category Effective Dates has PIGMENT WEIGHER 2023-05-04 Cognition Status: Oriented to Person, Pl [...] in spine 2024-05-12 09:51:14 Type 2 diabetes adama itus with diabetic polyneuropathy, diabetic cataractstableGlucose: 99-108A1c: was normal metformin 500TIDEye: denies eye problems s/p cataract surgeryNeuropathy: has foot/hand pain cari at nightFollows with PCP, attending on 10/20/22Recommend low carb diet, exercise, monitor glucose, routine foot checks; notify CB of high/low glucose05/12/24: Pt to continue metformin as ordered. Unsure of most recent O5pLscgg problems related to medical facilities and other [...] call CBContinue to see PCP. [facility] as needed for any acute or [...] a histamine blocker05/12/24: Pt to continue seeing delinquent tax collection assistant as ordered. Twice monthly Xolair. Pt to call Mechanical Assembly Technician to see if they will do a [...] , exercise, control glucosestablefenofibrate, simvastatin follows with PCPRecommend low fat diet, exercisestablelevothyroxine follows with PCPstableno recent episodesgetting allergy shotsno longer taking prednisoneuses [...] PCPRecomwali low fat diet, exercisestablelevothyroxine follows with PCPstjoon recent episodesgetting allergy shotsno longer taking prednisoneuses [...] as needed for severe itch #60 tablet [id number] Review by prescribing provider or pharmacist documented [...] Concerns Date Concern 2024-05-12 Visit completed beka rubin audio/video. Patient/Guardian agreed to visit via telehealth. Today, patient has chief complaint of: follow up care and comprehensive review.Reviewed Allergies, Medications, Active Medical conditions, past medical/surgical history, Social history. 2024-05-12 Daughter Megna Sandyleigh ra is daughter. No ACP. Full code. 2024-05-12 Most recent hospital stay(s) or ER visit(s) and precipitating factors: 08/2023 cellulitis 2024-05-12 Open HEDIS Measure r eview: complete 2024-05-12 Pt is a 73 yr old fe male. Visit today completed with her delaneyerMegan translating. Pt suffers from chronic itching/hives. Currently being managed by delinquent tax collection assistant.
--- OUTSIDE RECORDS SUMMARY | 2025-02-18 14:33 | XMS_ITS ---
Author Organization [facility] Address [address] [address] Care Team Providers Care Plasma Processing Centrifuge Operator Name Role Phone Marco Comer Primary Care Provider CHANDA Rodriguez [phone] REASON FOR VISIT NEED INSURANCE INFORMATION Encounters Encounter Location Date Provider Diagnosis [facility] [address] [facility] [address] [place] [address] 11/04/2024 CHANDA SAMUEL Plan Of Treatment No Information Progress Notes * Yaneli MORRISDOB:[birth year] (74 yo F)Acc No.[id number]:11/04/2024 Progress Notes Patient:?Aditi MORRIS n Provider:?Chanda Samuel MD :[id number]???Age:74 Y???Sex:Female D ate:11/04/2024 Address:[address] [place] [address] Pcp:Marco Comer Subjective: * Chief Complaints: * ???1. NEED INSURANCE INFORMA TION. * Medical History:? Objective: * Vitals:? Assessment: Plan: * Treatment: * Images: * Electronic signature of CHANDA SAMUEL M.D. on 02/18/2025 at 02:33 PM EDT Sign off status: Pending * Provider:?Chanda Samuel MD Date:? Generated for Suzannei ng/Faadalidg/eTransmitting on:?02/18/2025 02:33 PM EDT
== END 2025-02-18 12:15 | disposition home or self-care (01) ==
LOC: HO.US 12:14
PROVIDERS: PCP Internal Medicine; Visit Provider Student in an Organized Health Care Education/Training Program
DX: E04.2 Nontoxic multinodular goiter (principal); E03.9 Hypothyroidism, unspecified
CPT/HCPCS: 76536

== ENCOUNTER → 2025-02-18 12:16 | Outpatient (BNV) | payer OTHER, SELFPAY | PROVIDERS: PCP Internal Medicine; Visit Provider Radiology Diagnostic Radiology | DX: E04.2 Nontoxic multinodular goiter (principal) | CPT/HCPCS: 76536 ==

== ENCOUNTER 2025-03-10 08:17 | Outpatient (REF) | payer OTHER, SELFPAY ==
--- OUTSIDE RECORDS SUMMARY | 2025-03-10 08:31 | XMS_ITS ---
Author Name Meri DOORPERSON OR LUGGAGE PORTER,PAPER MACHINE TENDER,FN P,SEAMSTRESS FITTER, Kirsten Address [address] [place] [address] Phone [phone] [facility] Care Team Providers Care Land Planner Name Role Phone JerezKirsten rich Unavailable [phone] Marco Martinez Unavailable [phone] Reason for Referral Not Available Allergies, adverse [...] Active 2023-05-04 N/A Other problems related to [facility] facilities and other health care Active 2024-01-15 [...] of Service Diagnosis/Co mplaint No Data Available [facility] [place]20[place] Type 2 diabetes mellitus wit h diabetic polyneuropathyType 2 diabetes mellitus with diabetic cataractObesity, unspecifiedBody mass index (bmi) 31.0-31.9, adultPure hypercholesterolemia, unspecifiedHypothyroidism, unspecifiedAllergy, unspecified, initial encounter No Data Available [facility] [place]19[place] [facility] [facility] [place] [facility] [facility] [place]2022 Estab. patient 30-39min; chronic exacerbation, 2 stable chronic or 1 acute illness add add modifier 95 for video, (do not use for phone, instead use 64478-17) [facility] [place] 05[place]04[place]2023 Type 2 diabetes mellitus wit h [...] (do not use for phone, instead use 32368-61) [facility] [place]2023 Estab. patient 30-39min; chronic exacerbation, 2 stable chronic or 1 acute illness add add modifier 95 for video, (do not use for phone, instead use 98828-22) [facility] [place]04/2023 Estab. patient 30-39min; chronic exacerbation, 2 stable chronic or 1 acute illness add add modifier 95 for video, (do not use for phone, instead use 11249-31) [facility] [place] 05[place]04/2023 Estab. patient 30-39min; chronic exacerbation, 2 stable chronic or 1 acute illness add add modifier 95 for video, (do not use for phone, instead use 55598-14) [facility] [place]04[place]2023 Estab. patient 30-39min; chronic exacerbation, 2 stable chronic or 1 acute illness add add modifier 95 for video, (do not use for phone, instead use 14520-57) [facility] [place]2023 Estab. patient 30-39min; chronic exacerbation, 2 stable chronic or 1 acute illness add add modifier 95 for video, (do not use for phone, instead use 13041-41) [facility] [place]2023 Estab. patient 30-39min; chronic exacerbation, 2 stable chronic or 1 acute illness add add modifier 95 for video, (do not use for phone, instead use 30427-30) [facility] [place]/2023 Estab. patient 30-39min; chronic exacerbation, 2 stable chronic or 1 acute illness add add modifier 95 for video, (do not use for phone, instead use 48748-18) [facility] [place] 05[place]04/2023 Estab. patient 30-39min; chronic exacerbation, 2 stable chronic or 1 acute illness add add modifier 95 for video, (do not use for phone, instead use 95514-11) [facility] [place] 05[place]04/2023 Estab. patient 30-39min; chronic exacerbation, 2 stable chronic or 1 acute illness add add modifier 95 for video, (do not use for phone, instead use 32898-37) [facility] [place] 05[place]12/2024 Type 2 diabetes mellitus wit h [...] (do not use for phone, instead use 31242-80) [facility] [place]20[place] Estab. patient 30-39min; chronic exacerbation, 2 stable chronic or 1 acute illness add add modifier 95 for video, (do not use for phone, instead use 34177-16) [facility] [place] 05/12/2024 Estab. patient 30-39min; chronic exacerbation, 2 stable chronic or 1 acute illness add add modifier 95 for video, (do not use for phone, instead use 45975-02) [facility] [place] Estab. patient 30-39min; chronic exacerbation, 2 stable chronic or 1 acute illness add add modifier 95 for video, (do not use for phone, instead use 76862-72) [facility] [place] 05[place]12/2024 Estab. patient 30-39min; chronic exacerbation, 2 stable chronic or 1 acute illness add add modifier 95 for video, (do not use for phone, instead use 14929-04) [facility] [place] 05/[place]/2024 Vital Signs Date of Collection Vitals [...] tive Time Current Smoking Status Never smoker 4 Sex Female History of Procedures Procedures Service Procedure code Service date Servicing provider Phone# No Data Available [id number] 2022-10-19 No Data Available No Data Available [...] (do not use for phone, instead use 12611-65) [id number] 2023-05-04 No Data Available No Data Availa [...] (do not use for phone, instead use 08249-24) [id number] 2024-05-12 No Data Available No Data Availa [...] Functional Status Functional Category Effective 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 Unsure of most recent [id number] problems related to medical facilities and other [...] call CBContinue to see PCP. Follow-up with [facility] as needed for any acute or [...] a histamine blocker05/12/24: Pt to continue seeing outboard system operator as ordered. Twice monthly Xolair. Pt to call [facility] to see if they will do a [...] as needed for severe itch #60 tablet [id number] Review by prescribing provider or pharmacist documented [...] from chronic itching/hives. Currently being managed by outboard system operator.
--- OUTSIDE RECORDS SUMMARY | 2025-03-10 08:32 | XMS_ITS ---
Author Organization [facility] Address [address] [address] Care Team Providers Care Costume Mistress Name Role Phone Marco Comer Primary Care Provider CHANDA Rodriguez [phone] REASON FOR VISIT NEED INSURANCE INFORMATION Encounters Encounter Location Date Provider Diagnosis [facility] [address] [facility] [address] [place] [address] 11/04/2024 CHANDA SAMUEL Plan Of Treatment No Information Progress Notes * Yaneli MORRISDOB:[birth year] (74 yo F)Acc No.[id number]:11/04/2024 Progress Notes Patient:?Aditi MORRIS n Provider:?Chanda Samuel MD :[id number]???Age:74 Y???Sex:Female D ate:11/04/2024 Address:[address] [place] [address] Pcp:Marco Comer Subjective: * Chief Complaints: * ???1. NEED INSURANCE INFORMA TION. * Medical History:? Objective: * Vitals:? Assessment: Plan: * Treatment: * Images: * Electronic signature of CHANDA SAMUEL M.D. on 03/10/2025 at 08:31 AM EDT Sign off status: Pending * Provider:?Chanda Samuel MD Date:? Generated for Suzannei lisa/Tato/eTransmitting on:?03/10/2025 08:31 AM EDT
--- OUTSIDE RECORDS SUMMARY | 2025-03-10 08:32 | XMS_ITS | Patient Health Record ---
Author Organization [facility] Address [address] [place] [address] [address] [place] [address] Care Team Providers Care Particle Board Supervisor Name Role Phone Marco Comer Primary Care Provider UnavailCHANDA Powell Unavailable [phone] Reason For Referral No Information Plan Of Treatment No Information
[2025-03-10 08:41] LABS: MANUAL DIFF FLAG NO
[2025-03-10 09:24] LABS: Hematocrit 39.7 % (37.0-47.0); Imm Gran Abs Auto 0.02 X10*3/uL (0.00-0.03); Imm Gran Pct Auto 0.4 % (0.0-0.4); Lymphocytes Absolute Auto 2.1 X10*3/uL (1.2-4.9); Lymphocytes Percent Auto 44.1 % (20-40); Mean Corpuscular HGB Conc 30.2 g/dl (31.0-35.0); Mean Corpuscular Volume 85.9 fL (80.0-98.0); Mean Platelet Volume 9.8 fL (9.4-12.3); Monocytes Absolute Auto 0.4 X10*3/uL (0.1-1.2); Monocytes Percent Auto 8.8 % (2-11); Neutrophils Absolute Auto 2.2 x10*3/uL (2.0-8.3); Neutrophils Percent Auto 46.7 % (45-73); Platelet Count 297 X10*3/uL (160-400); Red Blood Count 4.62 X10*6/uL (4.20-5.50); White Blood Count 4.7 X10*3/uL (4.8-10.8)
[2025-03-10 10:04] LABS: Alanine Aminotransferase 19 U/L (0-31); Alkaline Phosphatase 59 U/L (39-117); Anion Gap 12 (12-20); Aspartate Amino Transferase 20 U/L (5-31); Bilirubin Total 0.3 mg/dL (0.0-1.0); Blood Urea Nitrogen 12 mg/dL (9-16); Calcium 10.2 mg/dL (8.4-10.2); Carbon Dioxide 27 mmol/L (22-29); Chloride 106 mmol/L (96-108); Cholesterol 182 mg/dL (<200); Estimated Glomerular Filt Rate > 60; Glucose Fasting 88 mg/dL (60-99); Sodium 141 mmol/L (135-145); Total Protein 6.6 g/dL (6.5-8.0); Triglycerides 376 mg/dL (<150)
[2025-03-10 10:12] LABS: Appearance Urine Clear; Color Urine Yellow; Glucose Urine UA Negative (Negative); Leukocyte Esterase Urine Moderate (2+) (Negative); Nitrite Urine Negative (Negative); UMIC TRIGGER UACC YES; Urine Blood Negative (Negative); Urine Ketones Negative (Negative); Urine Protein Negative (Neg-Trace)
[2025-03-10 10:28] LABS: Free T4 (Free Thyroxine) 1.15 ng/dL (0.71-1.85); HDL Cholesterol 49 mg/dL (>40); LDL Cholesterol Calculated 58 mg/dL (<100); Thyroid Stimulating Hormone 2.23 uIU/mL (0.32-4.0); Vitamin D 25-OH Total 49.5 ng/mL (>30)
[2025-03-10 10:31] LABS: Bacteria Urine None Seen (None Seen); Hyaline Casts Urine 0-2 /LPF (0-2); RBC Urine 0-2 /HPF (0-2); Squamous Epithelial Cell Urine 0-2 /HPF (0-2); UACC Culture Trigger YES; WBC Urine 0-5 /HPF (0-5)
[2025-03-10 10:37] LABS: Folate 12.9 ng/mL (> or = 4.0); Vitamin B12 435 pg/mL (200-900)
== END 2025-03-10 08:18 | disposition home or self-care (01) ==
LOC: HO.LAB 08:17
PROVIDERS: PCP Internal Medicine; Visit Provider Internal Medicine
DX: D64.9 Anemia, unspecified (principal); E78.00 Pure hypercholesterolemia, unspecified; E03.9 Hypothyroidism, unspecified; E55.9 Vitamin D deficiency, unspecified; E53.8 Deficiency of other specified B group vitamins; R30.0 Dysuria
CPT/HCPCS: 36415; 80053; 80061; 81001; 81003; 82306; 82607; 82746; 84439; 84443; 85025; 87086; 87147

== ENCOUNTER 2025-03-11 13:11 | Outpatient (AMB) | payer OTHER, SELFPAY ==
[2025-03-11 13:16] VITALS: BP 122/80; PULSE 67; O2SAT 96; BMI 33.2
--- NOTE | 2025-03-11 13:16 | MHC.PC.OV ---
Vital Signs 03/11/25 13:16 Height 4 ft 11 in Weight 164 lb 8 oz BMI 33.2 BP 122/80 Blood Pressure Location Lt brachial Position Sitting Pulse 67 Pulse Source Pulse Oximeter Pulse Oximetry (%) 96 Oxygen Delivery Method Room Air Intake Visit Reasons: Follow Up - see comments Overlock Operator Required: No Accompanied by: Self / Same As Patient Allergies No Known Allergies Allergy (Verified 03/11/25 13:39) Medication List - Last Reconciled 03/11/25 by Marco Martinez MD ascorbic acid (vitamin C) (Vitamin C) 500 mg PO DAILY atorvastatin 40 mg PO BEDTIME 90 days betamethasone valerate 0.1% 1 appl topical BID PRN 30 days [bladder control pads As directed] blood sugar diagnostic (HalobandTouch Verio test strips) 50 strips miscellaneous BID calcium carbonate-vitamin D3 500 mg-10 mcg (400 unit) (Calcium 500 With D) 1 tab PO BID cholecalciferol (vitamin D3) 25 mcg PO DAILY cromolyn 100 mg PO TID cyanocobalamin (vitamin B-12) 1,000 mcg PO DAILY epinephrine (EpiPen 2-Mark) 0.3 mg (0.3 mL) IM Q10M PRN fenofibrate nanocrystallized 145 mg PO DAILY ferrous fumarate 324 mg PO DAILY 90 days fexofenadine 180 mg PO DAILY [gloves (Medium) As directed] hydrocortisone 2.5% 1 appl topical BID PRN hydroxyzine HCl 50 mg PO BID PRN lancets (HalobandTouch UltraSoft Lancets) As directed- In Vitro twice a day levocetirizine 5 mg PO DAILY levothyroxine 112 mcg PO DAILY lidocaine 5% 1 patch topical DAILY 30 days metformin 500 mg PO TID montelukast 10 mg PO BEDTIME nabumetone 500 mg PO BID omalizumab 300 mg subcut Q2W [personal wipes As directed] [rollator walker As directed] [shower chair with back As directed] tizanidine 2 mg PO BEDTIME PRN turmeric-turmeric ext-pepper 500-3 mg 1 cap PO DAILY Ventolin HFA 90 mcg/actuation (albuterol sulfate) 2 puffs inhalation Q6H PRN 30 days NS Tobacco use date assessed: 03/11/25 Fall risk assessment: No Falls in past year Last assessed Fall Risk: 03/11/25 Dental Screening Dental Screen Date: 03/11/25 Did you have a dental visit in the last 12 months?: Yes Did you have a dental problem in the last 6 months where you did not have access to dental care?: No Was dental information given to patient?: Patient has dentist HPI Follow Up - see comments HPI Details Patient comes in today for her follow up visit States that she feels okay She denies any headaches or dizziness Denies any chest pains, no shortness of breath No nausea/vomiting, no abdominal pain No change in bowel habits noted She is now back on her thyroid medication and appears to be doing well on it so far States that her low back pain remains adequately controlled at present She had her follow-up labs done yesterday - to discuss her results [facility] Medical History Hypothyroidism Multinodular goiter Prosthetic eye globe Lumbar back pain with radiculopathy affecting right lower extremity Anemia Frequent falls Dizziness Carpal tunnel syndrome, bilateral Mixed hyperlipidemia Obesity (BMI 30-39.9) Memory impairment Osteoarthritis of both hands Vitamin B12 deficiency Vitamin D deficiency Primary osteoarthritis of both knees Osteopenia Asthma Chronic idiopathic urticaria Acquired hypothyroidism Benign essential hypertension Diabetes mellitus without complication Surgical History H/O colonoscopy Status post carpal tunnel release (~06/02/21) Tubal ligation status Hx of section History of total right knee replacement (~2012) Family History Father No problems noted. 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 1. Little interest or pleasure in doing things: not at all 2. Feeling down, depressed, or hopeless: not at all 3. Trouble falling or staying asleep, or sleeping too much: not at all 4. Feeling tired or having little energy: not at all 5. Poor appetite or overeating: not at all 6. Feeling bad about yourself - or that you are a failure or have let yourself or your family down: not at all 7. Trouble concentrating on things, such as reading the newspaper or watching television: not at all 8. Moving or speaking so slowly that other people could have noticed. Or the opposite - being so fidgety or restless that you have been moving around a lot more than usual: not at all 9. Thoughts that you would be better off or of hurting yourself in some way: not at all Total score: 0 Depression Screening Interpretation: Negative Depression Screening Done: Yes 94817 - PHQ-9 Billing: Yes Source: Developed by Drs. Lee Cardenas, Sunni Cross, Steve Mcadams and colleagues, with an educational sajan from [employer]. Thrive Questionnaire Date Thrive assessed: 03/11/25 I am a: Parent/Caregiver What is your living situation today?: I have a steady place to live Within the past 12 months, did the food you bought not last and you didn't have the money to get more?: I choose not to answer this question Within the past 12 months, did you worry whether your food would run out before you got money to buy more?: I choose not to answer this question Do you have trouble paying for medicines?: I choose not to answer this question Do you have trouble getting transportation to medical appointments?: I choose not to answer this question Do you have trouble paying your heating and electricity bill?: I choose not to answer this question Do you have trouble taking care of your child, family member or friend?: I choose not to answer this question Do you have trouble with day-to-day activities such as bathing, preparing meals, shopping, managing finances, etc.?: I choose not to answer this question Are you currently unemployed and looking for a job?: I choose not to answer this question Are you interested in more education?: I choose not to answer this question Please select the resources that you would like help with: None Currently or been in a relationship where the following occur: I choose not to answer THRIVE Score: 0 AUDIT C Alcohol Use Questionnaire (AUDIT-C) 1. How often do you have a drink containing alcohol?: Never 3. How often do you have six or more drinks on one occasion?: Never Total Score: 0 Score Reviewed/Action Taken: Yes ANSON-7 AMB Questionnaire ANSON-7 Date ANSON - 7 assessed: 03/11/25 Feeling nervous, anxious, or on edge: 0 = Not at all Not being able to stop or control worryin = Not at all Worrying too much about different things: 0 = Not at all Trouble relaxin = Not at all Being so restless that it is hard to sit still: 0 = Not at all Becoming easily annoyed or irritable: 0 = Not at all Feeling afraid as if something awful might happen: 0 = Not at all Total ANSON-7 score (0-4 normal; 5-9 mild; 10-14 moderate; 15-21 severe): 0 Source: Developed by Drs. Lee Cardenas, Sunni Cross, Steve Mcadams and colleagues, with an educational sajan from [employer]. Review of Systems Const Denies chills, Reports fatigue, Denies fever(s) and Denies headache(s) Eyes Details: (+) prosthetic right eye ENT Denies dysphagia, Denies dizziness, Denies otalgia, Denies headache(s), Denies neck pain, Denies odynophagia and Denies sore throat Card Denies chest pain, Denies palpitations and Denies dyspnea Resp Denies chest congestion, Denies cough and Denies dyspnea GI Denies abdominal pain, Denies constipation, Denies dysphagia, Denies heartburn, Denies diarrhea, Denies nausea, Denies odynophagia and Denies vomiting Denies difficulty voiding, Denies nocturia, Denies dysuria and Denies urinary urgency Musc Reports back pain (chronic), Reports arthralgias (over both knees - increasing) and Denies neck pain Skin/Breast Denies rash Neuro Denies dizziness and Denies headache(s) Psych Denies anxiety and Denies depression Endo Reports fatigue and Denies palpitations Ranjit/Lymph Denies easy bruising Physical exam (Primary Care) Vital Signs: Last Vital Signs Pulse 67 03/11/25 13:16 BP 122/80 03/11/25 13:16 Pulse Ox 96 03/11/25 13:16 Oxygen Delivery Method Room Air 03/11/25 13:16 BMI result Body Mass Index 33.2 Tobacco/Smoking Status: Tobacco use Status Tobacco use date assessed 03/11/25 03/11/25 13:19 Patient Tobacco Use Status Former Tobacco user 03/11/25 13:17 Tobacco use type Cigarette 03/11/25 13:17 e-Cigarette/Vaping Use Never Used 03/11/25 13:17 PHQ-9: PHQ-9 Score PHQ-9: Total score 0 03/11/25 13:37 Depression Screening Interpretation: Negative Thrive Assessment: Date of Thrive Assessment Date Thrive assessed 03/11/25 03/11/25 13:19 Currently or been in a relationship where the following occur: I choose not to answer Const General: no acute distress and alert HENMT Ears: TM's normal bilaterally and EAC's normal Throat: Yes posterior oropharynx normal and Yes tonsils normal (no TP congestion noted) Eyes Other: (+) prosthetic right eye; left eye exam is grossly normal Neck Neck: Yes supple and No lymphadenopathy Thyroid: Thyroid normal Resp Auscultation: clear to auscultation bilaterally, no rales and no wheezes Cardio Rate: regular rate Rhythm: regular rhythm Heart sounds: no murmurs GI Palpation (GI): Soft to palpation and nontender Auscultation: normal bowel sounds General: Yes no CVA tenderness Back/Spine/Pelvis Back: no CVA tenderness Thoracic/Lumbar Spine: thoracic spinal tenderness and lumbar spinal tenderness Skin Rashes: no rashes Extrem General: Yes no clubbing, cyanosis or edema Right lower extremity: knee Details: tenderness; no swelling Left lower extremity: knee Details: tenderness; no swelling Results AMB Hemoglobin A1c AMB Hemoglobin A1c 5.3 % Last Edit by SHELLY Knight on 03/11/25 13:38 Results Reviewed Results Reviewed: Laboratory Last Values Hgb A1c (Clinic) 5.3 % (4.0-6.0) 03/11/25 13:19 Laboratory Tests 03/10/25 03/10/25 08:30 08:40 WBC 4.7 L Hgb 12.0 Hct 39.7 Plt Count 297 Sodium 141 Potassium 4.0 Creatinine 0.75 Estimated GFR > 60 Fasting Glucose 88 Calcium 10.2 AST 20 ALT 19 Triglycerides 376 H Cholesterol 182 LDL Cholesterol, Calc 58 HDL Cholesterol 49 Vitamin B12 435 25-OH Vitamin D Total 49.5 TSH 2.23 Free T4 1.15 Ur Specific [place] 1.010 Urine Protein Negative Urine Glucose (UA) Negative Urine Blood Negative Urine Nitrite Negative Ur Leukocyte Esterase Moderate (2+) H Coding Level of Care Code Est Pt Level 4 (83147) Complex EM visit Add On G2211 Diagnoses Mixed hyperlipidemia E78.2 Diabetes mellitus without complication E11.9 Benign essential hypertension I10 Acquired hypothyroidism E03.9 Chronic idiopathic urticaria L50.1 Mild persistent asthma without complication J45.30 Asthma severity: mild Asthma persistence: persistent Asthma complication type: uncomplicated Osteopenia, unspecified location M85.80 Osteopenia location: unspecified Vitamin B12 deficiency E53.8 Vitamin D deficiency E55.9 Primary osteoarthritis of both knees M17.0 Primary osteoarthritis of both hands M19.041; M19.042 Osteoarthritis type: primary Facet arthritis of lumbar region M47.816 Carpal tunnel syndrome, bilateral G56.03 Memory impairment R41.3 Obesity (BMI 30-39.9) E66.9 Additional Codes PHQ-9 - 91293 - PHQ-9 Billing: Yes ([id number]) Assessment & Plan Assessment & Plan (1) Mixed hyperlipidemia: Code(s): E78.2 - Mixed hyperlipidemia Category: Medical Plan: Results of her labs done yesterday reviewed and discussed with patient - she is advised that her cholesterol levels have all improved significantly from previous and are now at goal Reinforced low cholesterol diet Continue Fenofibrate 145 mg QD and Atorvastatin 40 mg QD Will recheck her labs and fasting lipids in 4 months for follow-up (2) Diabetes mellitus without complication: Code(s): E11.9 - Type 2 diabetes mellitus without complications Category: Medical Plan: Her in-office HgbA1c is at 5.3% today (her HgbA1c was at 6.3% a few months ago) - goal is at least <7.0% but ideally <6.5% Reinforced diabetic diet Continue Metformin 500 mg TID (3) Benign essential hypertension: Code(s): I10 - Essential (primary) hypertension Category: Medical Plan: Reinforced low sodium diet - goal is systolic BP of at least 140 mm or less She has so far not needed to be started on any Rx for her blood pressure yet She is reminded to continue monitoring her blood pressure regularly (4) Acquired hypothyroidism: Code(s): E03.9 - Hypothyroidism, unspecified Category: Medical Plan: She is now back on Levothyroxine 112 mcg QD and her TFTs are back to normal on her recent labs She is clinically euthyroid at present Follow up with endocrinology as scheduled (5) Chronic idiopathic urticaria: Code(s): L50.1 - Idiopathic urticaria Category: Medical Plan: This was reportedly due to her allergy to Levothyroxine as patient states that her symptoms practically disappeared as soon as she stopped taking her Rx but she is now back on Levothyroxine without any flare ups of her urticarial symptoms Follow up with marketing analytics specialist (Dr. Bernal at [facility]) as scheduled (6) Asthma: Code(s): J45.909 - Unspecified asthma, uncomplicated Category: Medical Qualifiers: Asthma severity: mild Asthma persistence: persistent Asthma complication type: uncomplicated Qualified Code(s): J45.30 - Mild persistent asthma, uncomplicated Plan: Controlled Continue Flovent HFA 110 mcg 1 puff BID and ProAir HFA 2 puffs up to 4 times a day as needed (7) Osteopenia: Code(s): M85.80 - Other specified disorders of bone density and structure, unspecified site Category: Medical Qualifiers: Osteopenia location: unspecified Qualified Code(s): M85.80 - Other specified disorders of bone density and structure, unspecified site Plan: Her most recent BMD done on 06/25/2024 revealed (+) osteopenia based on the lowest T-score value of -1.4 in the femoral neck and is mostly unchanged from her previous BMD on 06/03/2019 Her 10-YEAR FRAX score is at 9.8% for major osteoporotic fracture (clinical spine, forearm, hip or shoulder) and 2.1% for hip fracture Patient is again encouraged to continue with regular exercise and physical activity as well as her daily vitamin D and Calcium supplements Will continue to monitor her BMD regularly (8) Vitamin B12 deficiency: Code(s): E53.8 - Deficiency of other specified B group vitamins Category: Medical Plan: Continue Vitamin B12 1000 mcg QD (9) Vitamin D deficiency: Code(s): E55.9 - Vitamin D deficiency, unspecified Category: Medical Plan: Continue Vitamin D3 1000 units QD (10) Primary osteoarthritis of both knees: Comment: S/P total right knee arthroplasty in 2012 Code(s): M17.0 - Bilateral primary osteoarthritis of knee Category: Medical Plan: She used to take Meloxicam 15 mg QD PRN but now just takes OTC Tylenol PRN with some relief She appears to have had inteventional Tx with right saphenous nerve PNS in the past, which supposedly provided her with significant pain relief She was more recently offered a [employer] device and RFA but was advised that she should try physical therapy first, which she declined Have advised patient that she should try physical therapy first before pain management can proceed with her interventional Tx due to insurance regulations - advised that unless she goes through the necessary steps, insurance will not cover any of her proposed interventional procedures Follow-up with Orthopedics and with pain management as scheduled (11) Osteoarthritis of both hands: Code(s): M19.041 - Primary osteoarthritis, right hand; M19.042 - Primary osteoarthritis, left hand Category: Medical Qualifiers: Osteoarthritis type: primary Qualified Code(s): M19.041 - Primary osteoarthritis, right hand; M19.042 - Primary osteoarthritis, left hand Plan: X-rays of both hands done last year revealed (+) osteoarthritis changes bilaterally; repeat x-rays of the left hand showed (+) arthritis of the IP joints Patient is encouraged again to continue with regular hand exercises to help minimize her stiffness and pain Follow up with orthopedics as scheduled (12) Facet arthritis of lumbar region: Code(s): M47.816 - Spondylosis without myelopathy or radiculopathy, lumbar region Category: Medical Plan: Reinforced activity and weight-lifting restrictions Lumbar spine x-rays done back in February 2021 revealed (+) mild lumbar spine DDD and facet arthritis Repeat thoracic and lumbar spine x-rays done in March 2022 revealed moderate multilevel degenerative disc disease of the thoracic and lumbar spine, with prominent anterior endplate osteophytes within the mid-thoracic spine and prominent bilateral facet arthropathy at L5-S1 Have recommended a referral to physical therapy but patient would like to hold off on this for now and states that she will call for referral if she changes her mind She also has Lidocaine patches 5% to use QD PRN for pain Follow up with pain management as scheduled (13) Carpal tunnel syndrome, bilateral: Comment: NCV done back in 2015 revealed (+) moderatedly severe bilateral carpal tunnel syndrome; EMG was normal Code(s): G56.03 - Carpal tunnel syndrome, bilateral upper limbs Category: Medical Plan: S/P left carpal tunnel release surgery with Dr. Diaz at [facility] back in 2020, with significant improvement / relief of her symptoms Follow-up with orthopedics as scheduled (14) Memory impairment: Code(s): R41.3 - Other amnesia Category: Medical Plan: Follow up with neurology as scheduled (15) Obesity (BMI 30-39.9): Code(s): E66.9 - Obesity, unspecified Category: Medical Plan: Reinforced diet; exercise and weight loss are unrealistic given patient's multiple physical issues and comorbidities Plan Follow up in 4 months Orders: Orders AMB Hemoglobin A1c Today Z13.9 - Encounter for screening, unspecified Complete Blood Count Auto Diff 4 Months D64.9 - Anemia, unspecified Thyroid Stimulating Hormone 4 Months E03.9 - Hypothyroidism, unspecified UA CC w/rflx Micro + Cult 4 Months R30.0 - Dysuria Vitamin B12 and Folate 4 Months E53.8 - Deficiency of other specified B group vitamins Comprehensive [place]. Panel Fast 4 Months E78.00 - Pure hypercholesterolemia, unspecified Free T4 (Free Thyroxine) 4 Months E03.9 - Hypothyroidism, unspecified Lipid Panel 4 Months E78.00 - Pure hypercholesterolemia, unspecified Hemoglobin A1c 4 Months E11.9 - Type 2 diabetes mellitus without complications Microalbumin, Random (w Creat) 4 Months E11.9 - Type 2 diabetes mellitus without complications Vitamin D 25-OH Total 4 Months E55.9 - Vitamin D deficiency, unspecified
--- OUTSIDE RECORDS SUMMARY | 2025-03-11 14:25 | XMS_ITS ---
Author Name Meri RAMPMAN,PASTRY DECORATOR,FN P,OPERATIONS RECRUITER, Kirsten Address [address] [place] [address] Phone [phone] [facility] Care Team Providers Care Food And Beverage Assistant Manager Name Role Phone JerezKirsten rich Unavailable [phone] Marco Martinez Unavailable [phone] Reason for Referral Not Available Allergies, adverse [...] 2023-05-04 N/A Other problems related to [facility] facilities and other health care Active [...] of Service Diagnosis/Co mplaint No Data Available [facility]19[place]2022 Type 2 diabetes mellitus wit h diabetic polyneuropathyType 2 diabetes mellitus with diabetic cataractObesity, unspecifiedBody mass index (bmi) 31.0-31.9, adultPure hypercholesterolemia, unspecifiedHypothyroidism, unspecifiedAllergy, unspecified, initial encounter No Data Available [facility] 10[place]19/20[place] No Data Available [facility] No Data Available [facility] No Data Available [facility] No Data Available [facility]19/2022 Estab. patient 30-39min; chronic exacerbation, 2 stable chronic or 1 acute illness add add modifier 95 for video, (do not use for phone, instead use 19957-69) [facility] 05[place]04[place]2023 Type 2 diabetes mellitus wit h [...] (do not use for phone, instead use 07053-00) [facility]20[place] Estab. patient 30-39min; chronic exacerbation, 2 stable chronic or 1 acute illness add add modifier 95 for video, (do not use for phone, instead use 66106-49) [facility] 05[place]04/2023 Estab. patient 30-39min; chronic exacerbation, 2 stable chronic or 1 acute illness add add modifier 95 for video, (do not use for phone, instead use 02232-41) [facility] 05[place]04/2023 Estab. patient 30-39min; chronic exacerbation, 2 stable chronic or 1 acute illness add add modifier 95 for video, (do not use for phone, instead use 75603-10) [facility] 05/04/2023 Estab. patient 30-39min; chronic exacerbation, 2 stable chronic or 1 acute illness add add modifier 95 for video, (do not use for phone, instead use 62419-95) [facility] 05/04/2023 Estab. patient 30-39min; chronic exacerbation, 2 stable chronic or 1 acute illness add add modifier 95 for video, (do not use for phone, instead use 28751-17) [facility] 05/04/2023 Estab. patient 30-39min; chronic exacerbation, 2 stable chronic or 1 acute illness add add modifier 95 for video, (do not use for phone, instead use 30370-08) [facility] 05[place]04/2023 Estab. patient 30-39min; chronic exacerbation, 2 stable chronic or 1 acute illness add add modifier 95 for video, (do not use for phone, instead use 11877-88) [facility] 05/04/2023 Estab. patient 30-39min; chronic exacerbation, 2 stable chronic or 1 acute illness add add modifier 95 for video, (do not use for phone, instead use 52323-21) [facility] 05/04/2023 Estab. patient 30-39min; chronic exacerbation, 2 stable chronic or 1 acute illness add add modifier 95 for video, (do not use for phone, instead use 10805-27) [facility] 05/12/2024 Type 2 diabetes mellitus wit h [...] (do not use for phone, instead use 42449-56) [facility] Estab. patient 30-39min; chronic exacerbation, 2 stable chronic or 1 acute illness add add modifier 95 for video, (do not use for phone, instead use 76170-43) [facility] 05/12/20[place] Estab. patient 30-39min; chronic exacerbation, 2 stable chronic or 1 acute illness add add modifier 95 for video, (do not use for phone, instead use 08403-38) [facility] ([place] 05[place]/20[place] Estab. patient 30-39min; chronic exacerbation, 2 stable chronic or 1 acute illness add add modifier 95 for video, (do not use for phone, instead use 83387-52) [facility] [place] 05[place]12/20[place] Estab. patient 30-39min; chronic exacerbation, 2 stable chronic or 1 acute illness add add modifier 95 for video, (do not use for phone, instead use 35456-22) [facility] ([place] 05/12/2024 Vital Signs Date of Collection Vitals [...] tive Time Current Smoking Status Never smoker 5 Sex Female History of Procedures Procedures Service Procedure code Service date Servicing provider Phone# No Data Available [id number] 2022-10-19 No Data Available No Data Available [...] (do not use for phone, instead use 58135-75) [id number] 2023-05-04 No Data Available No Data Availa [...] (do not use for phone, instead use 28192-29) 65634 2024-05-12 No Data Available No Data Availa [...] Functional Status Functional Category Effective Dates has HAIR BALER 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 Unsure of most recent [id number] problems related to medical facilities and other [...] call CBContinue to see PCP. Follow-up with [facility] as needed for any acute or disease [...] a histamine blocker05/12/24: Pt to continue seeing exhibit specialist as ordered. Twice monthly Xolair. Pt to call [facility] to see if they will do a [...] as needed for severe itch #60 tablet [id number] Review by prescribing provider or pharmacist documented [...] from chronic itching/hives. Currently being managed by exhibit specialist.
--- OUTSIDE RECORDS SUMMARY | 2025-03-11 14:25 | XMS_ITS | Patient Health Record ---
Author Organization [facility] Network Address [address] [place] [address] [address] [place] [address] Care Team Providers Care Business Controller Name Role Phone Marco Comer Primary Care Provider UnavailCHANDA Powell Unavailable [phone] Reason For Referral No Information Plan Of Treatment No Information
--- OUTSIDE RECORDS SUMMARY | 2025-03-11 14:26 | XMS_ITS ---
Author Organization [facility] Network Address [address] [address] Care Team Providers Care Personal Trainer Name Role Phone Marco Comer Primary Care Provider CHANDA Rodriguez [phone] REASON FOR VISIT NEED INSURANCE INFORMATION Encounters Encounter Location Date Provider Diagnosis [facility] 75 [facility] 1 [place] [address] 11/04/2024 CHANDA SAMUEL Plan Of Treatment No Information Progress Notes * Yaneli MORRISDOB:[birth year] (74 yo F)Acc No.[id number]:11/04/2024 Progress Notes Patient:?Aditi MORRIS n Provider:?Chanda Samuel MD :1950???Age:74 Y???Sex:Female D ate:11/04/2024 Address:[address] [place] [address] Pcp:Marco Comer Subjective: * Chief Complaints: * ???1. NEED INSURANCE INFORMA TION. * Medical History:? Objective: * Vitals:? Assessment: Plan: * Treatment: * Images: * Electronic signature of CHANDA SAMUEL M.D. on 03/11/2025 at 02:25 PM EDT Sign off status: Pending * Provider:?Chanda Samuel MD Date:? Generated for Suzannei lisa/Tato/eTransmitting on:?03/11/2025 02:25 PM EDT
== END 2025-03-11 13:55 | disposition home or self-care (01) ==
LOC: HO.HMCH 13:12
PROVIDERS: PCP Internal Medicine; Visit Provider Internal Medicine
DX: E11.9 Type 2 diabetes mellitus without complications (principal); E78.2 Mixed hyperlipidemia; I10 Essential (primary) hypertension; E03.9 Hypothyroidism, unspecified; L50.1 Idiopathic urticaria; J45.30 Mild persistent asthma, uncomplicated; M85.80 Other specified disorders of bone density and structure, unspecified site; E53.8 Deficiency of other specified B group vitamins; E55.9 Vitamin D deficiency, unspecified; M17.0 Bilateral primary osteoarthritis of knee; M19.041 Primary osteoarthritis, right hand; M19.042 Primary osteoarthritis, left hand

== ENCOUNTER → 2025-03-11 13:11 | Outpatient (BNVA) | payer OTHER, SELFPAY | PROVIDERS: PCP Internal Medicine; Visit Provider Internal Medicine | DX: E78.2 Mixed hyperlipidemia (principal); E11.9 Type 2 diabetes mellitus without complications; E03.9 Hypothyroidism, unspecified; L50.1 Idiopathic urticaria; I10 Essential (primary) hypertension; J45.30 Mild persistent asthma, uncomplicated; M85.80 Other specified disorders of bone density and structure, unspecified site; E53.8 Deficiency of other specified B group vitamins; E55.9 Vitamin D deficiency, unspecified; M17.0 Bilateral primary osteoarthritis of knee; M19.041 Primary osteoarthritis, right hand; M19.042 Primary osteoarthritis, left hand; M47.816 Spondylosis without myelopathy or radiculopathy, lumbar region; G56.03 Carpal tunnel syndrome, bilateral upper limbs; R41.3 Other amnesia; E66.9 Obesity, unspecified; Z68.33 Body mass index [BMI] 33.0-33.9, adult; Z71.3 Dietary counseling and surveillance | CPT/HCPCS: 83036; 96127; 99212 ==

== ENCOUNTER 2025-03-25 09:19 | Outpatient (REF) | payer OTHER, SELFPAY ==
--- OUTSIDE RECORDS SUMMARY | 2025-03-25 10:39 | XMS_ITS ---
Author Name Meri AWNING FINISHER,REFRIGERATOR REPAIRMAN,FN P,ELECTRONICS INSTALLER, Kirsten Address [address] [place] [address] Phone [phone] [facility] Care Team Providers Care Automatic Dispenser Mechanic Name Role Phone JerezKirsten rich Unavailable [phone] Marco Martinez Unavailable [phone] Reason for Referral Not Available Allergies, adverse [...] Active 2023-05-04 N/A Other problems related to [facility] facilities and other health care Active [...] of Service Diagnosis/Co mplaint No Data Available [facility]20[place] Type 2 diabetes mellitus wit h diabetic polyneuropathyType 2 diabetes mellitus with diabetic cataractObesity, unspecifiedBody mass index (bmi) 31.0-31.9, adultPure hypercholesterolemia, unspecifiedHypothyroidism, unspecifiedAllergy, unspecified, initial encounter No Data Available [facility]19[place]20[place] No Data Available [facility] No Data Available [facility] No Data Available [facility] Data Available [facility] Estab. patient 30-39min; chronic exacerbation, 2 stable chronic or 1 acute illness add add modifier 95 for video, (do not use for phone, instead use 03700-19) [facility]2023 Type 2 diabetes mellitus wit h [...] (do not use for phone, instead use 84141-06) [facility]20[place] Estab. patient 30-39min; chronic exacerbation, 2 stable chronic or 1 acute illness add add modifier 95 for video, (do not use for phone, instead use 18035-59) [facility] 05[place]04/2023 Estab. patient 30-39min; chronic exacerbation, 2 stable chronic or 1 acute illness add add modifier 95 for video, (do not use for phone, instead use 45554-47) [facility] 05/04/2023 Estab. patient 30-39min; chronic exacerbation, 2 stable chronic or 1 acute illness add add modifier 95 for video, (do not use for phone, instead use 66688-42) [facility] 05/04/2023 Estab. patient 30-39min; chronic exacerbation, 2 stable chronic or 1 acute illness add add modifier 95 for video, (do not use for phone, instead use 94097-93) [facility] 05/04/2023 Estab. patient 30-39min; chronic exacerbation, 2 stable chronic or 1 acute illness add add modifier 95 for video, (do not use for phone, instead use 14469-72) [facility] 05/04/2023 Estab. patient 30-39min; chronic exacerbation, 2 stable chronic or 1 acute illness add add modifier 95 for video, (do not use for phone, instead use 78878-52) [facility] 05/04/2023 Estab. patient 30-39min; chronic exacerbation, 2 stable chronic or 1 acute illness add add modifier 95 for video, (do not use for phone, instead use 25697-20) [facility] 05/04/2023 Estab. patient 30-39min; chronic exacerbation, 2 stable chronic or 1 acute illness add add modifier 95 for video, (do not use for phone, instead use 22525-28) [facility] 05/04/2023 Estab. patient 30-39min; chronic exacerbation, 2 stable chronic or 1 acute illness add add modifier 95 for video, (do not use for phone, instead use 03448-39) [facility] 05/12/2024 Type 2 diabetes mellitus wit h [...] (do not use for phone, instead use 95842-49) [facility] 05/12/20[place] Estab. patient 30-39min; chronic exacerbation, 2 stable chronic or 1 acute illness add add modifier 95 for video, (do not use for phone, instead use 47844-64) [facility] 05/12/2024 Estab. patient 30-39min; chronic exacerbation, 2 stable chronic or 1 acute illness add add modifier 95 for video, (do not use for phone, instead use 35530-53) [facility] ([place] 05/12/2024 Estab. patient 30-39min; chronic exacerbation, 2 stable chronic or 1 acute illness add add modifier 95 for video, (do not use for phone, instead use 56408-96) [facility] ([place] 05/12/2024 Estab. patient 30-39min; chronic exacerbation, 2 stable chronic or 1 acute illness add add modifier 95 for video, (do not use for phone, instead use 59702-55) [facility] ([place] 05/12/2024 Vital Signs Date of Collection Vitals [...] tive Time Current Smoking Status Never smoker 2025-03-06 1 Sex Female History of Procedures Procedures Service Procedure code Service date Servicing provider Phone# No Data Available [id number] 2022-10-19 No Data Available No Data Available [...] (do not use for phone, instead use 34380-49) 44016 2023-05-04 No Data Available No Data Availa [...] (do not use for phone, instead use 62689-32) 55552 2024-05-12 No Data Available No Data Availa [...] Functional Status Functional Category Effective Dates has QUALITY ENGINEERING MANAGER 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 Unsure of most recent Q1cKisdo problems related to medical facilities and other [...] call CBContinue to see PCP. Follow-up with [facility] as needed for any acute or disease [...] a histamine blocker05/12/24: Pt to continue seeing resource coordinator as ordered. Twice monthly Xolair. Pt to call [facility] to see if they will do a [...] as needed for severe itch #60 tablet [id number] Review by prescribing provider or pharmacist documented [...] from chronic itching/hives. Currently being managed by resource coordinator.
--- OUTSIDE RECORDS SUMMARY | 2025-03-25 10:39 | XMS_ITS ---
Author Organization [facility] Address [address] [address] Care Team Providers Care Nuclear Cardiology Technologist Name Role Phone Marco Comer Primary Care Provider CHANDA Rodriguez [phone] REASON FOR VISIT NEED INSURANCE INFORMATION Encounters Encounter Location Date Provider Diagnosis [facility] 75 [facility] 1 [place] [address] 11/04/2024 CHANDA SAMUEL Plan Of Treatment No Information Progress Notes * Yaneli MORRISDOB:[birth year] (74 yo F)Acc No.[id number]:11/04/2024 Progress Notes Patient:?Aditi MORRIS n Provider:?Chanda Samuel MD :1950???Age:74 Y???Sex:Female D ate:11/04/2024 Address:[address] [place] [address] Pcp:Marco Comer Subjective: * Chief Complaints: * ???1. NEED INSURANCE INFORMA TION. * Medical History:? Objective: * Vitals:? Assessment: Plan: * Treatment: * Images: * Electronic signature of CHANDA SAMUEL M.D. on 03/25/2025 at 10:39 AM EDT Sign off status: Pending * Provider:?Chanda Samuel MD Date:? Generated for Suzannei lisa/Faadalidg/eTransmitting on:?03/25/2025 10:39 AM EDT
--- OUTSIDE RECORDS SUMMARY | 2025-03-25 10:39 | XMS_ITS | Patient Health Record ---
Author Organization [facility] Network Address [address] [place] [address] 1 [place] [address] Care Team Providers Care Electrical Service Technician Name Role Phone Marco Comer Primary Care Provider UnavailCHANDA Powell Unavailable [phone] Reason For Referral No Information Plan Of Treatment No Information
[2025-03-25 11:00] LABS: Appearance Urine Clear; Color Urine Yellow; Glucose Urine UA Negative (Negative); Leukocyte Esterase Urine Small (1+) (Negative); Nitrite Urine Negative (Negative); PH 7.5 (5.0-9.0); UMIC TRIGGER UACC YES; Urine Blood Negative (Negative); Urine Ketones Negative (Negative); Urine Protein Negative (Neg-Trace)
[2025-03-25 11:20] LABS: Bacteria Urine None Seen (None Seen); Hyaline Casts Urine 0-2 /LPF (0-2); RBC Urine 0-2 /HPF (0-2); Squamous Epithelial Cell Urine 0-2 /HPF (0-2); UACC Culture Trigger YES; WBC Urine 0-5 /HPF (0-5)
[2025-03-25 11:31] LABS: Free T4 (Free Thyroxine) 1.12 ng/dL (0.71-1.85); Thyroid Stimulating Hormone 1.53 uIU/mL (0.32-4.0)
== END 2025-03-25 09:20 | disposition home or self-care (01) ==
LOC: HO.LAB 09:19
PROVIDERS: PCP Internal Medicine; Visit Provider Student in an Organized Health Care Education/Training Program
DX: E04.2 Nontoxic multinodular goiter (principal); E03.9 Hypothyroidism, unspecified; R30.0 Dysuria
CPT/HCPCS: 36415; 81001; 84439; 84443; 87086

== ENCOUNTER 2025-04-01 13:05 | Outpatient (AMB) | payer OTHER, SELFPAY ==
[2025-04-01 13:09] VITALS: BP 118/64; PULSE 66; O2SAT 98; BMI 34.4
--- NOTE | 2025-04-01 13:09 | MHC.OFFVIS ---
Vital Signs 04/01/25 13:09 Height 4 ft 11 in Weight 170 lb 6.677 oz BMI 34.4 BP 118/64 Blood Pressure Location Rt brachial Position Sitting Pulse 66 Pulse Source Pulse Oximeter Pulse Oximetry (%) 98 Oxygen Delivery Method Room Air Intake Visit Reasons: Multinodular goiter *Hypothyroidism Intake Note: Patient present today for Multinodular goiter *Hypothyroidism. Protective Signal Operations Supervisor Required: Yes Protective Signal Operations Supervisor Language: Guidance And Control System Engineer Services: Protective Signal Operations Supervisor Offered & Declined Accompanied by: Daughter Allergies No Known Allergies Allergy (Verified 04/01/25 13:14) Medication List - Last Reconciled 04/01/25 by Octavia Freed MD ascorbic acid (vitamin C) (Vitamin C) 500 mg PO DAILY atorvastatin 40 mg PO BEDTIME 90 days betamethasone valerate 0.1% 1 appl topical BID PRN 30 days [bladder control pads As directed] blood sugar diagnostic (Merchant Atlas Verio test strips) 50 strips miscellaneous BID calcium carbonate-vitamin D3 500 mg-10 mcg (400 unit) (Calcium 500 With D) 1 tab PO BID cholecalciferol (vitamin D3) 25 mcg PO DAILY cromolyn 100 mg PO TID cyanocobalamin (vitamin B-12) 1,000 mcg PO DAILY epinephrine (EpiPen 2-Mark) 0.3 mg (0.3 mL) IM Q10M PRN fenofibrate nanocrystallized 145 mg PO DAILY ferrous fumarate 324 mg PO DAILY 90 days fexofenadine 180 mg PO DAILY [gloves (Medium) As directed] hydrocortisone 2.5% 1 appl topical BID PRN hydroxyzine HCl 50 mg PO BID PRN lancets (OVIV[employer] Mobile Communicationsuch UltraSoft Lancets) As directed- In Vitro twice a day levocetirizine 5 mg PO DAILY levothyroxine 112 mcg PO DAILY lidocaine 5% 1 patch topical DAILY 30 days metformin 500 mg PO TID montelukast 10 mg PO BEDTIME nabumetone 500 mg PO BID omalizumab 300 mg subcut Q2W [personal wipes As directed] [rollator walker As directed] [shower chair with back As directed] tizanidine 2 mg PO BEDTIME PRN turmeric-turmeric ext-pepper 500-3 mg 1 cap PO DAILY Ventolin HFA 90 mcg/actuation (albuterol sulfate) 2 puffs inhalation Q6H PRN 30 days NS HPI Comments Details: 74-year-old female here today for fup of hypothyroidism and multinodular goiter. Here today with daughter . HPI Has a history of hypothyroidism since age 13, diagnosed in [place], wasnt on medications then , started on levothyroxine some 35 years ago , currently on levothyroxine 112 mcg daily , had paused it for a month in Dec due to thinking her hives and urticaria were from the levothyroxine , and then restarted mid Dec 2024. This did not result in allergic reaction. she takes the levothyroxine first thing in the morning on an empty stomach at 6 AM or 7 AM and goes back to sleep, doesnt eat till 3-4 hrs later Over the last couple of years her TSH was noticed to be low with normal free T4, and her dose of levothyroxine was decreased from 125 to 112mcg last year in 2023. Most recent labs December 2024 showed TSH elevated at 21.31, free T4 low at less than 0.42. Ultrasound of the thyroid done in March 2023, I reviewed the images myself showed a right medial inferior nodule 1 cm, solid, hypoechoic, which was TR 4 category, this needs follow up., another right lower pole subcentimeter TR 4 category nodule. Patient currently denies heat or cold intolerance, diarrhea or constipation, hair loss, palpitation, anxiety, weight changes, mood changes, low energy, changes in appearance of eyes or vision changes, tremors, increased diaphoresis or dry skin. ? Patient denies any difficulty swallowing, pain on swallowing or voice changes or difficulty breathing. Patient denies any history of childhood neck radiation. Denies having ever used lithium, amiodarone or biotin supplements. Patient denies any family history of thyroid cancer or thyroid disease. Interval history 02/18/2025: Ultrasound of the thyroid done shows stable size of the right lower pole 1 cm nodule which is measuring a little less now, solid hypoechoic, TR 4 category. Also noted to have right lower pole subcentimeter stable TR 4 nodule with a rim calcification. Continues on levothyroxine 112 mcg daily. Labs repeated March 2025 shows normal TSH, free T4 Physical exam General: sitting comfortably in no acute distress HEENT: normocephalic/atraumatic Neck: supple, symmetrical, Cardiac: normal heart sounds Pulm: normal breath sounds B/L, no added breath sounds Abd: not distended, no tenderness Extremities: no edema, no signs of myxedema Laboratory Tests 03/06/23 09/07/23 05/16/24 13:54 10:45 09:38 TSH 0.08 L 0.06 L 0.09 L Free T4 1.34 1.21 1.24 09/04/24 12/08/24 10:12 09:59 TSH 0.14 L 21.31 H Free T4 1.09 < 0.42 L Laboratory Tests 03/10/25 03/25/25 08:40 09:42 TSH 2.23 1.53 Free T4 1.15 1.12 EXAMINATION: US THYROID 02/18/25 HISTORY: E04.2 - Nontoxic multinodular goiter TECHNIQUE: Real-time grayscale ultrasound imaging was performed and images were reviewed. COMPARISON: Comparison is made with the prior examination dated 03/13/2023. FINDINGS: SIZE: The right thyroid lobe measures 3.6 x 0.6 x 0.8 cm. The left thyroid lobe measures 2.9 x 0.8 x 1.2 cm. The isthmus measures 2 mm. FLOW: Flow to the gland is normal. ECHOGENICITY: The echotexture of the gland is heterogeneous. NODULES: Again seen are right thyroid nodules as described below: Nodule #: 1 Location: Lower pole of the right thyroid lobe measuring 9 x 2 x 7 mm (previously 11 x 4 x 7 mm). Shape: Wider than tall (0 points) Margins: Smooth (0 points) Echotexture: Hypoechoic (2 points) Composition: Solid (2 points) Calcifications: None (0 points) Total points: 4 TIRADS: TR4: Moderately suspicious. Nodule #: 2 Location: Lower pole of the right thyroid lobe measuring 5 x 4 x 5 mm (previously 5 x 4 x 5 mm). Shape: Wider than tall (0 points) Margins: Smooth (0 points) Echotexture: Indeterminate (1 point) Composition: Solid (2 points) Calcifications: Rim calcification (2 points) Total points: 5 TIRADS: TR4: Moderately suspicious. US/US thyroid IMPRESSION: Stable subcentimeter right thyroid nodules. US THYROID 03/13/23 CLINICAL INFORMATION: Thyroid pain. COMPARISON: None available. TECHNIQUE: Linear transducer grayscale and color Doppler examination with attention to the region of the thyroid. FINDINGS: SIZE: Measurements of the thyroid lobes and nodules are given in sagittal, anteroposterior and transverse dimensions respectively. Right Thyroid Lobe: 4.2 x 1.5 x 1.5 cm, volume 4.9 mL. Parenchyma: The gland echotexture is heterogeneous. Thyroid vascularity is normal. Left Thyroid Lobe: 4.1 x 1.1 x 1.4 cm, volume 3.3 mL. Parenchyma: The gland echotexture is heterogeneous. Thyroid vascularity is normal. Isthmus: 0.2 cm in maximum AP dimension. Estimated total number of nodules greater than or equal to 1 cm: 1. Meatcutter nodules are described as follows: 1. Location: Right medial/inferior. Size: 1.1 x 0.4 x 0.7 cm, volume 0.2 mL. Nodule characteristics: Composition: Solid (2). Echogenicity: Hypoechoic (2). Shape: Not taller than wide (0). Margins: Smooth (0). Echogenic Foci: None (0). ACR TI-RADS total points: 4 ACR TI-RADS category: 4 2. Location: Right inferior. Size: 0.5 x 0.4 x 0.5 cm, volume 0.1 mL. Nodule characteristics: Composition: Solid (2). Echogenicity: Isoechoic (1). Shape: Not taller than wide (0). Margins: Smooth (0). Echogenic Foci: Peripheral calcifications (2). ACR TI-RADS total points: 5 ACR TI-RADS category: 4 NODES: No lymphadenopathy is seen in the tissue surrounding the thyroid gland. US/US thyroid IMPRESSION: Small heterogeneous thyroid gland. Two right thyroid nodules. According to TI RADS criteria, ultrasound follow-up of the right inferior nodule annually for 5 years would be recommended. [facility] Medical History Hypothyroidism Multinodular goiter Prosthetic eye globe Lumbar back pain with radiculopathy affecting right lower extremity Anemia Frequent falls Dizziness Carpal tunnel syndrome, bilateral Mixed hyperlipidemia Obesity (BMI 30-39.9) Memory impairment Osteoarthritis of both hands Vitamin B12 deficiency Vitamin D deficiency Primary osteoarthritis of both knees Osteopenia Asthma Chronic idiopathic urticaria Acquired hypothyroidism Benign essential hypertension Diabetes mellitus without complication Surgical History H/O colonoscopy Status post carpal tunnel release (~06/02/21) Tubal ligation status Hx of section History of total right knee replacement (~2012) Family History Father No problems noted. 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 Cognitive needs: Yes (cane ) Hearing needs: No Vision needs: Yes (glasses ) Physical Exam Vital Signs: Last Vital Signs Pulse 66 04/01/25 13:09 BP 118/64 04/01/25 13:09 Pulse Ox 98 04/01/25 13:09 Oxygen Delivery Method Room Air 04/01/25 13:09 BMI result Body Mass Index 34.4 Assessment & Plan Assessment & Plan (1) Hypothyroidism: Code(s): E03.9 - Hypothyroidism, unspecified Category: Medical Qualifiers: 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 Ultrasound in March 2023, I reviewed the images myself showed a right medial inferior nodule 1 cm, solid, hypoechoic, which was TR 4 category, this needs follow up., another right lower pole subcentimeter TR 4 category nodule. Ultrasound repeated February 2025, I reviewed the images myself, shows stable size of the nodules. At this point she does not have any compressive symptoms, we will plan to repeat an ultrasound maybe in 2 years sometime in February 2027. Plan: -ultrasound of the thyroid can be repeated in 2 years sometime around February 2027. 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
--- OUTSIDE RECORDS SUMMARY | 2025-04-01 13:54 | XMS_ITS ---
Author Name Meri PATIENT FINANCIAL SERVICES MANAGER,LINUX UNIX ADMINISTRATOR,FN P,WELDER GUN, Kirsten Address [address] [place] [id number] Phone [phone] 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 If bp is elevated sbp>150; dbp>90 [...] call CBContinue to see PCP. Follow-up with [facility] as needed for any acute or disease education needs that may arise 28/05.what should be done when the member calls: see each individual diagnosis for contingency plan Allergies, itching, hives. Active 2022-10-19 N/A 05/04/23: ADD famotidine to see if this helps control itch as it is a histamine blocker05/12/24: Pt to continue seeing marketing production specialist as ordered. Twice monthly Xolair. Pt to call Education Faculty Member to see if they will do a PA to have levocetirizine at prescribed dose of 10 mg BID. Insurance is only covering 5 mg daily. Pt reported 25 mg hydroxyzine ineffective. Refilling 50 mg. Pt reports the 3-4 days prior Xolair the itching/hives are severe. 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 Working with rheumatology to see if the itching/hives are autoimmune. Hypothyroid Active 2022-10-19 N/A 05/12/24: Pt to continue levothyroxine as orderedfollows with PCP Hypercholesteremia Active 2022-10-19 N/A 05/12/24 : Pt to continue fenofibrate, simvastatin follows with PCPRecommend low fat diet, exercise Type 2 diabetes mellitus with diabetic polyneuropathy, diabetic cataract Active 2022-10-19 N/A stableGlucose: 9 9-108A1c: was normal metformin 500TIDEye: denies eye problems s/p cataract surgeryNeuropathy: has foot/hand pain cari at nightFollows with PCP, attending on 10/20/22Recommend low carb diet, exercise, monitor glucose, routine foot checks; notify CB of high/low glucose05/12/24: Pt to continue metformin as ordered. Unsure of most recent A1c Obesity with serious comorbidity Active 2022-10-19 N/A BMI =31.65Follow s with PCPRecommend low fat , exercise, control glucose Artificial joint pain Active 2022-10-19 N/A 05/12: Pt to continue following up with ortho as ordered. Sending lidocaine/prilocaine cream Encounters Encounters Type Facility Date of Service Diagnosis/Co mplaint No Data Available [facility] ([place]) 10/19/2022 Type 2 diabetes mellitus wit h diabetic polyneuropathyType 2 diabetes mellitus with diabetic cataractObesity, unspecifiedBody mass index (bmi) 31.0-31.9, adultPure hypercholesterolemia, unspecifiedHypothyroidism, unspecifiedAllergy, unspecified, initial encounter No Data Available [facility]2022 No Data Available [facility]20[place] No Data Available [facility]20[place] No Data Available [facility] No Data Available [facility]20[place] Estab. patient 30-39min; chronic exacerbation, 2 stable chronic or 1 acute illness add add modifier 95 for video, (do not use for phone, instead use [id number]) [facility], ([place]) 05/04/2023 Type 2 diabetes mellitus wit h [...] (do not use for phone, instead use 49877-97) [facility]/20[place] Estab. patient 30-39min; chronic exacerbation, 2 stable chronic or 1 acute illness add add modifier 95 for video, (do not use for phone, instead use 67004-94) [facility]/2023 Estab. patient 30-39min; chronic exacerbation, 2 stable chronic or 1 acute illness add add modifier 95 for video, (do not use for phone, instead use 31261-17) [facility]/2023 Estab. patient 30-39min; chronic exacerbation, 2 stable chronic or 1 acute illness add add modifier 95 for video, (do not use for phone, instead use 16654-66) [facility]/2023 Estab. patient 30-39min; chronic exacerbation, 2 stable chronic or 1 acute illness add add modifier 95 for video, (do not use for phone, instead use 01414-33) [facility]/2023 Estab. patient 30-39min; chronic exacerbation, 2 stable chronic or 1 acute illness add add modifier 95 for video, (do not use for phone, instead use 98538-53) [facility]2023 Estab. patient 30-39min; chronic exacerbation, 2 stable chronic or 1 acute illness add add modifier 95 for video, (do not use for phone, instead use 31655-60) [facility]2023 Estab. patient 30-39min; chronic exacerbation, 2 stable chronic or 1 acute illness add add modifier 95 for video, (do not use for phone, instead use 24361-56) [facility]/2023 Estab. patient 30-39min; chronic exacerbation, 2 stable chronic or 1 acute illness add add modifier 95 for video, (do not use for phone, instead use 10150-25) [facility]/2023 Estab. patient 30-39min; chronic exacerbation, 2 stable chronic or 1 acute illness add add modifier 95 for video, (do not use for phone, instead use 34164-05) [facility]12/2024 Type 2 diabetes mellitus wit h [...] (do not use for phone, instead use 26216-46) [facility] ([place] 05/12/2024 Estab. patient 30-39min; chronic exacerbation, 2 stable chronic or 1 acute illness add add modifier 95 for video, (do not use for phone, instead use 37454-82) [facility]/12/2024 Estab. patient 30-39min; chronic exacerbation, 2 stable chronic or 1 acute illness add add modifier 95 for video, (do not use for phone, instead use 44840-29) [facility]12/2024 Estab. patient 30-39min; chronic exacerbation, 2 stable chronic or 1 acute illness add add modifier 95 for video, (do not use for phone, instead use 70300-66) [facility]/12/2024 Estab. patient 30-39min; chronic exacerbation, 2 stable chronic or 1 acute illness add add modifier 95 for video, (do not use for phone, instead use 66064-74) [facility] 05/12/2024 Vital Signs Date of Collection Vitals [...] Time Current Smoking Status Never smoker 2025-03-06 6 Sex Female History of Procedures Procedures Service Procedure code Service date Servicing provider Phone# No Data Available [id number] 2022-10-19 No Data Available No Data Available [...] (do not use for phone, instead use 93650-21) [id number] 2023-05-04 No Data Available No Data Availa [...] (do not use for phone, instead use 80579-32) [id number] 2024-05-12 No Data Available No Data Availa [...] Functional Status Functional Category Effective Dates has FINISHER PLATE 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 Unsure of most recent [id number] problems related to medical facilities and other [...] call CBContinue to see PCP. [facility] or [facility] [...] a histamine blocker05/12/24: Pt to continue seeing marketing production specialist as ordered. Twice monthly Xolair. Pt to call Education Faculty Member to see if they will do a [...] , exercise, control glucosedeniesstablefenofibrate, simvastatin follows with PCPRecommend low fat diet, [...] as needed for severe itch #60 tablet [id number] Review by prescribing provider or pharmacist documented [...] medical/surgical history, Social history. 2024-05-12 Daughter Megan Armendariz ra is daughter. No ACP. Full code. 2024-05-12 Most recent hospital stay(s) or ER visit(s) and precipitating factors: 08/2023 cellulitis 2024-05-12 Open HEDIS Measure r chiquitaw: complete 2024-05-12 Pt is a 73 yr old fe male. Visit today completed with her delaneyerMegan translating. Pt suffers from chronic itching/hives. Currently being managed by marketing production specialist.
== END 2025-04-01 13:37 | disposition home or self-care (01) ==
LOC: HO.ENCR 13:06
PROVIDERS: PCP Internal Medicine; Visit Provider Student in an Organized Health Care Education/Training Program
DX: E06.3 Autoimmune thyroiditis (principal); E04.2 Nontoxic multinodular goiter
CPT/HCPCS: 99214

== ENCOUNTER → 2025-04-01 13:05 | Outpatient (BNVA) | payer OTHER, SELFPAY | PROVIDERS: PCP Internal Medicine; Visit Provider Student in an Organized Health Care Education/Training Program | DX: E06.3 Autoimmune thyroiditis (principal); E04.2 Nontoxic multinodular goiter | CPT/HCPCS: 99212 ==

== ENCOUNTER 2025-05-06 11:32 | Outpatient (AMB) | payer OTHER, SELFPAY ==
[2025-05-06 11:41] VITALS: BMI 34.3
--- NOTE | 2025-05-06 11:41 | MHC.OFFVIS ---
Vital Signs 05/06/25 11:41 Height 4 ft 11 in Weight 170 lb BMI 34.3 Intake Visit Reasons: PMB Opal Miner Required: Yes Opal Miner Language: Electrolytic Etcher Services: Opal Miner Present (in person) Opal Miner Name: Tita BRAVO Information Interpreted: non-clinical & clinical Supervisor Powder And Primer Canning: Supervisor Powder And Primer Canning Present (Tita BRAVO) Accompanied by: Daughter Allergies No Known Allergies Allergy (Verified 05/06/25 11:44) Post menopausal: Yes HPI Comments Details: Presenting complaining of vaginal bleeding on and off over the last few months. Also the patient is complaining of a bulge per vagina Last co testing in 05/28 was negative PFS Medical History Hypothyroidism Multinodular goiter Prosthetic eye globe Lumbar back pain with radiculopathy affecting right lower extremity Anemia Frequent falls Dizziness Carpal tunnel syndrome, bilateral Mixed hyperlipidemia Obesity (BMI 30-39.9) Memory impairment Osteoarthritis of both hands Vitamin B12 deficiency Vitamin D deficiency Primary osteoarthritis of both knees Osteopenia Asthma Chronic idiopathic urticaria Acquired hypothyroidism Benign essential hypertension Diabetes mellitus without complication Surgical History H/O colonoscopy Status post carpal tunnel release (~06/02/21) Tubal ligation status Hx of section History of total right knee replacement (~2012) Family History Father No problems noted. 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 Cognitive needs: Yes (cane ) Hearing needs: No Vision needs: Yes (glasses ) Review of Systems Const All systems reviewed & are unremarkable except as noted in HPI and below Reports as per HPI and Reports no additional complaints GI Reports no additional complaints Reports no additional complaints Physical Exam Vital Signs: BMI result Body Mass Index 34.3 General: Yes no CVA tenderness External Female Exam: normal external appearance and normal appearance of the urethra Speculum Exam - Vagina: normal appearance of the vagina, normal palpation, no lesions, no masses and other (Cystocele with central abrasion, mild bleeding) Speculum Exam - Cervix: normal appearance of the cervix, normal palpation, no lesions, no masses and nontender Bimanual exam- vagina & uterus: normal bimanual exam, normal palpation, uterine size normal, normal palpation, uterine shape normal, No Cervical tenderness present and non-tender Bimanual Exam- Adnexa, other: normal adnexae Back/Spine/Pelvis Back: no CVA tenderness Assessment & Plan Assessment & Plan (1) Post-menopausal bleeding: Code(s): N95.0 - Postmenopausal bleeding Category: Medical Plan: Discussed with the patient the differential diagnosis of post menopausal bleeding with normal pelvic exam including but not limited to, endometrial hyperplasia, cancer, polyps and other causes; co testing done last year within normal, recommended pelvic ultrasound and an EMB is this is a recurrent problem. EMB done, see procedure note. Instructed the patient to schedule a follow-up appointment in 2 weeks. All questions answered, the patient verbalized understanding and agreed with the plan. This note was generated with a voice recognition program. Some errors may have been overlooked during the review of this note. Sometimes these errors may affect the content or meaning of a given sentence. (2) Female cystocele: Comment: With central abrasion Code(s): N81.10 - Cystocele, unspecified Category: Medical Plan: Discussed with the patient the finding on pelvic exam showing cyst to see with small abrasion and might bleeding, could be the cause of her vaginal bleeding. Will attempt pessary trial next visit if the ablation is healed Orders: Orders US pelvic and transvaginal Today N95.0 - Postmenopausal bleeding Surgical Today N95.0 - Postmenopausal bleeding Coding Level of Care Code Est Pt Level 3 (59826) Diagnoses Post-menopausal bleeding N95.0 Female cystocele N81.10
--- OUTSIDE RECORDS SUMMARY | 2025-05-06 12:19 | XMS_ITS ---
Author Name Meri HOUSING COORDINATOR,RUG SAMPLE BEVELER,FN P,PREDATORY HUNTER, Kirsten Address [address] [place] [address] Phone [phone] [facility] Care Team Providers Care Display Department Manager Name Role Phone JerezKirsten rich Unavailable [phone] Marco Martinez Unavailable [phone] Reason for Referral Not Available Allergies, adverse [...] a histamine blocker05/12/24: Pt to continue seeing animal control supervisor as ordered. Twice monthly Xolair. Pt to call Heel Painter to see if they will do a [...] of Service Diagnosis/Co mplaint No Data Available [facility] [place] 10[place]19/2022 Type 2 diabetes mellitus wit h diabetic polyneuropathyType 2 diabetes mellitus with diabetic cataractObesity, unspecifiedBody mass index (bmi) 31.0-31.9, adultPure hypercholesterolemia, unspecifiedHypothyroidism, unspecifiedAllergy, unspecified, initial encounter No Data Available [facility]19[place]20[place] No Data Available [facility]20[place] No Data Available [facility]20[place] No Data Available [facility] No Data Available [facility] 10[place] Estab. patient 30-39min; chronic exacerbation, 2 stable chronic or 1 acute illness add add modifier 95 for video, (do not use for phone, instead use 35661-35) [facility], ([place] 05/04/2023 Type 2 diabetes mellitus wit h [...] (do not use for phone, instead use 34717-02) [facility] 05[place]04[place] Estab. patient 30-39min; chronic exacerbation, 2 stable chronic or 1 acute illness add add modifier 95 for video, (do not use for phone, instead use 99184-15) [facility] 05/04/2023 Estab. patient 30-39min; chronic exacerbation, 2 stable chronic or 1 acute illness add add modifier 95 for video, (do not use for phone, instead use 76713-16) [facility] 05/04/2023 Estab. patient 30-39min; chronic exacerbation, 2 stable chronic or 1 acute illness add add modifier 95 for video, (do not use for phone, instead use 77150-32) [facility] 05/04/2023 Estab. patient 30-39min; chronic exacerbation, 2 stable chronic or 1 acute illness add add modifier 95 for video, (do not use for phone, instead use 82359-66) [facility] 05/04/2023 Estab. patient 30-39min; chronic exacerbation, 2 stable chronic or 1 acute illness add add modifier 95 for video, (do not use for phone, instead use 46364-83) [facility] 05/04/2023 Estab. patient 30-39min; chronic exacerbation, 2 stable chronic or 1 acute illness add add modifier 95 for video, (do not use for phone, instead use 64843-76) [facility] 05/04/2023 Estab. patient 30-39min; chronic exacerbation, 2 stable chronic or 1 acute illness add add modifier 95 for video, (do not use for phone, instead use 48081-32) [facility] 05/04/2023 Estab. patient 30-39min; chronic exacerbation, 2 stable chronic or 1 acute illness add add modifier 95 for video, (do not use for phone, instead use 84444-80) [facility] 05/04/2023 Estab. patient 30-39min; chronic exacerbation, 2 stable chronic or 1 acute illness add add modifier 95 for video, (do not use for phone, instead use 61054-18) [facility], [place] 05/12/2024 Type 2 diabetes mellitus wit h [...] (do not use for phone, instead use 15229-47) [facility] 05[place]12/20[place] Estab. patient 30-39min; chronic exacerbation, 2 stable chronic or 1 acute illness add add modifier 95 for video, (do not use for phone, instead use 12676-39) [facility] 05/12/2024 Estab. patient 30-39min; chronic exacerbation, 2 stable chronic or 1 acute illness add add modifier 95 for video, (do not use for phone, instead use 36060-59) [facility] 05/12/2024 Estab. patient 30-39min; chronic exacerbation, 2 stable chronic or 1 acute illness add add modifier 95 for video, (do not use for phone, instead use 73737-54) [facility] 05/12/20[place] Estab. patient 30-39min; chronic exacerbation, 2 stable chronic or 1 acute illness add add modifier 95 for video, (do not use for phone, instead use 84307-10) [facility], [place] 05/12/2024 Vital Signs Date of Collection Vitals [...] tive Time Current Smoking Status Never smoker 2 Sex Female History of Procedures Procedures Service Procedure code Service date Servicing provider Phone# No Data Available [id number] 2022-10-19 No Data Available No Data Available [...] (do not use for phone, instead use 41165-42) 30340 2023-05-04 No Data Available No Data Availa [...] ble Advance care planning discussed and documented advance care plan or surrogate decision-maker was [...] (do not use for phone, instead use 53781-93) 32170 2024-05-12 No Data Available No Data Availa [...] Functional Status Functional Category Effective Dates has CONTROLS ENGINEER 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 Unsure of most recent [id number] problems related to medical facilities and other [...] call CBContinue to see PCP. [facility] or [...] a histamine blocker05/12/24: Pt to continue seeing animal control supervisor as ordered. Twice monthly Xolair. Pt to call Heel Painter to see if they will do a [...] modifier 95Advance care planning discussed and documented advance care plan or surrogate decision-maker was [...] as needed for severe itch #60 tablet [id number] Review by prescribing provider or pharmacist documented (1160F)Medication List Documented (1159F)Functional Status Assessed (1170F)Advance Care Directive Advance care planning discussion documented in the medical record (1158F)BMI obtained (3008F)SBP < 130 (3074F)DBP <80 (3078F)Televideo 30-39min; chronic exacerbation, 2 stable chronic or 1 acute illness add modifier 95Advance care planning discussed and documented advance care plan or surrogate decision-maker was [...] 08/2023 cellulitis 2024-05-12 Open HEDIS Measure r evoscarw: complete 2024-05-12 Pt is a 73 yr old fe male. Visit today completed with her jose albertougherMegan translating. Pt suffers from chronic itching/hives. Currently being managed by animal control supervisor.
--- OUTSIDE RECORDS SUMMARY | 2025-05-06 12:20 | XMS_ITS | Patient Health Record ---
Author Organization [facility] Address [address] [place] [address] [address] [place] [address] Care Team Providers Care Monotype Setter Name Role Phone Marco Comer Primary Care Provider UnavailCHANDA Powell Unavailable [phone] Reason For Referral No Information Plan Of Treatment No Information
== END 2025-05-06 12:12 | disposition home or self-care (01) ==
LOC: HO.HWS 11:32
PROVIDERS: PCP Internal Medicine; Visit Provider Obstetrics & Gynecology
DX: N95.0 Postmenopausal bleeding (principal); N81.10 Cystocele, unspecified
CPT/HCPCS: 99213

== ENCOUNTER 2025-05-06 11:32 | Outpatient (REF) | payer OTHER, SELFPAY | END 2025-05-06 11:33 | disposition home or self-care (01) | LOC: HO.LNP 11:32 | PROVIDERS: PCP Internal Medicine; Visit Provider Obstetrics & Gynecology | DX: N95.0 Postmenopausal bleeding (principal); N93.9 Abnormal uterine and vaginal bleeding, unspecified; N81.10 Cystocele, unspecified | CPT/HCPCS: 88305; 99212 ==

== ENCOUNTER 2025-05-14 08:42 | Outpatient (AMB) | payer OTHER, SELFPAY ==
--- OUTSIDE RECORDS SUMMARY | 2025-05-14 08:55 | XMS_ITS ---
Author Name Meri NURSING HOME ASSISTANT ADMINISTRATOR,HELPDESK ANALYST,FN P,VEGETABLE FARM WORKER, Kirsten Address [address] [place] [address] Phone [phone] [facility] Care Team Providers Care Bottom Scrubber Name Role Phone JerezKirsten rich Unavailable [phone] Marco Martinez Unavailable [phone] Reason for Referral Not Available Allergies, adverse [...] a histamine blocker05/12/24: Pt to continue seeing condenser tube tender as ordered. Twice monthly Xolair. Pt to call Laboratory Technical Specialist to see if they will do [...] of Service Diagnosis/Co mplaint No Data Available [facility] [place]2022 Type 2 diabetes mellitus wit h diabetic polyneuropathyType 2 diabetes mellitus with diabetic cataractObesity, unspecifiedBody mass index (bmi) 31.0-31.9, adultPure hypercholesterolemia, unspecifiedHypothyroidism, unspecifiedAllergy, unspecified, initial encounter No Data Available [facility]20[place] No Data Available [facility] No Data Available [facility] No Data Available [facility] No Data Available [facility] Estab. patient 30-39min; chronic exacerbation, 2 stable chronic or 1 acute illness add add modifier 95 for video, (do not use for phone, instead use 49785-08) [facility], ([place]) 05/04/2023 Type 2 diabetes mellitus wit h [...] (do not use for phone, instead use 37581-38) [facility] 05[place]/20[place] Estab. patient 30-39min; chronic exacerbation, 2 stable chronic or 1 acute illness add add modifier 95 for video, (do not use for phone, instead use 08673-75) [facility], [place] 05/04/2023 Estab. patient 30-39min; chronic exacerbation, 2 stable chronic or 1 acute illness add add modifier 95 for video, (do not use for phone, instead use 18369-09) [facility], [place] 05/04/2023 Estab. patient 30-39min; chronic exacerbation, 2 stable chronic or 1 acute illness add add modifier 95 for video, (do not use for phone, instead use 21294-39) [facility], [place] 05/04/2023 Estab. patient 30-39min; chronic exacerbation, 2 stable chronic or 1 acute illness add add modifier 95 for video, (do not use for phone, instead use 14393-92) [facility], [place] 05/04/2023 Estab. patient 30-39min; chronic exacerbation, 2 stable chronic or 1 acute illness add add modifier 95 for video, (do not use for phone, instead use 13764-49) [facility] 05/04/2023 Estab. patient 30-39min; chronic exacerbation, 2 stable chronic or 1 acute illness add add modifier 95 for video, (do not use for phone, instead use 67331-99) [facility], [place] 05/04/2023 Estab. patient 30-39min; chronic exacerbation, 2 stable chronic or 1 acute illness add add modifier 95 for video, (do not use for phone, instead use 32298-18) [facility], [place] 05/04/2023 Estab. patient 30-39min; chronic exacerbation, 2 stable chronic or 1 acute illness add add modifier 95 for video, (do not use for phone, instead use 62941-52) [facility] 05/04/2023 Estab. patient 30-39min; chronic exacerbation, 2 stable chronic or 1 acute illness add add modifier 95 for video, (do not use for phone, instead use 00257-74) [facility], [place] 05/12/2024 Type 2 diabetes mellitus wit h [...] (do not use for phone, instead use 99565-94) [facility] 05[place]12/20[place] Estab. patient 30-39min; chronic exacerbation, 2 stable chronic or 1 acute illness add add modifier 95 for video, (do not use for phone, instead use 12421-83) [facility] 05/12/2024 Estab. patient 30-39min; chronic exacerbation, 2 stable chronic or 1 acute illness add add modifier 95 for video, (do not use for phone, instead use 76921-30) [facility], [place] 05/12/2024 Estab. patient 30-39min; chronic exacerbation, 2 stable chronic or 1 acute illness add add modifier 95 for video, (do not use for phone, instead use 31266-72) [facility] 05/12/2024 Estab. patient 30-39min; chronic exacerbation, 2 stable chronic or 1 acute illness add add modifier 95 for video, (do not use for phone, instead use 84378-74) [facility], ([place] 05/12/2024 Vital Signs Date of Collection Vitals [...] tive Time Current Smoking Status Never smoker 2025-05-05 0 Sex Female History of Procedures Procedures Service Procedure code Service date Servicing provider Phone# No Data Available [id number] 2022-10-19 No Data Available No Data Available [...] (do not use for phone, instead use 16927-84) 92661 2023-05-04 No Data Available No Data Availa [...] (do not use for phone, instead use 10608-20) 05075 2024-05-12 No Data Available No Data Availa [...] Functional Status Functional Category Effective Dates has DIRECTOR PATIENT ACCOUNTING 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 Unsure of most recent [id number] problems related to medical facilities and other [...] call CBContinue to see PCP. [facility] or [...] a histamine blocker05/12/24: Pt to continue seeing condenser tube tender as ordered. Twice monthly Xolair. Pt to call Laboratory Technical Specialist to see if they will do [...] as needed for severe itch #60 tablet [id number] Review by prescribing provider or pharmacist documented [...] 08/2023 cellulitis 2024-05-12 Open HEDIS Measure r evoscraw: complete 2024-05-12 Pt is a 73 yr old fe male. Visit today completed with her jose albertougherMegan translating. Pt suffers from chronic itching/hives. Currently being managed by condenser tube tender.
--- OUTSIDE RECORDS SUMMARY | 2025-05-14 08:55 | XMS_ITS | Patient Health Record ---
Author Organization [facility] Network Address [address] [place] [address] 1 [place] [address] Care Team Providers Care Plastic And Reconstructive Surgeon Name Role Phone Marco Comer Primary Care Provider UnavailCHANDA Powell Unavailable [phone] Reason For Referral No Information Plan Of Treatment No Information
[2025-05-14 09:09] VITALS: BP 136/80; BMI 34.3
--- NOTE | 2025-05-14 09:09 | MHC.OFFVIS ---
Vital Signs 05/14/25 09:09 Height 4 ft 11 in Weight 170 lb BMI 34.3 BP 136/80 Intake Visit Reasons: Repeat EMB Hook And Eye Sewing Machine Operator Required: Yes Hook And Eye Sewing Machine Operator Language: Chief Creative Officer Services: Hook And Eye Sewing Machine Operator Present (in person) Hook And Eye Sewing Machine Operator Name: Tita BRAVO Information Interpreted: non-clinical & clinical Shellfish Manager: Shellfish Manager Present (Tita BRAVO) Accompanied by: Daughter Allergies No Known Allergies Allergy (Verified 05/14/25 09:13) Post menopausal: Yes HPI Comments Details: The patient is presenting after endometrial biopsy. The patient has no complaints, no vaginal bleeding, no feverishness chills or abdominal pain. The endometrial biopsy pathology report showed the following: Endometrium, biopsy: Minute fragment of benign smooth muscle (possible leiomyoma; clinical correlation necessary); insufficient endometrial epithelium for evaluation Pelvic ultrasound scheduled on 06/12/2025 COUNT INCLUDES THE [facility] Medical History Hypothyroidism Multinodular goiter Prosthetic eye globe Lumbar back pain with radiculopathy affecting right lower extremity Anemia Frequent falls Dizziness Carpal tunnel syndrome, bilateral Mixed hyperlipidemia Obesity (BMI 30-39.9) Memory impairment Osteoarthritis of both hands Vitamin B12 deficiency Vitamin D deficiency Primary osteoarthritis of both knees Osteopenia Asthma Chronic idiopathic urticaria Acquired hypothyroidism Benign essential hypertension Diabetes mellitus without complication Surgical History H/O colonoscopy Status post carpal tunnel release (~06/02/21) Tubal ligation status Hx of section History of total right knee replacement (~2012) Family History Father No problems noted. 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 Cognitive needs: Yes (cane ) Hearing needs: No Vision needs: Yes (glasses ) Review of Systems Const All systems reviewed & are unremarkable except as noted in HPI and below Physical Exam Vital Signs: Last Vital Signs BP 136/80 05/14/25 09:09 BMI result Body Mass Index 34.3 General: Yes no CVA tenderness External Female Exam: normal external appearance and normal appearance of the urethra Speculum Exam - Vagina: normal appearance of the vagina, normal palpation, no lesions, no masses and no other (Cystocele with central ablation resolved) Speculum Exam - Cervix: normal appearance of the cervix, normal palpation, no lesions, no masses and nontender Bimanual exam- vagina & uterus: normal bimanual exam, normal palpation, uterine size normal, normal palpation, uterine shape normal, No Cervical tenderness present and non-tender Bimanual Exam- Adnexa, other: normal adnexae Back/Spine/Pelvis Back: no CVA tenderness Office Procedures Endometrial Biopsy Details: The patient was counseled regarding the indication and benefits of endometrial sampling to rule out endometrial pathology including not limited to endometrial hyperplasia or endometrial cancer and others; The alternatives (Either do nothing vs. hysteroscopy D&C) & the risks were discussed with the patient including but not limited: pain, uterine perforation, bleeding, infection, possible injury to bladder, bowel, ureter, possible need for blood transfusion with all its possible risks. The patient verbalized understanding all questions answered and signed consent. The patient was placed into the dorsal lithotomy position; a speculum was inserted in the vagina. Using aseptic technique for the procedure, the cervix was cleansed with Betadine. The anterior lip of the cervix was grasped with a single tooth tenaculum. The uterus was sounded to 7 cm with a 4 mm Pipelle was used. Tissues samples were obtained and placed in formalin, in a patient labeled container and sent to the pathology department. At the end of the procedure, there was minimal bleeding noted The patient tolerated the procedure well and was discharged in good condition with the following instructions: Nothing in the vagina until the bleeding stops. No sex until the bleeding stops, to call if any of the following occurs: fever (>100.4), flu-like symptoms, abdominal pain, heavy bleeding, four smelling vaginal discharge. The patient was instructed to schedule a Follow up appointment in 2 weeks to discuss pathology results of the biopsy and treatment options. This note was generated with a voice recognition program. Some errors may have been overlooked during the review of this note. Sometimes these errors may affect the content or meaning of a given sentence. [id number]-[id number] Biopsy Assessment & Plan Assessment & Plan (1) Post-menopausal bleeding: Code(s): N95.0 - Postmenopausal bleeding Category: Medical Plan: Will send a request to the radiology department in order to the pelvic ultrasound appointment for an earlier date. Discussed with the patient the results of endometrial pathology showing insufficient endometrial tissues. Recommended to the patient that the next step is an endometrial sampling via hysteroscopy D&C possible polypectomy versus endometrial biopsy to r/o endometrial pathology including hyperplasia or cancer. All the pros and cons risks and benefits of each approach were discussed with the patient, endometrial biopsy being less invasive, office procedure with less sensitivity and inability diagnose a polyp and removal versus hysteroscopy done under anesthesia more invasive more sensitive to endometrial cancer and possibility of diagnosing and endometrial polyp with the possibility of polypectomy. All questions were answered pt verbalized understanding and decided to proceed with endometrial biopsy. EMB repeated, see procedure (2) Female cystocele: Comment: With central abrasion-resolved Code(s): N81.10 - Cystocele, unspecified Category: Medical Plan: Discussed with the patient the finding on pelvic exam, resolved central abrasion. The patient was reassured. Orders: Orders AMB Endometrial Biopsy Today N95.0 - Postmenopausal bleeding Coding Level of Care Code Est Pt Level 3 (79778) Procedure Only Diagnoses Post-menopausal bleeding N95.0 Female cystocele N81.10 CPT Codes Endometrial Biopsy - CPT: 33712-[id number] Biopsy ([id number])
== END 2025-05-14 09:48 | disposition home or self-care (01) ==
LOC: HO.HWS 08:42
PROVIDERS: PCP Internal Medicine; Visit Provider Obstetrics & Gynecology
DX: N95.0 Postmenopausal bleeding (principal); N81.10 Cystocele, unspecified
CPT/HCPCS: 58100; 99213

== ENCOUNTER 2025-05-14 08:42 | Outpatient (REF) | payer OTHER, SELFPAY | END 2025-05-14 08:43 | disposition home or self-care (01) | LOC: HO.LNP 08:42 | PROVIDERS: PCP Internal Medicine; Visit Provider Obstetrics & Gynecology | DX: N95.0 Postmenopausal bleeding (principal); N81.10 Cystocele, unspecified | CPT/HCPCS: 58100; 88305; 88341; 88342; 88360; 99212 ==

== ENCOUNTER 2025-05-22 14:24 | Outpatient (REF) | payer OTHER, SELFPAY ==
--- NOTE | ~2025-05-22 | US_ITS ---
EXAMINATION: US PELVIS TRANSABDOMINAL AND TRANSVAGINAL HISTORY: N95.0 - Postmenopausal bleeding COMPARISON: Comparison is made with the prior examination dated 05/30/2024. TECHNIQUE: Transabdominal and endovaginal real-time 2D su-scale ultrasound was performed. FINDINGS: Bladder prolapse into the vagina is noted. Uterus: The uterus is normal in size, measuring 6.1 x 3.0 x 4.6 cm. There are diffuse myometrial calcifications which may be vascular in nature. No fibroids are identified. Endometrium: The endometrial stripe measures 2 mm in thickness. Right ovary: The right ovary measures 3.4 x 1.0 x 1.1 cm. The right ovary is normal in size and echotexture. Left ovary: The left ovary not identified. Pelvic fluid: none. US/US pelvic and transvaginal IMPRESSION: 1. Bladder prolapse into the vagina. 2. Diffuse myometrial calcifications which are likely vascular in nature. 3. The left ovary is not identified. Electronically signed by: Lee Abreu MD 05/22/2025 03:10 PM EDT
--- OUTSIDE RECORDS SUMMARY | 2025-05-22 14:26 | XMS_ITS ---
Author Name Meri ENTREPRENEURSHIP PROGRAM DIRECTOR,GUEST ATTENDANT,FN P,KERFER MACHINE OPERATOR, Kirsten Address [address] [place] [address] Phone [phone] [facility] Care Team Providers Care Radio Mechanic Apprentice Name Role Phone JerezKirsten rich Unavailable [phone] Marco Martinez Unavailable [phone] Reason for Referral Not Available Allergies, adverse [...] a histamine blocker05/12/24: Pt to continue seeing student financial aid manager as ordered. Twice monthly Xolair. Pt to call Track Worker to see if they will do a [...] of Service Diagnosis/Co mplaint No Data Available [facility]19[place]2022 Type 2 diabetes mellitus wit h diabetic polyneuropathyType 2 diabetes mellitus with diabetic cataractObesity, unspecifiedBody mass index (bmi) 31.0-31.9, adultPure hypercholesterolemia, unspecifiedHypothyroidism, unspecifiedAllergy, unspecified, initial encounter No Data Available [facility]20[place] No Data Available [facility] No Data Available [facility] No Data Available [facility] No Data Available [facility] Estab. patient 30-39min; chronic exacerbation, 2 stable chronic or 1 acute illness add add modifier 95 for video, (do not use for phone, instead use 19652-89) [facility]2023 Type 2 diabetes mellitus wit h [...] (do not use for phone, instead use 29039-49) [facility] Estab. patient 30-39min; chronic exacerbation, 2 stable chronic or 1 acute illness add add modifier 95 for video, (do not use for phone, instead use 51885-91) [facility]/2023 Estab. patient 30-39min; chronic exacerbation, 2 stable chronic or 1 acute illness add add modifier 95 for video, (do not use for phone, instead use 08555-35) [facility] 05[place]/2023 Estab. patient 30-39min; chronic exacerbation, 2 stable chronic or 1 acute illness add add modifier 95 for video, (do not use for phone, instead use 47969-72) [facility] 05[place]/2023 Estab. patient 30-39min; chronic exacerbation, 2 stable chronic or 1 acute illness add add modifier 95 for video, (do not use for phone, instead use 12400-81) [facility] 05[place]04/2023 Estab. patient 30-39min; chronic exacerbation, 2 stable chronic or 1 acute illness add add modifier 95 for video, (do not use for phone, instead use 79155-78) [facility] 05[place]/2023 Estab. patient 30-39min; chronic exacerbation, 2 stable chronic or 1 acute illness add add modifier 95 for video, (do not use for phone, instead use 45094-28) [facility] 05[place]/2023 Estab. patient 30-39min; chronic exacerbation, 2 stable chronic or 1 acute illness add add modifier 95 for video, (do not use for phone, instead use 76979-53) [facility] 05[place]/2023 Estab. patient 30-39min; chronic exacerbation, 2 stable chronic or 1 acute illness add add modifier 95 for video, (do not use for phone, instead use 62407-56) [facility] 05/[place]/2023 Estab. patient 30-39min; chronic exacerbation, 2 stable chronic or 1 acute illness add add modifier 95 for video, (do not use for phone, instead use 24829-80) [facility] 05[place]12/2024 Type 2 diabetes mellitus wit h [...] (do not use for phone, instead use 45469-07) [facility] Estab. patient 30-39min; chronic exacerbation, 2 stable chronic or 1 acute illness add add modifier 95 for video, (do not use for phone, instead use 45463-37) [facility] 05[place]12/20[place] Estab. patient 30-39min; chronic exacerbation, 2 stable chronic or 1 acute illness add add modifier 95 for video, (do not use for phone, instead use 61847-69) [facility] 05/12/2024 Estab. patient 30-39min; chronic exacerbation, 2 stable chronic or 1 acute illness add add modifier 95 for video, (do not use for phone, instead use 28711-82) [facility] 05/12/2024 Estab. patient 30-39min; chronic exacerbation, 2 stable chronic or 1 acute illness add add modifier 95 for video, (do not use for phone, instead use 80527-25) [facility] 05/12/2024 Vital Signs Date of Collection Vitals [...] Time Current Smoking Status Never smoker 2025-05-05 8 Sex Female History of Procedures Procedures Service Procedure code Service date Servicing provider Phone# No Data Available [id number] 2022-10-19 No Data Available No Data Available [...] (do not use for phone, instead use 27264-76) [id number] 2023-05-04 No Data Available No Data Availa [...] (do not use for phone, instead use 01661-88) [id number] 2024-05-12 No Data Available No Data Availa [...] Functional Status Functional Category Effective Dates has HUMAN RESOURCES ADMINISTRATOR 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 Unsure of most recent [id number] problems related to medical facilities and other [...] call CBContinue to see PCP. [facility] [...] a histamine blocker05/12/24: Pt to continue seeing student financial aid manager as ordered. Twice monthly Xolair. Pt to call Track Worker to see if they will do a [...] as needed for severe itch #60 tablet [id number] Review by prescribing provider or pharmacist documented [...] from chronic itching/hives. Currently being managed by student financial aid manager.
--- OUTSIDE RECORDS SUMMARY | 2025-05-22 14:27 | XMS_ITS | Encounter Summary ---
Author Organization [facility] Address [address] [place] [address] Phone Care Team Providers Care Regulatory Internship Name Role Phone Marco Martinez MD Primary Care Provider Un available Reason for Referral * Physical Therapy (Routine) - Closed Specialty Diagnoses / Procedures Referred By Harini lopez Referred To Contact Physical Therapy Diagnoses Encounter for rehabilitation System, Provider Not In, [facility] [id number] [place] [address] Phone: tel: Referral ID Status Reason Start Date Expiration Date Visits Re quested Visits Authorized [id number] Closed 01/17/2018 01/17/2019 1 1 Encounter Details Date Type Department Care Team (Latest Contact Info) Description 01/17/2018 Transcribe Orders [facility] [address] [place] [address] [place] [address] Jennifer Williamson CNM [address] [place] [address] Encounter for rehabilitation (Primary Dx) Social History Tobacco Use Types Packs/Day Years Used Date Smoking Tobacco: Never Assessed Comments Unknown Sex and Gender Information Value Date Recorded Sex Assigned at Not on file Legal Sex Female 5:23 PM EST Gender Identity Not on file Sexual Orientation Not on file documented as of this encounter Plan of Treatment Scheduled Referrals Name Type Priority Associated Diagnoses Orde r Schedule Ambulatory referral to [facility] Physical Therapy Outpatient Referral Routine Encounter for rehabilitation Ordered: 01/17/2018 documented as of this encounter Visit Diagnoses Diagnosis Encounter for rehabilitation- Primary documented in this encounter Care Teams Regulatory Internship Relationship Specialty Start Date End Date Marco Martinez MD PCP - General Internal Medicine 01/17/18 documented as of this encounter Additional Source Comments The information contained in this document represents components of the legal health record. It is not the complete legal health record.[facility]
--- OUTSIDE RECORDS SUMMARY | 2025-05-22 14:27 | XMS_ITS | Patient Health Record ---
Author Organization [facility] Address [address] [place] [address] 1 [place] [address] Care Team Providers Care Regional Account Executive Name Role Phone Marco Comer Primary Care Provider UnavailCHANDA Powell Unavailable [phone] Reason For Referral No Information Plan Of Treatment No Information
== END 2025-05-22 14:25 | disposition home or self-care (01) ==
LOC: HO.US 14:24
PROVIDERS: PCP Internal Medicine; Visit Provider Obstetrics & Gynecology
DX: N95.0 Postmenopausal bleeding (principal)
CPT/HCPCS: 76830; 76856

== ENCOUNTER → 2025-05-22 14:26 | Outpatient (BNV) | payer OTHER, SELFPAY | PROVIDERS: PCP Internal Medicine; Visit Provider Radiology Diagnostic Radiology | DX: N95.0 Postmenopausal bleeding (principal) | CPT/HCPCS: 76830; 76856 ==

== ENCOUNTER 2025-05-26 07:47 | Outpatient (AMB) | payer OTHER, SELFPAY ==
--- OUTSIDE RECORDS SUMMARY | 2025-05-26 07:49 | XMS_ITS | Encounter Summary ---
Author Organization [facility] Address [address] [place] [address] Phone Care Team Providers Care Plater Apprentice Name Role Phone Marco Martinez MD Primary Care Provider [phone] Reason for Referral * Physical Therapy (Routine) - Closed Specialty Diagnoses / Procedures Referred By Harini lopez Referred To Contact Physical Therapy Diagnoses Encounter for rehabilitation System, Provider Not In, [facility] [id number] [place] [address] [address] [place] [address] Phone: tel: Referral ID Status Reason Start Date Expiration Date Visits Re quested Visits Authorized [id number] Closed 01/17/2018 01/17/2019 1 1 Encounter Details Date Type Department Care Team (Latest Contact Info) Description 01/17/2018 Transcribe Orders [facility] [address] [place] [address] Jennifer Williamson CNM [address] [place] [address] Encounter for rehabilitation (Primary Dx) Social History [...] Diagnoses Orde r Schedule Ambulatory referral to [facility] Physical Therapy Outpatient Referral Routine Encounter for rehabilitation Ordered: 01/17/2018 documented as of this encounter Visit Diagnoses Diagnosis Encounter for rehabilitation- Primary documented in this encounter Care Teams Plater Apprentice Relationship Specialty Start Date End Date Marco Martinez MD [address] [place] [address] Dr Lawler [address] [place] [address] PCP - General Internal Medicine 01/17/18 documented as of this encounter Additional Source Comments The information contained in this document represents components of the legal health record. It is not the complete legal health record.[facility]
--- OUTSIDE RECORDS SUMMARY | 2025-05-26 07:49 | XMS_ITS ---
Author Name Meri BENCH MACHINE OPERATOR,CARDIOLOGY TECH,FN P,IMPORT EXPORT AGENT, Kirsten Address [address] [place] [address] Phone [phone] [facility] Care Team Providers Care Cryptologic Technician Name Role Phone JerezKirsten rich Unavailable [phone] Marco Martinez Unavailable [phone] Reason for Referral Not Available Allergies, adverse [...] a histamine blocker05/12/24: Pt to continue seeing enamel machine operator as ordered. Twice monthly Xolair. Pt to call Crisis Intervention Counselor to see if they will do a [...] of Service Diagnosis/Co mplaint No Data Available [facility] [place]2022 Type 2 diabetes mellitus wit h diabetic polyneuropathyType 2 diabetes mellitus with diabetic cataractObesity, unspecifiedBody mass index (bmi) 31.0-31.9, adultPure hypercholesterolemia, unspecifiedHypothyroidism, unspecifiedAllergy, unspecified, initial encounter No Data Available [facility]20[place] No Data Available [facility] No Data Available [facility] No Data Available [facility] No Data Available [facility] 10[place]20[place] Estab. patient 30-39min; chronic exacerbation, 2 stable chronic or 1 acute illness add add modifier 95 for video, (do not use for phone, instead use 07442-41) [facility] 05[place]04/2023 Type 2 diabetes mellitus wit h [...] (do not use for phone, instead use 79041-93) [facility] 05/04/2023 Estab. patient 30-39min; chronic exacerbation, 2 stable chronic or 1 acute illness add add modifier 95 for video, (do not use for phone, instead use 22319-12) [facility] 05/04/2023 Estab. patient 30-39min; chronic exacerbation, 2 stable chronic or 1 acute illness add add modifier 95 for video, (do not use for phone, instead use 66338-41) [facility] 05/04/2023 Estab. patient 30-39min; chronic exacerbation, 2 stable chronic or 1 acute illness add add modifier 95 for video, (do not use for phone, instead use 47884-50) [facility] 05/04/2023 Estab. patient 30-39min; chronic exacerbation, 2 stable chronic or 1 acute illness add add modifier 95 for video, (do not use for phone, instead use 00220-65) [facility] 05/04/2023 Estab. patient 30-39min; chronic exacerbation, 2 stable chronic or 1 acute illness add add modifier 95 for video, (do not use for phone, instead use 13504-81) [facility] 05/04/2023 Estab. patient 30-39min; chronic exacerbation, 2 stable chronic or 1 acute illness add add modifier 95 for video, (do not use for phone, instead use 28507-28) [facility] 05/04/2023 Estab. patient 30-39min; chronic exacerbation, 2 stable chronic or 1 acute illness add add modifier 95 for video, (do not use for phone, instead use 26121-51) [facility] 05/04/2023 Estab. patient 30-39min; chronic exacerbation, 2 stable chronic or 1 acute illness add add modifier 95 for video, (do not use for phone, instead use 51849-34) [facility] 05/04/2023 Estab. patient 30-39min; chronic exacerbation, 2 stable chronic or 1 acute illness add add modifier 95 for video, (do not use for phone, instead use 61654-97) [facility] 05/12/2024 Type 2 diabetes mellitus wit h [...] (do not use for phone, instead use 57698-57) [facility] 05[place]12/20[place] Estab. patient 30-39min; chronic exacerbation, 2 stable chronic or 1 acute illness add add modifier 95 for video, (do not use for phone, instead use 07884-52) [facility] 05/12/2024 Estab. patient 30-39min; chronic exacerbation, 2 stable chronic or 1 acute illness add add modifier 95 for video, (do not use for phone, instead use 08589-66) [facility] 05/12/2024 Estab. patient 30-39min; chronic exacerbation, 2 stable chronic or 1 acute illness add add modifier 95 for video, (do not use for phone, instead use 03751-77) [facility] 05/12/2024 Estab. patient 30-39min; chronic exacerbation, 2 stable chronic or 1 acute illness add add modifier 95 for video, (do not use for phone, instead use 72921-16) [facility] 05/12/2024 Vital Signs Date of Collection Vitals [...] tive Time Current Smoking Status Never smoker 2025-05-06 2 Sex Female History of Procedures Procedures Service Procedure code Service date Servicing provider Phone# No Data Available [id number] 2022-10-19 No Data Available No Data Available [...] (do not use for phone, instead use 99367-84) 35[address] 2023-05-04 No Data Available No Data Availa [...] (do not use for phone, instead use 04748-26) [address] 2024-05-12 No Data Available No Data Availa [...] Functional Status Functional Category Effective Dates has PHARM SPEC 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 Unsure of most recent [id number] problems related to medical facilities and other [...] call CBContinue to see PCP. [facility] or [...] a histamine blocker05/12/24: Pt to continue seeing enamel machine operator as ordered. Twice monthly Xolair. Pt to call Crisis Intervention Counselor to see if they will do a [...] as needed for severe itch #60 tablet [id number] Review by prescribing provider or pharmacist documented [...] from chronic itching/hives. Currently being managed by enamel machine operator.
--- OUTSIDE RECORDS SUMMARY | 2025-05-26 07:49 | XMS_ITS | Patient Health Record ---
Author Organization [facility] Address [address] [place] [address] [address] [place] [address] Care Team Providers Care Birth Attendant Name Role Phone Marco Comer Primary Care Provider UnavailCHANDA Powell Unavailable [phone] Reason For Referral No Information Plan Of Treatment No Information
[2025-05-26 07:57] VITALS: BP 126/72; BMI 34.3
--- NOTE | 2025-05-26 07:57 | A.OFFVIS_ITS ---
Vital Signs 05/26/25 07:57 Height 4 ft 11 in Weight 170 lb BMI 34.3 BP 126/72 Intake Visit Reasons: ultrasound and emb results Naphthalene Still Operator Required: Yes Naphthalene Still Operator Language: Machine Sneller Services: Naphthalene Still Operator Present (in person) Naphthalene Still Operator Name: Tita BRAVO Information Interpreted: non-clinical & clinical Accompanied by: Daughter Allergies No Known Allergies Allergy (Verified 05/26/25 08:02) Post menopausal: Yes HPI Comments Details: The patient is presenting after endometrial biopsy. The patient has no complaints, no vaginal bleeding, no feverishness chills or abdominal pain. The patient has been having recurrent postmenopausal bleeding. 05/06/2025 EMB pathology showed the following: Endometrium, biopsy: Minute fragment of benign smooth muscle (possible leiomyoma; clinical correlation necessary); insufficient endometrial epithelium for evaluation 05/14/2025 EMB repeated and showed the following: Endometrium, biopsy: Superficial strips of abnormal endometrial epithelium and atrophic squamous epithelium; abundant blood. See description and comment. Comment: The atypical foci are quite small and not definitively represented in the levels used for immunostain studies. The differential includes reactive/atrophic endometrium and a neoplastic process. Recommend repeat sampling, as clinically appropriate Pelvic ultrasound showed the following: FINDINGS: Bladder prolapse into the vagina is noted. Uterus: The uterus is normal in size, measuring 6.1 x 3.0 x 4.6 cm. There are diffuse myometrial calcifications which may be vascular in nature. No fibroids are identified. Endometrium: The endometrial stripe measures 2 mm in thickness. Right ovary: The right ovary measures 3.4 x 1.0 x 1.1 cm. The right ovary is normal in size and echotexture. Left ovary: The left ovary not identified. Pelvic fluid: none. [facility] Medical History Hypothyroidism Multinodular goiter Prosthetic eye globe Lumbar back pain with radiculopathy affecting right lower extremity Anemia Frequent falls Dizziness Carpal tunnel syndrome, bilateral Mixed hyperlipidemia Obesity (BMI 30-39.9) Memory impairment Osteoarthritis of both hands Vitamin B12 deficiency Vitamin D deficiency Primary osteoarthritis of both knees Osteopenia Asthma Chronic idiopathic urticaria Acquired hypothyroidism Benign essential hypertension Diabetes mellitus without complication Surgical History H/O colonoscopy Status post carpal tunnel release (~06/02/21) Tubal ligation status Hx of section History of total right knee replacement (~2012) Family History Father No problems noted. 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 Atypia Code(s): N95.0 - Postmenopausal bleeding Category: Medical Plan: Discussed with the patient the results the pathology showing possible atypia. The recommended refer to [facility] where endometrial biopsy slides will be reviewed by [facility] pathology Department for a 2nd opinion and for further management either hysteroscopy D&C in case pathology is confirmed abnormal possible hysterectomy versus expectant management if pathology is negative. All questions answered, the patient verbalized understanding agreed with the plan. Instructed the patient to call our office back in case a referral appointment is not scheduled, missed or canceled so that we will assist on rescheduling another appointment, the patient verbalized understanding agreed with the plan. Coding Level of Care Code Est Pt Level 3 (97254) Diagnoses Post-menopausal bleeding N95.0
== END 2025-05-26 08:45 | disposition home or self-care (01) ==
LOC: HO.HWS 07:47
PROVIDERS: PCP Internal Medicine; Visit Provider Obstetrics & Gynecology
DX: N95.0 Postmenopausal bleeding (principal)
CPT/HCPCS: 99213

== ENCOUNTER → 2025-05-26 07:47 | Outpatient (BNVA) | payer OTHER, SELFPAY | PROVIDERS: PCP Internal Medicine; Visit Provider Obstetrics & Gynecology | DX: N95.0 Postmenopausal bleeding (principal) | CPT/HCPCS: 99212 ==

== ENCOUNTER 2025-06-09 08:11 | Outpatient (AMB) | payer OTHER, SELFPAY ==
--- OUTSIDE RECORDS SUMMARY | 2025-06-09 08:16 | XMS_ITS ---
Author Name Meri SUPPLY PERSON,SHIP WASHER,FN P,AUTOMOBILE BRAKES BONDER, Kirsten Address [address] [place] [address] Phone [phone] [facility] Care Team Providers Care Candy Butcher Name Role Phone JerezKirsten rich Unavailable [phone] Marco Martinez Unavailable [phone] Reason for Referral Not Available Allergies, adverse [...] a histamine blocker05/12/24: Pt to continue seeing sound recording technician as ordered. Twice monthly Xolair. Pt to call Software Engineer Advisor to see if they will do a [...] of Service Diagnosis/Co mplaint No Data Available [facility] [place] 10[place]19/2022 Type 2 [...] [facility] Estab. patient 30-39min; chronic exacerbation, 2 stable chronic or 1 acute illness add add modifier 95 for video, (do not use for phone, instead use 87608-58) [facility], [place] 05/04/2023 Type 2 diabetes mellitus wit [...] (do not use for phone, instead use 99502-71) [facility]20[place] Estab. patient 30-39min; chronic exacerbation, 2 stable chronic or 1 acute illness add add modifier 95 for video, (do not use for phone, instead use 30599-09) [facility]04/2023 Estab. patient 30-39min; chronic exacerbation, 2 stable chronic or 1 acute illness add add modifier 95 for video, (do not use for phone, instead use 89314-37) [facility] 05[place]04/2023 Estab. patient 30-39min; chronic exacerbation, 2 stable chronic or 1 acute illness add add modifier 95 for video, (do not use for phone, instead use 96967-93) [facility] 05[place]04/2023 Estab. patient 30-39min; chronic exacerbation, 2 stable chronic or 1 acute illness add add modifier 95 for video, (do not use for phone, instead use 07587-84) [facility] 05/04/2023 Estab. patient 30-39min; chronic exacerbation, 2 stable chronic or 1 acute illness add add modifier 95 for video, (do not use for phone, instead use 19568-07) [facility] 05/04/2023 Estab. patient 30-39min; chronic exacerbation, 2 stable chronic or 1 acute illness add add modifier 95 for video, (do not use for phone, instead use 10383-61) [facility] 05/04/2023 Estab. patient 30-39min; chronic exacerbation, 2 stable chronic or 1 acute illness add add modifier 95 for video, (do not use for phone, instead use 99077-47) [facility] 05/04/2023 Estab. patient 30-39min; chronic exacerbation, 2 stable chronic or 1 acute illness add add modifier 95 for video, (do not use for phone, instead use 41261-20) [facility] 05/04/2023 Estab. patient 30-39min; chronic exacerbation, 2 stable chronic or 1 acute illness add add modifier 95 for video, (do not use for phone, instead use 04210-57) [facility] 05/12/2024 Type 2 diabetes mellitus wit [...] (do not use for phone, instead use 66215-25) [facility] 05[place]12/[place] Estab. patient 30-39min; chronic exacerbation, 2 stable chronic or 1 acute illness add add modifier 95 for video, (do not use for phone, instead use 97535-34) [facility] 05/12/2024 Estab. patient 30-39min; chronic exacerbation, 2 stable chronic or 1 acute illness add add modifier 95 for video, (do not use for phone, instead use 49888-11) [facility] 05/12/2024 Estab. patient 30-39min; chronic exacerbation, 2 stable chronic or 1 acute illness add add modifier 95 for video, (do not use for phone, instead use 66811-26) [facility] 05/12/2024 Estab. patient 30-39min; chronic exacerbation, 2 stable chronic or 1 acute illness add add modifier 95 for video, (do not use for phone, instead use 81658-74) [facility] 05/12/2024 Vital Signs Date of Collection [...] tive Time Current Smoking Status Never smoker 5 Sex Female History of Procedures Procedures Service Procedure code Service date Servicing provider Phone# No Data Available [id number] 2022-10-19 No Data Available No Data Available [...] (do not use for phone, instead use 99443-52) 49164 2023-05-04 No Data Available No Data Availa [...] (do not use for phone, instead use 52389-72) 71063 2024-05-12 No Data Available No Data Availa [...] Functional Status Functional Category Effective Dates has MANAGER INCOME TAX 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 Unsure of most recent [id number] problems related to medical facilities and other [...] call CBContinue to see PCP. [facility] [...] a histamine blocker05/12/24: Pt to continue seeing sound recording technician as ordered. Twice monthly Xolair. Pt to call Software Engineer Advisor to see if they will do a [...] as needed for severe itch #60 tablet [id number] Review by prescribing provider or pharmacist documented [...] from chronic itching/hives. Currently being managed by sound recording technician.
--- OUTSIDE RECORDS SUMMARY | 2025-06-09 08:17 | XMS_ITS | Patient Health Record ---
Author Organization [facility] Network Address [address] [place] [address] [address] [place] [address] Care Team Providers Care Mailing Machine Operator Name Role Phone Marco Comer Primary Care Provider CHANDA Rodriguez Unavailable [phone] Reason For Referral No Information Plan Of Treatment No Information
--- OUTSIDE RECORDS SUMMARY | 2025-06-09 08:17 | XMS_ITS | Encounter Summary ---
Author Organization [facility] Address [address] [place] [address] Phone Care Team Providers Care Supervisor Mold Cleaning And Storage Name Role Phone Marco Martinez MD Primary Care Provider [phone] Reason for Referral * Physical Therapy (Routine) - Closed Specialty Diagnoses / Procedures Referred By Harini lopez Referred To Contact Physical Therapy Diagnoses Encounter for rehabilitation System, Provider Not In, [facility] [id number] [place] [address] [address] [place] [address] Phone: tel: Referral ID Status Reason Start Date Expiration Date Visits Re quested Visits Authorized [id number] Closed 01/17/2018 01/17/2019 1 1 Encounter Details Date Type Department Care Team (Latest Contact Info) Description 01/17/2018 Transcribe Orders [facility] [address] [place] [address] Jennifer Williamson CNM [address] [place] [address] Encounter for rehabilitation (Primary Dx) Social History [...] Diagnoses Orde r Schedule Ambulatory referral to [facility] Physical Therapy Outpatient Referral Routine Encounter for rehabilitation Ordered: 01/17/2018 documented as of this encounter Visit Diagnoses Diagnosis Encounter for rehabilitation- Primary documented in this encounter Care Teams Supervisor Mold Cleaning And Storage Relationship Specialty Start Date End Date Marco Martinez MD [address] [place] [address] Dr Lawler [address] [place] [phone] PCP - General Internal Medicine 01/17/18 documented as of this encounter Additional Source Comments The information contained in this document represents components of the legal health record. It is not the complete legal health record.[facility]
--- NOTE | 2025-06-09 08:34 | A.OFFVIS_ITS ---
Vital Signs 06/09/25 08:41 Height 4 ft 11 in Weight 170 lb BMI 34.3 Intake Visit Reasons: U/S results/pessary fitting Retail Experience Specialist Required: Yes Retail Experience Specialist Language: Stock Crane Operator Services: Retail Experience Specialist Present (in person) Retail Experience Specialist Name: Tita BRAVO Information Interpreted: non-clinical & clinical Tissue Packer: Tissue Packer Present (Tita BRAVO) Accompanied by: Grand Child Allergies No Known Allergies Allergy (Verified 06/09/25 08:42) Post menopausal: Yes HPI Comments Details: Presenting for follow-up regarding vaginal wall abrasion, the patient has an appointment [facility] for a 2nd opinion regarding postmenopausal bleeding with insufficient endometrium and is aware of it [facility] Medical History Hypothyroidism Multinodular goiter Prosthetic eye globe Lumbar back pain with radiculopathy affecting right lower extremity Anemia Frequent falls Dizziness Carpal tunnel syndrome, bilateral Mixed hyperlipidemia Obesity (BMI 30-39.9) Memory impairment Osteoarthritis of both hands Vitamin B12 deficiency Vitamin D deficiency Primary osteoarthritis of both knees Osteopenia Asthma Chronic idiopathic urticaria Acquired hypothyroidism Benign essential hypertension Diabetes mellitus without complication Surgical History H/O colonoscopy Status post carpal tunnel release (~06/02/21) Tubal ligation status Hx of section History of total right knee replacement (~2012) Family History Father No problems noted. 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 Cognitive needs: Yes (cane ) Hearing needs: No Vision needs: Yes (glasses ) Review of Systems Const All systems reviewed & are unremarkable except as noted in HPI and below Physical Exam General: Yes no CVA tenderness External Female Exam: normal external appearance and normal appearance of the urethra Speculum Exam - Vagina: abnormal appearance of the vagina (Cystocele with Central abrasion present with no evidence of infection), normal palpation, no lesions and no masses Speculum Exam - Cervix: normal appearance of the cervix, normal palpation, no lesions, no masses and nontender Bimanual exam- vagina & uterus: normal bimanual exam, normal palpation, uterine size normal, normal palpation, uterine shape normal, No Cervical tenderness present and non-tender Bimanual Exam- Adnexa, other: normal adnexae Back/Spine/Pelvis Back: no CVA tenderness Assessment & Plan Assessment & Plan (1) Female cystocele: Comment: With central abrasion Code(s): N81.10 - Cystocele, unspecified Category: Medical Plan: Given the finding on pelvic exam, recurrence of central abrasion, will defer pessary trial. Instructions given the patient to call in case of pain, vaginal discharge or fever above 100.4 and to schedule follow-up appointment in 6 weeks. All questions answered, the patient verbalized understanding Coding Level of Care Code Est Pt Level 3 (47002) Diagnoses Female cystocele N81.10
[2025-06-09 08:41] VITALS: BMI 34.3
== END 2025-06-09 09:17 | disposition home or self-care (01) ==
LOC: HO.HWS 08:11
PROVIDERS: PCP Internal Medicine; Visit Provider Obstetrics & Gynecology
DX: N81.10 Cystocele, unspecified (principal)
CPT/HCPCS: 99213

== ENCOUNTER → 2025-06-09 08:11 | Outpatient (BNVA) | payer OTHER, SELFPAY | PROVIDERS: PCP Internal Medicine; Visit Provider Obstetrics & Gynecology | DX: N81.10 Cystocele, unspecified (principal) | CPT/HCPCS: 99212 ==

== ENCOUNTER 2025-06-29 10:42 | Outpatient (AMB) | payer OTHER, SELFPAY ==
--- NOTE | 2025-06-29 10:49 | A.OFFVIS_ITS ---
Intake Visit Reasons: OV-B/L knee OA f/u Intake Note: Yaneli is a 75 year old female who presents today for a follow up of her Bilateral Knees. Hx of Right TKA, she was referred to Pain Mgmt for possible lower back involvement. She was seen with Pain Mgmt where she hds a Sprint device implanted and later removed with great relief. Left knee was last injected 06/04/2023 and she would like to re-inject Allergies No Known Allergies Allergy (Verified 06/09/25 08:42) HPI HPI OV-B/L knee OA f/u: Details: Yaneli is a 75 year old female who presents today for a follow up of her Bilat eral Knees. Hx of Right TKA, she was referred to Pain Mgmt for possible lower back involvement. She was seen with Pain Mgmt where she hds a Sprint device implanted and later removed with great relief. Left knee was last injected 06/04/2023 and she would like to re-inject PFSH Medical History Hypothyroidism Multinodular goiter Prosthetic eye globe Lumbar back pain with radiculopathy affecting right lower extremity Anemia Frequent falls Dizziness Carpal tunnel syndrome, bilateral Mixed hyperlipidemia Obesity (BMI 30-39.9) Memory impairment Osteoarthritis of both hands Vitamin B12 deficiency Vitamin D deficiency Primary osteoarthritis of both knees Osteopenia Asthma Chronic idiopathic urticaria Acquired hypothyroidism Benign essential hypertension Diabetes mellitus without complication Surgical History H/O colonoscopy Status post carpal tunnel release (~06/02/21) Tubal ligation status Hx of section History of total right knee replacement (~2012) Family History Father No problems noted. 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 Cognitive needs: Yes (cane ) Hearing needs: No Vision needs: Yes (glasses ) Physical Exam Const General: no acute distress, alert and awake Orientation/consciousness: patient oriented x3 HEENT Head: Yes normocephalic and Yes atraumatic Eyes EOM: EOMs intact bilaterally Resp Effort & Inspection: normal respiratory effort and able to speak in complete sentences Cardio Jugular venous distension: no JVD Skin General skin exam: turgor normal Rashes: no rashes Neuro General: patient oriented x3 Extrem Other: Left knee: TTP MJL Stable to varus valgus stress Trace effusion Psych Appearance: grossly normal Affect: normal affect Attitude: cooperative Office Procedures Joint Inj/Aspir; Non-Pain Clin Joint Injection/Drain Details: Injected 1 mL of Decadron and 3 mL 1% lidocaine and 3 mL of 0.25% Marcaine. Site was prepped using aseptic technique. Patient tolerated the procedure well. Shoulders, Hips, Knees, Knee Large Joint Injection : Left Knee Coding Procedure code (CPT) selection complete Assessment & Plan Assessment & Plan (1) Primary osteoarthritis of left knee: Code(s): M17.12 - Unilateral primary osteoarthritis, left knee Category: Medical Plan: 75-year-old woman with left knee arthritis. She is diabetic. I explained the hyperglycemic effects of steroids. I injected her left knee today. (2) Diabetes mellitus without complication: Code(s): E11.9 - Type 2 diabetes mellitus without complications Category: Medical Plan: I explained the hyperglycemic effects of steroids. Coding Level of Care Code Est Pt Level 4 (64988) Diagnoses Primary osteoarthritis of left knee M17.12 Diabetes mellitus without complication E11.9 CPT Codes Shoulders, Hips, Knees, - Knee Large Joint Injection : Left Knee ([id number])
--- OUTSIDE RECORDS SUMMARY | 2025-06-29 11:56 | XMS_ITS | Encounter Summary ---
Author Organization [facility] Address [address] [place] [address] Phone Care Team Providers Care Film Process Operator Name Role Phone Marco Martinez MD Primary Care Provider [phone] Reason for Referral * Physical Therapy (Routine) - Closed Specialty Diagnoses / Procedures Referred By Harini lopez Referred To Contact Physical Therapy Diagnoses Encounter for rehabilitation System, Provider Not In, [facility] [id number] [place] [address] 30 [place] [address] Phone: tel: Referral ID Status Reason Start Date Expiration Date Visits Re quested Visits Authorized [id number] Closed 01/17/2018 01/17/2019 1 1 Encounter Details Date Type Department Care Team (Latest Contact Info) Description 01/17/2018 Transcribe Orders [facility] [address] [place] [address] Jennifer Williamson CNM [address] [place] [address] Encounter for rehabilitation (Primary Dx) Social History [...] Diagnoses Orde r Schedule Ambulatory referral to [facility] Physical Therapy Outpatient Referral Routine Encounter for rehabilitation Ordered: 01/17/2018 documented as of this encounter Visit Diagnoses Diagnosis Encounter for rehabilitation- Primary documented in this encounter Care Teams Film Process Operator Relationship Specialty Start Date End Date Marco Martinez MD [address] [place] [address] Dr Lawler [address] [place] [id number] PCP - General Internal Medicine 01/17/18 documented as of this encounter Additional Source Comments The information contained in this document represents components of the legal health record. It is not the complete legal health record.[facility]
--- OUTSIDE RECORDS SUMMARY | 2025-06-29 11:56 | XMS_ITS | Patient Health Record ---
Author Organization [facility] Network Address [address] [place] [address] [address] [place] [address] Care Team Providers Care Cold Roll Operator Name Role Phone Marco Comer Primary Care Provider CHANDA Rodriguez Unavailable [phone] Reason For Referral No Information Plan Of Treatment No Information
--- OUTSIDE RECORDS SUMMARY | 2025-06-29 11:56 | XMS_ITS ---
Author Name Meri DRY PLASTERER HELPER,CLAY WASHER,FN P,ELECTROPLATING WORKER, Kirsten Address [address] [place] [address] Phone [phone] [facility] Care Team Providers Care Envelope Cutter Name Role Phone JerezKirsten rich Unavailable [phone] Marco Martinez Unavailable [phone] Reason for Referral Not Available Allergies, adverse [...] a histamine blocker05/12/24: Pt to continue seeing grubber as ordered. Twice monthly Xolair. Pt to call Stitch Wheeler to see if they will do a [...] of Service Diagnosis/Co mplaint No Data Available [facility] [place]19[place]2022 Type 2 diabetes mellitus wit h diabetic polyneuropathyType 2 diabetes mellitus with diabetic cataractObesity, unspecifiedBody mass index (bmi) 31.0-31.9, adultPure hypercholesterolemia, unspecifiedHypothyroidism, unspecifiedAllergy, unspecified, initial encounter No Data Available [facility]19[place]2022 No Data Available [facility]20[place] No Data Available [facility]20[place] No Data Available [facility] No Data Available [facility]20[place] Estab. patient 30-39min; chronic exacerbation, 2 stable chronic or 1 acute illness add add modifier 95 for video, (do not use for phone, instead use 72767-64) [facility]20[place] Type 2 diabetes mellitus wit h [...] (do not use for phone, instead use 08232-29) [facility] Estab. patient 30-39min; chronic exacerbation, 2 stable chronic or 1 acute illness add add modifier 95 for video, (do not use for phone, instead use 38163-23) [facility] 05[place]20[place] Estab. patient 30-39min; chronic exacerbation, 2 stable chronic or 1 acute illness add add modifier 95 for video, (do not use for phone, instead use 21468-96) [facility] 05[place]20[place] Estab. patient 30-39min; chronic exacerbation, 2 stable chronic or 1 acute illness add add modifier 95 for video, (do not use for phone, instead use 43927-21) [facility] 05[place]20[place] Estab. patient 30-39min; chronic exacerbation, 2 stable chronic or 1 acute illness add add modifier 95 for video, (do not use for phone, instead use 12521-81) [facility] 05[place]04/20[place] Estab. patient 30-39min; chronic exacerbation, 2 stable chronic or 1 acute illness add add modifier 95 for video, (do not use for phone, instead use 63410-48) [facility] 05/[place]/20[place] Estab. patient 30-39min; chronic exacerbation, 2 stable chronic or 1 acute illness add add modifier 95 for video, (do not use for phone, instead use 16050-94) [facility] 05[place]04/2023 Estab. patient 30-39min; chronic exacerbation, 2 stable chronic or 1 acute illness add add modifier 95 for video, (do not use for phone, instead use 57008-54) [facility] 05[place]04[place]2023 Estab. patient 30-39min; chronic exacerbation, 2 stable chronic or 1 acute illness add add modifier 95 for video, (do not use for phone, instead use 01373-59) [facility] 05/[place]/20[place] Estab. patient 30-39min; chronic exacerbation, 2 stable chronic or 1 acute illness add add modifier 95 for video, (do not use for phone, instead use 90117-14) [facility] 05[place]12/20[place] Type 2 diabetes mellitus wit h [...] (do not use for phone, instead use 82340-58) [facility] ([place] 05/12/20[place] Estab. patient 30-39min; chronic exacerbation, 2 stable chronic or 1 acute illness add add modifier 95 for video, (do not use for phone, instead use 34703-16) [facility] 05[place]12/20[place] Estab. patient 30-39min; chronic exacerbation, 2 stable chronic or 1 acute illness add add modifier 95 for video, (do not use for phone, instead use 37546-03) [facility] 05/12/20[place] Estab. patient 30-39min; chronic exacerbation, 2 stable chronic or 1 acute illness add add modifier 95 for video, (do not use for phone, instead use 58170-89) [facility] 05/12/20[place] Estab. patient 30-39min; chronic exacerbation, 2 stable chronic or 1 acute illness add add modifier 95 for video, (do not use for phone, instead use 36548-13) [facility] 05/12/2024 Vital Signs Date of Collection Vitals [...] tive Time Current Smoking Status Never smoker 2025-06-06 5 Sex Female History of Procedures Procedures Service Procedure code Service date Servicing provider Phone# No Data Available [id number] 2022-10-19 No Data Available No Data Available [...] (do not use for phone, instead use 14928-50) 28794 2023-05-04 No Data Available No Data Availa [...] (do not use for phone, instead use 95940-27) 450[address] 2024-05-12 No Data Available No Data Availa [...] Functional Status Functional Category Effective 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 Unsure of most recent A1oGcmbj problems related to medical facilities and other [...] call CBContinue to see PCP. [facility] or disease [...] a histamine blocker05/12/24: Pt to continue seeing grubber as ordered. Twice monthly Xolair. Pt to call Stitch Wheeler to see if they will do a [...] as needed for severe itch #60 tablet [id number] Review by prescribing provider or pharmacist documented [...] from chronic itching/hives. Currently being managed by grubber.
== END 2025-06-29 11:10 | disposition home or self-care (01) ==
LOC: HO.HOS 10:43
PROVIDERS: PCP Internal Medicine; Visit Provider Orthopaedic Surgery
DX: M17.12 Unilateral primary osteoarthritis, left knee (principal); E11.9 Type 2 diabetes mellitus without complications
CPT/HCPCS: 20610; 99214

== ENCOUNTER → 2025-06-29 10:42 | Outpatient (BNVA) | payer OTHER, SELFPAY | PROVIDERS: PCP Internal Medicine; Visit Provider Orthopaedic Surgery | DX: M17.12 Unilateral primary osteoarthritis, left knee (principal); E11.9 Type 2 diabetes mellitus without complications; Z96.651 Presence of right artificial knee joint | CPT/HCPCS: 20610; 99212; J0665; J1100; J2003 ==

== ENCOUNTER 2025-07-10 09:33 | Outpatient (REF) | payer OTHER, SELFPAY ==
--- OUTSIDE RECORDS SUMMARY | 2024-11-04 06:20 | XMS_ITS ---
Author Organization [facility] Network Address [address] [address] Care Team Providers Care Photographic Laboratory Technician Name Role Phone Marco Comer Primary Care Provider CHANDA Rodriguez [facility] [phone] REASON FOR VISIT NEED INSURANCE INFORMATION Encounters Encounter Location Date Provider Diagnosis [place] [facility] 75 [facility] 1 [place] [address] 11/04/2024 CHANDA SAMUEL Plan Of Treatment No Information Progress Notes * Yaneli MORRISDOB:[birth year] (75 yo F)Acc No.[id number]:11/04/2024 Progress Notes Patient: Yaneli Torres Provider: Deniz Samuel MD :1950 A ge:74 Y S ex:Female Date:11/04/2024 Address:[address] [place] [address] Pcp:Marco Comer Subjective: * Chief Complaints: * N EED INSURANCE INFORMATION * Electronic signature of CHANDA SAMUEL M.D. on 07/10/2025 at 10:16 AM EDT Sign off status: Pending * Provider: Deniz Samuel MD Date: Generated for Milton gonzalez/Tato/Glynn on: 0 07/10/2025 10:16 AM EDT
[2025-07-10 10:04] LABS: MANUAL DIFF FLAG NO
--- OUTSIDE RECORDS SUMMARY | 2025-07-10 10:16 | XMS_ITS | Clinical Summary ---
Author Organization [facility] Address [address] [place] [phone] Phone Care Team Providers Care Transfill Technician Name Role Phone Marco Martinez MD Primary Care Provider [phone] Social History Tobacco Use Types Packs/Day Years Used Date Smoking Tobacco: Never Assessed Education Answer Date Recorded Are you interested in more education? Not on han e 03/03/2023 Are you concerned about learning? Not on file 03/03/2023 No 03/03/2023 No 03/03/2023 Digital Access Answer Date Recorded No 04/01/2023 No 04/01/2023 No 04/01/2023 Reliable internet access at home? Not on file 04/01/2023 Device with a working camera? Not on file Comments Unknown Sex and Gender Information Value Date Recorded Sex Assigned at Not on file Legal Sex Female 5:23 PM EST Gender Identity Not on file Sexual Orientation Not on file Plan of Treatment Health Maintenance Due Date Last Done Comments Adult Td,Tdap Booster 1948 LIPID PANEL 1948 DEPRESSION SCREENING 1960 SMOKING Hx and SMOKELESS TOBACCO SCREENING 1961 HEPATITIS C SCREENING 1966 ZOSTER VACCINES (1 of 2) 1998 OSTEOPOROSIS SCREENING INITI AL (ONE-TIME) 2013 PNEUMOCOCCAL VACCINES (50+ years) (2 of 2 - PPSV23) 08/15/2020 08/15/2019 RSV VACCINE (1 - 1-dose 75+ series) 2023 COVID-19 VACCINE (3 - 4-2 5 season) 2024 03/16/2021, 02/16/2021 HEPATITIS A VACCINES Aged Out No long er eligible based on patient's age to complete this topic HIB VACCINES Aged Out No longer eligi ble based on patient's age to complete this topic MENINGOCOCCAL VACCINES (ACWY) Aged Out No longer eligible based on patient's age to complete this topic MENINGOCOCCAL VACCINES (B) Aged Out N o longer eligible based on patient's age to complete this topic Medical Devices Not on file Insurance MEDICARE REPLACEMENT MEDICARE REPLACEMENT MEDICARE REPLACEMENT MEDICARE REPLACEMENT MEDICARE REPLACEMENT MEDICARE REPLACEMENT MEDICARE REPLACEMENT MEDICARE REPLACEMENT MEDICARE REPLACEMENT Care Teams Transfill Technician Relationship Specialty Start Date End Date Marco Martinez MD [address] [place] [address] [place] [address] PCP - General Internal Medicine 01/17/18 Additional Source Comments The information contained in this document represents components of the legal health record. It is not the complete legal health record.[facility]
--- OUTSIDE RECORDS SUMMARY | 2025-07-10 10:16 | XMS_ITS ---
Author Name Meri STRAIGHTENER AND ALIGNER,VP PLATFORMS,FN P,HYDRAULIC JACK ADJUSTER, Kirsten Address [address] [place] [id number] Phone [phone] [facility] Care Team Providers Care Infrastructure Director Name Role Phone JerezKirsten rich Unavailable [phone] Marco Martinez Unavailable [phone] Reason for Referral Not Available Allergies, adverse [...] a histamine blocker05/12/24: Pt to continue seeing construction job cost estimator as ordered. Twice monthly Xolair. Pt to call [employer] Installation Crew Member to see if they will do [...] of Service Diagnosis/Co mplaint No Data Available [facility] [place] 10/19/2022 Type 2 diabetes mellitus wit h diabetic polyneuropathyType 2 diabetes mellitus with diabetic cataractObesity, unspecifiedBody mass index (bmi) 31.0-31.9, adultPure hypercholesterolemia, unspecifiedHypothyroidism, unspecifiedAllergy, unspecified, initial encounter No Data Available [facility] 10/19/2022 No Data Available [facility] 10/19/2022 No Data Available [facility] 10/19/2022 No Data Available [facility] 10/19/2022 No Data Available [facility] 10/19/2022 Estab. patient 30-39min; chronic exacerbation, 2 stable chronic or 1 acute illness add add modifier 95 for video, (do not use for phone, instead use 75917-13) [facility] 05/04/2023 Type 2 diabetes mellitus wit h [...] (do not use for phone, instead use 83244-38) [facility] 05/04/2023 Estab. patient 30-39min; chronic exacerbation, 2 stable chronic or 1 acute illness add add modifier 95 for video, (do not use for phone, instead use 76996-68) [facility] 05/04/2023 Estab. patient 30-39min; chronic exacerbation, 2 stable chronic or 1 acute illness add add modifier 95 for video, (do not use for phone, instead use 75808-83) [facility] [place] 05/04/2023 Estab. patient 30-39min; chronic exacerbation, 2 stable chronic or 1 acute illness add add modifier 95 for video, (do not use for phone, instead use 37148-78) [facility] 05/04/2023 Estab. patient 30-39min; chronic exacerbation, 2 stable chronic or 1 acute illness add add modifier 95 for video, (do not use for phone, instead use 08953-66) [facility] [place] 05/04/2023 Estab. patient 30-39min; chronic exacerbation, 2 stable chronic or 1 acute illness add add modifier 95 for video, (do not use for phone, instead use 06442-20) [facility] 05/04/2023 Estab. patient 30-39min; chronic exacerbation, 2 stable chronic or 1 acute illness add add modifier 95 for video, (do not use for phone, instead use 92564-98) [facility] [place] 05/04/2023 Estab. patient 30-39min; chronic exacerbation, 2 stable chronic or 1 acute illness add add modifier 95 for video, (do not use for phone, instead use 79368-64) [facility] [place] 05/04/2023 Estab. patient 30-39min; chronic exacerbation, 2 stable chronic or 1 acute illness add add modifier 95 for video, (do not use for phone, instead use 70364-63) [facility] [place] 05/04/2023 Estab. patient 30-39min; chronic exacerbation, 2 stable chronic or 1 acute illness add add modifier 95 for video, (do not use for phone, instead use 16750-01) [facility] [place] 05/12/2024 Type 2 diabetes mellitus wit h [...] (do not use for phone, instead use 76472-50) [facility] [place] 05/12/2024 Estab. patient 30-39min; chronic exacerbation, 2 stable chronic or 1 acute illness add add modifier 95 for video, (do not use for phone, instead use 92575-31) [facility] [place] 05/12/2024 Estab. patient 30-39min; chronic exacerbation, 2 stable chronic or 1 acute illness add add modifier 95 for video, (do not use for phone, instead use 24567-82) [facility] [place] 05/12/2024 Estab. patient 30-39min; chronic exacerbation, 2 stable chronic or 1 acute illness add add modifier 95 for video, (do not use for phone, instead use 93323-36) [facility] [place] 05/12/2024 Estab. patient 30-39min; chronic exacerbation, 2 stable chronic or 1 acute illness add add modifier 95 for video, (do not use for phone, instead use 45964-57) [facility] [place] 05/12/2024 Vital Signs Date of Collection Vitals [...] date Servicing provider Phone# No Data Available [id number] 2022-10-19 No Data Available No Data Available [...] (do not use for phone, instead use 01346-18) [id number] 2023-05-04 No Data Available No Data Availa [...] (do not use for phone, instead use 02203-60) [id number] 2024-05-12 No Data Available No Data Availa [...] Functional Status Functional Category Effective 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 Unsure of most recent [id number] problems related to medical facilities and other [...] call CBContinue to see PCP. [facility] [...] a histamine blocker05/12/24: Pt to continue seeing construction job cost estimator as ordered. Twice monthly Xolair. Pt to call [employer] Crew Member to see if they will do [...] as needed for severe itch #60 tablet [id number] Review by prescribing provider or pharmacist documented [...] from chronic itching/hives. Currently being managed by construction job cost estimator.
--- OUTSIDE RECORDS SUMMARY | 2025-07-10 10:16 | XMS_ITS | Patient Health Record ---
Author Organization [facility] Address [address] [place] [address] [address] [place] [address] Care Team Providers Care Thermodynamic Physicist Name Role Phone Marco Comer Primary Care Provider CHANDA Rodriguez Unavailable [phone] Reason For Referral No Information Plan Of Treatment No Information
--- OUTSIDE RECORDS SUMMARY | 2025-07-10 10:16 | XMS_ITS | Encounter Summary ---
Author Organization [facility] Address [address] [place] [address] Phone Care Team Providers Care Corduroy Brusher Operator Name Role Phone Marco Martinez MD Primary Care Provider [phone] Reason for Referral * Physical Therapy (Routine) - Closed Specialty Diagnoses / Procedures Referred By Harini lopez Referred To Contact Physical Therapy Diagnoses Encounter for rehabilitation System, Provider Not In, [facility] [id number] [place] [address] [address] [place] [address] Phone: tel: Referral ID Status Reason Start Date Expiration Date Visits Re quested Visits Authorized [id number] Closed 01/17/2018 01/17/2019 1 1 Encounter Details Date Type Department Care Team (Latest Contact Info) Description 01/17/2018 Transcribe Orders [facility] [address] [place] [address] Jennifer Williamson CNM [address] [place] [id number] Encounter for rehabilitation (Primary Dx) Social History [...] Primary documented in this encounter Care Teams Corduroy Brusher Operator Relationship Specialty Start Date End Date Marco Martinez MD [address] [place] [address] Dr Lawler [address] [place] [address] PCP - General Internal Medicine 01/17/18 documented as of this encounter Additional Source Comments The information contained in this document represents components of the legal health record. It is not the complete legal health record.[facility]
[2025-07-10 10:30] LABS: Red Blood Count 4.52 X10*6/uL (4.20-5.50); White Blood Count 4.1 X10*3/uL (4.8-10.8)
[2025-07-10 10:31] LABS: Hematocrit 38.3 % (37.0-47.0); Hemoglobin 11.9 g/dl (12.0-16.0); Imm Gran Abs Auto 0.01 X10*3/uL (0.00-0.03); Imm Gran Pct Auto 0.2 % (0.0-0.4); Lymphocytes Absolute Auto 1.6 X10*3/uL (1.2-4.9); Mean Corpuscular HGB Conc 31.1 g/dl (31.0-35.0); Mean Corpuscular Hemoglobin 26.3 pg (27.0-33.0); Mean Corpuscular Volume 84.7 fL (80.0-98.0); NRBC Abs Auto 0.000 X10*3/uL (0.0-0.012); NRBC Pct Auto 0.0 /100WBC (0.0-0.2); Platelet Count 256 X10*3/uL (160-400)
[2025-07-10 10:46] LABS: Appearance Urine Clear; Glucose Urine UA Negative (Negative); PH 6.0 (5.0-9.0); Specific Gravity - Urine 1.015 (1.005-1.025); UMIC TRIGGER UACC YES
[2025-07-10 10:51] LABS: UACC Culture Trigger YES
[2025-07-10 10:54] LABS: Hemoglobin A1C 120.3568 umol/L; Total Hemoglobin (HGBA1C) 3139.5039 umol/L
[2025-07-10 11:18] LABS: Alanine Aminotransferase 21 U/L (0-31); Albumin Level 4.3 g/dL (3.5-5.0); Alkaline Phosphatase 51 U/L (39-117); Anion Gap 13 (12-20); Aspartate Amino Transferase 25 U/L (5-31); Blood Urea Nitrogen 14 mg/dL (9-16); Calcium 10.8 mg/dL (8.4-10.2); Carbon Dioxide 26 mmol/L (22-29); Chloride 107 mmol/L (96-108); Cholesterol 145 mg/dL (<200); Estimated Glomerular Filt Rate > 60; Free T4 (Free Thyroxine) 1.22 ng/dL (0.71-1.85); HDL Cholesterol 45 mg/dL (>40); Potassium 4.0 mmol/L (3.3-5.1); Sodium 142 mmol/L (135-145); Thyroid Stimulating Hormone 0.24 uIU/mL (0.32-4.0); Total Protein 6.7 g/dL (6.5-8.0); Triglycerides 216 mg/dL (<150)
[2025-07-10 11:23] LABS: Microalbum/Creatinine Ratio Ur 15.7 ug/mg cr (<30)
[2025-07-10 11:28] LABS: Folate 13.2 ng/mL (> or = 4.0); Vitamin B12 531 pg/mL (200-900)
== END 2025-07-10 09:34 | disposition home or self-care (01) ==
LOC: HO.LAB 09:33
PROVIDERS: PCP Internal Medicine; Visit Provider Internal Medicine
DX: E53.8 Deficiency of other specified B group vitamins (principal); E03.9 Hypothyroidism, unspecified; E78.00 Pure hypercholesterolemia, unspecified; E55.9 Vitamin D deficiency, unspecified; D64.9 Anemia, unspecified; E11.9 Type 2 diabetes mellitus without complications; Z13.21 Encounter for screening for nutritional disorder
CPT/HCPCS: 36415; 80053; 80061; 81001; 82043; 82306; 82570; 82607; 82746; 83036; 84439; 84443; 85025; 87086

== ENCOUNTER 2025-07-13 13:04 | Outpatient (AMB) | payer OTHER, SELFPAY ==
--- OUTSIDE RECORDS SUMMARY | 2024-11-04 06:20 | XMS_ITS ---
Author Organization [facility] Network Address [address] [address] Care Team Providers Care Studio Manager Name Role Phone Marco Comer Primary Care Provider CHANDA Rodriguez [facility] [phone] REASON FOR VISIT NEED INSURANCE INFORMATION Encounters Encounter Location Date Provider Diagnosis [facility] [address] [place] [address] 11/04/2024 CHANDA SAMUEL Plan Of Treatment No Information Progress Notes * Yaneli MORRISDOB:[birth year] (75 yo F)Acc No.[id number]:11/04/2024 Progress Notes Patient: Yaneli Torres Provider: Deniz Samuel MD :1950 A ge:74 Y S ex:Female Date:11/04/2024 Address:[address] [place] [address] Pcp:Marco Comer Subjective: * Chief Complaints: * N EED INSURANCE INFORMATION * Electronic signature of CHANDA SAMUEL M.D. on 07/13/2025 at 03:17 PM EDT Sign off status: Pending * Provider: Deniz Samuel MD Date: 1 Generated for Milton gonzalez/Tato/eTivyitting on: 0 07/13/2025 03:17 PM EDT
[2025-07-13 13:24] VITALS: BP 122/80; PULSE 65; O2SAT 97; BMI 34.3
--- NOTE | 2025-07-13 13:24 | A.OFFPC_ITS ---
Vital Signs 07/13/25 13:24 Height 4 ft 11 in Weight 170 lb BMI 34.3 BP 122/80 Blood Pressure Location Lt brachial Position Sitting Pulse 65 Pulse Source Pulse Oximeter Pulse Oximetry (%) 97 Oxygen Delivery Method Room Air Intake Visit Reasons: 4mth f/u Customer Service Operator Required: No Accompanied by: Self / Same As Patient Allergies No Known Allergies Allergy (Verified 09/06/25 19:32) Medication List - Last Reconciled 09/06/25 by Marco Martinez MD ascorbic acid (vitamin C) (Vitamin C) 500 mg PO DAILY atorvastatin 40 mg PO BEDTIME 90 days betamethasone valerate 0.1% 1 appl topical BID PRN 30 days [bladder control pads As directed] blood sugar diagnostic (Voice Of TVTouch Verio test strips) 50 strips miscellaneous BID calcium carbonate-vitamin D3 500 mg-10 mcg (400 unit) (Calcium 500 With D) 1 tab PO BID cholecalciferol (vitamin D3) 25 mcg PO DAILY cromolyn 100 mg PO TID cyanocobalamin (vitamin B-12) 1,000 mcg PO DAILY epinephrine (EpiPen 2-Mark) 0.3 mg (0.3 mL) IM Q10M PRN fenofibrate nanocrystallized 145 mg PO DAILY ferrous fumarate 324 mg PO DAILY 90 days fexofenadine 180 mg PO DAILY [gloves (Medium) As directed] hydrocortisone 2.5% 1 appl topical BID PRN hydroxyzine HCl 50 mg PO BID PRN lancets (Voice Of TVTouch UltraSoft Lancets) As directed- In Vitro twice a day levocetirizine 5 mg PO DAILY levothyroxine (Synthroid) 100 mcg PO DAILY lidocaine 5% 1 patch topical DAILY 30 days metformin 500 mg PO TID montelukast 10 mg PO BEDTIME nabumetone 500 mg PO BID omalizumab 300 mg subcut Q2W [personal wipes As directed] [rollator walker As directed] [shower chair with back As directed] tizanidine 2 mg PO BEDTIME PRN turmeric-turmeric ext-pepper 500-3 mg 1 cap PO DAILY Ventolin HFA 90 mcg/actuation (albuterol sulfate) 2 puffs inhalation Q6H PRN 30 days NS Tobacco use date assessed: 07/13/25 Fall risk assessment: No Falls in past year Last assessed Fall Risk: 07/13/25 Dental Screening Dental Screen Date: 07/13/25 Did you have a dental visit in the last 12 months?: Yes Did you have a dental problem in the last 6 months where you did not have access to dental care?: No Was dental information given to patient?: Patient has dentist HPI 4mth f/u HPI Details Patient comes in today for her follow up visit States that she feels okay She denies any headaches or dizziness Denies any chest pains, no increased shortness of breath No nausea/vomiting, no abdominal pain No change in bowel habits noted She had her follow up labs done a few days ago - to discuss her results [facility] Medical History Hypothyroidism Multinodular goiter Prosthetic eye globe Lumbar back pain with radiculopathy affecting right lower extremity Anemia Frequent falls Dizziness Carpal tunnel syndrome, bilateral Mixed hyperlipidemia Obesity (BMI 30-39.9) Memory impairment Osteoarthritis of both hands Vitamin B12 deficiency Vitamin D deficiency Primary osteoarthritis of both knees Osteopenia Asthma Chronic idiopathic urticaria Acquired hypothyroidism Benign essential hypertension Diabetes mellitus without complication Surgical History H/O colonoscopy Status post carpal tunnel release (~06/02/21) Tubal ligation status Hx of section History of total right knee replacement (~2012) Family History Father No problems noted. 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 1. Little interest or pleasure in doing things: nearly every day 2. Feeling down, depressed, or hopeless: not at all 3. Trouble falling or staying asleep, or sleeping too much: not at all 4. Feeling tired or having little energy: not at all 5. Poor appetite or overeating: not at all 6. Feeling bad about yourself - or that you are a failure or have let yourself or your family down: not at all 7. Trouble concentrating on things, such as reading the newspaper or watching television: not at all 8. Moving or speaking so slowly that other people could have noticed. Or the opposite - being so fidgety or restless that you have been moving around a lot more than usual: not at all 9. Thoughts that you would be better off or of hurting yourself in some way: not at all Total score: 3 Depression Screening Interpretation: Positive Depression Screening Follow-up: Follow-up Visit Requested Depression Screening Done: Yes 29051 - PHQ-9 Billing: Yes Source: Developed by Drs. Lee Cardenas, Sunni Cross, Steve Mcadams and colleagues, with an educational sajan from [employer]. Thrive Questionnaire Date Thrive assessed: 07/13/25 I am a: Parent/Caregiver What is your living situation today?: I have a steady place to live Within the past 12 months, did the food you bought not last and you didn't have the money to get more?: I choose not to answer this question Within the past 12 months, did you worry whether your food would run out before you got money to buy more?: I choose not to answer this question Do you have trouble paying for medicines?: I choose not to answer this question Do you have trouble getting transportation to medical appointments?: I choose not to answer this question Do you have trouble paying your heating and electricity bill?: I choose not to answer this question Do you have trouble taking care of your child, family member or friend?: I choose not to answer this question Do you have trouble with day-to-day activities such as bathing, preparing meals, shopping, managing finances, etc.?: I choose not to answer this question Are you currently unemployed and looking for a job?: I choose not to answer this question Are you interested in more education?: I choose not to answer this question Please select the resources that you would like help with: None Currently or been in a relationship where the following occur: I choose not to answer THRIVE Score: 0 AUDIT C Alcohol Use Questionnaire (AUDIT-C) 1. How often do you have a drink containing alcohol?: Never 3. How often do you have six or more drinks on one occasion?: Never Total Score: 0 Score Reviewed/Action Taken: Yes ANSON-7 AMB Questionnaire ANSON-7 Date ANSON - 7 assessed: 07/13/25 Feeling nervous, anxious, or on edge: 0 = Not at all Not being able to stop or control worryin = Not at all Worrying too much about different things: 0 = Not at all Trouble relaxin = Not at all Being so restless that it is hard to sit still: 0 = Not at all Becoming easily annoyed or irritable: 0 = Not at all Feeling afraid as if something awful might happen: 0 = Not at all Total ANSON-7 score (0-4 normal; 5-9 mild; 10-14 moderate; 15-21 severe): 0 Source: Developed by Drs. Lee Cardenas, Sunni Cross, Steve Mcadams and colleagues, with an educational sajan from [employer]. Review of Systems Const Denies chills, Denies fatigue, Denies fever(s) and Denies headache(s) Eyes Details: (+) prosthetic right eye ENT Denies dysphagia, Denies dizziness, Denies otalgia, Denies headache(s), Denies neck pain, Denies odynophagia and Denies sore throat Card Denies chest pain, Denies palpitations and Denies dyspnea Resp Denies chest congestion, Denies cough and Denies dyspnea GI Denies abdominal pain, Denies constipation, Denies dysphagia, Denies heartburn, Denies diarrhea, Denies nausea, Denies odynophagia and Denies vomiting Denies difficulty voiding, Denies nocturia, Denies dysuria and Denies urinary urgency Musc Reports back pain (chronic), Reports arthralgias (over both knees - increasing) and Denies neck pain Skin/Breast Denies rash Neuro Denies dizziness and Denies headache(s) Psych Denies anxiety and Denies depression Endo Denies fatigue and Denies palpitations Ranjit/Lymph Denies easy bruising Physical exam (Primary Care) Vital Signs: Last Vital Signs Pulse 65 07/13/25 13:24 BP 122/80 09/08/25 13:24 Pulse Ox 97 07/13/25 13:24 Oxygen Delivery Method Room Air 07/13/25 13:24 BMI result Body Mass Index 34.3 Tobacco/Smoking Status: Tobacco use Status Tobacco use date assessed 07/13/25 07/13/25 13:34 Patient Tobacco Use Status Former Tobacco user 07/13/25 13:34 Tobacco use type Cigarette 07/13/25 13:34 e-Cigarette/Vaping Use Never Used 07/13/25 13:34 PHQ-9: PHQ-9 Score PHQ-9: Total score 3 07/13/25 14:15 Depression Screening Interpretation: Positive Depression Screening Follow-up: Follow-up Visit Requested Thrive Assessment: Date of Thrive Assessment Date Thrive assessed 07/13/25 07/13/25 13:34 Currently or been in a relationship where the following occur: I choose not to answer Const General: no acute distress and alert HENMT Ears: TM's normal bilaterally and EAC's normal Throat: Yes posterior oropharynx normal and Yes tonsils normal (no TP congestion noted) Eyes Other: (+) prosthetic right eye; left eye exam is grossly normal Neck Neck: Yes supple and No lymphadenopathy Thyroid: Thyroid normal Resp Auscultation: clear to auscultation bilaterally, no rales and no wheezes Cardio Rate: regular rate Rhythm: regular rhythm Heart sounds: no murmurs GI Palpation (GI): Soft to palpation and nontender Auscultation: normal bowel sounds General: Yes no CVA tenderness Back/Spine/Pelvis Back: no CVA tenderness Thoracic/Lumbar Spine: thoracic spinal tenderness and lumbar spinal tenderness Skin Rashes: no rashes Extrem General: Yes no clubbing, cyanosis or edema Right lower extremity: knee Details: tenderness; no swelling Left lower extremity: knee Details: tenderness; no swelling Results Reviewed Results Reviewed: Laboratory Tests 07/10/25 07/10/25 09:55 10:02 WBC 4.1 L Hgb 11.9 L Hct 38.3 Plt Count 256 Sodium 142 Potassium 4.0 Creatinine 0.76 Estimated GFR > 60 Fasting Glucose 94 Hemoglobin A1c % 5.7 Calcium 10.8 H AST 25 ALT 21 Triglycerides 216 H Cholesterol 145 LDL Cholesterol, Calc 57 HDL Cholesterol 45 Vitamin B12 531 25-OH Vitamin D Total 55.7 TSH 0.24 L Free T4 1.22 Ur Specific [place] 1.015 Urine Protein Negative Urine Glucose (UA) Negative Urine Blood Negative Urine Nitrite Negative Ur Leukocyte Esterase Large (3+) H Microalb/Creat Ratio 15.7 Coding Level of Care Code Est Pt Level 4 (51366) Diagnoses Mixed hyperlipidemia E78.2 Diabetes mellitus without complication E11.9 Benign essential hypertension I10 Acquired hypothyroidism E03.9 Chronic idiopathic urticaria L50.1 Mild persistent asthma without complication J45.30 Asthma complication type: uncomplicated Asthma persistence: persistent Asthma severity: mild Osteopenia, unspecified location M85.80 Osteopenia location: unspecified Vitamin B12 deficiency E53.8 Vitamin D deficiency E55.9 Primary osteoarthritis of both knees M17.0 Primary osteoarthritis of both hands M19.041; M19.042 Osteoarthritis type: primary Facet arthritis of lumbar region M47.816 Carpal tunnel syndrome, bilateral G56.03 Memory impairment R41.3 Obesity (BMI 30-39.9) E66.9 Additional Codes PHQ-9 - 86017 - PHQ-9 Billing: Yes ([id number]) Assessment & Plan Assessment & Plan (1) Mixed hyperlipidemia: Code(s): E78.2 - Mixed hyperlipidemia Category: Medical Plan: Results of her labs done a few days ago reviewed and discussed with patient Reinforced low cholesterol diet Continue Fenofibrate 145 mg QD and Atorvastatin 40 mg QD Will recheck her labs and fasting lipids in 4 months for follow-up (2) Diabetes mellitus without complication: Code(s): E11.9 - Type 2 diabetes mellitus without complications Category: Medical Plan: Her HgbA1c was at 5.7% on her labs done a few days ago (in-office HgbA1c was at 5.3% at her last visit) - goal is at least <7.0% but ideally <6.5% Reinforced diabetic diet Continue Metformin 500 mg TID (3) Benign essential hypertension: Code(s): I10 - Essential (primary) hypertension Category: Medical Plan: Reinforced low sodium diet - goal is systolic BP of at least 140 mm or less She has so far not needed to be started on any Rx for her blood pressure yet She is reminded to continue monitoring her blood pressure regularly (4) Acquired hypothyroidism: Code(s): E03.9 - Hypothyroidism, unspecified Category: Medical Plan: Her TFTs are normal on her recent labs Continue Levothyroxine 100 mcg QD Follow up with endocrinology as scheduled (5) Chronic idiopathic urticaria: Code(s): L50.1 - Idiopathic urticaria Category: Medical Plan: This was reportedly due to her allergy to Levothyroxine as patient states that her symptoms practically disappeared as soon as she stopped taking her Rx but she is now back on Levothyroxine without any flare ups of her urticarial symptoms Follow up with pc support specialist (Dr. Bernal at [facility]) as scheduled (6) Asthma: Code(s): J45.909 - Unspecified asthma, uncomplicated Category: Medical Qualifiers: Asthma complication type: uncomplicated Asthma persistence: persistent Asthma severity: mild Qualified Code(s): J45.30 - Mild persistent asthma, uncomplicated Plan: Controlled Continue Flovent HFA 110 mcg 1 puff BID and ProAir HFA 2 puffs up to 4 times a day as needed (7) Osteopenia: Code(s): M85.80 - Other specified disorders of bone density and structure, unspecified site Category: Medical Qualifiers: Osteopenia location: unspecified Qualified Code(s): M85.80 - Other specified disorders of bone density and structure, unspecified site Plan: Her most recent BMD done on 06/25/2024 revealed (+) osteopenia based on the lowest T-score value of -1.4 in the femoral neck and is mostly unchanged from her previous BMD on 06/03/2019 Her 10-YEAR FRAX score is at 9.8% for major osteoporotic fracture (clinical spine, forearm, hip or shoulder) and 2.1% for hip fracture Patient is again encouraged to continue with regular exercise and physical activity as well as her daily vitamin D and Calcium supplements Will continue to monitor her BMD regularly (8) Vitamin B12 deficiency: Code(s): E53.8 - Deficiency of other specified B group vitamins Category: Medical Plan: Continue Vitamin B12 1000 mcg QD (9) Vitamin D deficiency: Code(s): E55.9 - Vitamin D deficiency, unspecified Category: Medical Plan: Continue Vitamin D3 1000 units QD (10) Primary osteoarthritis of both knees: Comment: S/P total right knee arthroplasty in 2012 Code(s): M17.0 - Bilateral primary osteoarthritis of knee Category: Medical Plan: She used to take Meloxicam 15 mg QD PRN but now just takes OTC Tylenol PRN with some relief She appears to have had inteventional Tx with right saphenous nerve PNS in the past, which supposedly provided her with significant pain relief She was more recently offered a Sprint device and RFA but was advised that she should try physical therapy first, which she declined Have advised patient that she should try physical therapy first before pain m anagement can proceed with her interventional Tx due to insurance regulations - advised that unless she goes through the necessary steps, insurance will not cover any of her proposed interventional procedures Follow-up with Orthopedics and with pain management as scheduled (11) Osteoarthritis of both hands: Code(s): M19.041 - Primary osteoarthritis, right hand; M19.042 - Primary osteoarthritis, left hand Category: Medical Qualifiers: Osteoarthritis type: primary Qualified Code(s): M19.041 - Primary osteoarthritis, right hand; M19.042 - Primary osteoarthritis, left hand Plan: X-rays of both hands done in February 2021 revealed (+) osteoarthritis changes bilaterally; repeat x-rays of the left hand showed (+) arthritis of the IP mao ints Patient is encouraged again to continue with regular hand exercises to help minimize her stiffness and pain Follow up with orthopedics as scheduled (12) Facet arthritis of lumbar region: Code(s): M47.816 - Spondylosis without myelopathy or radiculopathy, lumbar region Category: Medical Plan: Reinforced activity and weight-lifting restrictions Lumbar spine x-rays done back in February 2021 revealed (+) mild lumbar spine DDD and facet arthritis Repeat thoracic and lumbar spine x-rays done in March 2022 revealed moderate multilevel degenerative disc disease of the thoracic and lumbar spine, with prominent anterior endplate osteophytes within the mid-thoracic spine and prominent bilateral facet arthropathy at L5-S1 Have recommended a referral to physical therapy but patient would like to hold off on this for now and states that she will call for referral if she changes her mind She also has Lidocaine patches 5% to use QD PRN for pain Follow up with pain management as scheduled (13) Carpal tunnel syndrome, bilateral: Comment: NCV done back in 2015 revealed (+) moderatedly severe bilateral carpal tunnel syndrome; EMG was normal Code(s): G56.03 - Carpal tunnel syndrome, bilateral upper limbs Category: Medical Plan: S/P left carpal tunnel release surgery with Dr. Diaz at [facility] [place] back in 2020, with significant improvement / relief of her symptoms Follow-up with orthopedics as scheduled (14) Memory impairment: Code(s): R41.3 - Other amnesia Category: Medical Plan: Follow up with neurology as scheduled (15) Obesity (BMI 30-39.9): Code(s): E66.9 - Obesity, unspecified Category: Medical Plan: Reinforced diet; exercise and weight loss are unrealistic given patient's multiple physical issues and comorbidities Plan Follow up in 4 months Orders: Orders Complete Blood Count Auto Diff 4 Months D64.9 - Anemia, unspecified Lipid Panel 4 Months E78.00 - Pure hypercholesterolemia, unspecified Free T4 (Free Thyroxine) 4 Months E03.9 - Hypothyroidism, unspecified Thyroid Stimulating Hormone 4 Months E03.9 - Hypothyroidism, unspecified Vitamin D 25-OH Total 4 Months E55.9 - Vitamin D deficiency, unspecified Vitamin B12 and Folate 4 Months E53.8 - Deficiency of other specified B group vitamins Parathyroid Hormone Intact 4 Months E83.52 - Hypercalcemia Hemoglobin A1c 4 Months E11.9 - Type 2 diabetes mellitus without complications Comprehensive Panther. Panel Fast 4 Months E78.00 - Pure hypercholesterolemia, unspecified Microalbumin, Random (w Creat) 4 Months E11.9 - Type 2 diabetes mellitus without complications UA CC w/rflx Micro + Cult 4 Months R30.0 - Dysuria
--- OUTSIDE RECORDS SUMMARY | 2025-07-13 15:16 | XMS_ITS ---
Author Name Meri HUMAN RESOURCES SUPPORT SPECIALIST,SUPPORT TEACHER,FN P,RN ENT, Kirsten Address [address] [place] [address] Phone [phone] [facility] Care Team Providers Care Blue Leather Setter Name Role Phone JerezKirsten rich Unavailable [phone] Marco Martinez Unavailable [phone] Reason for Referral Not Available Allergies, adverse [...] a histamine blocker05/12/24: Pt to continue seeing laboratory worker as ordered. Twice monthly Xolair. Pt to call Strategic Alliances Manager to see if they will do a [...] of Service Diagnosis/Co mplaint No Data Available [facility] [place]19[place]2022 Type 2 diabetes mellitus wit h diabetic polyneuropathyType 2 diabetes mellitus with diabetic cataractObesity, unspecifiedBody mass index (bmi) 31.0-31.9, adultPure hypercholesterolemia, unspecifiedHypothyroidism, unspecifiedAllergy, unspecified, initial encounter No Data Available [facility] 10[place]19[place]2022 No Data Available [facility] No Data Available [facility] No Data Available [facility] No Data Available [facility] Estab. patient 30-39min; chronic exacerbation, 2 stable chronic or 1 acute illness add add modifier 95 for video, (do not use for phone, instead use 58696-26) [facility]20[place] Type 2 diabetes mellitus wit h [...] (do not use for phone, instead use 03465-12) [facility] Estab. patient 30-39min; chronic exacerbation, 2 stable chronic or 1 acute illness add add modifier 95 for video, (do not use for phone, instead use 02031-28) [facility] Estab. patient 30-39min; chronic exacerbation, 2 stable chronic or 1 acute illness add add modifier 95 for video, (do not use for phone, instead use 16922-57) [facility] Estab. patient 30-39min; chronic exacerbation, 2 stable chronic or 1 acute illness add add modifier 95 for video, (do not use for phone, instead use 48848-38) [facility] 05[place]2023 Estab. patient 30-39min; chronic exacerbation, 2 stable chronic or 1 acute illness add add modifier 95 for video, (do not use for phone, instead use 09519-37) [facility] Estab. patient 30-39min; chronic exacerbation, 2 stable chronic or 1 acute illness add add modifier 95 for video, (do not use for phone, instead use 48189-39) [facility]23 Estab. patient 30-39min; chronic exacerbation, 2 stable chronic or 1 acute illness add add modifier 95 for video, (do not use for phone, instead use 43899-67) [facility] 05[place]2023 Estab. patient 30-39min; chronic exacerbation, 2 stable chronic or 1 acute illness add add modifier 95 for video, (do not use for phone, instead use 05286-00) [facility] 05[place]2023 Estab. patient 30-39min; chronic exacerbation, 2 stable chronic or 1 acute illness add add modifier 95 for video, (do not use for phone, instead use 56345-22) [facility] 05[place]/2023 Estab. patient 30-39min; chronic exacerbation, 2 stable chronic or 1 acute illness add add modifier 95 for video, (do not use for phone, instead use 66628-10) [facility] 05/[place]/2024 Type 2 diabetes mellitus wit h [...] (do not use for phone, instead use 79757-28) [facility] 05[place]12/[place] Estab. patient 30-39min; chronic exacerbation, 2 stable chronic or 1 acute illness add add modifier 95 for video, (do not use for phone, instead use 01066-36) [facility] 05[place]12/2024 Estab. patient 30-39min; chronic exacerbation, 2 stable chronic or 1 acute illness add add modifier 95 for video, (do not use for phone, instead use 80745-33) [facility] 05[place]12/2024 Estab. patient 30-39min; chronic exacerbation, 2 stable chronic or 1 acute illness add add modifier 95 for video, (do not use for phone, instead use 54590-47) [facility] 05/12/2024 Estab. patient 30-39min; chronic exacerbation, 2 stable chronic or 1 acute illness add add modifier 95 for video, (do not use for phone, instead use 41908-56) [facility] 05/12/2024 Vital Signs Date of Collection Vitals [...] tive Time Current Smoking Status Never smoker 8 Sex Female History of Procedures Procedures Service Procedure code Service date Servicing provider Phone# No Data Available [id number] 2022-10-19 No Data Available No Data Available [...] (do not use for phone, instead use 82215-20) 77544 2023-05-04 No Data Available No Data Availa [...] (do not use for phone, instead use 30069-46) 64769 2024-05-12 No Data Available No Data Availa [...] Functional Status Functional Category Effective Dates has ACADEMIC GUIDANCE SPECIALIST 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 Unsure of most recent Z6wAgshu problems related to medical facilities and other [...] call CBContinue to see PCP. [facility] or [...] a histamine blocker05/12/24: Pt to continue seeing laboratory worker as ordered. Twice monthly Xolair. Pt to call Strategic Alliances Manager to see if they will do a [...] infectionuse prednisone PRN 2024-05-12 09:51:14 New Lidocaine-Priloc crao 2.5-2.5 % Crm 1gm to affected area TID PRN pain #1 unspecified RFx3 Instr: one tubeRefill hydrOXYzine 50 mg Tab 1 tab BID as needed for severe itch #60 tablet [id number] Review by prescribing provider or pharmacist documented [...] from chronic itching/hives. Currently being managed by laboratory worker.
--- OUTSIDE RECORDS SUMMARY | 2025-07-13 15:16 | XMS_ITS | Patient Health Record ---
Author Organization [facility] Network Address [address] [place] [address] [address] [place] [address] Care Team Providers Care Programming Instructor Name Role Phone Marco Comer Primary Care Provider CHANDA Rodriguez Unavailable [phone] Reason For Referral No Information Plan Of Treatment No Information
--- OUTSIDE RECORDS SUMMARY | 2025-07-13 15:17 | XMS_ITS | Clinical Summary ---
Author Organization [facility] Address [address] [place] [address] Phone Care Team Providers Care Refinery Operator Vapor Recovery Unit Name Role Phone Marco Martinez MD Primary Care Provider [phone] Social History Tobacco Use Types Packs/Day Years [...] REPLACEMENT MEDICARE REPLACEMENT MEDICARE REPLACEMENT Care Teams Refinery Operator Vapor Recovery Unit Relationship Specialty Start Date End Date Marco Martinez MD [address] [place] [address] [place] [address] PCP - General Internal Medicine 01/17/18 Additional Source Comments The information contained in this document represents components of the legal health record. It is not the complete legal health record.[facility]
--- OUTSIDE RECORDS SUMMARY | 2025-07-13 15:17 | XMS_ITS | Encounter Summary ---
Author Organization [facility] Address [address] [place] [address] Phone Care Team Providers Care Overhead Distribution Engineer Name Role Phone Marco Martinez MD Primary Care Provider [phone] [phone] Reason for Referral * Physical Therapy (Routine) - Closed Specialty Diagnoses / Procedures Referred By Harini lopez Referred To Contact Physical Therapy Diagnoses Encounter for rehabilitation System, Provider Not In, [facility] [id number] [place] [address] 30 [place] [address] Phone: tel: Referral ID Status Reason Start Date Expiration Date Visits Re quested Visits Authorized [id number] Closed 01/17/2018 01/17/2019 1 1 Encounter Details Date Type Department Care Team (Latest Contact Info) Description 01/17/2018 Transcribe Orders [facility] [address] [place] [address] Jennifer Williamson CNM [address] [place] [address] Encounter for rehabilitation (Primary Dx) Social History [...] Diagnoses Orde r Schedule Ambulatory referral to [facility] Physical Therapy Outpatient Referral Routine Encounter for rehabilitation Ordered: 01/17/2018 documented as of this encounter Visit Diagnoses Diagnosis Encounter for rehabilitation- Primary documented in this encounter Care Teams Overhead Distribution Engineer Relationship Specialty Start Date End Date Marco Martinez MD [address] [place] [address] Dr Lawler [address] [place] [address] PCP - General Internal Medicine 01/17/18 documented as of this encounter Additional Source Comments The information contained in this document represents components of the legal health record. It is not the complete legal health record.[facility]
== END 2025-07-13 14:32 | disposition home or self-care (01) ==
LOC: HO.HMCH 13:05
PROVIDERS: PCP Internal Medicine; Visit Provider Internal Medicine
DX: E78.2 Mixed hyperlipidemia (principal); E11.69 Type 2 diabetes mellitus with other specified complication; I10 Essential (primary) hypertension; E03.9 Hypothyroidism, unspecified; L50.1 Idiopathic urticaria; J45.30 Mild persistent asthma, uncomplicated; M85.80 Other specified disorders of bone density and structure, unspecified site; E53.8 Deficiency of other specified B group vitamins; E55.9 Vitamin D deficiency, unspecified; M17.0 Bilateral primary osteoarthritis of knee; M19.041 Primary osteoarthritis, right hand; M19.042 Primary osteoarthritis, left hand

== ENCOUNTER → 2025-07-13 13:04 | Outpatient (BNVA) | payer OTHER, SELFPAY | PROVIDERS: PCP Internal Medicine; Visit Provider Internal Medicine | DX: E78.2 Mixed hyperlipidemia (principal); E11.9 Type 2 diabetes mellitus without complications; I10 Essential (primary) hypertension; E03.9 Hypothyroidism, unspecified; L50.1 Idiopathic urticaria; J45.30 Mild persistent asthma, uncomplicated; M85.80 Other specified disorders of bone density and structure, unspecified site; E53.8 Deficiency of other specified B group vitamins; E55.9 Vitamin D deficiency, unspecified; M17.0 Bilateral primary osteoarthritis of knee; M19.041 Primary osteoarthritis, right hand; M19.042 Primary osteoarthritis, left hand; M47.816 Spondylosis without myelopathy or radiculopathy, lumbar region; G56.03 Carpal tunnel syndrome, bilateral upper limbs; R41.3 Other amnesia; E66.9 Obesity, unspecified; Z68.34 Body mass index [BMI] 34.0-34.9, adult | CPT/HCPCS: 96127; 99212 ==

== ENCOUNTER 2025-07-21 08:29 | Outpatient (AMB) | payer OTHER, SELFPAY ==
--- OUTSIDE RECORDS SUMMARY | 2024-11-04 06:20 | XMS_ITS ---
Author Organization [facility] Network Address [address] [address] Care Team Providers Care Rn Imaging Name Role Phone Marco Comer Primary Care Provider CHANDA Rodriguez [facility] [phone] REASON FOR VISIT NEED INSURANCE INFORMATION Encounters Encounter Location Date Provider Diagnosis [facility] [facility] 75 [facility] 1 [place] [address] 11/04/2024 CHANDA SAMUEL Plan Of Treatment No Information Progress Notes * Yaneli MORRISDOB:[birth year] (75 yo F)Acc No.[id number]:11/04/2024 Progress Notes Patient: Yaneli Torres Provider: Deniz Samuel MD :1950 A ge:74 Y S ex:Female Date:11/04/2024 Address:[address] [place] [address] Pcp:Marco Comer Subjective: * Chief Complaints: * N EED INSURANCE INFORMATION * Electronic signature of CHANDA SAMUEL M.D. on 07/21/2025 at 10:07 AM EDT Sign off status: Pending * Provider: Deniz Samuel MD Date: Generated for Milton gonzalez/Tato/Calvinitting on: 0 07/21/2025 10:07 AM EDT
--- NOTE | 2025-07-21 08:58 | MHC.OFFVIS ---
Vital Signs 07/21/25 09:12 Height 4 ft 11 in Weight 170 lb BMI 34.3 Intake Visit Reasons: 6 week pessary fitting Resaw Carriage Operator Required: Yes Resaw Carriage Operator Language: Marketing Services Vice President Services: Resaw Carriage Operator Present (in person) Resaw Carriage Operator Name: Tita BRAVO Information Interpreted: non-clinical & clinical Repair Weaver: Repair Weaver Present (Tita BRAVO) Accompanied by: Daughter Allergies No Known Allergies Allergy (Verified 07/21/25 09:14) HPI Comments Details: Presenting for follow-up pelvic exam regarding vaginal abrasion from cystocele. The patient is schedule at [facility] [place] in few weeks. No vaginal bleeding or discharge any other concerns [facility] Medical History Hypothyroidism Multinodular goiter Prosthetic eye globe Lumbar back pain with radiculopathy affecting right lower extremity Anemia Frequent falls Dizziness Carpal tunnel syndrome, bilateral Mixed hyperlipidemia Obesity (BMI 30-39.9) Memory impairment Osteoarthritis of both hands Vitamin B12 deficiency Vitamin D deficiency Primary osteoarthritis of both knees Osteopenia Asthma Chronic idiopathic urticaria Acquired hypothyroidism Benign essential hypertension Diabetes mellitus without complication Surgical History H/O colonoscopy Status post carpal tunnel release (~06/02/21) Tubal ligation status Hx of section History of total right knee replacement (~2012) Family History Father No problems noted. 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 Cognitive needs: Yes (cane ) Hearing needs: No Vision needs: Yes (glasses ) Review of Systems Const All systems reviewed & are unremarkable except as noted in HPI and below Physical Exam Vital Signs: BMI result Body Mass Index 34.3 General: Yes no CVA tenderness External Female Exam: normal external appearance and normal appearance of the urethra Speculum Exam - Vagina: abnormal appearance of the vagina (Cystocele with small healing Central abrasion present), normal palpation, no lesions and no masses Speculum Exam - Cervix: normal appearance of the cervix, normal palpation, no lesions, no masses and nontender Bimanual exam- vagina & uterus: normal bimanual exam, normal palpation, uterine size normal, normal palpation, uterine shape normal, No Cervical tenderness present and non-tender Bimanual Exam- Adnexa, other: normal adnexae Back/Spine/Pelvis Back: no CVA tenderness Assessment & Plan Assessment & Plan (1) Female cystocele: Comment: With central abrasion Code(s): N81.10 - Cystocele, unspecified Category: Medical Plan: Since vaginal abrasion is not healed completely, will defer pessary trial for another 3 months. Instructions given the patient to schedule a three-month follow-up appointment. All questions answered, the patient verbalized understanding Coding Level of Care Code Est Pt Level 3 (00864) Diagnoses Female cystocele N81.10
[2025-07-21 09:12] VITALS: BMI 34.3
--- OUTSIDE RECORDS SUMMARY | 2025-07-21 10:07 | XMS_ITS | Patient Health Record ---
Author Organization [facility] Network Address [address] [place] [address] [address] [place] [address] Care Team Providers Care Mortgage Loan Interviewer Name Role Phone Marco Comer Primary Care Provider UnavailCHANDA Powell Unavailable [phone] Reason For Referral No Information Plan Of Treatment No Information
--- OUTSIDE RECORDS SUMMARY | 2025-07-21 10:07 | XMS_ITS | Clinical Summary ---
Author Organization [facility] Address [address] [place] [address] Phone Care Team Providers Care Cloth Booker Name Role Phone Marco Martinez MD Primary Care Provider [phone] Social History Tobacco Use Types Packs/Day Years [...] VACCINES (1 of 2) 1998 OSTEOPOROSIS SCREENING INITIAL (ONE-TIME) 2013 PNEUMOCOCCAL VACCINES (50+ years) (2 of 2 - PPSV23) 08/15/2020 08/15/2019 RSV VACCINE (1 - 1-dose 75+ series) 2023 INFLUENZA VACCINE (#1) 2025 0, 09/04/2019, 08/15/2019, Additional history exists COVID-19 VACCINE ( season) 2025 03/16/2021, 02/16/2021 HEPATITIS A VACCINES Aged Out [...] topic Medical Devices Not on file Insurance DUAL MEDICARE REPLACEMENT DUAL MEDICARE REPLACEMENT DUAL MEDICARE REPLACEMENT DUAL MEDICARE REPLACEMENT DUAL MEDICARE REPLACEMENT DUAL MEDICARE REPLACEMENT DUAL MEDICARE REPLACEMENT DUAL MEDICARE REPLACEMENT DUAL MEDICARE REPLACEMENT Care Teams Cloth Booker Relationship Specialty Start Date End Date Marco Martinez MD [address] [place] [address] [place] [address] PCP - General Internal Medicine 01/17/18 Additional Source Comments The information contained in this document represents components of the legal health record. It is not the complete legal health record.[facility]
--- OUTSIDE RECORDS SUMMARY | 2025-07-21 10:07 | XMS_ITS | Encounter Summary ---
Author Organization [facility] Address [address] [place] [address] Phone Care Team Providers Care Oracle Manufacturing Consultant Name Role Phone Marco Martinez MD Primary Care Provider [phone] Reason for Referral * Physical Therapy (Routine) - Closed Specialty Diagnoses / Procedures Referred By Harini lopez Referred To Contact Physical Therapy Diagnoses Encounter for rehabilitation System, Provider Not In, [facility] [id number] [place] [address] [address] [place] [address] Phone: tel: Referral ID Status Reason Start Date Expiration Date Visits Re quested Visits Authorized [id number] Closed 01/17/2018 01/17/2019 1 1 Encounter Details Date Type Department Care Team (Latest Contact Info) Description 01/17/2018 Transcribe Orders [facility] [address] [place] [address] Jennifer Williamson CNM [address] [place] [address] Encounter for rehabilitation (Primary Dx) Social History [...] Diagnoses Orde r Schedule Ambulatory referral to [facility] Physical Therapy Outpatient Referral Routine Encounter for rehabilitation Ordered: 01/17/2018 documented as of this encounter Visit Diagnoses Diagnosis Encounter for rehabilitation- Primary documented in this encounter Care Teams Oracle Manufacturing Consultant Relationship Specialty Start Date End Date Marco Martinez MD [address] [place] [address] Dr Lawler [address] [place] [address] PCP - General Internal Medicine 01/17/18 documented as of this encounter Additional Source Comments The information contained in this document represents components of the legal health record. It is not the complete legal health record.[facility]
--- OUTSIDE RECORDS SUMMARY | 2025-07-21 10:07 | XMS_ITS ---
Author Name Vaishali Tolentino APRN Address [address] [place] [address] Phone [phone] [facility] Care Team Providers Care Jewellery Designer Name Role Phone Rajan Jessenia Unavailable [phone] Marco Martinez Unavailable [phone] Reason for Referral Not Available Allergies, adverse [...] joint pain increased [facility]. Follow-up with [facility] as needed for any acute or disease education needs that may arise 28/05.what should be done when the member calls: see each individual diagnosis for contingency plan Allergies, itching, hives. Active 2022-10-19 N/A 05/04/23: ADD famotidine to see if this helps control itch as it is a histamine blocker05/12/24: Pt to continue seeing diesel trailer mechanic as ordered. Twice monthly Xolair. Pt to call Special Police Officer to see if they will do a [...] of Service Diagnosis/Co mplaint No Data Available [facility] [place]19/2022 Type 2 diabetes mellitus wit h diabetic polyneuropathyType 2 diabetes mellitus with diabetic cataractObesity, unspecifiedBody mass index (bmi) 31.0-31.9, adultPure hypercholesterolemia, unspecifiedHypothyroidism, unspecifiedAllergy, unspecified, initial encounter No Data Available [facility]19[place]2022 No Data Available [facility] [place] No Data Available [facility] [place] No Data Available [facility] No Data Available [facility] Estab. patient 30-39min; chronic exacerbation, 2 stable chronic or 1 acute illness add add modifier 95 for video, (do not use for phone, instead use 10260-61) [facility]20[place] Type 2 diabetes mellitus wit [...] (do not use for phone, instead use 12191-60) [facility] Estab. patient 30-39min; chronic exacerbation, 2 stable chronic or 1 acute illness add add modifier 95 for video, (do not use for phone, instead use 73755-61) [facility]2023 Estab. patient 30-39min; chronic exacerbation, 2 stable chronic or 1 acute illness add add modifier 95 for video, (do not use for phone, instead use 60201-08) [facility]2023 Estab. patient 30-39min; chronic exacerbation, 2 stable chronic or 1 acute illness add add modifier 95 for video, (do not use for phone, instead use 84737-05) [facility]2023 Estab. patient 30-39min; chronic exacerbation, 2 stable chronic or 1 acute illness add add modifier 95 for video, (do not use for phone, instead use 92745-28) [facility]2023 Estab. patient 30-39min; chronic exacerbation, 2 stable chronic or 1 acute illness add add modifier 95 for video, (do not use for phone, instead use 79218-10) [facility]2023 Estab. patient 30-39min; chronic exacerbation, 2 stable chronic or 1 acute illness add add modifier 95 for video, (do not use for phone, instead use 64979-76) [facility]2023 Estab. patient 30-39min; chronic exacerbation, 2 stable chronic or 1 acute illness add add modifier 95 for video, (do not use for phone, instead use 46271-11) [facility]2023 Estab. patient 30-39min; chronic exacerbation, 2 stable chronic or 1 acute illness add add modifier 95 for video, (do not use for phone, instead use 30525-79) [facility] 05[place]23 Estab. patient 30-39min; chronic exacerbation, 2 stable chronic or 1 acute illness add add modifier 95 for video, (do not use for phone, instead use 85294-46) [facility] 05[place]12/2024 Type 2 diabetes mellitus wit [...] (do not use for phone, instead use 05534-12) [facility] Estab. patient 30-39min; chronic exacerbation, 2 stable chronic or 1 acute illness add add modifier 95 for video, (do not use for phone, instead use 57661-47) [facility] 05/12/2024 Estab. patient 30-39min; chronic exacerbation, 2 stable chronic or 1 acute illness add add modifier 95 for video, (do not use for phone, instead use 26084-32) [facility] 05/12/2024 Estab. patient 30-39min; chronic exacerbation, 2 stable chronic or 1 acute illness add add modifier 95 for video, (do not use for phone, instead use 08668-57) [facility] 05/12/2024 Estab. patient 30-39min; chronic exacerbation, 2 stable chronic or 1 acute illness add add modifier 95 for video, (do not use for phone, instead use 98950-71) [facility] 05[place]/2024 Vital Signs Date of Collection [...] tive Time Current Smoking Status Never smoker 2025-07-06 4 Sex Female History of Procedures Procedures Service Procedure code Service date Servicing provider Phone# No Data Available [id number] 2022-10-19 No Data Available No Data Available [...] (do not use for phone, instead use 95013-72) 52368 2023-05-04 No Data Available No Data Availa [...] SBP 130-139 (3075F) 3075F 2023-05-04 No Data Availab le No Data Available DBP <80 (3078F) 3078F 2023-05-04 No Data Available No Data Available Functional Status Assessed (1170F) 1170F 2023-05-04 No Data Available No Data Avail able Estab. patient 30-39min; chronic exacerbation, 2 stable chronic or 1 acute illness add add modifier 95 for video, (do not use for phone, instead use 41683-32) 56171 2024-05-12 No Data Available No Data Availa [...] Functional Status Functional Category Effective Dates has SFDC CONSULTANT 2023-05-04 Cognition Status: Oriented to Person, Pl [...] routine foot checks; notify CB of high/low glucose7/8/24: Pt to continue metformin as ordered. Unsure of most recent A7pGpmyi problems related to medical facilities and other [...] to see PCP. [facility] [...] a histamine blocker05/12/24: Pt to continue seeing diesel trailer mechanic as ordered. Twice monthly Xolair. Pt to call Special Police Officer to see if they will do a [...] as needed for severe itch #60 tablet [id number] Review by prescribing provider or pharmacist documented [...] male. Visit today completed with her jose albertougherMegan, melissa. Pt suffers from chronic itching/hives. Currently being managed by diesel trailer mechanic.
== END 2025-07-21 09:32 | disposition home or self-care (01) ==
LOC: HO.HWS 08:30
PROVIDERS: PCP Internal Medicine; Visit Provider Obstetrics & Gynecology
DX: N81.10 Cystocele, unspecified (principal)
CPT/HCPCS: 99213

== ENCOUNTER → 2025-07-21 08:29 | Outpatient (BNVA) | payer OTHER, SELFPAY | PROVIDERS: PCP Internal Medicine; Visit Provider Obstetrics & Gynecology | DX: Z46.89 Encounter for fitting and adjustment of other specified devices (principal); N81.10 Cystocele, unspecified | CPT/HCPCS: 99212 ==

== ENCOUNTER 2025-08-10 10:41 | Outpatient (AMB) | payer OTHER, SELFPAY ==
--- OUTSIDE RECORDS SUMMARY | 2024-11-04 06:20 | XMS_ITS ---
Author Organization [facility] Address [address] [address] Care Team Providers Care Hydrate Thickener Operator Name Role Phone Marco Comer Primary Care Provider CHANDA Rodriguez [facility] [phone] REASON FOR VISIT NEED INSURANCE INFORMATION Encounters Encounter Location Date Provider Diagnosis [facility] 75 [facility] 1 [place] [address] 11/04/2024 CHANDA SAMUEL Plan Of Treatment No Information Progress Notes * Yaneli MORRISDOB:[birth year] (75 yo F)Acc No.[id number]:11/04/2024 Progress Notes Patient: Yaneli Torres Provider: Deniz Samuel MD :1950 A ge:74 Y S ex:Female Date:11/04/2024 Address:[address] [place] [address] Pcp:Marco Comer Subjective: * Chief Complaints: * N EED INSURANCE INFORMATION * Electronic signature of CHANDA SAMUEL M.D. on 08/10/2025 at 11:22 AM EDT Sign off status: Pending * Provider: Deniz Samuel MD Date: Generated for Milton gonzalez/Tato/Glynn on: 11:22 AM EDT
--- NOTE | 2025-08-10 10:44 | MHC.OFFVIS ---
Intake Visit Reasons: INJ- Right shoulder INJ Intake Note: Yaneli is a 73 year old right hand dominant female who presents today for a repeat right shoulder injection, last injection was administered on 10/04/23. Hx of DM. Patient reports that she would like to repeat injection today Allergies No Known Allergies Allergy (Verified 07/21/25 09:14) HPI HPI INJ- Right shoulder INJ: Details: Yaneli is a 73 year old right hand dominant female who presents today for a repeat right shoulder injection, last injection was administered on 10/04/23. Hx of DM. Patient reports that she would like to repeat injection today. She has pain at night while she is trying to sleep and with overhead activities. [facility] Medical History Hypothyroidism Multinodular goiter Prosthetic eye globe Lumbar back pain with radiculopathy affecting right lower extremity Anemia Frequent falls Dizziness Carpal tunnel syndrome, bilateral Mixed hyperlipidemia Obesity (BMI 30-39.9) Memory impairment Osteoarthritis of both hands Vitamin B12 deficiency Vitamin D deficiency Primary osteoarthritis of both knees Osteopenia Asthma Chronic idiopathic urticaria Acquired hypothyroidism Benign essential hypertension Diabetes mellitus without complication Surgical History H/O colonoscopy Status post carpal tunnel release (~06/02/21) Tubal ligation status Hx of section History of total right knee replacement (~2012) Family History Father No problems noted. 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 Positive Segura and Neer. Negative empty can. External rotation to 35 degrees. Active abduction to 90. Office Procedures Joint Inj/Aspir; Non-Pain Clin Joint Injection/Drain Details: Injected 1 mL of Decadron and 3 mL 1% lidocaine and 3 mL of 0.25% Marcaine. Site was prepped using aseptic technique. Patient tolerated the procedure well. Shoulders, Hips, Knees, Shoulder Injection Large joint : Right Shoulder Coding Procedure code (CPT) selection complete Assessment & Plan Assessment & Plan (1) Bursitis of right shoulder: Code(s): M75.51 - Bursitis of right shoulder Category: Medical Plan: 75-year-old woman with right shoulder bursitis. I injected her right shoulder today. Continue activity as tolerated. (2) Diabetes mellitus without complication: Code(s): E11.9 - Type 2 diabetes mellitus without complications Category: Medical Plan: I informed her of the hyperglycemic effects of steroid injections. Coding Level of Care Code Est Pt Level 4 (55545) Diagnoses Bursitis of right shoulder M75.51 Diabetes mellitus without complication E11.9 CPT Codes Shoulders, Hips, Knees, - Shoulder Injection Large joint : Right Shoulder ([id number])
--- OUTSIDE RECORDS SUMMARY | 2025-08-10 12:47 | XMS_ITS ---
Author Name Carla Rubi NP Address [address] [place] [address] Phone [phone] [facility] Care Team Providers Care Pipe Processor Name Role Phone Iraida Rubiy Unavailable [phone] Marco Martinez Unavailable [phone] Reason for Referral Not Available Allergies, adverse [...] TID PRN pain 2024-05-12 No Data Available predniSONE 20 mg Tab TAKE 3 TABS BY MOUT H DAILY X3 DAYS, 2 TABS X3 DAYS, 1 TABLET X3 DAYS, AND 1/2 TABLET DAILY X4 DAYS 2025-02-06 No Data Available Xolair 150 mg/ML Solution Prefilled Syringe No Data Available 2024-09-01 No Data Available Famotidine 20 mg Tab TAKE 1 TABLET BY MO UTH TWICE A DAY 2024-02-26 No Data Available B-12 1,000 MCG TABLET TAKE 1 TABLET BY M OUTH EVERY DAY 2024-09-05 No Data Available Atorvastatin Calcium 40 mg Tab TAKE 1 TA BLET BY MOUTH EVERYDAY AT BEDTIME 2024-12-09 No Data Available FERROCITE TABLET TAKE 1 TABLET BY LULA TH EVERY DAY FOR 90 DAYS 2024-12-09 No Data Available Cetirizine 10 mg Tab TAKE 2 TABLETS BY M OUTH TWICE A DAY 2025-03-24 No Data Available Problem List Problem Status Onset Date Resolved Date Synopsis 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 Active 2022-10-05 5 N/A 05/04/23: ADD famotidine to s ee if this helps control itch as it is a histamine blocker05/12/24: Pt to continue seeing supply chain analyst as ordered. Twice monthly Xolair. Pt to call [employer] to see if they will do a PA to have levocetirizine at prescribed dose of 10 mg BID. Insurance is only covering 5 mg daily. Pt reported 25 mg hydroxyzine ineffective. Refilling 50 mg. 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 Working with rheumatology to see if the itching/hives are autoimmune. 07/28/25eccastablesupportive Hypothyroid Active 2022-10-05 5 N/A 05/12/24: Pt to continue levot hyroxine as orderedfollows with PCP07/28/25eccalevothyroxinestablef/up with PCP.Educated on s/sx of hypothyroid, encouraged to report increased fatigue or thirst, feelings of jitteriness, or heart palpitations Type 2 diabetes mellitus with diabetic polyneuropathy, Hyperlipidemia Active 2022-10-05 5 N/A stableGlucose: 99-108A1c: w as normal metformin 500TIDEye: denies eye problems s/p cataract surgeryNeuropathy: has foot/hand pain cari at nightFollows with PCP, attending on 10/20/22Recommend low carb diet, exercise, monitor glucose, routine foot checks; notify CB of high/low glucose05/12/24: Pt to continue metformin as ordered. Unsure of most recent A1c07/28/25metformin, tylenol, statin, fenofibrateno a1c found ECCAFBG 124 todaystableeGFR 74 [facility] 12/01/24f/up with PCP.Patient education the importance of diabetic diet, exercise, medication compliance. Patient education on hypoglycemia and hyperglycemia signs and symptoms. Monitor daily BGL. Patient to assess feet daily for any cuts or wounds and to notify pcp or [facility] as soon as possible Artificial joint pain Active 2022-10-05 5 N/A 05/12/24: Pt to continue follo wing up with ortho as ordered. Sending lidocaine/prilocaine cream07/28/25eccastablecontrolledmember received INJ cortisone knee Obesity Active 2025-07-07 3 N/A .Patient educated on the imp ortance of diet compliance or modifications and exercise as tolerated Other problems related to medical facilities and other health care Active 2025-07-07 3 N/A DIABETES CONTINGENCY PLAN Last updated: 07/28/2025[facility] the following symptoms: Blood sugar <70 / Blood sugar >300 Planned intervention: Encourage adequate water intake/ Elevate legs/ Limit high-sugar and high-carbohydrate foods/ Go for a walk Encounters Encounters Type Facility Date of Service Diagnosis/Co mplaint No Data Available [facility] [place]2022 Type 2 diabetes mellitus wit h diabetic polyneuropathyType 2 diabetes mellitus with diabetic cataractObesity, unspecifiedBody mass index (bmi) 31.0-31.9, adultPure hypercholesterolemia, unspecifiedHypothyroidism, unspecifiedAllergy, unspecified, initial encounter No Data Available [facility] [place]20[place] Data Available [facility] [place] No Data Available [facility] [place] No Data Available [facility] [place] No Data Available [facility] [place] Estab. patient 30-39min; chronic exacerbation, 2 stable chronic or 1 acute illness add add modifier 95 for video, (do not use for phone, instead use [id number]) [facility] [place]20[place] Type 2 diabetes mellitus wit h [...] (do not use for phone, instead use 99550-90) [facility] [place] Estab. patient 30-39min; chronic exacerbation, 2 stable chronic or 1 acute illness add add modifier 95 for video, (do not use for phone, instead use 56203-87) [facility] [place]20[place] Estab. patient 30-39min; chronic exacerbation, 2 stable chronic or 1 acute illness add add modifier 95 for video, (do not use for phone, instead use 25094-85) [facility] [place]2023 Estab. patient 30-39min; chronic exacerbation, 2 stable chronic or 1 acute illness add add modifier 95 for video, (do not use for phone, instead use 43997-37) [facility] [place]2023 Estab. patient 30-39min; chronic exacerbation, 2 stable chronic or 1 acute illness add add modifier 95 for video, (do not use for phone, instead use 92828-85) [facility] [place]2023 Estab. patient 30-39min; chronic exacerbation, 2 stable chronic or 1 acute illness add add modifier 95 for video, (do not use for phone, instead use 12299-38) [facility] [place]2023 Estab. patient 30-39min; chronic exacerbation, 2 stable chronic or 1 acute illness add add modifier 95 for video, (do not use for phone, instead use 60421-06) [facility] [place]2023 Estab. patient 30-39min; chronic exacerbation, 2 stable chronic or 1 acute illness add add modifier 95 for video, (do not use for phone, instead use 71317-52) [facility] [place]2023 Estab. patient 30-39min; chronic exacerbation, 2 stable chronic or 1 acute illness add add modifier 95 for video, (do not use for phone, instead use 67693-75) [facility] [place] Estab. patient 30-39min; chronic exacerbation, 2 stable chronic or 1 acute illness add add modifier 95 for video, (do not use for phone, instead use 01559-79) [facility] [place] Type 2 diabetes mellitus wit h [...] (do not use for phone, instead use 42124-39) [facility] [place] Estab. patient 30-39min; chronic exacerbation, 2 stable chronic or 1 acute illness add add modifier 95 for video, (do not use for phone, instead use 31886-49) [facility] [place] Estab. patient 30-39min; chronic exacerbation, 2 stable chronic or 1 acute illness add add modifier 95 for video, (do not use for phone, instead use 08023-91) [facility] [place] Estab. patient 30-39min; chronic exacerbation, 2 stable chronic or 1 acute illness add add modifier 95 for video, (do not use for phone, instead use 55931-66) [facility] [place] Estab. patient 30-39min; chronic exacerbation, 2 stable chronic or 1 acute illness add add modifier 95 for video, (do not use for phone, instead use 69516-85) [facility] [place] Estab. patient 10-29min; 1 minor problem; add add modifier 95 for video, modifier 93 for phone [facility] [place]2025 Type 2 diabetes mellitus wit h diabetic polyneuropathyType 2 diabetes mellitus with other specified complicationHyperlipidemia, unspecifiedPain due to internal orthopedic prosth dev/grft, initHypothyroidism, unspecifiedAllergy, unspecified, initial encounterPruritus, unspecifiedUrticaria, unspecifiedBlindness, one eye, unspecified eyeSpond in diseases classd elswhr, multiple sites in spineOther problems related to medical facilities and other health care Estab. patient 10-29min; 1 minor problem; add add modifier 95 for video, modifier 93 for phone [facility] [place] 07/28/2025 Estab. patient 10-29min; 1 minor problem; add add modifier 95 for video, modifier 93 for phone [facility] [place] 07/28/2025 Estab. patient 10-29min; 1 minor problem; add add modifier 95 for video, modifier 93 for phone [facility] [place] 07/28/2025 Estab. patient 10-29min; 1 minor problem; add add modifier 95 for video, modifier 93 for phone [facility] [place] 07/28/2025 Estab. patient 10-29min; 1 minor problem; add add modifier 95 for video, modifier 93 for phone [facility] [place] 07/28/2025 Estab. patient 10-29min; 1 minor problem; add add modifier 95 for video, modifier 93 for phone [facility] [place] 07/28/2025 Body mass index (bmi) 33.0-33.9, adult Estab. patient 10-29min; 1 minor problem; add add modifier 95 for video, modifier 93 for phone [facility] [place] 07/28/20[place] Estab. patient 10-29min; 1 minor problem; add add modifier 95 for video, modifier 93 for phone [facility] [place] 07/28/2025 Estab. patient 10-29min; 1 minor problem; add add modifier 95 for video, modifier 93 for phone [facility] [place] 07/28/2025 Vital Signs Date of Collection Vitals 2022-10-19 [...] - 70.0 mm[Hg]BP Systolic - 125.0 mm[Hg] 2025-07-28 14:08:52 Height - 149.86 cmWe ight - 74.39 kgBody Mass Index (BMI) - 33.12 kg/m2BP Diastolic - 80.0 mm[Hg]BP Systolic - 122.0 mm[Hg]Pain Scale - 5.0 {score} Social History Social History Social History Observation Description Effec tive Time Current Smoking Status Former smoker 6 Sex Female Gender identity Woman History of Procedures Procedures Service Procedure code Service date Servicing provider Phone# No Data Available [id number] 2022-10-19 No Data Available No Data Available [...] (do not use for phone, instead use 90637-84) 45888 2023-05-04 No Data Available No Data Availa [...] (do not use for phone, instead use 20793-26) 00149 2024-05-12 No Data Available No Data Availa [...] 2024-05-12 No Data Available No Data Available Estab. patient 10-29min; 1 minor problem; add add modifier 95 for video, modifier 93 for phone 09685 2025-07-28 No Data Available No Data Availa ble Medication List Documented (1159F) 1159F 2025-07-28 No Data Available No Data Coral ilable Medication Review by prescribing provider or pharmacist documented (1160F) 1160F 2025-07-28 No Data Available No Data Croal ilable Functional Status Assessed (1170F) 1170F 2025-07-28 No Data Available No Data Avail able Advance Care Directive Advance care planning discussion documented in the medical record (1158F) 1158F 2025-07-28 No Data Available No Data Availa ble Advance care planning discussed and documented advance care plan or surrogate decision-maker was documented in the medical record. (1123F) 1123F 2025-07-28 No Data Available No Data Availa ble Pain Assessment - Pain Documented on a Pain Scale (1125F) 1125F 2025-07-28 No Data Available No Data Coral ilable SBP < 130 (3074F) 3074F 2025-07-28 No Data Available No Data Available DBP <80 (3078F) 3078F 2025-07-28 No Data Available No Data Available BMI obtained (3008F) 3008F 2025-07-28 No Data Availab le No Data Available Functional Status Functional Category Effective Dates Cognition Status: Oriented to Person, Pl damien [...] you feel unsteady on your feet? No 28-05-08 Do you worry about falling? No 8 DME used with ambulation: 2024-05-12 Social Supports - # of Inter actions with Friends/Family in a typical week: daily 2024-05-12 Mental Status Status Date AAo times 3 2025-07-28 Assessments Date of Service Assessments 2022-10-19 11:10:20 [...] metformin as ordered. Unsure of most recent Q3eJpkgd problems related to medical facilities and other [...] call CBContinue to see PCP. [facility] for any acute [...] a histamine blocker05/12/24: Pt to continue seeing supply chain analyst as ordered. Twice monthly Xolair. Pt to call [employer] to see if they will do a [...] to see if the itching/hives are autoimmune. 2025-07-28 14:08:52 Type 2 diabetes adama itus with diabetic polyneuropathy, Hyperlipidemia associated with type 2 diabetes mellitusArtificial joint painHypothyroidAllergies, itching, hives.Blind right eyeSpondylopathy in diseases classified elsewhere, multiple sites in spineObesityOther problems related to medical facilities and other health care Plan of Care Date of Service Plans [...] documented (1126F)Continue to see PCP. [facility] as needed for any acute [...] as needed for severe itch #60 tablet MIq6Hocnaqchow Review by prescribing provider or pharmacist documented [...] up appointments with established PCP and specialists. 2025-07-28 14:08:52 Medication Review by prescribing provider or pharmacist documented (1160F)Medication List Documented (1159F)Functional Status Assessed (1170F)Advance Care Directive Advance care planning discussion documented in the medical record (1158F)Advance care planning discussed and documented advance care plan or surrogate decision-maker was documented in the medical record. (1123F)Pain Assessment - Pain Documented on a Pain Scale (1125F)SBP < 130 (3074F)Estab. patient 20-29min; 1 stable chronic or 2 minor; add add modifier 95 for video, modifier 93 for phoneDBP <80 (3078F)BMI obtained (3008F)Continue to see PCP. Follow-up with [facility] as [...] metformin as ordered. Unsure of most recent A1c07/28/25metformin, tylenol, statin, fenofibrateno a1c found ECCAFBG 124 todaystableeGFR 74 [facility] 12/01/24f/up with PCP.Patient education the importance of diabetic diet, exercise, medication compliance. Patient education on hypoglycemia and hyperglycemia signs and symptoms. Monitor daily BGL. Patient to assess feet daily for any cuts or wounds and to notify pcp or [facility] as soon as possible05/12/24: Pt to continue following up with ortho as ordered. Sending lidocaine/prilocaine cream07/28/25eccastablecontrolledmember received INJ cortisone knee05/12/24: Pt to continue levothyroxine as orderedfollows with PCP07/28/25eccalevothyroxinestablef/up with PCP.Educated on s/sx of hypothyroid, encouraged to report increased fatigue or thirst, feelings of jitteriness, or heart palpitations05/04/23: ADD famotidine to see if this helps control itch as it is a histamine blocker05/12/24: Pt to continue seeing supply chain analyst as ordered. Twice monthly Xolair. Pt to call [employer] to see if they will do a PA to have levocetirizine at prescribed dose of 10 mg BID. Insurance is only covering 5 mg daily. Pt reported 25 mg hydroxyzine ineffective. Refilling 50 mg. Pt reports the 3-4 days prior Xolair the itching/hives are severe.07/28/25famotidine, hydroxyzine, zyrtec, hydrocortisoneeccastablecontrolled with xolairhas prosthetic eye 07/28/25eccastableopth 2024fall precautionImmunodeficiency due to: autoimmune disorderweakened immune system, encourage hand washing, avoid large crowds, stay up to date on vaccines (annual flu), monitor for and report early any s/s of infectionuse prednisone PRN 05/12/24: Pt to continue follow-up with rheumatology as ordered. Working with rheumatology to see if the itching/hives are autoimmune. 07/28/25eccastablesupportive.Patient educated on the importance of diet compliance or modifications and exercise as toleratedDIABETES CONTINGENCY PLANLast updated: 07/28/2025Member to call for the following symptoms: Blood sugar <70 / Blood sugar >300 Planned intervention: Encourage adequate water intake/ Elevate legs/ Limit high-sugar and high-carbohydrate foods/ Go for a walkfollow up with PCP/specialistsAt least 50% of time spent counseling patient, discussing diagnosis, treatment plan, compliance, and coordinating follow-up care Goals Date Goal 2022-10-19 Remember to monitor glucose, blood pressure 2022-10-19 Call me if any acute issues 2022-10-19 Keep it up medicatio n compliance 2024-05-12 Discussed [facility] 's 28/05 program with member. Encouraged member to reach out to CB if they have any questions or concerns. 2025-07-28 .Remember to keep al l appointments with your PCP and specialists. Call CB 28/05 if you have questions or concerns. Discussed how to contact [facility] via phone or tablet. CB 28/05 phone number provided. Health Concerns Date Concern 2025-07-28 Patient/Guardian agr eed to visit via telehealth. Today, patient has chief complaint of: annual visit.Visit completed via:[x] audio and video;Informed verbal consent was obtained from this patient to communicate and provide care using virtual and other telecommunications tools. This patient has been explained the risks, if any, related to the encounter. I explained that care provided through video or audio communication cannot replace the need for physical examination or an in-person visit for some disorders or urgent problems. 2025-07-28 Concerns for today's visit:No acute concerns or needs.Reviewed allergies, medications, active medical conditions, past medical and surgical history, social history. 2025-07-28 Most recent hospital stay or ER visit:No ER visits or hospitalizations documented in [facility] in last year.Member denies ER visits or hospitalizations in last year.Discussed our goal of helping the member have more days at home rather than in the ER or the hospital. 2025-07-28 Open HEDIS Measures: No open measures 2025-07-28 spoke to member and daughter Megan
--- OUTSIDE RECORDS SUMMARY | 2025-08-10 12:48 | XMS_ITS | Clinical Summary ---
Author Organization [facility] Address [address] [place] [address] Phone Care Team Providers Care Room Service Waiter Name Role Phone Marco Martinez MD Primary Care Provider [phone] Social History Tobacco Use Types Packs/Day Years [...] MEDICARE REPLACEMENT DUAL MEDICARE REPLACEMENT Care Teams Room Service Waiter Relationship Specialty Start Date End Date Marco Martienz MD [address] [place] [address] [place] [address] PCP - General Internal Medicine 01/17/18 Additional Source Comments The information contained in this document represents components of the legal health record. It is not the complete legal health record.[facility]
--- OUTSIDE RECORDS SUMMARY | 2025-08-10 12:48 | XMS_ITS | Encounter Summary ---
Author Organization [facility] Address [address] [place] [address] Phone Care Team Providers Care Alining Inspector Name Role Phone Marco Martinez MD Primary Care Provider [phone] Reason for Referral * Physical Therapy (Routine) - Closed Specialty Diagnoses / Procedures Referred By Harini lopez Referred To Contact Physical Therapy Diagnoses Encounter for rehabilitation System, Provider Not In, [facility] [address] [place] [address] [address] [place] [address] Phone: tel: Referral ID Status Reason Start Date Expiration Date Visits Re quested Visits Authorized [id number] Closed 01/17/2018 01/17/2019 1 1 Encounter Details Date Type Department Care Team (Latest Contact Info) Description 01/17/2018 Transcribe Orders [facility] [address] [place] [address] Jennifer Williamson CNM [address] [place] [id number] Encounter for rehabilitation (Primary Dx) Social History [...] Diagnoses Orde r Schedule Ambulatory referral to [facility] Physical Therapy Outpatient Referral Routine Encounter for rehabilitation Ordered: 01/17/2018 documented as of this encounter Visit Diagnoses Diagnosis Encounter for rehabilitation- Primary documented in this encounter Care Teams Alining Inspector Relationship Specialty Start Date End Date Marco Martinez MD [address] [place] [address] Dr Lawler [address] [place] [id number] PCP - General Internal Medicine 01/17/18 documented as of this encounter Additional Source Comments The information contained in this document represents components of the legal health record. It is not the complete legal health record.[facility]
--- OUTSIDE RECORDS SUMMARY | 2025-08-10 12:48 | XMS_ITS | Patient Health Record ---
Author Organization [facility] Network Address [address] [place] [address] [address] [place] [address] Care Team Providers Care Fretted Instrument Repairer Name Role Phone Marco Comer Primary Care Provider UnavailCHANDA Powell Unavailable [phone] Reason For Referral No Information Plan Of Treatment No Information
== END 2025-08-10 10:55 | disposition home or self-care (01) ==
LOC: HO.HOS 10:42
PROVIDERS: PCP Internal Medicine; Visit Provider Orthopaedic Surgery
DX: M75.51 Bursitis of right shoulder (principal); E11.9 Type 2 diabetes mellitus without complications
CPT/HCPCS: 20610; 99214

== ENCOUNTER → 2025-08-10 10:41 | Outpatient (BNVA) | payer OTHER, SELFPAY | PROVIDERS: PCP Internal Medicine; Visit Provider Orthopaedic Surgery | DX: M75.51 Bursitis of right shoulder (principal); E11.9 Type 2 diabetes mellitus without complications | CPT/HCPCS: 20610; 99212; J0665; J1100; J2003 ==

== ENCOUNTER 2025-09-18 14:51 | Outpatient (REF) | payer OTHER, SELFPAY ==
--- OUTSIDE RECORDS SUMMARY | 2024-11-04 05:20 | XMS_ITS ---
Author Organization [facility] Network Address [address] [address] Care Team Providers Care Planting Machine Operator Name Role Phone Marco Comer Primary Care Provider CHANDA Rodriguez [facility] [phone] REASON FOR VISIT NEED INSURANCE INFORMATION Encounters Encounter Location Date Provider Diagnosis [facility] [facility] [address] [facility] 1 [place] [address] 11/04/2024 CHANDA SAMUEL Plan Of Treatment No Information Progress Notes * Ynaeli MORRISDOB:[birth year] (75 yo F)Acc No.[id number]:11/04/2024 Progress Notes Patient: Yaneli Torres Provider: Deniz Samuel MD :1950 A ge:74 Y S ex:Female Date:11/04/2024 Address:[address] [place] [address] Pcp:Marco Comer Subjective: * Chief Complaints: * N EED INSURANCE INFORMATION * Electronic signature of CHANDA SAMUEL M.D. on 09/18/2025 at 10:26 PM EST Sign off status: Pending * Provider: Deniz Samuel MD Date: Generated for Milton gonzalez/Tato/Glynn on: 11/18/2024 10:26 PM EST
--- OUTSIDE RECORDS SUMMARY | 2025-09-18 22:24 | XMS_ITS ---
Author Name Carla Rubi NP Address [address] [place] [address] Phone [phone] [facility] Team Providers Care Block Out Machine Operator Name Role Phone Iraida Rubiy Unavailable [phone] Marco Martinez Unavailable [phone] Reason for Referral Not Available Allergies, adverse [...] a histamine blocker05/12/24: Pt to continue seeing wall steamer as ordered. Twice monthly Xolair. Pt to call Odd Bundle Worker to see if they will do [...] 3 N/A DIABETES CONTINGENCY PLAN Last updated: 07/28/2025[facility] call for the following symptoms: Blood sugar <70 / Blood sugar >300 Planned intervention: Encourage adequate water intake/ Elevate legs/ Limit high-sugar and high-carbohydrate foods/ Go for a walk Encounters Encounters Type Facility Date of Service Diagnosis/Co mplaint No Data Available [facility]2022 Type 2 diabetes mellitus wit h diabetic polyneuropathyType 2 diabetes mellitus with diabetic cataractObesity, unspecifiedBody mass index (bmi) 31.0-31.9, adultPure hypercholesterolemia, unspecifiedHypothyroidism, unspecifiedAllergy, unspecified, initial encounter No Data Available [facility] 10[place]19[place]2022 No Data Available [facility]20[place] No Data Available [facility]20[place] No Data Available [facility] No Data Available [facility]20[place] Estab. patient 30-39min; chronic exacerbation, 2 stable chronic or 1 acute illness add add modifier 95 for video, (do not use for phone, instead use 13132-82) [facility] [place] 05/04/2023 Type 2 diabetes mellitus wit h [...] (do not use for phone, instead use 50223-36) [facility] 05[place]20[place] Estab. patient 30-39min; chronic exacerbation, 2 stable chronic or 1 acute illness add add modifier 95 for video, (do not use for phone, instead use 65745-81) [facility] 05[place]04/2023 Estab. patient 30-39min; chronic exacerbation, 2 stable chronic or 1 acute illness add add modifier 95 for video, (do not use for phone, instead use 04935-73) [facility] 05[place]04/2023 Estab. patient 30-39min; chronic exacerbation, 2 stable chronic or 1 acute illness add add modifier 95 for video, (do not use for phone, instead use 68210-03) [facility] 05[place]04/2023 Estab. patient 30-39min; chronic exacerbation, 2 stable chronic or 1 acute illness add add modifier 95 for video, (do not use for phone, instead use 89898-62) [facility] 05[place]04/2023 Estab. patient 30-39min; chronic exacerbation, 2 stable chronic or 1 acute illness add add modifier 95 for video, (do not use for phone, instead use 48305-54) [facility] 05[place]2023 Estab. patient 30-39min; chronic exacerbation, 2 stable chronic or 1 acute illness add add modifier 95 for video, (do not use for phone, instead use 88482-67) [facility] 05[place]04/2023 Estab. patient 30-39min; chronic exacerbation, 2 stable chronic or 1 acute illness add add modifier 95 for video, (do not use for phone, instead use 72062-23) [facility] 05[place]/2023 Estab. patient 30-39min; chronic exacerbation, 2 stable chronic or 1 acute illness add add modifier 95 for video, (do not use for phone, instead use 94126-11) [facility] [place] 05/04/2023 Estab. patient 30-39min; chronic exacerbation, 2 stable chronic or 1 acute illness add add modifier 95 for video, (do not use for phone, instead use 67452-49) [facility] [place] 05/12/2024 Type 2 diabetes mellitus wit h [...] (do not use for phone, instead use 19157-90) [facility] [place] 05/12/2024 Estab. patient 30-39min; chronic exacerbation, 2 stable chronic or 1 acute illness add add modifier 95 for video, (do not use for phone, instead use 77317-74) [facility] [place] 05/12/2024 Estab. patient 30-39min; chronic exacerbation, 2 stable chronic or 1 acute illness add add modifier 95 for video, (do not use for phone, instead use 99463-61) [facility] [place] 05/12/2024 Estab. patient 30-39min; chronic exacerbation, 2 stable chronic or 1 acute illness add add modifier 95 for video, (do not use for phone, instead use 55028-27) [facility] [place] 05[place]12/2024 Estab. patient 30-39min; chronic exacerbation, 2 stable chronic or 1 acute illness add add modifier 95 for video, (do not use for phone, instead use 18412-88) [facility] [place] 05/12/2024 Estab. patient 10-29min; 1 minor problem; [...] related to medical facilities and other health carePersonal history of nicotine dependenceObesity, unspecifiedBody mass index (bmi) 33.0-33.9, adult Estab. patient [...] tive Time Current Smoking Status Former smoker 2025-09-05 5 Sex Female Gender identity Woman History of Procedures Procedures Service Procedure code Service date Servicing provider Phone# No Data Available [id number] 2022-10-19 No Data Available No Data Available [...] (do not use for phone, instead use 09714-52) 17242 2023-05-04 No Data Available No Data Availa [...] (do not use for phone, instead use 78541-93) 05744 2024-05-12 No Data Available No Data Availa [...] 95 for video, modifier 93 for phone 49928 2025-07-28 No Data Available No Data Availa ble Medication List Documented (1159F) 1159F 2025-07-28 No Data Available No Data Coral ilable Medication Review by prescribing provider or pharmacist documented (1160F) 1160F 2025-07-28 No Data Available No Data Coral ilable Functional Status Assessed (1170F) 1170F 2025-07-28 [...] No Data Available No Data Available DBP 80-89 (3079F) 3079F 2025-07-28 No Data Available No Data Available Functional [...] metformin as ordered. Unsure of most recent N2fPwhky problems related to medical facilities and other [...] joint pain increased [facility]. [facility] with [facility] as needed for any acute or [...] a histamine blocker05/12/24: Pt to continue seeing wall steamer as ordered. Twice monthly Xolair. Pt to call Odd Bundle Worker to see if they will do [...] modifier 95Continue to see PCP. Follow-up with [facility] as needed for any acute or [...] as needed for severe itch #60 tablet [id number] Review by prescribing provider or pharmacist documented [...] a histamine blocker05/12/24: Pt to continue seeing wall steamer as ordered. Twice monthly Xolair. Pt to call Odd Bundle Worker to see if they will do [...] questions or concerns. [facility] 28/05 phone number provided. Health Concerns Date Concern 2025-07-28 Patient/Guardian hailey kemp to visit via telehealth. Today, patient has [...]
--- OUTSIDE RECORDS SUMMARY | 2025-09-18 22:26 | XMS_ITS | Patient Health Record ---
Author Organization [facility] Network Address [address] [address] Care Team Providers Care Machining Supervisor Name Role Phone Marco Comer Primary Care Provider Unavailab CHANDA Angelo Unavailable [phone] Reason For Referral No Information Encounters Encounter Location Date Provider Diagnosis [facility] [address] [facility] 1 [place] [address] 11/04/2024 CHANDA SAMUEL Plan Of Treatment No Information
--- OUTSIDE RECORDS SUMMARY | 2025-09-18 22:26 | XMS_ITS | Encounter Summary ---
Author Organization [facility] Address [address] [place] [address] Phone Care Team Providers Care Stationary Steam Engineer Name Role Phone Marco Martinez MD Primary Care Provider [phone] Reason for Referral * Physical Therapy (Routine) - Closed Specialty Diagnoses / Procedures Referred By Harini lopez Referred To Contact Physical Therapy Diagnoses Encounter for rehabilitation System, Provider Not In, [facility] [id number] [place] [address] [address] [place] [address] Phone: tel: Referral ID Status Reason Start Date Expiration Date Visits Re quested Visits Authorized [id number] Closed 01/17/2018 01/17/2019 1 1 Encounter Details Date Type Department Care Team (Latest Contact Info) Description 01/17/2018 Transcribe Orders [facility] [address] [place] [address] Jennifer Williamson CNM [address] [place] [address] Encounter for rehabilitation (Primary Dx) Social History [...] Diagnoses Orde r Schedule Ambulatory referral to [facility] Physical Therapy Outpatient Referral Routine Encounter for rehabilitation Ordered: 01/17/2018 documented as of this encounter Visit Diagnoses Diagnosis Encounter for rehabilitation- Primary documented in this encounter Care Teams Stationary Steam Engineer Relationship Specialty Start Date End Date Marco Martinez MD [address] [place] [address] Dr Lawler [address] [place] [phone] PCP - General Internal Medicine 01/17/18 documented as of this encounter Additional Source Comments The information contained in this document represents components of the legal health record. It is not the complete legal health record.[facility]
--- OUTSIDE RECORDS SUMMARY | 2025-09-18 22:27 | XMS_ITS | Clinical Summary ---
Author Organization [facility] Address [address] [place] [address] Phone Care Team Providers Care Maintenance Of Way Clerk Name Role Phone Marco Martinez MD Primary Care Provider [phone] Social History Tobacco Use Types Packs/Day Years [...] VACCINES (50+ years) (2 of 2 - PCV20 or PCV21) 08/15/2020 08/15/2019 RSV VACCINE (1 - 1-dose 75+ series) 2023 INFLUENZA VACCINE (#1) 2025 0, 09/04/2019, 08/15/2019, Additional history exists COVID-19 VACCINE ( season) 2025 03/16/2021, 02/16/2021 HEPATITIS A VACCINES Aged Out No long er eligible based on patient's age to complete this topic HIB VACCINES Aged Out No longer eligi ble based on patient's age to complete this topic IPV VACCINES Aged Out No longer eligi ble [...] REPLACEMENT MEDICARE REPLACEMENT MEDICARE REPLACEMENT MEDICARE REPLACEMENT [facility] [place] [address] Clerk Relationship Specialty Start Date End Date Marco Martinez MD [address] [place] [phone] PCP - General Internal Medicine 01/17/18 Additional Source Comments The information contained in this document represents components of the legal health record. It is not the complete legal health record.[facility]
== END 2025-09-18 14:52 | disposition home or self-care (01) ==
LOC: HO.MAMMO 14:51
PROVIDERS: PCP Internal Medicine; Visit Provider Internal Medicine
DX: Z12.31 Encounter for screening mammogram for malignant neoplasm of breast (principal)
CPT/HCPCS: 77063; 77067

== ENCOUNTER → 2025-09-18 15:30 | Outpatient (BNV) | payer OTHER, SELFPAY | PROVIDERS: PCP Internal Medicine; Visit Provider Internal Medicine | DX: Z12.31 Encounter for screening mammogram for malignant neoplasm of breast (principal) | CPT/HCPCS: 77063; 77067 ==

== ENCOUNTER 2025-09-22 15:04 | Outpatient (AMB) | payer OTHER, SELFPAY ==
[2025-09-22 15:06] VITALS: BMI 34.3
--- NOTE | 2025-09-22 15:06 | A.OFFVIS_ITS ---
Vital Signs 09/22/25 15:06 Height 4 ft 11 in Weight 170 lb BMI 34.3 Intake Visit Reasons: OV:Right Middle Finger Locking, last inj 11/2020 Intake Note: Yaneli is a 75 year old right hand dominant female who presents today for Follow Up of her Right Middle Trigger Finger. She received an trigger finger injection on 11/10/20. At her last evaluation by Dr. Diaz on 06/13/21 she reported she continued to have locking and catching. Patient reports she is no longer having locking, catching, numbness or tingling. She states she tried a home remedy right after booking today' visit and is now recovered from her symptoms. Status post Left Carpal Tunnel Release 06/02/[address] Diaz. Allergies No Known Allergies Allergy (Verified 09/22/25 15:22) HPI HPI OV:Right Middle Finger Locking, last inj 11/2020: Details: Yaneli is a 75 year old right hand dominant female who presents today for Follow Up of her Right Middle Trigger Finger. She received an trigger finger injection on 11/10/20. At her last evaluation by Dr. Diaz on 06/13/21 she reported she continued to have locking and catching. Patient reports she is no longer having locking, catching, numbness or tingling. She states she tried a home remedy right after booking today' visit and is now recovered from her symptoms. Status post Left Carpal Tunnel Release 06/02/[address] Diaz. [facility] Medical History Hypothyroidism Multinodular goiter Prosthetic eye globe Lumbar back pain with radiculopathy affecting right lower extremity Anemia Frequent falls Dizziness Carpal tunnel syndrome, bilateral Mixed hyperlipidemia Obesity (BMI 30-39.9) Memory impairment Osteoarthritis of both hands Vitamin B12 deficiency Vitamin D deficiency Primary osteoarthritis of both knees Osteopenia Asthma Chronic idiopathic urticaria Acquired hypothyroidism Benign essential hypertension Diabetes mellitus without complication Surgical History H/O colonoscopy Status post carpal tunnel release (~06/02/21) Tubal ligation status Hx of section History of total right knee replacement (~2012) Family History Father No problems noted. 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 Neuro: Normal sensation of the tips of all digits of the right hand at this time Vascular: Cap refill brisk Pain: No tenderness to palpation of the A1 italo of right middle finger No pain associated with locking and catching ROM: There is visible and palpable locking and catching of the right middle finger in a flexed position Patient is able to flex and extend all other digits of the right hand fully and without difficulty Skin: No lacerations or abrasions. General: No ecchymosis, erythema, or evidence of infection. Psych: Appears grossly normal Affect normal Attitude cooperative Assessment & Plan Assessment & Plan (1) Trigger finger, right middle finger: Code(s): M65.331 - Trigger finger, right middle finger Category: Medical Plan 1. Right middle finger trigger finger Patient is educated about this condition Patient is educated about the typical recovery course At this time, patient is educated that the preferred treatment options for trigger fingers are injections and/or surgery, however the patient states she would like to hold off on this for now as her symptoms are improving Patient is educated that if symptoms worsen, she should call us for re- evaluation and further treatment Patient and her daughter understand this and are amenable to this plan, state they will likely follow-up after the holidays for discussion of surgery Follow-up after the holidays at the patient's earliest convenience, sooner with any acute concerns Coding Level of Care Code Est Pt Level 3 (77647) Diagnoses Trigger finger, right middle finger M65.331
== END 2025-09-22 15:21 | disposition home or self-care (01) ==
LOC: HO.HOS 15:05
PROVIDERS: PCP Internal Medicine
DX: M65.331 Trigger finger, right middle finger (principal)
CPT/HCPCS: 99213

== ENCOUNTER → 2025-09-22 15:04 | Outpatient (BNVA) | payer OTHER, SELFPAY | PROVIDERS: PCP Internal Medicine | DX: M65.331 Trigger finger, right middle finger (principal) | CPT/HCPCS: 99212 ==

== ENCOUNTER 2025-10-16 19:49 | Inpatient (IN) | payer OTHER, SELFPAY ==
--- OUTSIDE RECORDS SUMMARY | 2024-11-04 05:20 | XMS_ITS ---
Author Organization [facility] Address [address] [address] Care Team Providers Care Religion Instructor Name Role Phone Marco Comer Primary Care Provider CHANDA Rodriguez [facility] [phone] REASON FOR VISIT NEED INSURANCE INFORMATION Encounters Encounter Location Date Provider Diagnosis [facility] [address] [facility] Floor 1 [place] [address] 11/04/2024 CHANDA SAMUEL Plan Of Treatment No Information Progress Notes * Yaneli MORRISDOB:[birth year] (75 yo F)Acc No.[id number]:11/04/2024 Progress Notes Patient: Yaneli Torres Provider: Deniz Samuel MD :1950 A ge:74 Y S ex:Female Date:11/04/2024 Address:[address] [place] [address] Pcp:Marco Comer Subjective: * Chief Complaints: * N EED INSURANCE INFORMATION * Electronic signature of CHANDA SAMUEL M.D. on 10/16/2025 at 08:54 PM EST Sign off status: Pending * Provider: Deniz Samuel MD Date: Generated for Milton gonzalez/Tato/Calvinitting on: 12/17/2024 08:54 PM EST
--- NOTE | ~2025-10-16 | CT_ITS ---
CLINICAL HISTORY: Abdominal pain, fever CT Abdomen and Pelvis W Contrast COMPARISON: None provided FINDINGS: Small hiatal hernia. Mild bibasilar atelectasis. Normal liver. Fluid density cysts in the spleen. Patchy bilateral renal cortical hypoenhancement. Mild bilateral renal pelvis mucosal hyperenhancement. Mild bilateral hydronephrosis. No visible urolithiasis. Normal adrenal glands. Normal pancreas. Cholelithiasis. Mildly distended gallbladder. No CT evidence of acute cholecystitis. No biliary dilation. Colonic diverticulosis without evidence of acute diverticulitis. No mucosal thickening. No evidence of obstruction. The visible appendix appears normal. Mild diffuse bladder wall thickening. Unremarkable uterus. No ascites. No pneumoperitoneum. No lymphadenopathy. No acute fracture. Degenerative changes in the spine. No abdominal aortic aneurysm. IMPRESSION: Findings consistent with bilateral pyelonephritis. Mild bilateral hydronephrosis. Possible cystitis. Nonemergent/incidental findings above. This document has been electronically signed by: Truman Miles MD on 10/17/2025 01:34:06
--- NOTE | ~2025-10-16 | XR_ITS ---
CLINICAL HISTORY: sob Chest X-ray, 1 View COMPARISON: CR/SR - XR CHEST 2 VIEWS - 11/10/24 14:38 EST FINDINGS: No consolidation. No pleural effusion. No pneumothorax. No cardiomegaly. No acute fracture. Degenerative changes in the spine and shoulders. IMPRESSION: No acute findings. This document has been electronically signed by: Truman Miles MD on 10/16/2025 21:02:27
[2025-10-16 20:04] VITALS: BP 119/59; BP 130/70; PULSE 102; PULSE 108; RESP 18; TEMP 38.3; O2SAT 93; O2SAT 96; BMI 30.3
--- NOTE | 2025-10-16 20:21 | ECG_ITS ---
Test Reason : dizziness Blood Pressure : */* mmHG Vent. Rate : 97 BPM Atrial Rate : 97 BPM P-R Int : 136 ms QRS Dur : 88 ms QT Int : 338 ms P-R-T Axes : 39 -17 55 degrees QTcB Int : 429 ms Normal sinus rhythm Cannot rule out Anterior infarct (cited on or before 10-Sep-2024) Abnormal ECG When compared with ECG of 10-Sep-2024 12:39, Vent. rate has increased by 33 bpm Referred By: Miladys Zarate Electronically Signed By: NIMCO URBINA MD
--- NOTE | 2025-10-16 20:27 | ED.DIZZY ---
HPI - Dizziness General Chief Complaint: Dizziness Stated Complaint: Dizzy, head feels heavy, unsteady gait Time Seen by Provider: 10/16/25 20:10 Related Data Home Medications ?Medication ?Instructions ?Recorded ?Confirmed turmeric 500 mg-black pepper 1 cap PO DAILY 09/22/20 09/06/25 extract 3 mg capsule levocetirizine 5 mg tablet 5 mg PO DAILY 10/05/23 09/06/25 omalizumab 150 mg/mL subcutaneous 300 mg subcut Q2W 02/11/24 09/06/25 syringe cromolyn 100 mg/5 mL oral 100 mg PO TID 08/26/24 09/06/25 concentrate hydroxyzine HCl 50 mg tablet 50 mg PO BID PRN itch 08/26/24 09/06/25 Previous Rx's ?Medication ?Instructions ?Recorded lancets ([facility] UltraSoft #100 ea 03/11/21 Lancets) montelukast 10 mg tablet 10 mg PO BEDTIME #90 tabs 08/11/21 nabumetone 500 mg tablet 500 mg PO BID #20 tabs 03/27/22 hydrocortisone 2.5 % topical cream 1 appl topical BID PRN skin 06/22/22 irritation #20 grams fexofenadine 180 mg tablet 180 mg PO DAILY #30 tabs 08/14/22 Ventolin HFA 90 mcg/actuation 2 puff inhalation Q6H PRN 10/09/22 aerosol inhaler (albuterol sulfate) shortness of breath or wheezing 30 days #18 grams bladder control pads #3 ea 08/17/23 gloves (Medium) #3 ea 08/17/23 personal wipes #3 ea 08/17/23 shower chair with back #1 ea 08/17/23 fenofibrate nanocrystallized 145 145 mg PO DAILY #90 tabs 12/23/23 mg tablet rollator walker #1 ea 03/03/24 lidocaine 5 % topical patch 1 patch topical DAILY 30 days #30 09/05/24 ea epinephrine 0.3 mg/0.3 mL 0.3 mg (0.3 mL) IM Q10M PRN 09/10/24 injection, auto-injector (EpiPen anaphylaxis #2 ea 2-Mark) ascorbic acid (vitamin C) 500 mg 500 mg PO DAILY #90 tabs 04/04/25 tablet (Vitamin C) blood sugar diagnostic (OneTouch 50 strip miscellaneous BID #100 05/18/25 Verio test strips) strips atorvastatin 40 mg tablet 40 mg PO BEDTIME 90 days #90 tabs 05/26/25 ferrous fumarate 324 mg (106 mg 324 mg PO DAILY 90 days #90 tabs 06/07/25 iron) tablet levothyroxine 100 mcg tablet 100 mcg PO DAILY #90 tabs 07/10/25 (Synthroid) metformin 500 mg tablet 500 mg PO TID #270 tabs 08/27/25 cyanocobalamin (vitamin B-12) 1,000 mcg PO DAILY #90 tabs 09/04/25 1,000 mcg tablet betamethasone valerate 0.1 % 1 appl topical BID PRN skin 09/30/25 topical cream irritation 30 days #45 grams cholecalciferol (vitamin D3) 25 25 mcg PO DAILY #90 caps 10/08/25 mcg (1,000 unit) capsule tizanidine 2 mg tablet 2 mg PO BEDTIME PRN muscle 10/12/25 spasticity #30 tabs calcium 500 mg (as 1 tab PO BID #180 tabs 10/15/25 carbonate)-vitamin D3 10 mcg (400 unit) tablet (Calcium 500 With D) Allergies Allergy/AdvReac Type Severity Reaction Status Date / Time No Known Allergies Allergy Verified 10/16/25 20:08 [facility] Past Medical History Medical History Hypothyroidism Multinodular goiter Prosthetic eye globe Lumbar back pain with radiculopathy affecting right lower extremity Anemia Frequent falls Dizziness Carpal tunnel syndrome, bilateral Mixed hyperlipidemia Obesity (BMI 30-39.9) Memory impairment Osteoarthritis of both hands Vitamin B12 deficiency Vitamin D deficiency Primary osteoarthritis of both knees Osteopenia Asthma Chronic idiopathic urticaria Acquired hypothyroidism Benign essential hypertension Diabetes mellitus without complication Surgical History H/O colonoscopy Status post carpal tunnel release (~06/02/21) Tubal ligation status Hx of section History of total right knee replacement (~2012) Family History Family History Father No problems noted. Mother Diabetes mellitus Cardiovascular disease Social History Social History Housing: Apartment Are you a primary career technology teacher to a significant other at home: No Do you presently have visiting nurse or other home services: No Alcohol intake: never Patient Tobacco Use Status: Former Tobacco user Tobacco use type: Cigarette Smoked in Last 30 Days: No e-Cigarette/Vaping Use: Never Used Second Hand Smoke Exposure: No Use of substances other than those prescribed or required for medical reasons: No Advance Directives: Yes Advance Directives Information Provided: Yes Advance Directives Date on File: 11/20/24 service: No Current occupational status: disabled 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 Cognitive needs: Yes (cane ) Hearing needs: No Vision needs: Yes (glasses ) Physical Exam Vital Signs: Vital Signs: Last Vital Signs Temp 99.2 F 10/16/25 22:58 Pulse 75 10/16/25 22:58 Resp 20 10/16/25 22:58 BP 103/49 L 10/16/25 22:58 Pulse Ox 95 10/16/25 22:58 O2 Del Method Room Air 10/16/25 22:58 BMI result Body Mass Index 30.3 Medications Administered Discontinued Medications Generic Name Dose Route Start Last Admin Trade Name Freq PRN Reason Stop Dose Admin Acetaminophen 975 mg 10/16/25 20:36 10/16/25 20:42 Acetaminophen 325 Mg Tablet PO 10/16/25 20:37 975 mg ONCE ONE Administration Sodium Chloride 1,000 mls @ 999 mls/hr 10/16/25 20:45 10/16/25 23:37 Ns IV 10/16/25 21:45 Infused .Q1H1M AMILCAR Infusion Ceftriaxone Sodium 1 gm/ 50 mls @ 100 mls/hr 10/16/25 20:34 10/16/25 21:49 Sodium Chloride IV 10/16/25 21:03 Infused ONCE ONE Infusion Sodium Chloride 1,000 mls @ 999 mls/hr 10/16/25 20:45 10/16/25 20:38 Ns IV 10/16/25 21:45 999 mls/hr .Q1H1M AMILCAR Administration Medical Decision Making Medical Decision Making MDM Narrative: Patient's white count is elevated. Urine was negative for infection. Chest x-ray by my interpretation was grossly negative. Lactate was 1.2 there is no evidence for severe sepsis. IV fluids was given antibiotic was given empirically. Patient will require admission for observation. Temperature was 101 degrees on arrival. Differential Diagnosis Differential Diagnoses: The differential diagnosis associated with the presentation includes Fever, sepsis, pneumonia, UTI Admission/Observation Consideration of admission/observation: Escalation of care including admission/observation considered Consult Healthcare Provider Management of the patient was discussed with: Hospitalist Lab Data MDM Lab Attestation statement: I reviewed the patient's lab results. 10/16/25 20:23 10/16/25 20:23 Labs: Lab Results 10/16/25 10/16/25 10/16/25 Range/Units 20:23 20:39 23:00 WBC 16.7 H (4.8-10.8) X10*3/uL RBC 4.29 (4.20-5.50) X10*6/uL Hgb 11.4 L (12.0-16.0) g/dl Hct 35.4 L (37.0-47.0) % MCV 82.5 (80.0-98.0) fL MCH 26.6 L (27.0-33.0) pg MCHC 32.2 (31.0-35.0) g/dl RDW 14.6 (11.0-16.0) % Plt Count 377 D (160-400) X10*3/uL MPV 9.4 (9.4-12.3) fL Immature Gran % (Auto) 1.0 H (0.0-0.4) % Neut % (Auto) 88.6 H (45-73) % Lymph % (Auto) 4.5 L (20-40) % Branch % (Auto) 5.6 (2-11) % Eos % (Auto) 0.0 (0-4) % Baso % (Auto) 0.3 (0-2) % Lymph # (Auto) 0.8 L (1.2-4.9) X10*3/uL Branch # (Auto) 0.9 (0.1-1.2) X10*3/uL Eos # (Auto) 0.0 (0.0-0.4) X10*3/uL Baso # (Auto) 0.1 (0.0-0.2) X10*3/uL Abs Immat Gran (auto) 0.16 H (0.00-0.03) X10*3/uL Absolute Neuts (auto) 14.8 H (2.0-8.3) x10*3/uL Absolute Nucleated RBC 0.000 (0.0-0.012) X10*3/uL Nucleated RBC % (auto) 0.0 (0.0-0.2) /100WBC Sodium 133 L (135-145) mmol/L Potassium 3.9 (3.3-5.1) mmol/L Chloride 103 (96-108) mmol/L Carbon Dioxide 20 L (22-29) mmol/L Anion Gap 14 (12-20) BUN 9 (9-16) mg/dL Creatinine 0.67 (0.5-1.4) mg/dL Estim Creat Clear Calc 72.0 Estimated GFR > 60 Random Glucose 159 H (60-115) mg/dL Lactic Acid 1.2 (0.5-2.0) mmol/L Calcium 10.0 D (8.4-10.2) mg/dL Total Bilirubin 0.4 (0.0-1.0) mg/dL AST 30 (5-31) U/L ALT 14 (0-31) U/L Alkaline Phosphatase 75 (39-117) U/L Troponin I High Sens < 2.7 D (<3.5-17.0) ng/L Total Protein 7.0 (6.5-8.0) g/dL Albumin 3.9 (3.5-5.0) g/dL Urine Color Yellow Urine Appearance Clear Urine pH 6.0 (5.0-9.0) Ur Specific [place] <= 1.005 (1.005-1.025) Urine Protein Negative (Neg-Trace) mg/dL Urine Glucose (UA) Negative (Negative) mg/dL Urine Ketones Negative (Negative) mg/dL Urine Blood Trace H (Negative) Urine Nitrite Negative (Negative) Ur Leukocyte Esterase Trace H (Negative) Urine RBC 0-2 (0-2) /HPF Urine WBC 0-5 (0-5) /HPF Ur Squamous Epith Cells 0-2 (0-2) /HPF Urine Bacteria None Seen (None Seen) Hyaline Casts 0-2 (0-2) /LPF Influenza Type A (PCR) NEGATIVE (Negative) Influenza Type B (PCR) NEGATIVE (Negative) RSV RNA Qual (PCR) NEGATIVE (Negative) SARS-CoV-2 RNA (RT-PCR) NEGATIVE (Negative) Independent Interpretation I performed an independent interpretation of an: Plain X-Ray (Chest x-ray grossly negative for pneumonia pneumothorax) Radiology Impression Discussion of test interpretation with radiology: I have reviewed the radiologist's reading. Independent Historian Clinical information obtained from an independent historian. History obtained from or confirmed by: EMS External Record Review External record reviewed: Office record Social Determinants Patient?s care significantly limited by Social Determinants of Health including: Problems related to primary support group Discharge Plan Discharge Clinical Impression: Fever Patient Disposition: Admitted As Inpatient Print Language: Slovenian
[2025-10-16 20:28] LABS: MANUAL DIFF FLAG NO
[2025-10-16 20:40] LABS: Hematocrit 35.4 % (37.0-47.0); Hemoglobin 11.4 g/dl (12.0-16.0); Imm Gran Abs Auto 0.16 X10*3/uL (0.00-0.03); Imm Gran Pct Auto 1.0 % (0.0-0.4); Lymphocytes Absolute Auto 0.8 X10*3/uL (1.2-4.9); Mean Corpuscular HGB Conc 32.2 g/dl (31.0-35.0); Mean Corpuscular Hemoglobin 26.6 pg (27.0-33.0); Mean Corpuscular Volume 82.5 fL (80.0-98.0); NRBC Abs Auto 0.000 X10*3/uL (0.0-0.012); NRBC Pct Auto 0.0 /100WBC (0.0-0.2); Platelet Count 377 X10*3/uL (160-400); Red Blood Count 4.29 X10*6/uL (4.20-5.50); White Blood Count 16.7 X10*3/uL (4.8-10.8)
[2025-10-16 20:43] LABS: Alanine Aminotransferase 14 U/L (0-31); Albumin Level 3.9 g/dL (3.5-5.0); Alkaline Phosphatase 75 U/L (39-117); Anion Gap 14 (12-20); Aspartate Amino Transferase 30 U/L (5-31); Blood Urea Nitrogen 9 mg/dL (9-16); Calcium 10.0 mg/dL (8.4-10.2); Carbon Dioxide 20 mmol/L (22-29); Chloride 103 mmol/L (96-108); Creatinine Clr Calc Pharmacy 72.0; Estimated Glomerular Filt Rate > 60; Potassium 3.9 mmol/L (3.3-5.1); Sodium 133 mmol/L (135-145); Total Protein 7.0 g/dL (6.5-8.0)
[2025-10-16 20:50] LABS: Troponin-I High Sensitivity < 2.7 ng/L (<3.5-17.0)
--- OUTSIDE RECORDS SUMMARY | 2025-10-16 20:54 | XMS_ITS ---
Author Name Carla Rubi NP Address [address] [place] [address] Phone [phone] 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 Sending lidocaine/prilocaine cream07/28/25eccastablecontrolled received INJ cortisone knee10/15/25: Uses a home remedy for her arthritis. Avocado pit. alcohol, salt and this helps her joint paint, improved her mobility. This has helped her avoid getting cortisone injections. Obesity Active 2025-07-07 3 N/A .Patient educated on the imp ortance of diet compliance or modifications and exercise as tolerated Other problems related to medical facilities and other health care Active 2025-07-07 3 N/A CONSTIPATION CONTINGENCY PLANLast updated: 10/15/2025[facility] to call for the following symptoms: Abdominal pain/ Abdominal swelling/ Constipation/ Hard stoolsPlanned intervention: Increase intake of water / Sit on the toilet after eating a meal / Two prunes or a glass of prune or apple juice / Senna or Dulcolax two tabs po DIABETES CONTINGENCY PLANLast updated: 07/28/2025[facility] to call for the following symptoms: Blood sugar <70 / Blood sugar >300 Planned intervention: Encourage adequate water intake/ Elevate legs/ Limit high-sugar and high-carbohydrate foods/ Go for a walk Constipation Active 2025-10-05 1 N/A 10/15/25: She reports since her C section 40 years ago, she at times can go up to 14 days without moving her bowels. She keeps a calendar and berumen when she does move her bowels. She follows with a visitor services associate who is aware of her patterns. Spoke with member with LL historical interpreter. I am feeling good thank God. She has her regimen for constipation and is moving her bowels. Denies adbominal pain, nausea, vomiting, hematochezia. When she spoke with Elif RN, she believes she took to much of her bowel regimen in abdomen causing cramping and discomfort. Discussed continuing with bowel regimen, hydration, fiber, prunes and continue to follow up with GI as indicated. Encounters Encounters Type Facility Date of Service Diagnosis/Co mplaint No Data Available [facility] ([place] 10/19/2022 Type 2 diabetes mellitus wit h diabetic polyneuropathyType 2 diabetes mellitus with diabetic cataractObesity, unspecifiedBody mass index (bmi) 31.0-31.9, adultPure hypercholesterolemia, unspecifiedHypothyroidism, unspecifiedAllergy, unspecified, initial encounter No Data Available [facility]2022 No Data Available [facility]2022 No Data Available [facility]20[place] No Data Available [facility]20[place] No Data Available [facility] Estab. patient 30-39min; chronic exacerbation, 2 stable chronic or 1 acute illness add add modifier 95 for video, (do not use for phone, instead use 12318-87) [facility] 05[place]2023 Type 2 diabetes mellitus wit h [...] (do not use for phone, instead use 09671-29) [facility]/20[place] Estab. patient 30-39min; chronic exacerbation, 2 stable chronic or 1 acute illness add add modifier 95 for video, (do not use for phone, instead use 63153-45) [facility] [place] 05[place]/2023 Estab. patient 30-39min; chronic exacerbation, 2 stable chronic or 1 acute illness add add modifier 95 for video, (do not use for phone, instead use 27531-60) [facility] [place] 05/04/2023 Estab. patient 30-39min; chronic exacerbation, 2 stable chronic or 1 acute illness add add modifier 95 for video, (do not use for phone, instead use 01456-31) [facility] 05[place]/2023 Estab. patient 30-39min; chronic exacerbation, 2 stable chronic or 1 acute illness add add modifier 95 for video, (do not use for phone, instead use 87467-80) [facility]/2023 Estab. patient 30-39min; chronic exacerbation, 2 stable chronic or 1 acute illness add add modifier 95 for video, (do not use for phone, instead use 42500-06) [facility] Estab. patient 30-39min; chronic exacerbation, 2 stable chronic or 1 acute illness add add modifier 95 for video, (do not use for phone, instead use 38785-81) [facility] Estab. patient 30-39min; chronic exacerbation, 2 stable chronic or 1 acute illness add add modifier 95 for video, (do not use for phone, instead use 65354-19) [facility] Estab. patient 30-39min; chronic exacerbation, 2 stable chronic or 1 acute illness add add modifier 95 for video, (do not use for phone, instead use 37876-48) [facility]23 Estab. patient 30-39min; chronic exacerbation, 2 stable chronic or 1 acute illness add add modifier 95 for video, (do not use for phone, instead use 12942-06) [facility]2024 Type 2 diabetes mellitus wit h [...] (do not use for phone, instead use 05789-26) [facility] [place] Estab. patient 30-39min; chronic exacerbation, 2 stable chronic or 1 acute illness add add modifier 95 for video, (do not use for phone, instead use 18371-91) [facility] Estab. patient 30-39min; chronic exacerbation, 2 stable chronic or 1 acute illness add add modifier 95 for video, (do not use for phone, instead use 21154-34) [facility] Estab. patient 30-39min; chronic exacerbation, 2 stable chronic or 1 acute illness add add modifier 95 for video, (do not use for phone, instead use 26792-03) [facility] Estab. patient 30-39min; chronic exacerbation, 2 stable chronic or 1 acute illness add add modifier 95 for video, (do not use for phone, instead use 87836-93) [facility] [place] Estab. patient 10-29min; 1 minor problem; add add modifier 95 for video, modifier 93 for phone [facility] [place] 07/[place]/2025 Type 2 diabetes mellitus wit h [...] 95 for video, modifier 93 for phone [facility]/20[place] Estab. patient 10-29min; 1 minor problem; add add modifier 95 for video, modifier 93 for phone [facility] [place]/20[place] Estab. patient 10-29min; 1 minor problem; add add modifier 95 for video, modifier 93 for phone [facility] [place]/20[place] Estab. patient 10-29min; 1 minor problem; add add modifier 95 for video, modifier 93 for phone [facility] [place] Estab. patient 10-29min; 1 minor problem; add add modifier 95 for video, modifier 93 for phone [facility] [place] Estab. patient 10-29min; 1 minor problem; add add modifier 95 for video, modifier 93 for phone [facility] [place] 07/[place]/2025 Estab. patient 10-29min; 1 minor problem; add add modifier 95 for video, modifier 93 for phone [facility] [place] 07/28/2025 Estab. patient 10-29min; 1 minor problem; add add modifier 95 for video, modifier 93 for phone [facility] [place] 07/28/2025 Estab. patient 10-29min; 1 minor problem; add add modifier 95 for video, modifier 93 for phone [facility] [place] 10/15/2025 Constipation, unspecifiedPai n due to internal orthopedic prosth dev/grft, initOther problems related to medical facilities and other health care Vital Signs Date of Collection Vitals 2022-10-19 [...] tive Time Current Smoking Status Former smoker 2025-10-05 3 Sex Female Gender identity Woman History of Procedures Procedures Service Procedure code Service date Servicing provider Phone# No Data Available [id number] 2022-10-19 No Data Available No Data Available [...] (do not use for phone, instead use 58169-55) [id number] 2023-05-04 No Data Available No Data Availa [...] (do not use for phone, instead use 90761-93) [id number] 2024-05-12 No Data Available No Data Availa [...] 95 for video, modifier 93 for phone [id number] 2025-07-28 No Data Available No Data Availa [...] 2025-07-28 No Data Available No Data Available Estab. patient 10-29min; 1 minor problem; add add modifier 95 for video, modifier 93 for phone [id number] 2025-10-15 No Data Available No Data Availa ble Functional Status Functional Category Effective Dates Cognition [...] metformin as ordered. Unsure of most recent [id number] problems related to medical facilities and other [...] a histamine blocker05/12/24: Pt to continue seeing statistician mathematical as ordered. Twice monthly Xolair. Pt to call Visual [facility] to see if they will do [...] to medical facilities and other health care 2025-10-15 07:38:37 ConstipationArtifici al joint painOther problems related to medical facilities and other [...] as needed for severe itch #60 tablet [id number] Review by prescribing provider or pharmacist documented [...] documented ([id number])Continue to see PCP. [facility] any [facility] [...] a histamine blocker05/12/24: Pt to continue seeing statistician mathematical as ordered. Twice monthly Xolair. Pt to call [facility] to see if they will do [...] and exercise as toleratedDIABETES CONTINGENCY PLANLast updated: 07/28/2025[facility] to call for the following symptoms: Blood sugar <70 / Blood sugar >300 Planned intervention: Encourage adequate water intake/ Elevate legs/ Limit high-sugar and high-carbohydrate foods/ Go for a walkfollow up with PCP/specialistsAt least 50% of time spent counseling patient, discussing diagnosis, treatment plan, compliance, and coordinating follow-up care 2025-10-15 07:38:37 Estab. patient 10-29 min; 1 minor problem; add add modifier 95 for video, modifier 93 for phoneContinue to see PCP. [facility] for any acute or disease education needs that may arise 28/05.10/15/25: Discussed continuing with bowel regimen, hydration, fiber, prunes and continue to follow up with GI as indicated.10/15/25: Uses a home remedy for her arthritis. Avocado pit. alcohol, salt and this helps her joint paint, improved her mobility. This has helped her avoid getting cortisone injections.CONSTIPATION CONTINGENCY PLANLast updated: 10/15/2025[facility] to call for the following symptoms: Abdominal pain/ Abdominal swelling/ Constipation/ Hard stoolsPlanned intervention: Increase intake of water / Sit on the toilet after eating a meal / Two prunes or a glass of prune or apple juice / Senna or Dulcolax two tabs po DIABETES CONTINGENCY PLANLast updated: 07/28/2025[facility] to call for the following symptoms: Blood sugar <70 / Blood sugar >300 Planned intervention: Encourage adequate water intake/ Elevate legs/ Limit high-sugar and high-carbohydrate foods/ Go for a walk Goals Date Goal 2022-10-19 Remember to monitor [...] questions or concerns. Discussed how to contact [facility] via phone or tablet. 28/05 phone number provided. Health Concerns Date Concern 2025-10-15 Patient/Guardian hailey kemp to visit via telehealth.Visit completed via:[ ] audio and video; [x] audio only 2025-10-15 Concerns for today's visit:She reports since her C section 40 years ago, she at times can go up to 14 days without moving her bowels. She keeps a calendar and berumen when she does move her bowels. She follows with a visitor services associate who is aware of her patterns. Spoke with member with LL historical interpreter. I am feeling good thank God. She has her regimen for constipation and is moving her bowels. Denies adbominal pain, nausea, vomiting, hematochezia. When she spoke with Elif RN, she believes she took to much of her bowel regimen in abdomen causing cramping and discomfort. Takes Prunelax/Ciruelax and this helps. Uses a home remedy for her arthritis. Avocado pit. alcohol, salt and this helps her joint paint, improved her mobility. 2025-10-15 Most recent hospital stay or ER visit:No ER visits or hospitalizations documented in [facility] in 90 days.Member denies ER visits or hospitalizations in last 90 days. 2025-10-15 Open HEDIS Measures: No open measures
--- OUTSIDE RECORDS SUMMARY | 2025-10-16 20:55 | XMS_ITS | Encounter Summary ---
Author Organization [facility] Address [address] [place] [phone] Phone Care Team Providers Care Senior Energy Consultant Name Role Phone Marco Martinez MD Primary Care Provider [phone] Reason for Referral * Physical Therapy (Routine) - Closed Specialty Diagnoses / Procedures Referred By Harini lopez Referred To Contact Physical Therapy Diagnoses Encounter for rehabilitation System, Provider Not In, [facility] [phone] [place] [address] [address] [place] [address] Phone: tel: Referral ID Status Reason Start Date Expiration Date Visits Re quested Visits Authorized [id number] Closed 01/17/2018 01/17/2019 1 1 Encounter Details Date Type Department Care Team (Latest Contact Info) Description 01/17/2018 Transcribe Orders [facility] [address] [place] [address] Jennifer Williamson CNM [address] [place] [id number] Encounter for rehabilitation (Primary Dx) Social History [...] Diagnoses Orde r Schedule Ambulatory referral to [facility] Physical Therapy Outpatient Referral Routine Encounter for rehabilitation Ordered: 01/17/2018 documented as of this encounter Visit Diagnoses Diagnosis Encounter for rehabilitation- Primary documented in this encounter Care Teams Senior Energy Consultant Relationship Specialty Start Date End Date Marco Martinez MD [address] [place] [address] Dr Lawler [address] [place] [id number] PCP - General Internal Medicine 01/17/18 documented as of this encounter Additional Source Comments The information contained in this document represents components of the legal health record. It is not the complete legal health record.[facility]
--- OUTSIDE RECORDS SUMMARY | 2025-10-16 20:55 | XMS_ITS | Clinical Summary ---
Author Organization [facility] Address [address] [place] [id number] Phone Care Team Providers Care Channel Sales Manager Name Role Phone Marco Martinez MD Primary Care Provider [phone] Social History Tobacco Use Types Packs/Day Years [...] 09/04/2019, 08/15/2019, Additional history exists COVID-19 VACCINE (2024- season) 2025 03/16/2021, 02/16/2021 HEPATITIS A VACCINES [...] REPLACEMENT MEDICARE REPLACEMENT MEDICARE REPLACEMENT MEDICARE [place] [place] [address] MEDICARE REPLACEMENT MEDICARE REPLACEMENT MEDICARE [place] [address] [place] [address] MEDICARE REPLACEMENT [facility] MEDICARE REPLACEMENT Care Teams Channel Sales Manager Relationship Specialty Start Date End Date Marco Martinez MD [address] [place] [id number] PCP - General Internal Medicine 01/17/18 Additional Source Comments The information contained in this document represents components of the legal health record. It is not the complete legal health record.[facility]
--- OUTSIDE RECORDS SUMMARY | 2025-10-16 20:55 | XMS_ITS | Patient Health Record ---
Author Organization [facility] Address [address] [facility] [address] [place] [address] Care Team Providers Care Bow Rehairer Name Role Phone Marco Comer Primary Care Provider Unavail CHANDA Angelo [facility] [phone] Reason For Referral No Information Encounters Encounter Location Date Provider Diagnosis [facility] [address] [place] [address] 11/04/2024 CHANDA SAMUEL Plan Of Treatment No Information
[2025-10-16 21:28] LABS: Resp Syncy Virus RNA Qual PCR NEGATIVE (Negative); SARS COV2 PCR INHOUSE NEGATIVE (Negative)
[2025-10-16 21:49] VITALS: BP 111/39; PULSE 84; RESP 17; TEMP 37.5
[2025-10-16 21:50] VITALS: BP 111/39; PULSE 85; RESP 12; TEMP 37.5; O2SAT 96
[2025-10-16 22:58] VITALS: BP 103/49; PULSE 75; RESP 20; TEMP 37.3; O2SAT 95
[2025-10-16 23:10] LABS: Appearance Urine Clear; Glucose Urine UA Negative (Negative); PH 6.0 (5.0-9.0); Specific Gravity - Urine <= 1.005 (1.005-1.025); UMIC TRIGGER UACC YES
[2025-10-17] VITALS (10 sets, daily range): BP systolic 102–149; BP diastolic 55–66; PULSE 62–87; RESP 15–24; TEMP 36.7–39.6; O2SAT 95–100
--- NOTE | 2025-10-17 00:18 | PM.IMHP ---
History of Present Illness Date of Service: 10/16/25 Attending physician on admission: Familia Meneses Chief Complaint: Dizziness Yaneli Tinsley is a very pleasant 75 years old woman with past medical history significant for type 2 diabetes on metformin, hyperlipidemia, hypothyroidism and chronic allergies presents to the emergency department complaining of dizziness. She also complained check back and bladder pain. She does have problems with urinary incontinence. She did not report any urination or blood in urine. She denied nausea, vomiting or diarrhea. She did not report any acute respiratory symptoms such as nasal congestion, cough or shortness on breath. She also reports poor appetite. Daughter mentioned that patient has been having problems with vaginal bleeding and follow as an outpatient for this but has not have any biopsy yet. She was found to have a bladder prolapse. She denied current vaginal bleeding. They denied any recent procedure. Daughter noted a little area in her left leg that looks like an insect bite. In the ED, she was initially found to have sinus tachycardia and fever of 101.0. Blood pressure has been stable. Last BP is 103/49. Oxygen saturation is normal on room air. Blood workup showed leukocytosis of 16.7. Neutrophils are elevated. Hemoglobin is 11.4, hematocrit 35.4 and platelets 377. There are no significant electrolyte imbalances except for mild hyponatremia 133. CO2 is 20. There is no lactic acidosis. LFTs are normal. Troponin is <2.7. UA is essentially normal, there is trace leukocyte esterase and blood. Viral testing for COVID-19, RSV and influenza is negative. CXR showed no acute findings. ECG showed normal sinus rhythm. ED tx: NS 2 L bolus total, ceftriaxone 1 g IV and acetaminophen 974 mg IV Review of Systems Review of Systems: All 12 systems were reviewed and normal except as noted in HPI. [facility] Medical History Hypothyroidism Multinodular goiter Prosthetic eye globe Lumbar back pain with radiculopathy affecting right lower extremity Anemia Frequent falls Dizziness Carpal tunnel syndrome, bilateral Mixed hyperlipidemia Obesity (BMI 30-39.9) Memory impairment Osteoarthritis of both hands Vitamin B12 deficiency Vitamin D deficiency Primary osteoarthritis of both knees Osteopenia Asthma Chronic idiopathic urticaria Acquired hypothyroidism Benign essential hypertension Diabetes mellitus without complication Family History Father No problems noted. Mother Diabetes mellitus Cardiovascular disease Surgical History H/O colonoscopy Status post carpal tunnel release (~06/02/21) Tubal ligation status Hx of section History of total right knee replacement (~2012) Social History Housing: Apartment Are you a primary physician locums urgent care to a significant other at home: No Do you presently have visiting nurse or other home services: No Alcohol intake: never Patient Tobacco Use Status: Former Tobacco user Tobacco use type: Cigarette Smoked in Last 30 Days: No e-Cigarette/Vaping Use: Never Used Second Hand Smoke Exposure: No Use of substances other than those prescribed or required for medical reasons: No Advance Directives: Yes Advance Directives Information Provided: Yes Advance Directives Date on File: 11/20/24 service: No Current occupational status: disabled 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 Cognitive needs: Yes (cane ) Hearing needs: No Vision needs: Yes (glasses ) Meds Allergies Allergy/AdvReac Type Severity Reaction Status Date / Time No Known Allergies Allergy Verified 10/16/25 20:08 Active Medications: Current Medications Acetaminophen (Acetaminophen 325 Mg Tablet) 975 mg PO Q6H PRN PRN Reason: Pain, Mild 1-3,fever,headache Calcium Carbonate (Calcium Carbonate 750 Mg Tab.Chew) 750 mg PO Q4H PRN PRN Reason: Heartburn Lactated Ringer's (Lr) 1,000 mls @ 100 mls/hr IVCONT .Q10H [facility] Stop: 10/17/25 10:14 Magnesium Hydroxide (Milk Of Magnesia 30 Ml Oral.Susp) 30 ml PO DAILY PRN PRN Reason: Constipation Melatonin (Melatonin 3 Mg Tablet) 6 mg PO BEDTIME PRN PRN Reason: Insomnia Sodium Chloride (0.9 % Sodium Chloride Flush 3 Ml Syringe) 3 ml IVFLUSH QSHIFT [facility] Home Medications ?Medication ?Instructions ?Recorded ?Confirmed ?Last Taken ?Type turmeric 500 mg-black pepper 1 cap PO DAILY 09/22/20 09/06/25 Unknown History extract 3 mg capsule levocetirizine 5 mg tablet 5 mg PO DAILY 10/05/23 09/06/25 Unknown History omalizumab 150 mg/mL subcutaneous 300 mg subcut Q2W 02/11/24 09/06/25 Unknown History syringe cromolyn 100 mg/5 mL oral 100 mg PO TID 08/26/24 09/06/25 Unknown History concentrate hydroxyzine HCl 50 mg tablet 50 mg PO BID PRN itch 08/26/24 09/06/25 Unknown History Physical Exam Vital Signs and Narrative: Vital Signs: Last Vital Signs Temp 99.2 F 10/16/25 22:58 Pulse 75 10/16/25 22:58 Resp 20 10/16/25 22:58 BP 103/49 L 10/16/25 22:58 Pulse Ox 95 10/16/25 22:58 O2 Del Method Room Air 10/16/25 22:58 BMI result Body Mass Index 30.3 General: Alert, oriented, in no acute distress. Cooperative. Afebrile. HEENT: Head normocephalic, atraumatic. Right eye: articifial; left eye: Pupils equally round with/ EOMI. Sclerae anicteric, conjunctiva clear. Oropharynx without erythema or exudate. Mucous membranes dry. Neck: Supple, or JVD. Heart: RRR, no murmurs, rubs or gallops. Lungs: Clear to auscultation bilaterally. No wheezes, rales, or rhonchi. Normal respiratory effort. Abdomen: Soft, non tenderness, nondistended, normoactive bowel sounds. Extremities: No calf tenderness bilaterally, no swelling. Left leg: Very small area with erythema w/ central pustule. Musculoskeletal: Full range of motion. No joint swelling, deformity, or tenderness. Normal muscle tone and strength. Skin: Warm/Dry. No pallor. No jaundice. Neurologic: Alert & oriented x4. Moving all extremities spontaneously. Normal speech. Psychological: Normal mood and affect. Thought process coherent. Results Labs 10/17/25 04:09 10/17/25 04:09 Labs: Laboratory Results - last 24 hr 10/16/25 10/16/25 10/16/25 20:23 20:39 23:00 MCV 82.5 MCH 26.6 L MCHC 32.2 RDW 14.6 Plt Count 377 D MPV 9.4 Immature Gran % (Auto) 1.0 H Neut % (Auto) 88.6 H Lymph % (Auto) 4.5 L [place] % (Auto) 5.6 Eos % (Auto) 0.0 Baso % (Auto) 0.3 Lymph # (Auto) 0.8 L [place] # (Auto) 0.9 Eos # (Auto) 0.0 Baso # (Auto) 0.1 Abs Immat Gran (auto) 0.16 H Absolute Neuts (auto) 14.8 H Absolute Nucleated RBC 0.000 Nucleated RBC % (auto) 0.0 Anion Gap 14 Estim Creat Clear Calc 72.0 Estimated GFR > 60 Random Glucose 159 H Lactic Acid 1.2 Calcium 10.0 D Total Bilirubin 0.4 AST 30 ALT 14 Alkaline Phosphatase 75 Troponin I High Sens < 2.7 D Total Protein 7.0 Albumin 3.9 Urine Color Yellow Urine Appearance Clear Urine pH 6.0 Ur Specific [place] <= 1.005 Urine Protein Negative Urine Glucose (UA) Negative Urine Ketones Negative Urine Blood Trace H Urine Nitrite Negative Ur Leukocyte Esterase Trace H Urine RBC 0-2 Urine WBC 0-5 Ur Squamous Epith Cells 0-2 Urine Bacteria None Seen Hyaline Casts 0-2 Influenza Type A (PCR) NEGATIVE Influenza Type B (PCR) NEGATIVE RSV RNA Qual (PCR) NEGATIVE SARS-CoV-2 RNA (RT-PCR) NEGATIVE Assessment and Plan (1) Sepsis: Qualifiers: Sepsis type: sepsis due to unspecified organism Sepsis acute organ dysfunction status: without acute organ dysfunction Qualified Code(s): A41.9 - Sepsis, unspecified organism Status: Acute (2) Pyelonephritis: Status: Acute Plan Yaneli Tinsley is a 75 y/o woman who presents with: Sepsis secondary to bilateral pyelonephritis. Start empiric IV antibiotic therapy with Zosyn. Supportive therapy with fluids. Blood cultures X2 obtained -will follow result. Check urine culture and check tick-borne disease. Continue to monitor vital signs and WBC count. Hyponatremia, very mild; likely due to p.o. intake. Continue IV fluids. Continue to monitor Na+ level. Type 2 diabetes mellitus. Hold metformin. Insulin sliding scale for now. Diabetic diet. Hypothyroidism. Check TSH. Continue levothyroxine. Hyperlipidemia. Continue statin. Chronic allergies. Continue home meds. Hx vaginal bleeding + bladder prolapse. F/U as an outpatient. med rec pending Code status: Full DVT prophylaxis: Lovenox Patient will need hospitalization for at least 2 midnights for systemic inflammatory response syndrome of unknown etiology treatment with supportive therapy and close monitoring of vital signs. Quality Stroke Does the patient have a stroke diagnosis?: No VTE Prior VTE?: No VTE Risk Level:: Medical - moderate - high VTE Device Contraindication: Treatment Not Indicated VTE Drug Contraindication: N/A - Med Ordered
[2025-10-17] MEDS: iohexoL 350 MG/ML 100 ML INFUS..BTL 85 ML IV (00:51)
[2025-10-17] MEDS: Lactated Ringers 1,000 ML 100 ML IVCONT (00:52)
[2025-10-17 01:01] LABS: Thyroid Stimulating Hormone 0.47 uIU/mL (0.32-4.0)
[2025-10-17 04:37] LABS: Hematocrit 35.3 % (37.0-47.0); Hemoglobin 11.1 g/dl (12.0-16.0); Imm Gran Abs Auto 0.08 X10*3/uL (0.00-0.03); Imm Gran Pct Auto 0.6 % (0.0-0.4); Lymphocytes Absolute Auto 1.2 X10*3/uL (1.2-4.9); MANUAL DIFF FLAG NO; Mean Corpuscular HGB Conc 31.4 g/dl (31.0-35.0); Mean Corpuscular Hemoglobin 26.6 pg (27.0-33.0); Mean Corpuscular Volume 84.4 fL (80.0-98.0); NRBC Abs Auto 0.000 X10*3/uL (0.0-0.012); NRBC Pct Auto 0.0 /100WBC (0.0-0.2); Platelet Count 357 X10*3/uL (160-400); Red Blood Count 4.18 X10*6/uL (4.20-5.50); White Blood Count 12.9 X10*3/uL (4.8-10.8)
[2025-10-17 04:52] LABS: Anion Gap 14 (12-20); Blood Urea Nitrogen 7 mg/dL (9-16); Calcium 9.6 mg/dL (8.4-10.2); Carbon Dioxide 21 mmol/L (22-29); Chloride 106 mmol/L (96-108); Creatinine Clr Calc Pharmacy 75.4; Estimated Glomerular Filt Rate > 60; Magnesium 1.5 mg/dL (1.6-2.6); Potassium 4.0 mmol/L (3.3-5.1); Sodium 137 mmol/L (135-145)
--- NOTE | 2025-10-17 05:47 | HO.NURTONUR ---
Pt biba from home with complaint of dizziness, back pain, and chills. Pt denies any n/v/d, sob, cp, noted fevers, sick contacts, or any other symptoms of concern. Pt reports not being able to eat because of the dizziness and pain. Upon arrival pt noted to have fever of 101.0 oral temp and tachycardic. Pt received 975mg PO tylenol found to be effective, 2L NS, and ceftriaxone 1g IV. Pt is sami speaking only, caox3 , able to make her needs known and has purwick in place. 20G IV in right wrist and left wrist. LR IVF @ 100 ml/hr. Labs: WBC- 16.7 --> 12.9 Sodium- 133 --> 137 PMH: type2 diabetes, hyperlipidemia, hypothyroidism and chornic allergies CT Abdomen/pelvis: IMPRESSION: Findings consistent with bilateral pyelonephritis. Mild bilateral hydronephrosis. Possible cystitis. Nonemergent/incidental findings above. Chest Xray: IMPRESSION: No acute findings
--- NOTE | 2025-10-17 08:27 | HO.PM.IMPN ---
Subjective Subjective Date of Service: 10/17/25 Interval History: uti Review of Systems febrile intermittent has still bladder pain Review of Systems: Yes all other systems are reviewed and are negative Physical Exam Exam: Exam: Appearance: Alert.? Oriented X3.? cvs: rrr, [id number]. res: clear to auscultation ,no rhonchii or wheezing abd: no rebound or guarding ,nt, bs present. suprpubic discomfort ext pulses present , no cyanosis . neuro: axo3 , nonfocal. Vital Signs: Vital Signs: Last Vital Signs Temp 101.7 F H 10/17/25 07:15 Pulse 86 10/17/25 05:56 Resp 24 H 10/17/25 05:56 BP 149/65 H 10/17/25 05:56 Pulse Ox 98 10/17/25 05:56 O2 Del Method Room Air 10/17/25 05:56 BMI result Body Mass Index 30.3 Objective Data Active Medications Acetaminophen (Acetaminophen 325 Mg Tablet) 975 mg PO Q6H PRN PRN Reason: Pain, Mild 1-3,fever,headache Last Admin: 10/17/25 05:57 Dose: 975 mg Documented By: ESPERANZA Calcium Carbonate (Calcium Carbonate 750 Mg Tab.Chew) 750 mg PO Q4H PRN PRN Reason: Heartburn Dextrose (Dextrose 50 % 25 Gm/50 Ml Syringe) 25 gm IVPUSH Q15M PRN; Protocol PRN Reason: per Hypoglycemia Standing Ord. Glucose (Glucose Gel 15 Gm Gel..Gram.) 15 gm PO Q15M PRN; Protocol PRN Reason: per Hypoglycemia Standing Ord. Lactated Ringer's (Lr) 1,000 mls @ 100 mls/hr IVCONT .Q10H [facility] Stop: 10/17/25 10:14 Last Admin: 10/17/25 00:52 Dose: 100 mls/hr Documented By: ESPERANZA Piperacillin Sod/Tazobactam (Sod 3.375 gm/ Sodium Chloride) 50 mls @ 100 mls/hr IV Q6H [facility] Last Infusion: 10/17/25 07:15 Dose: Infused Documented By: ESPERANZA Insulin Human Lispro (Insulin Lispro 100 Unit/Ml 3 Ml Vial) 0 unit SUBCUT QIDACHS [facility]; Protocol Magnesium Hydroxide (Milk Of Magnesia 30 Ml Oral.Susp) 30 ml PO DAILY PRN PRN Reason: Constipation Melatonin (Melatonin 3 Mg Tablet) 6 mg PO BEDTIME PRN PRN Reason: Insomnia Sodium Chloride (0.9 % Sodium Chloride Flush 3 Ml Syringe) 3 ml IVFLUSH QSHIFT [facility] Labs 10/17/25 04:09 10/17/25 04:09 Labs: Laboratory Results - last 24 hr 10/16/25 10/16/25 10/16/25 20:23 20:39 23:00 MCV 82.5 MCH 26.6 L MCHC 32.2 RDW 14.6 Plt Count 377 D MPV 9.4 Immature Gran % (Auto) 1.0 H Neut % (Auto) 88.6 H Lymph % (Auto) 4.5 L [place] % (Auto) 5.6 Eos % (Auto) 0.0 Baso % (Auto) 0.3 Lymph # (Auto) 0.8 L [place] # (Auto) 0.9 Eos # (Auto) 0.0 Baso # (Auto) 0.1 Abs Immat Gran (auto) 0.16 H Absolute Neuts (auto) 14.8 H Absolute Nucleated RBC 0.000 Nucleated RBC % (auto) 0.0 Anion Gap 14 Estim Creat Clear Calc 72.0 Estimated GFR > 60 Random Glucose 159 H Lactic Acid 1.2 Calcium 10.0 D Magnesium Total Bilirubin 0.4 AST 30 ALT 14 Alkaline Phosphatase 75 Troponin I High Sens < 2.7 D Total Protein 7.0 Albumin 3.9 TSH 0.47 Urine Color Yellow Urine Appearance Clear Urine pH 6.0 Ur Specific [place] <= 1.005 Urine Protein Negative Urine Glucose (UA) Negative Urine Ketones Negative Urine Blood Trace H Urine Nitrite Negative Ur Leukocyte Esterase Trace H Urine RBC 0-2 Urine WBC 0-5 Ur Squamous Epith Cells 0-2 Urine Bacteria None Seen Hyaline Casts 0-2 Influenza Type A (PCR) NEGATIVE Influenza Type B (PCR) NEGATIVE RSV RNA Qual (PCR) NEGATIVE SARS-CoV-2 RNA (RT-PCR) NEGATIVE 10/17/25 04:09 MCV 84.4 MCH 26.6 L MCHC 31.4 RDW 14.7 Plt Count 357 MPV 9.3 L Immature Gran % (Auto) 0.6 H Neut % (Auto) 83.4 H Lymph % (Auto) 9.5 L [place] % (Auto) 6.3 Eos % (Auto) 0.0 Baso % (Auto) 0.2 Lymph # (Auto) 1.2 [place] # (Auto) 0.8 Eos # (Auto) 0.0 Baso # (Auto) 0.0 Abs Immat Gran (auto) 0.08 H Absolute Neuts (auto) 10.7 H Absolute Nucleated RBC 0.000 Nucleated RBC % (auto) 0.0 Anion Gap 14 Estim Creat Clear Calc 75.4 Estimated GFR > 60 Random Glucose 163 H Lactic Acid Calcium 9.6 Magnesium 1.5 L Total Bilirubin AST ALT Alkaline Phosphatase Troponin I High Sens Total Protein Albumin TSH Urine Color Urine Appearance Urine pH Ur Specific [place] Urine Protein Urine Glucose (UA) Urine Ketones Urine Blood Urine Nitrite Ur Leukocyte Esterase Urine RBC Urine WBC Ur Squamous Epith Cells Urine Bacteria Hyaline Casts Influenza Type A (PCR) Influenza Type B (PCR) RSV RNA Qual (PCR) SARS-CoV-2 RNA (RT-PCR) Assessment and Plan (1) Pyelonephritis: Status: Acute Assessment and Plan: 75 y/o woman who presents with: Sepsis secondary to bilateral pyelonephritis. empiric IV antibiotic therapy with Zosyn. Supportive therapy with fluids. Blood cultures X2 pending. Check urine culture and check tick-borne disease. Continue to monitor vital signs and WBC count. Discussed with the Urology, continue IV antibiotics, for hydronephrosis continue to monitor outpatient Hyponatremia, very mild; likely due to p.o. intake. Received IV fluid, improved. Type 2 diabetes mellitus. Hold metformin. Insulin sliding scale for now. Diabetic diet. Hypothyroidism. Check TSH. Continue levothyroxine. Hyperlipidemia. Continue statin. Chronic allergies. Continue home meds. Hx vaginal bleeding + bladder prolapse. F/U as an outpatient. Code status: Full DVT prophylaxis: Lovenox ongoing hospitalization for systemic inflammatory response syndrome of unknown etiology treatment with supportive therapy and close monitoring of vital signs. Quality Stroke Does the patient have a stroke diagnosis?: No VTE Prior VTE?: No VTE Risk Level:: Medical - moderate - high VTE Device Contraindication: Treatment Not Indicated VTE Drug Contraindication: N/A - Med Ordered
--- NOTE | 2025-10-17 08:32 | PHA.MEDREC ---
Pharmacy Consult ? Medication Reconciliation Pharmacy has completed the medication reconciliation. culinary specialist called but patient's daughter at bedside to help translate bc she takes care of her mother's medications. Noted cetirizine and lidocaine patches are PRN and Yaneli had her Xolair shot this past Sunday. PT unable to take any medications yesterday
[2025-10-17 09:31] LABS: Glucose, Whole Blood 149 mg/dL (60-115)
--- NOTE | 2025-10-17 09:47 | P.CNUR_ITS ---
History of Present Illness Consult details Consult date: 10/17/25 Narrative: CC: bilateral hydro nephrosis 75-year-old female diabetic, on monoclonal antibodies for control of urticaria present through emergency department with dizziness, back pain and dysuria. Reports urgency with frequency and occasional accidents in the last few days. Known bladder prolapse evaluation in emergency room showed soft blood pressure. WBC 12.9 with shift. UA trace leukocytes no definitive infection imaging shows mild bladder wall thickening with mild bilateral hydro nephrosis consistent with pyelonephritis start IV antibiotics per pyelonephritis. Await culture result. May follow as outpatient with Urology to assess resolution. Review of Systems 2 Constitutional: Constitutional: Denies chills and Denies fever(s) Cardiovascular: Cardiovascular: Reports no additional cardiovascular complaints and Denies syncope Respiratory: Respiratory: Denies cough Gastrointestinal: Gastrointestinal: Denies abdominal pain and Denies heartburn Genitourinary: Genitourinary: Reports as per HPI and Denies change in libido Neurologic: Denies syncope Psychiatric: Psychiatric: Denies change in libido Endocrine: Endocrine: Denies change in libido [facility] Past Medical History Medical History Hypothyroidism Multinodular goiter Prosthetic eye globe Lumbar back pain with radiculopathy affecting right lower extremity Anemia Frequent falls Dizziness Carpal tunnel syndrome, bilateral Mixed hyperlipidemia Obesity (BMI 30-39.9) Memory impairment Osteoarthritis of both hands Vitamin B12 deficiency Vitamin D deficiency Primary osteoarthritis of both knees Osteopenia Asthma Chronic idiopathic urticaria Acquired hypothyroidism Benign essential hypertension Diabetes mellitus without complication Family History Family History Father No problems noted. Mother Diabetes mellitus Cardiovascular disease Surgical History Surgical History H/O colonoscopy Status post carpal tunnel release (~06/02/21) Tubal ligation status Hx of section History of total right knee replacement (~2012) Social History Social History Household Members: None Housing: Apartment Are you a primary assisted living care manager to a significant other at home: No Do you presently have visiting nurse or other home services: Yes Alcohol intake: never Patient Tobacco Use Status: Former Tobacco user Tobacco use type: Cigarette e-Cigarette/Vaping Use: Never Used Second Hand Smoke Exposure: No Advance Directives Date on File: 11/20/24 service: No Current occupational status: disabled 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 Glucose (Glucose Gel 15 Gm Gel..Gram.) 15 gm PO Q15M PRN; Protocol PRN Reason: per Hypoglycemia Standing Ord. Lactated Ringer's (Lr) 1,000 mls @ 100 mls/hr IVCONT .Q10H [facility] Stop: 10/17/25 10:14 Last Admin: 10/17/25 00:52 Dose: 100 mls/hr Piperacillin Sod/Tazobactam (Sod 3.375 gm/ Sodium Chloride) 50 mls @ 100 mls/hr IV Q6H [facility] Last Infusion: 10/17/25 07:15 Dose: Infused Insulin Human Lispro (Insulin Lispro 100 Unit/Ml 3 Ml Vial) 0 unit SUBCUT QIDACHS [facility]; Protocol Last Admin: 10/17/25 09:29 Dose: Not Given Magnesium Hydroxide (Milk Of Magnesia 30 Ml Oral.Susp) 30 ml PO DAILY PRN PRN Reason: Constipation Melatonin (Melatonin 3 Mg Tablet) 6 mg PO BEDTIME PRN PRN Reason: Insomnia Sodium Chloride (0.9 % Sodium Chloride Flush 3 Ml Syringe) 3 ml IVFLUSH QSHIFT [facility] Last Admin: 10/17/25 09:21 Dose: Not Given Home Medications ?Medication ?Instructions ?Recorded ?Confirmed ?Last Taken ?Type turmeric 500 mg-black pepper 1 cap PO DAILY 09/22/20 1 12/18/24 Unknown History extract 3 mg capsule omalizumab 150 mg/mL subcutaneous 300 mg subcut Q2W 10/17/25 10/14/25 History syringe cetirizine 10 mg tablet 20 mg PO BID PRN Allergy Sym ptoms 10/17/25 10/17/25 Unknown History levothyroxine 100 mcg tablet 100 mcg PO DAILY@0600 10/17/25 Unknown History (Synthroid) lidocaine 5 % topical patch 1 patch topical DAILY PRN Pain 10/17/25 10/17/25 Unknown History Physical Exam 2 Vital Signs: Vital Signs: Last Vital Signs Temp 98.1 F 10/17/25 09:22 Pulse 70 10/17/25 09:22 Resp 18 10/17/25 09:22 BP 113/58 L 10/17/25 09:22 Pulse Ox 95 10/17/25 09:22 O2 Del Method Room Air 10/17/25 09:22 BMI result Body Mass Index 30.3 Const: General: cooperative, healthy appearing, comfortable and no acute distress Orientation/consciousness: patient oriented x3 HEENT: Face and sinus: Yes normal facial exam Mouth: moist mucous membranes Neck: Neck: Yes normal visual inspection, Yes full ROM and Yes trachea midline Chest: Chest palpation & inspection: normal inspection of the chest Resp: Effort & Inspection: normal respiratory effort, able to speak in complete sentences and no respiratory distress GI: Inspection: Yes normal to inspection Back/Spine/Pelvis: Cervical Spine: normal cervical lordosis Thoracic/Lumbar Spine: thoracic and lumbar spine normal to inspection Skin: General skin exam: no rashes or lesions noted Neuro: General: patient oriented x3, gait normal, tone normal and moves all extremities Extrem: General: Yes normal to inspection and Yes capillary refill normal Results Labs 10/17/25 04:09 10/17/25 04:09 Labs: Abnormal lab results 10/16/25 10/16/25 10/17/25 Range/Units 20:23 23:00 04:09 WBC 16.7 H 12.9 H (4.8-10.8) X10*3/uL RBC 4.18 L (4.20-5.50) X10*6/uL Hgb 11.4 L 11.1 L (12.0-16.0) g/dl Hct 35.4 L 35.3 L (37.0-47.0) % MCH 26.6 L 26.6 L (27.0-33.0) pg MPV 9.3 L (9.4-12.3) fL Immature Gran % (Auto) 1.0 H 0.6 H (0.0-0.4) % Neut % (Auto) 88.6 H 83.4 H (45-73) % Lymph % (Auto) 4.5 L 9.5 L (20-40) % Lymph # (Auto) 0.8 L (1.2-4.9) X10*3/uL Abs Immat Gran (auto) 0.16 H 0.08 H (0.00-0.03) X10*3/uL Absolute Neuts (auto) 14.8 H 10.7 H (2.0-8.3) x10*3/uL Sodium 133 L (135-145) mmol/L Carbon Dioxide 20 L 21 L (22-29) mmol/L BUN 7 L (9-16) mg/dL POC Glucose (60-115) mg/dL Random Glucose 159 H 163 H (60-115) mg/dL Magnesium 1.5 L (1.6-2.6) mg/dL Urine Blood Trace H (Negative) Ur Leukocyte Esterase Trace H (Negative) 10/17/25 Range/Units 09:28 WBC (4.8-10.8) X10*3/uL RBC (4.20-5.50) X10*6/uL Hgb (12.0-16.0) g/dl Hct (37.0-47.0) % MCH (27.0-33.0) pg MPV (9.4-12.3) fL Immature Gran % (Auto) (0.0-0.4) % Neut % (Auto) (45-73) % Lymph % (Auto) (20-40) % Lymph # (Auto) (1.2-4.9) X10*3/uL Abs Immat Gran (auto) (0.00-0.03) X10*3/uL Absolute Neuts (auto) (2.0-8.3) x10*3/uL Sodium (135-145) mmol/L Carbon Dioxide (22-29) mmol/L BUN (9-16) mg/dL POC Glucose 149 H (60-115) mg/dL Random Glucose (60-115) mg/dL Magnesium (1.6-2.6) mg/dL Urine Blood (Negative) Ur Leukocyte Esterase (Negative) Short CBC 10/16/25 10/17/25 Range/Units 20:23 04:09 WBC 16.7 H 12.9 H (4.8-10.8) X10*3/uL Hgb 11.4 L 11.1 L (12.0-16.0) g/dl Hct 35.4 L 35.3 L (37.0-47.0) % Plt Count 377 D 357 (160-400) X10*3/uL BMP 10/16/25 10/17/25 20:23 04:09 Sodium 133 L 137 Potassium 3.9 4.0 Chloride 103 106 Carbon Dioxide 20 L 21 L BUN 9 7 L Creatinine 0.67 0.64 Calcium 10.0 D 9.6 Liver Function 10/16/25 Range/Units 20:23 Total Bilirubin 0.4 (0.0-1.0) mg/dL AST 30 (5-31) U/L ALT 14 (0-31) U/L Alkaline Phosphatase 75 (39-117) U/L Albumin 3.9 (3.5-5.0) g/dL Urine 10/16/25 Range/Units 23:00 Urine Color Yellow Urine Appearance Clear Urine pH 6.0 (5.0-9.0) Ur Specific [place] <= 1.005 (1.005-1.025) Urine Protein Negative (Neg-Trace) mg/dL Urine Glucose (UA) Negative (Negative) mg/dL All other labs normal. Assessment and Plan (1) Hydronephrosis: Status: Acute Plan treat pyelonephritis outpatient follow-up for hydro nephrosis Procedures Date of Service Date of Service: 10/17/25
[2025-10-17 10:57] LABS: Glucose, Whole Blood 122 mg/dL (60-115)
--- NOTE | 2025-10-17 12:42 | MHC.CM.PN ---
IMM 10/17/25, Pt. lives alone, her dtr is her SECOND SHIFT SUPERVISOR and is with her most of the time. Pt. is SSO, dtr. Ines was bedside and answered questions in [place]. HCP is dtr Annabelle, copy requested. Pt. has SECOND SHIFT SUPERVISOR, 8 hrs. per week. For DME, she has a rollator walker, but does not use it. Family to transport home at DC, DCP: home with services, CM to follow for DC needs.
[2025-10-17 16:22] LABS: Glucose, Whole Blood 158 mg/dL (60-115)
[2025-10-17] MEDS: vancomycin/NS 2,000 MG/500 ML PLAST..BAG 250 MG IV (18:12)
[2025-10-17 20:41] LABS: Glucose, Whole Blood 165 mg/dL (60-115)
[2025-10-18] VITALS (11 sets, daily range): BP systolic 103–132; BP diastolic 51–73; PULSE 53–83; RESP 16–20; TEMP 36.6–40.3; O2SAT 94–98
[2025-10-18] MEDS: 0.9 % Sodium Chloride Flush 3 ML SYRINGE IVFLUSH ×3 (02:09→17:56)
[2025-10-18 07:20] LABS: Glucose, Whole Blood 138 mg/dL (60-115)
[2025-10-18] MEDS: Ferrous Sulfate 324 MG TABLET.DR PO (09:51)
[2025-10-18 11:00] LABS: Glucose, Whole Blood 166 mg/dL (60-115)
[2025-10-18] MEDS: Lidocaine 4 % Patch ADH..PATCH 1 PATCH TRANSDERMA (11:35)
[2025-10-18 12:08] LABS: Creatinine Clr Calc Pharmacy 70.0; Estimated Glomerular Filt Rate > 60
--- NOTE | 2025-10-18 16:00 | P.PNIM_ITS ---
Subjective Subjective Date of Service: 10/18/25 Interval History: uti Review of Systems febrile intermittent has still bladder pain Review of Systems: Yes all other systems are reviewed and are negative Physical Exam 2 Exam: Exam: Appearance: Alert.? Oriented X3.? cvs: [id number], [id number]. res: clear to auscultation ,no rhonchii or wheezing abd: no rebound or guarding ,nt, bs present. suprpubic discomfort ext pulses present , no cyanosis . neuro: axo3 , nonfocal. Vital Signs: Vital Signs: Last Vital Signs Temp 98.0 F 10/18/25 15:22 Pulse 55 10/18/25 15:22 Resp 18 10/18/25 15:22 BP 118/59 L 10/18/25 15:22 Pulse Ox 97 10/18/25 15:22 O2 Del Method Room Air 10/18/25 15:22 BMI result Body Mass Index 30.3 Objective Data Active Medications Acetaminophen (Acetaminophen 325 Mg Tablet) 975 mg PO Q6H PRN PRN Reason: Pain, Mild 1-3,fever,headache Last Admin: 10/18/25 02:26 Dose: 975 mg Documented By: JONO Ascorbic Acid (Ascorbic Acid 500 Mg Tablet) 500 mg PO DAILY [facility] Last Admin: 10/18/25 09:51 Dose: 500 mg Documented By: OMAIRA Atorvastatin Calcium (Atorvastatin Calcium 40 Mg Tablet) 40 mg PO BEDTIME [facility] Last Admin: 10/17/25 21:22 Dose: 40 mg Documented By: PRICILASIELISEO Calcium Carbonate (Calcium Carbonate 750 Mg Tab.Chew) 750 mg PO Q4H PRN PRN Reason: Heartburn Cyanocobalamin (Cyanocobalamin (Vitamin B-12) 1,000 Mcg Tablet) 1,000 mcg PO DAILY [facility] Last Admin: 10/18/25 09:51 Dose: 1,000 mcg Documented By: OMAIRA Dextrose (Dextrose 50 % 25 Gm/50 Ml Syringe) 25 gm IVPUSH Q15M PRN; Protocol PRN Reason: per Hypoglycemia Standing Ord. Ferrous Sulfate (Ferrous Sulfate 324 Mg Tablet.) 324 mg PO DAILY [facility] Last Admin: 10/18/25 09:51 Dose: 324 mg Documented By: OMAIRA Glucose (Glucose Gel 15 Gm Gel..Gram.) 15 gm PO Q15M PRN; Protocol PRN Reason: per Hypoglycemia Standing Ord. Vancomycin HCl 750 mg/ Sodium (Chloride) 265 mls @ 265 mls/hr IV Q12H [facility] Last Infusion: 10/18/25 06:31 Dose: Infused Documented By: JONO Piperacillin Sod/Tazobactam (Sod 3.375 gm/ Sodium Chloride) 50 mls @ 100 mls/hr IV Q6H [facility] Last Infusion: 10/18/25 10:39 Dose: Infused Documented By: OMAIRA Ibuprofen (Ibuprofen 400 Mg Tablet) 400 mg PO Q6H PRN PRN Reason: Fever >101 Stop: 10/19/25 08:00 Last Admin: 10/18/25 05:31 Dose: 400 mg Documented By: JONO Insulin Human Lispro (Insulin Lispro 100 Unit/Ml 3 Ml Vial) 0 unit SUBCUT QIDACHS [facility]; Protocol Last Admin: 10/18/25 11:34 Dose: 2 unit Documented By: OMAIRA Levothyroxine Sodium (Levothyroxine Sodium 100 Mcg Tablet) 100 mcg PO DAILY@0600 [facility] Last Admin: 10/18/25 05:31 Dose: 100 mcg Documented By: JONO Lidocaine (Lidocaine 4 % Patch Adh..Patch) 1 patch TRANSDERMA DAILY [facility]; Protocol Last Admin: 10/18/25 11:35 Dose: 1 patch Documented By: OMAIRA Loratadine (Loratadine 10 Mg Tablet) 10 mg PO BID PRN PRN Reason: Allergy Symptoms Magnesium Hydroxide (Milk Of Magnesia 30 Ml Oral.Susp) 30 ml PO DAILY PRN PRN Reason: Constipation Melatonin (Melatonin 3 Mg Tablet) 6 mg PO BEDTIME PRN PRN Reason: Insomnia Pharmacy Consult (Consult Rx Vancomycin Dosing) 1 each MISCELLANE DAILY PRN PRN Reason: Consult order Sodium Chloride (0.9 % Sodium Chloride Flush 3 Ml Syringe) 3 ml IVFLUSH QSHIFT [facility] Last Admin: 10/18/25 09:51 Dose: 3 ml Documented By: OMAIRA Tizanidine HCl (Tizanidine Hcl 4 Mg Tablet) 2 mg PO BEDTIME PRN PRN Reason: muscle spasticity Triamcinolone Acetonide (Triamcinolone Acet 0.1 % Cream 15 Gm Tube) 1 appl TOPICAL BID PRN PRN Reason: skin irritation Vitamin D (Cholecalciferol (Vitamin D3) 25 Mcg Tablet) 25 mcg PO DAILY [facility] Last Admin: 10/18/25 09:51 Dose: 25 mcg Documented By: OMAIRA Labs 10/17/25 04:09 10/18/25 11:44 Labs: Laboratory Results - last 24 hr 10/17/25 10/17/25 10/18/25 16:15 20:37 07:15 Estim Creat Clear Calc Estimated GFR POC Glucose 158 H 165 H 138 H 10/18/25 10/18/25 10:56 11:44 Estim Creat Clear Calc 70.0 Estimated GFR > 60 POC Glucose 166 H Microbiology Microbiology Results: Microbiology 10/17/25 Unknown Urine Culture - Preliminary Urine clean catch No growth to date. 10/16/25 20:56 Blood Culture - Preliminary Blood - Venous No growth after 24 hours. 10/16/25 20:28 Blood Culture - Preliminary Blood - Venous No growth after 24 hours. Assessment and Plan (1) Pyelonephritis: Status: Acute Assessment and Plan: 75 y/o woman who presents with: Sepsis secondary to bilateral pyelonephritis. empiric IV antibiotic therapy with Zosyn. Supportive therapy with fluids. Blood cultures X2 neg@24hrs. Check urine culture and check tick-borne disease pending. WBC improving Discussed with the Urology, continue IV antibiotics, for hydronephrosis continue to monitor outpatient id eval. Hyponatremia, very mild; likely due to p.o. intake. Received IV fluid, improved. Type 2 diabetes mellitus. Hold metformin. Insulin sliding scale for now. Diabetic diet. Hypothyroidism. Check TSH. Continue levothyroxine. Hyperlipidemia. Continue statin. Chronic allergies. Continue home meds. Hx vaginal bleeding + bladder prolapse. F/U as an outpatient. Code status: Full DVT prophylaxis: Lovenox ongoing hospitalization for systemic inflammatory response syndrome of unknown etiology treatment with supportive therapy and close monitoring of vital signs. Quality Stroke Does the patient have a stroke diagnosis?: No VTE Prior VTE?: No VTE Risk Level:: Medical - moderate - high VTE Device Contraindication: Treatment Not Indicated VTE Drug Contraindication: N/A - Med Ordered
[2025-10-18 16:10] LABS: Glucose, Whole Blood 110 mg/dL (60-115)
[2025-10-18 20:35] LABS: Glucose, Whole Blood 164 mg/dL (60-115)
[2025-10-19] MEDS: 0.9 % Sodium Chloride Flush 3 ML SYRINGE IVFLUSH (01:08)
[2025-10-19 04:00] VITALS: BP 101/52; PULSE 53; RESP 16; TEMP 36.3; O2SAT 98
[2025-10-19 07:38] LABS: Creatinine Clr Calc Pharmacy 67.0; Estimated Glomerular Filt Rate > 60
[2025-10-19 08:00] VITALS: BP 120/68; PULSE 60; RESP 18; TEMP 36.2; O2SAT 98
[2025-10-19 08:11] LABS: Glucose, Whole Blood 107 mg/dL (60-115)
[2025-10-19] MEDS: Lidocaine 4 % Patch ADH..PATCH 1 PATCH TRANSDERMA (10:35)
[2025-10-19] MEDS: Ferrous Sulfate 324 MG TABLET.DR PO (10:35)
[2025-10-19 11:49] LABS: Glucose, Whole Blood 160 mg/dL (60-115)
[2025-10-19 12:00] VITALS: BP 115/64; PULSE 69; RESP 18; TEMP 36.5; O2SAT 98
[2025-10-19] MEDS: Sulfamethox/Trimeth 800/160 TABLET 1 TAB PO (12:07)
--- NOTE | 2025-10-19 12:40 | P.DS_ITS ---
DS: Providers Provider Date of admission: 10/16/25 23:39 Date of discharge: 10/19/25 Primary care physician: Marco Martinez MD Attending physician on discharge: Emile Kauffman Discharging clinician: Emile Kauffman DS: Diagnosis Discharge Diagnosis (1) Pyelonephritis: Status: Acute DS: Summary Hospital Course Hospital Course: HPI:75 years old woman with past medical history significant for type 2 diabetes on metformin, hyperlipidemia, hypothyroidism and chronic allergies presents to the emergency department complaining of dizziness. She also complained check back and bladder pain. She does have problems with urinary incontinence. She did not report any urination or blood in urine. She denied nausea, vomiting or diarrhea. She did not report any acute respiratory symptoms such as nasal congestion, cough or shortness on breath. She also reports poor appetite. Daughter mentioned that patient has been having problems with vaginal bleeding and follow as an outpatient for this but has not have any biopsy yet. She was found to have a bladder prolapse. She denied current vaginal bleeding. They denied any recent procedure. Daughter noted a little area in her left leg that looks like an insect bite. In the ED, she was initially found to have sinus tachycardia and fever of 101.0. Blood pressure has been stable. Last BP is 103/49. Oxygen saturation is normal on room air. Blood workup showed leukocytosis of 16.7. Neutrophils are elevated. Hemoglobin is 11.4, hematocrit 35.4 and platelets 377. There are no significant electrolyte imbalances except for mild hyponatremia 133. CO2 is 20. There is no lactic acidosis. LFTs are normal. Troponin is <2.7. UA is essentially normal, there is trace leukocyte esterase and blood. Viral testing for COVID-19, RSV and influenza is negative. CXR showed no acute findings. ECG showed normal sinus rhythm. ED tx: NS 2 L bolus total, ceftriaxone 1 g IV and acetaminophen 974 mg IV Hospital course: Patient was admitted to the hospital because of possible sepsis secondary to bilateral pyelonephritis: ct abd:Findings consistent with bilateral pyelonephritis. Mild bilateral hydronephrosis.Possible cystitis: Patient was started on IV Zosyn, IV fluid and blood cultures sent. With the above management patient seems to be improved significantly, leukocytosis and fever also improved significantly.. Seen by urologist recommended outpatient follow-up and antibiotics for pyelonephritis. Blood culture negative @48hrs and urine culture this admission seems negative, patient came with symptoms of pyelonephritis as well as imaging shows also possible pyelonephritis so patient will benefit from treatment discussed with the patient in detail-past culture MRSA and Klebsiella in the urine-both sensitive to Bactrim. Patient was placed on Bactrim upon discharge, patient has already received antibiotics for 2 today's, complete Bactrim for 10 more days. Follow-up with the Urology outpatient. plan: Complete Bactrim for 10 days as prescribed. Follow up with Urology outpatient for further management. patient will be going with vna Above management discussed with the patient's daughter miss au detail length she understand and in agreement with the above plan, time spent 50 minute. Time Attestation Total time managing care of this patient today: 50 mintues. Discharge Coordination Time (in mins): 50 min Quality: Safe Use of Opioids Does Pt have an Active Cancer Diagnosis on the Problem List?: No Quality: Stroke Does the patient have a stroke diagnosis?: No Physical Exam Exam: Exam: Appearance: Alert.? Oriented X3.? cvs: [id number], [id number]. res: clear to auscultation ,no rhonchii or wheezing abd: no rebound or guarding ,nt, bs present. suprpubic discomfort ext pulses present , no cyanosis . neuro: axo3 , nonfocal. Vital Signs: Vital Signs: Last Vital Signs Temp 97.7 F 10/19/25 12:00 Pulse 69 10/19/25 12:00 Resp 18 10/19/25 12:00 BP 115/64 10/19/25 12:00 Pulse Ox 98 10/19/25 12:00 O2 Del Method Room Air 10/19/25 12:00 BMI result Body Mass Index 30.3 DS: Data Data Completed and Pending Labs on day of discharge: Laboratory Results - last 24 hr 10/18/25 10/18/25 10/18/25 15:47 16:06 20:31 Hold Purple Top Creatinine Estim Creat Clear Calc Estimated GFR POC Glucose 110 164 H Random Vancomycin 12.7 L 10/19/25 10/19/25 10/19/25 06:20 06:59 08:04 Hold Purple Top SEE NOTE Creatinine 0.72 Estim Creat Clear Calc 67.0 Estimated GFR > 60 POC Glucose 107 Random Vancomycin 10/19/25 11:45 Hold Purple Top Creatinine Estim Creat Clear Calc Estimated GFR POC Glucose 160 H Random Vancomycin Preliminary micro results at discharge 10/16/25 20:56 Blood Culture - Preliminary Blood - Venous No growth after 48 hours. 10/16/25 20:28 Blood Culture - Preliminary Blood - Venous No growth after 48 hours. Imaging Chest x-ray: My impression: ct abd: Findings consistent with bilateral pyelonephritis. Mild bilateral hydronephrosis.Possible cystitis. Nonemergent/incidental findings above. Discharge Plan Discharge Anticipated Discharge Date/Time: 10/19/25 12:29 Patient Disposition: Home, Self-Care Discharge Diagnosis: uti /pyelonephritis Referrals: Marco Martinez MD [Primary Care Provider, Internal Medicine] - 1 Week Discharge Medications: New sulfamethoxazole-trimethoprim 800-160 mg Tablet 1 tab PO Q12H Qty: 20 0RF Continued (DME) lancets [OneTouch UltraSoft Lancets] Misc See Rx Instructions .ROUTE .MEDSUPPLY Qty: 100 0RF Rx Instructions: As directed- In Vitro twice a day (DME) shower chair with back See Rx Instructions .Route .MEDSUPPLY Qty: 1 0RF Rx Instructions: As directed (DME) gloves (Medium) See Rx Instructions .Route .MEDSUPPLY Qty: 3 11RF Rx Instructions: As directed (DME) personal wipes See Rx Instructions .Route .MEDSUPPLY Qty: 3 8RF Rx Instructions: As directed (DME) bladder control pads See Rx Instructions .Route .MEDSUPPLY Qty: 3 8RF Rx Instructions: As directed (DME) rollator walker See Rx Instructions .Route .MEDSUPPLY Qty: 1 0RF Rx Instructions: As directed ascorbic acid (vitamin C) [Vitamin C] 500 mg tablet 500 mg PO DAILY Qty: 90 3RF atorvastatin 40 mg tablet 40 mg PO BEDTIME 90 Days Qty: 90 1RF ferrous fumarate 324 mg (106 mg iron) tablet 324 mg PO DAILY 90 Days Qty: 90 1RF metformin 500 mg tablet 500 mg PO TID Qty: 270 3RF cyanocobalamin (vitamin B-12) 1,000 mcg tablet 1,000 mcg PO DAILY Qty: 90 3RF betamethasone valerate 0.1 % cream 1 appl topical BID PRN (Reason: skin irritation) 30 Days Qty: 45 0RF cholecalciferol (vitamin D3) 25 mcg (1,000 unit) capsule 25 mcg PO DAILY Qty: 90 3RF tizanidine 2 mg tablet 2 mg PO BEDTIME PRN (Reason: muscle spasticity) Qty: 30 0RF calcium carbonate-vitamin D3 [Calcium 500 With D] 500 mg-10 mcg (400 unit) tablet 1 tab PO BID Qty: 180 3RF cetirizine 10 mg tablet 20 mg PO BID PRN (Reason: Allergy Symptoms) levothyroxine [Synthroid] 100 mcg tablet 100 mcg PO DAILY@0600 lidocaine 5 % adhesive patch,medicated 1 patch topical DAILY PRN (Reason: Pain) Rx Instructions: leave on most painful area for up to 12 hrs epinephrine [EpiPen 2-Mark] 0.3 mg/0.3 mL auto-injector 0.3 mg IM Q10M PRN (Reason: anaphylaxis) Qty: 2 0RF Rx Instructions: for 2 doses turmeric-turmeric ext-pepper 500-3 mg capsule 1 cap PO DAILY omalizumab 150 mg/mL syringe 300 mg subcut Q2W Discharge Orders: Discharge Order (Routine); Ordered 10/19/25 Ordered By: Emile Kauffman Diet: Advance to usual diet Activity on Discharge: As tolerated Stand Alone Forms: Patient Portal Discharge page Print Language: [place] Care Plan Goals: plan: Complete Bactrim for 10 days as prescribed. Follow up with Urology outpatient for further management. Health Concerns: As above. Plan of Treatment: As above. Assessment: As above. Discharge Date/Time: 10/19/25 13:55
--- NOTE | 2025-10-19 13:49 | MHC.CM.PN ---
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
--- NOTE | 2025-10-19 14:53 | P.F2F_ITS ---
Service Date Service Date: 10/19/25 Encounter Date of encounter: 10/19/25 Encounter: uti Reasons for Services Signs and symptoms assessed: Any worsening of symptoms fever or dysuria or abdominal pain. Reason for nursing home: medication management, medication treatment and teach disease management MD Overseeing Care: Marco Martinez Homebound: Leaving the home is medically contraindicated at this time without the asist of a device and/or another person due th the listed conditions above and below. Reason homebound: weakness related to hospital stay Homebound supporting statement: Patient is generalised weak post hospitlisation and need help with going to appointments and medical management,labs . Certification: Based on the above findings, I certify that this patient is confined to the home and needs intermittent nursing home care, physical therapy and/or speech therapy, or continues to need occupational therapy. The patient is under my care, and I have initiated the establishment of the plan of care. The patient will be followed by a physician who will periodically review the plan of care. Time Spent With Patient Time: Total time managing care of this patient today ____ minutes.
--- NOTE | 2025-10-19 16:32 | P.CDIM_ITS ---
PROVIDER RESPONSE TEXT: To clarify, the appropriate diagnosis supported by the clinical indicators: Acute QUERY TEXT: PHYSICIAN'S DOCUMENTATION REQUEST Date of Query: 10/19/2025 08:01 AM EST Patient Name: Yaneli Morris Admit Date: 10/17/2025 Dear Emile Kauffman MD, A review of the medical record indicates additional documentation may be needed. Please review below and update the documentation accordingly. Clinical Indicators: bladder pain IV Zosyn, IVF UC pending bilateral pyelonephritis Clarify which of the following accurately represents the acuity of the Pyelonephritis. Possible options might include: Acute Acute on chronic Compensated Chronic stable condition Remission Other (explain) Clinically unable to determine (explain) Thank you, Veronica Jacome RN Use of terms such as suspected, likely, concern for, or probable (associated with a specific diagnosis that is being evaluated, monitored, or treated as if it exists) are acceptable and can be coded in the inpatient setting, when documented at the time of discharge. Please use your independent medical judgment in providing your response. THIS QUERY IS PART OF THE PERMANENT MEDICAL RECORD
[2025-10-19 22:43] LABS: A. Phagocytphilium DNA,RT-PCR NOT DETECTED (NOT DETECTED); Babesia Microti DNA, RT-PCR NOT DETECTED (NOT DETECTED); Borrelia Miyamotoi,DNA RT-PCR NOT DETECTED (NOT DETECTED); E.Chaffeensis DNA RT-PCR NOT DETECTED (NOT DETECTED); Lyme(Borrelia ssp)DNA RT-PCR NOT DETECTED (NOT DETECTED)
== END 2025-10-19 13:55 | disposition home or self-care (01) | DRG 872 ==
LOC: HO.ED 23:50 → HO.EDOVER 10-17 00:46 → HO.IMC 10-17 07:48
PROVIDERS: Admitting Provider Internal Medicine; Emergency Provider Emergency Medicine Emergency Medical Services; PCP Internal Medicine; Visit Provider Internal Medicine
DX: A41.9 Sepsis, unspecified organism (principal); E87.1 Hypo-osmolality and hyponatremia; N13.6 Pyonephrosis; E78.5 Hyperlipidemia, unspecified; E03.9 Hypothyroidism, unspecified; Z20.822 Contact with and (suspected) exposure to COVID-19; Z87.440 Personal history of urinary (tract) infections; Z79.84 Long term (current) use of oral hypoglycemic drugs; Z79.620 Long term (current) use of immunosuppressive biologic; Z79.890 Hormone replacement therapy; Z79.899 Other long term (current) drug therapy
CPT/HCPCS: 36415; 71045; 74177; 80048; 80053; 80202; 81001; 82565; 82947; 83605; 83735; 84443; 84484; 85025; 87040; 87086; 87468; 87469; 87478; 87484; 87637; 87798; 93005; 99285; J0696; J2543; J3373; J3374; J7120; Q9967

== ENCOUNTER → 2025-10-16 20:21 | Outpatient (BNV) | payer OTHER, SELFPAY | PROVIDERS: Admitting Provider Internal Medicine; Emergency Provider Emergency Medicine Emergency Medical Services; PCP Internal Medicine; Visit Provider Internal Medicine Cardiovascular Disease | DX: R94.31 Abnormal electrocardiogram [ECG] [EKG] (principal); R42 Dizziness and giddiness | CPT/HCPCS: 93010 ==

== ENCOUNTER → 2025-10-16 23:39 | Outpatient (BNV) | payer OTHER, SELFPAY | PROVIDERS: Admitting Provider Internal Medicine; Emergency Provider Emergency Medicine Emergency Medical Services; PCP Internal Medicine; Visit Provider Urology | DX: N13.30 Unspecified hydronephrosis (principal) | CPT/HCPCS: 99222 ==

== ENCOUNTER → 2025-10-16 23:39 | Outpatient (BNV) | payer OTHER, SELFPAY | PROVIDERS: Admitting Provider Internal Medicine; Emergency Provider Emergency Medicine Emergency Medical Services; PCP Internal Medicine; Visit Provider Internal Medicine | DX: A41.9 Sepsis, unspecified organism (principal); N12 Tubulo-interstitial nephritis, not specified as acute or chronic | CPT/HCPCS: 99223; 99232; 99499 ==

== ENCOUNTER 2025-10-22 10:15 | Outpatient (AMB) | payer OTHER, SELFPAY ==
--- OUTSIDE RECORDS SUMMARY | 2024-11-04 05:20 | XMS_ITS ---
Author Organization [facility] Address [address] [address] Care Team Providers Care Print Production Manager Name Role Phone Marco Comer Primary Care Provider CHANDA Rodriguez [facility] [phone] REASON FOR VISIT NEED INSURANCE INFORMATION Encounters Encounter Location Date Provider Diagnosis [facility] [facility] [address] [facility] Floor 1 [place] [address] 11/04/2024 CHANDA SAMUEL Plan Of Treatment No Information Progress Notes * Yaneli MORRISDOB:[birth year] (75 yo F)Acc No.[id number]:11/04/2024 Progress Notes Patient: Yaneli Torres Provider: Deniz Samuel MD :1950 A ge:74 Y S ex:Female Date:11/04/2024 Address:[address] [place] [address] Pcp:Marco Comer Subjective: * Chief Complaints: * N EED INSURANCE INFORMATION * Electronic signature of CHANDA SAMUEL M.D. on 10/22/2025 at 12:40 PM EST Sign off status: Pending * Provider: Deniz Samuel MD Date: Generated for Milton gonzalez/Tato/Calvinitting on: 12/23/2024 12:40 PM EST
--- NOTE | 2025-10-22 10:20 | A.OFFVIS_ITS ---
Vital Signs 10/22/25 10:28 Height 5 ft Weight 160 lb BMI 31.2 BP 116/74 Intake Visit Reasons: pessary check Corporate Quality Engineer Required: Yes Corporate Quality Engineer Language: Genetic Engineer Services: Corporate Quality Engineer Present (n person) Corporate Quality Engineer Name: Tita BRAVO Information Interpreted: non-clinical & clinical Harbor Pilot: Harbor Pilot Present (Tita BRAVO) Accompanied by: Daughter Allergies No Known Allergies Allergy (Verified 10/22/25 10:31) Post menopausal: Yes HPI Comments Details: Is presenting for follow-up no complaints no vaginal bleeding or discharge. The patient was seen by Urogynecology at [facility] is scheduled for surgical treatment [facility] Medical History Hypothyroidism Multinodular goiter Prosthetic eye globe Lumbar back pain with radiculopathy affecting right lower extremity Anemia Frequent falls Dizziness Carpal tunnel syndrome, bilateral Mixed hyperlipidemia Obesity (BMI 30-39.9) Memory impairment Osteoarthritis of both hands Vitamin B12 deficiency Vitamin D deficiency Primary osteoarthritis of both knees Osteopenia Asthma Chronic idiopathic urticaria Acquired hypothyroidism Benign essential hypertension Diabetes mellitus without complication Surgical History H/O colonoscopy Status post carpal tunnel release (~06/02/21) Tubal ligation status Hx of section History of total right knee replacement (~2012) Family History Father No problems noted. 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 Cognitive needs: Yes (cane ) Hearing needs: No Vision needs: Yes (glasses ) Review of Systems Const All systems reviewed & are unremarkable except as noted in HPI and below Physical Exam Vital Signs: Last Vital Signs BP 116/74 10/22/25 10:28 BMI result Body Mass Index 31.2 General: Yes no CVA tenderness External Female Exam: normal external appearance and normal appearance of the urethra Speculum Exam - Vagina: abnormal appearance of the vagina (Healing in progress not completely resolved ), normal palpation, no lesions and no masses Speculum Exam - Cervix: normal appearance of the cervix, normal palpation, no lesions, no masses and nontender Bimanual exam- vagina & uterus: normal bimanual exam, normal palpation, uterine size normal, normal palpation, uterine shape normal, No Cervical tenderness present and non-tender Bimanual Exam- Adnexa, other: normal adnexae Back/Spine/Pelvis Back: no CVA tenderness Assessment & Plan Assessment & Plan (1) Female cystocele: Comment: With central abrasion Code(s): N81.10 - Cystocele, unspecified Category: Medical Plan: Discussed with the patient the finding on pelvic exam healing in progress not completely resolved, recommended follow-up with Urogynecology as instructed. All questions answered, the patient verbalized understanding Coding Level of Care Code Est Pt Level 3 (92061) Diagnoses Female cystocele N81.10
[2025-10-22 10:28] VITALS: BP 116/74; BMI 31.2
--- OUTSIDE RECORDS SUMMARY | 2025-10-22 12:41 | XMS_ITS | Encounter Summary ---
Author Organization [facility] Address [address] [place] [id number] Phone Care Team Providers Care Passenger Agent Name Role Phone Marco Martinez MD Primary Care Provider [phone] Reason for Referral * Physical Therapy (Routine) - Closed Specialty Diagnoses / Procedures Referred By Harini lopez Referred To Contact Physical Therapy Diagnoses Encounter for rehabilitation System, Provider Not In, PhD [id number] [place] [address] [address] [place] [address] Phone: tel: Referral ID Status Reason Start Date Expiration Date Visits Re quested Visits Authorized [id number] Closed 01/17/2018 01/17/2019 1 1 Encounter Details Date Type Department Care Team (Latest Contact Info) Description 01/17/2018 Transcribe Orders [facility] [address] [place] [id number] Jennifer Williamson CNM [address] [place] [id number] Encounter for rehabilitation (Primary Dx) Social History [...] Diagnoses Orde r Schedule Ambulatory referral to [facility] Physical Therapy Outpatient Referral Routine Encounter for rehabilitation Ordered: 01/17/2018 documented as of this encounter Visit Diagnoses Diagnosis Encounter for rehabilitation- Primary documented in this encounter Care Teams Passenger Agent Relationship Specialty Start Date End Date Marco Martinez MD [address] [place] [address] Dr Lawler [address] [place] [phone] PCP - General Internal Medicine 01/17/18 documented as of this encounter Additional Source Comments The information contained in this document represents components of the legal health record. It is not the complete legal health record.[facility]
--- OUTSIDE RECORDS SUMMARY | 2025-10-22 12:41 | XMS_ITS | Clinical Summary ---
Author Organization [facility] Address [address] [place] [phone] Phone Care Team Providers Care Business Practices Officer Name Role Phone Marco Martinez MD Primary Care Provider [phone] Social History Tobacco Use Types Packs/Day Years [...] REPLACEMENT MEDICARE REPLACEMENT MEDICARE REPLACEMENT [place] [address] [place] [address] MEDICARE REPLACEMENT MEDICARE REPLACEMENT [place] [address] [place] [address] MEDICARE REPLACEMENT [facility] MEDICARE REPLACEMENT Care Teams Business Practices Officer Relationship Specialty Start Date End Date Marco Martinez MD [address] [place] [phone] PCP - General Internal Medicine 01/17/18 Additional Source Comments The information contained in this document represents components of the legal health record. It is not the complete legal health record.[facility]
--- OUTSIDE RECORDS SUMMARY | 2025-10-22 12:41 | XMS_ITS | Patient Health Record ---
Author Organization [facility] Address [address] [facility] [address] [place] [address] Care Team Providers Care Machine Biller Name Role Phone Marco Comer Primary Care Provider Unavail CHANDA [facility] [phone] Reason For Referral No Information Encounters Encounter Location Date Provider Diagnosis [facility] [address] [place] [address] 11/04/2024 CHANDA SAMUEL Plan Of Treatment No Information
== END 2025-10-22 11:17 | disposition home or self-care (01) ==
LOC: HO.HWS 10:16
PROVIDERS: PCP Internal Medicine; Visit Provider Obstetrics & Gynecology
DX: N81.10 Cystocele, unspecified (principal)
CPT/HCPCS: 99213

== ENCOUNTER → 2025-10-22 10:15 | Outpatient (BNVA) | payer OTHER, SELFPAY | PROVIDERS: PCP Internal Medicine; Visit Provider Obstetrics & Gynecology | DX: N81.10 Cystocele, unspecified (principal) | CPT/HCPCS: 99212 ==